=== PATIENT | female | born 1960 | race African-American/Black ===

== ENCOUNTER 2017-11-30 09:42 | Inpatient (IN) | payer OTHER ==
[2017-11-30] MEDS ORDERED: SODIUM CHLORIDE 1,000 ML IV STA (09:59)
[2017-11-30] MEDS ORDERED: chlordiazePOXIDE HCL 25 MG CAPSULE PO ONE ×2 (09:59→21:36)
--- NOTE | 2017-11-30 10:03 | PDOC ---
History of Present Illness - General Chief Complaint: Seizure Stated Complaint: Seizure Time Seen by Provider: 11/30/17 09:51 History Source: Patient, Family - History of Present Illness Timing/Duration: other (this am) Associated Symptoms: reports: malaise, seizure. denies: chest pain, cough, fever/chills, headaches, nausea/vomiting, shortness of breath Past History - Past Medical History Allergies/Adverse Reactions: Allergies Allergy/AdvReac Type Severity Reaction Status Date / Time No Known Allergies Allergy Verified 11/30/17 09:51 Home Medications: Ambulatory Orders Unobtainable 11/30/17 COPD: No HTN: Yes Psychiatric Problems: Yes Other medical history: open heart surgery - Immunization History Immunization Up to Date: Yes - Suicide/Smoking/Psychosocial Hx Smoking History: Never smoked Substance Use Type: None Review of Systems - Review of Systems Constitutional: No: Chills, Fever Respiratory: No: Shortness of Breath Cardiac (ROS): No: Chest Pain ABD/GI: No: Nausea, Vomiting Neurological: Yes: Seizure, Dizziness. No: Headache Psychiatric: Yes: Anxiety *Physical Exam - Vital Signs Last Vital Signs Temp Pulse Resp BP Pulse Ox 98.3 F 116 H 20 112/74 96 11/30/17 09:48 11/30/17 09:48 11/30/17 09:48 11/30/17 09:48 11/30/17 09:48 - Physical Exam Comments: 11/30/17 10:02 Patient lying on stretcher with generalized tremors and appears anxious at this time General Appearance: Yes: Appropriately Dressed HEENT: positive: Normal Voice Neck: positive: Supple Respiratory/Chest: positive: Lungs Clear, Normal Breath Sounds. negative: Respiratory Distress Cardiovascular: positive: S1, S2, Tachycardia Gastrointestinal/Abdominal: positive: Soft. negative: Tender Extremity: positive: Normal Inspection Integumentary: positive: Dry, Warm Neurologic: positive: Fully Oriented, Alert, Other (appears anxious) ED Treatment Course - LABORATORY CBC & Chemistry Diagram: 11/30/17 10:09 11/30/17 12:03 - RADIOLOGY Radiology Studies Ordered: Category Date Time Status HEAD CT WITHOUT CONTRAST [CT] Stat CT Scan 11/30/17 10:00 Ordered Medical Decision Making - Medical Decision Making 11/30/17 10:01 57-year-old female, history of DM, COPD and still smokes, alcohol and cocaine abuse, brought in by EMS after called to report seizure this a.m. Family at bedside and states patient was found on bathroom floor and shaking all over, unsure how long seizures lasted. States pt appears much more alert now. No h/o seizures. Pt states she does not remember what happened at home. Reports feeling nervous and dizzy currently. No CHOW, blurry vision, focal weakness, CP or SOB. Last ETOH intake was several hrs ago per pt. Patient states she drinks beers daily. Reports that she is not compliant with any of her meds. See exam New onset seizures Possible related to ETOH withdrawal Tachy to 130s w/ clear chest/lungs otherwise, non-focal in ED -IVF -ativan (no IV valium available) -librium -ekg -labs -CT head -admit 11/30/17 12:56 11/30/17 13:13 Labs w/ multiple electrolyte derangements including hypocalcemia with calcium of 6.9 (corrected 7.2), sodium of 118 and potassium of 2.3. EKG w/ QTc of 560. IV fluid and electrolyte repletion in progress. White count of 16, source unclear and this time, UA and chest x-ray pending. Patient requesting food at this time. Will contact back tender pulp drier 11/30/17 13:[address] Huggins and patient accepted to ICU. Will arrange admission with Dr Saucedo *DC/Admit/Observation/Transfer Diagnosis at time of Disposition: Seizure, ETOH abuse, Electrolyte abnormality - Discharge Dispostion Condition at time of disposition: Fair Decision to Admit order: Yes - Referrals - Patient Instructions - Post Discharge Activity
--- NOTE | 2017-11-30 10:32 | PDOC ---
*Physical Exam - Vital Signs Last Vital Signs Temp Pulse Resp BP Pulse Ox 98.3 F 116 H 20 112/74 96 11/30/17 09:48 11/30/17 09:48 11/30/17 09:48 11/30/17 09:48 11/30/17 09:48 ED Treatment Course - LABORATORY CBC & Chemistry Diagram: 12/02/17 06:00 12/04/17 09:50 Medical Decision Making - Medical Decision Making 11/30/17 10:32 Ms Thomas is a 57 yo F h/o depression, CAD, s/p seizure Pt appears to be in alcohol withdrawal Pt seen by Midlevel Provider under my direct supervision Pt interviewed and examined Ancillary studies reviewed EKG: SR, rate of 94 vpm, [place] nml, intervals prolonged - QTc: 560, prominent T waves, RSR', no RBBB I agree with plan as outlined by Midlevel Provider 11/30/17 11:23 *DC/Admit/Observation/Transfer Diagnosis at time of Disposition: Seizure, ETOH abuse, Electrolyte abnormality - Discharge Dispostion Disposition: HOME Condition at time of disposition: Fair - Prescriptions - Referrals - Patient Instructions - Post Discharge Activity
[2017-11-30] MEDS ORDERED: chlordiazePOXIDE HCL 25 MG CAPSULE ONE ×2 (10:59→22:34)
[2017-11-30 12:34] LABS: BASO % 0.3 % (0-2.0); EOS % 0.1 % (0-4.5); HEMATOCRIT 34.5 % (32.4-45.2); HEMOGLOBIN 11.8 GM/dL (10.7-15.3); LYMPH % 9.2 % (8-40); MCH 31.9 pg (25.7-33.7); MCHC 34.3 g/dl (32.0-36.0); MEAN CELL VOLUME 93.1 fl (80-96); MEAN PLT VOLUME 9.2 fl (7.5-11.1); MONO % 10.2 % (3.8-10.2); NEUT % 80.2 % (42.8-82.8); PLATELET COUNT 245 K/MM3 (134-434); RBC 3.71 M/mm3 (3.60-5.2); RDW 14.5 % (11.6-15.6); WHITE BLOOD COUNT 16.6 K/mm3 (4.0-10.0)
[2017-11-30 12:56] LABS: ALBUMIN 3.6 g/dl (3.4-5.0); ANION GAP 15 (8-16); BILIRUBIN,TOTAL 0.7 mg/dL (0.2-1.0); BLOOD UREA NITROGEN 3 mg/dL (7-18); CHLORIDE 79 mmol/L (98-107); CO2 24 mmol/L (21-32); CREATININE 0.5 mg/dL (0.55-1.02); GLUCOSE,RANDOM 121 mg/dL (74-106); LIPASE 90 U/L (73-393); SGOT/AST 40 U/L (15-37); SGPT/ALT 24 U/L (12-78); TOT PROT 7.8 g/dl (6.4-8.2)
[2017-11-30 12:57] LABS: ALK PHOS 90 U/L (45-117)
[2017-11-30 13:03] LABS: CALCIUM 6.9 mg/dL (8.5-10.1); POTASSIUM 2.3 mmol/L (3.5-5.1); SODIUM 118 mmol/L (136-145)
[2017-11-30] MEDS ORDERED: SODIUM CHLORIDE 500 ML IV STA (13:07)
[2017-11-30] MEDS ORDERED: CALCIUM GLUCONATE 10% - 1,000 MG/10 ML VIAL IVPUSH ONE (13:13)
[2017-11-30] MEDS ORDERED: POTASSIUM CHLORIDE ORAL LIQUID 20 MEQ/15 ML ONE ×2 (13:45→17:02)
[2017-11-30] MEDS: POTASSIUM CHLORIDE ORAL LIQUID 20 MEQ/15 ML PO ONE ×3 (14:06→18:35)
[2017-11-30] MEDS ORDERED: ONDANSETRON 4 MG/2 ML VIAL IVPUSH ONE (14:13)
[2017-11-30] MEDS ORDERED: ONDANSETRON 4 MG/2 ML VIAL ONE (14:23)
[2017-11-30] MEDS ORDERED: KCL 10 MEQ IVPB 30 MEQ/300 ML INFUS.BAG IVPB ONE (14:53)
[2017-11-30] MEDS: KCL 10 MEQ IVPB 10 MEQ/100 ML INFUS.BAG IVPB SCH ×3 (14:55→16:44)
--- NOTE | 2017-11-30 16:31 | EKG ---
Test Reason : Blood Pressure : / mmHG Vent. Rate : 094 BPM Atrial Rate : 094 BPM P-R Int : 152 ms QRS Dur : 090 ms QT Int : 448 ms P-R-T Axes : 077 070 074 degrees QTc Int : 560 ms NORMAL SINUS RHYTHM RSR' OR QR PATTERN IN V1 SUGGESTS RIGHT VENTRICULAR CONDUCTION DELAY VOLTAGE CRITERIA FOR LEFT VENTRICULAR HYPERTROPHY NONSPECIFIC ST ABNORMALITY PROLONGED QT ABNORMAL ECG WHEN COMPARED WITH ECG OF 17-MAR-2011 22:52, T WAVE AMPLITUDE HAS INCREASED IN INFERIOR LEADS NONSPECIFIC T WAVE ABNORMALITY NO LONGER EVIDENT IN ANTERIOR LEADS Confirmed by WATSON MCCLELLAN MD ([id number]) on 11/30/2017 4:31:10 PM Referred By: Confirmed By:WATSON MCCLELLAN MD
[2017-11-30] MEDS ORDERED: ACETAMINOPHEN 325 MG TABLET (FP) PO PRN (17:53)
--- NOTE | 2017-11-30 18:03 | HP ---
Admitting History and Physical - Primary Care Physician PCP: Jorge Saucedo - Admission History of Present Illness: 57-year-old female, history of DM, COPD and still smokes, alcohol and cocaine abuse, brought in by EMS after called to report seizure this a.m. Family at bedside and states patient was found on bathroom floor and shaking all over, unsure how long seizures lasted. States pt appears much more alert now. No h/o seizures. Pt states she does not remember what happened at home. Reports feeling nervous and dizzy currently. No CHOW, blurry vision, focal weakness, CP or SOB. Last ETOH intake was several hrs ago per pt. Patient states she drinks beers daily. Reports that she is not compliant with any of her meds. d/d New onset seizures Possible related to ETOH withdrawal - Past Medical History Pulmonary: Yes: COPD Endocrine: Yes: Diabetes Mellitus - Smoking History Smoking history: Never smoked Home Medications - Allergies Allergies/Adverse Reactions: Allergies Allergy/AdvReac Type Severity Reaction Status Date / Time No Known Allergies Allergy Verified 11/30/17 09:51 - Home Medications Home Medications: Ambulatory Orders Nicotine Polacrilex [Nicorelief -] 2 mg BUC Q2H PRN #10 gum 12/03/17 Vitamins (Sjr) - 1 tab PO DAILY #30 tablet 12/03/17 Thiamine HCl [Vitamin B1 -] 100 mg PO HS #30 tablet 12/03/17 Physical Examination Vital Signs: Vital Signs Temperature 98.3 F 11/30/17 15:00 Pulse Rate 88 11/30/17 15:00 Respiratory Rate 16 11/30/17 15:00 Blood Pressure 118/77 11/30/17 15:00 O2 Sat by Pulse Oximetry (%) 100 11/30/17 15:00 Constitutional: Yes: No Distress HENT: Yes: Atraumatic Neck: Yes: Supple Cardiovascular: Yes: Regular Rate and Rhythm Respiratory: Yes: Rhonchi Gastrointestinal: Yes: Normal Bowel Sounds Extremities: Yes: WNL Neurological: Yes: Alert, Oriented Labs: CBC, BMP 11/30/17 10:09 11/30/17 12:03 Problem List - Problems (1) ETOH abuse Assessment/Plan: will observe for withdrawl detox consult librium protocol Code(s): F10.10 - ALCOHOL ABUSE, UNCOMPLICATED (2) Electrolyte abnormality Assessment/Plan: replace Code(s): E87.8 - OTH DISORDERS OF ELECTROLYTE AND FLUID BALANCE, NEC (3) Seizure Assessment/Plan: monitor seizure precautions neuro on board probably alcohol withdrawl seizures Code(s): R56.9 - UNSPECIFIED CONVULSIONS (4) Hyponatremia Assessment/Plan: probably causing seizures will replace Code(s): E87.1 - HYPO-OSMOLALITY AND HYPONATREMIA (5) Alcohol dependence with uncomplicated withdrawal Code(s): F10.230 - ALCOHOL DEPENDENCE WITH WITHDRAWAL, UNCOMPLICATED Assessment/Plan Laboratory Tests 11/30/17 11/30/17 11/30/17 10:09 12:03 12:03 WBC 16.6 H RBC 3.71 Hgb 11.8 Hct 34.5 MCV 93.1 MCH 31.9 MCHC 34.3 RDW 14.5 Plt Count 245 MPV 9.2 Neutrophils % 80.2 Lymphocytes % 9.2 Monocytes % 10.2 Eosinophils % 0.1 Basophils % 0.3 Nucleated RBC % 0 Sodium 118 L* Potassium 2.3 L* Chloride 79 L Carbon Dioxide 24 Anion Gap 15 BUN 3 L Creatinine 0.5 L Creat Clearance w eGFR > 60 Random Glucose 121 H Calcium 6.9 L* Total Bilirubin 0.7 AST 40 H ALT 24 Alkaline Phosphatase 90 Total Protein 7.8 Albumin 3.6 Lipase 90 Alcohol, Quantitative < 5.0 Active Medications Generic Name Dose Route Start Last Admin Trade Name Freq PRN Reason Stop Dose Admin Acetaminophen 650 mg 11/30/17 17:53 Tylenol - PO Q6H PRN FEVER Active Medications Generic Name Dose Route Start Last Admin Trade Name Freq PRN Reason Stop Dose Admin Acetaminophen 650 mg 11/30/17 17:53 Tylenol - PO Q6H PRN FEVER Chlordiazepoxide HCl 25 mg 12/01/17 23:00 Librium - PO 12/02/17 17:01 [id number] LISSETT Chlordiazepoxide HCl 15 mg 12/02/17 23:00 Librium - PO 12/03/17 17:01 [id number] LISSETT Chlordiazepoxide HCl 25 mg 11/30/17 21:36 Librium - PO 12/03/17 21:35 Q4H PRN WITHDRAWAL(CONT SUBST) Sodium Chloride 1,000 mls @ 100 mls/hr 12/01/17 13:00 12/01/17 13:07 Normal Saline - IV 100 mls/hr ASDIR LISSETT Administration Ondansetron HCl 4 mg 11/30/17 21:38 Zofran Odt - SL Q6H PRN NAUSEA AND/OR VOMITING Multivit/Folic Acid/Iron 1 tab 12/01/17 10:00 12/01/17 13:08 Vitamins (Sjr) - PO 1 tab DAILY LISSETT Administration Thiamine HCl 100 mg 11/30/17 22:00 11/30/17 22:44 Vitamin B1 - PO 100 mg HS LISSETT Administration
--- NOTE | 2017-11-30 18:21 | CON.ID ---
Consult Consult Specialty:: infectious diseases Reason for Consultation:: pneumonia,weakness,aspiration - History of Present Illness Chief Complaint: weakness and ams History of Present Illness: 57 year old female with pmhx of DM, COPD, etoh abuse, cocain use, and active smoking who presents to the ER after called EMS. she was found in the bathroom shaking. According to the things happened suddenly . She is an active alcoholic. She drinks about 6 to 22 ounce bottles of beer daily and whiskey. Her sister is at bedside and was able to confirm the etoh use. according to the family he mentions that the thought that this episode happened suddenly and before that the patient was perfectly fine according to the family she vomited couple of time says 4- 5 - History Source History Provided By: Family Member Limitations to Obtaining History: Clinical Condition - Past Medical History Pulmonary: Yes: COPD Endocrine: Yes: Diabetes Mellitus - Smoking History Smoking history: Never smoked Home Medications - Allergies Allergies/Adverse Reactions: Allergies Allergy/AdvReac Type Severity Reaction Status Date / Time No Known Allergies Allergy Verified 11/30/17 09:51 - Home Medications Home Medications: Ambulatory Orders Unobtainable 11/30/17 Review of Systems - Review of Systems Constitutional: reports: No Symptoms Eyes: reports: No Symptoms HENT: reports: No Symptoms Neck: reports: No Symptoms Cardiovascular: reports: No Symptoms Respiratory: reports: No Symptoms Gastrointestinal: reports: Vomiting Genitourinary: reports: No Symptoms Musculoskeletal: reports: No Symptoms Integumentary: reports: No Symptoms Neurological: reports: Seizure (suspected) Hematology/Lymphatic: reports: No Symptoms Psychiatric: reports: No Symptoms Physical Exam Vital Signs: Vital Signs Temperature 98.3 F 11/30/17 15:00 Pulse Rate 88 11/30/17 15:00 Respiratory Rate 16 11/30/17 15:00 Blood Pressure 118/77 11/30/17 15:00 O2 Sat by Pulse Oximetry (%) 100 11/30/17 15:00 Constitutional: Yes: Well Nourished, No Distress, Calm Eyes: Yes: Conjunctiva Clear Neck: Yes: Supple, Trachea Midline Cardiovascular: Yes: Regular Rate and Rhythm Respiratory: Yes: Regular, Poor Air Entry Gastrointestinal: Yes: Normal Bowel Sounds, Soft Musculoskeletal: Yes: WNL Extremities: Yes: WNL Neurological: Yes: Alert Psychiatric: Yes: Alert Labs: CBC, BMP 11/30/17 10:09 11/30/17 12:03 Imaging - Results Chest X-ray: Report Reviewed, Image Reviewed Cat Scan: Report Reviewed, Image Reviewed Assessment/Plan this patient coming with suspicion of seizure and vomiting with ams the worry is if the patient has aspirated though the patient looks clinically stable also her electrolytes are abnormal hyponatremia etoh abuse smoker cocaine abuse probable seizure r/o aspiration pna leukocytosis plan will start patient on abx hydration monitor wbc closely monitor mental status if patient starts improving will deescalate abx clinically follow as per icu and primary cc time 40 min
[2017-11-30] MEDS: PIPERACILLIN/TAZOB 3.375 GM 3.375 GM in DEXTROSE 5%-WATER - 50 ML IVPB SCH ×2 (18:36→19:50)
[2017-11-30] MEDS ORDERED: PIPERACILLIN/TAZOB 3.375 GM 3.375 GM/50 ML BAG IVPB ONE (18:42)
--- NOTE | 2017-11-30 21:31 | CONSULT ---
Consult Detox [facility] Reason for Current Admission/Consult: substance use Referred by:: Praveen hernandez - Past Medical History Pulmonary: Yes: COPD Endocrine: Yes: Diabetes Mellitus Assessment Plan - Diagnosis (1) Alcohol dependence with uncomplicated withdrawal Status: Acute (2) Urinary tract infection Status: Acute (3) Electrolyte abnormality Status: Acute (4) Hyponatremia Status: Acute (5) Seizure Status: Acute (6) Malnourished Status: Acute - Plan Plan: chart, imagain, labs reviewed. 57 yo f admitted with possible new onset seizures, etiology unclear but h/o alcohol use disorder with severe hyponatremia, hypokalemia, hypabluminemia, hypomagnesemia, abnormal u/a on admission. Recommend: 1. saline rehydration, vitamins, libirum detox as ordered. 2. supplement k and mg, patient has prolonged qtc and is at risk of torsade with these electrolyte abnormalities. 3, severely malnourished, ensure plus, dietary consult. 4. if medically stable consider inpatient rehab vs outpatient on discharge for alcohol use 5. abnormal u/a - send urine culture consider antibiotics if symptomatic. - Medication Detox Regimen/Protocol: Librium
[2017-11-30] MEDS ORDERED: chlordiazePOXIDE HCL 25 MG CAPSULE PO PRN (21:36)
[2017-11-30] MEDS ORDERED: ONDANSETRON *ODT* 4 MG TABLET SL PRN (21:38)
[2017-11-30] MEDS ORDERED: POTASSIUM CHLORIDE TABS 20 MEQ TABLET.ER (FP) PO SCH (22:00)
--- NOTE | 2017-11-30 22:10 | PN ---
Progress Note (short form) - Note Progress Note: [facility]: Called to see pt for admission to ICU for ETOH withdrawal, possible sz. Spoke with pt at bedside, she is awake, alert to person, place, does not recall all events surrounding coming to ED. It is reported (no family at bedside) that pt was found in bathroom shaking. She does not have known sz disorder, the activity today is not well described (how long? tonic clonic? incontinence?). Pt sent to ED, she was normothermic, normotensive, without distress. There was concern that pt was in acute etoh w/d as apparently drinks daily and uses cocaine. + tob as well. . ETOH level was < 50. Pt given ativan 2mg and librium 50. There was no further sz activity. Labs notable for wbc of 16 but no localizing symptoms: no cough, no shortness of breath, no dysuria, no fever, no N/v/d. CK elevated at 900 but Cr wnl. Trop 0.40. Na 118, K 2.3 (repletion given) . CMP repeat pending, however there has been issues with chemistry lab machine. The accuracy of labs are in questiona and repeat labs going to [place] for analysis. On exam pt is awake, alert, hemodynamically stable. She is not tremulous, not tachycardic. She has no tongue fasciculation. She is normothermic and her skin is dry. CIWA is 2. She does not appear is acute withdrawal. She has not required significant dosing. Pt needs repeat BMP to recheck Na and K, enroute to [facility]. An EKG and repeat trop are also pending. Her hemodynamics are stable. Her Na should not be corrected > 10 in 24hrs, it is unclear the chronicity, and may even be spurious , has yet to be rechecked. Suspect due to ETOH/free water consumption. No indication this is SIADH or volume overload. She is not altered. If repeat labs are without rising Trop, if hyponatremia was spurious/incorrect due to lab error, if she remains hemodynamically stable, and if she has low CIWA and not needing high levels of benzodiazapime she can be mananged on floor. Laboratory Last Values WBC 16.6 K/mm3 (4.0-10.0) H 11/30/17 10:09 RBC 3.71 M/mm3 (3.60-5.2) 11/30/17 10:09 Hgb 11.8 GM/dL (10.7-15.3) 11/30/17 10:09 Hct 34.5 % (32.4-45.2) 11/30/17 10:09 MCV 93.1 fl (80-96) 11/30/17 10:09 MCH 31.9 pg (25.7-33.7) 11/30/17 10:09 MCHC 34.3 g/dl (32.0-36.0) 11/30/17 10:09 RDW 14.5 % (11.6-15.6) 11/30/17 10:09 Plt Count 245 K/MM3 (134-434) 11/30/17 10:09 MPV 9.2 fl (7.5-11.1) 11/30/17 10:09 Neutrophils % 80.2 % (42.8-82.8) 11/30/17 10:09 Lymphocytes % 9.2 % (8-40) 11/30/17 10:09 Monocytes % 10.2 % (3.8-10.2) 11/30/17 10:09 Eosinophils % 0.1 % (0-4.5) 11/30/17 10:09 Basophils % 0.3 % (0-2.0) 11/30/17 10:09 Nucleated RBC % 0 % (0-0) 11/30/17 10:09 Sodium 118 mmol/L (136-145) L* 11/30/17 12:03 Potassium 2.3 mmol/L (3.5-5.1) L* 11/30/17 12:03 Chloride 79 mmol/L (98-107) L 11/30/17 12:03 Carbon Dioxide 24 mmol/L (21-32) 11/30/17 12:03 Anion Gap 15 (8-16) 11/30/17 12:03 BUN 3 mg/dL (7-18) L 11/30/17 12:03 Creatinine 0.5 mg/dL (0.55-1.02) L 11/30/17 12:03 Creat Clearance w eGFR > 60 (>60) 11/30/17 12:03 Random Glucose 121 mg/dL (74-106) H 11/30/17 12:03 Calcium 6.9 mg/dL (8.5-10.1) L* 11/30/17 12:03 Total Bilirubin 0.7 mg/dL (0.2-1.0) 11/30/17 12:03 AST 40 U/L (15-37) H 11/30/17 12:03 ALT 24 U/L (12-78) 11/30/17 12:03 Alkaline Phosphatase 90 U/L (45-117) 11/30/17 12:03 Creatine Kinase 920 IU/L (26-192) H 11/30/17 12:03 Troponin I 0.40 ng/ml (0.00-0.05) H 11/30/17 12:03 Total Protein 7.8 g/dl (6.4-8.2) 11/30/17 12:03 Albumin 3.6 g/dl (3.4-5.0) 11/30/17 12:03 Lipase 90 U/L (73-393) 11/30/17 12:03 Alcohol, Quantitative < 5.0 mg/dL (0.0-5.0) 11/30/17 12:03 [place] [facility] [id number]
[2017-11-30] MEDS ORDERED: POTASSIUM CHLORIDE TABS 20 MEQ TABLET.ER (FP) PO ONE (22:34)
[2017-11-30] MEDS: THIAMINE HCL 100 MG TABLET (FP) PO SCH (22:44)
[2017-11-30] MEDS: chlordiazePOXIDE HCL 25 MG CAPSULE PO SCH (23:02)
[2017-12-01] MEDS ORDERED: chlordiazePOXIDE HCL 25 MG CAPSULE ONE (00:10)
[2017-12-01 02:35] LABS: BLOOD UREA NITROGEN 6 mg/dl (7-18); CREATININE < 0.8 mg/dl (0.6-1.3); GLUCOSE,RANDOM 83 mg/dl (74-106); SODIUM 113 mmol/L (136-145)
[2017-12-01 02:36] LABS: ALBUMIN 3.8 g/dl (3.5-5.0); ALK PHOS 76 U/L (32-92); ANION GAP 10 (8-16); BILIRUBIN,TOTAL 0.6 mg/dl (0.2-1.0); CALCIUM 8.8 mg/dl (8.4-10.2); CHLORIDE 78 mmol/L (98-107); CO2 25 mmol/L (22-28); POTASSIUM 4.5 mmol/L (3.5-5.1); SGOT/AST 69 U/L (10-42); SGPT/ALT 25 U/L (10-40); TOT PROT 7.6 g/dl (6.4-8.3)
[2017-12-01] MEDS: PIPERACILLIN/TAZOB 3.375 GM 3.375 GM in DEXTROSE 5%-WATER - 50 ML IVPB SCH ×2 (03:00→10:13)
[2017-12-01] MEDS ORDERED: PIPERACILLIN/TAZOB 3.375 GM 3.375 GM/50 ML BAG IVPB ONE (03:21)
--- NOTE | 2017-12-01 05:05 | CONSULT ---
Consult - text type - Consultation Consultation Note: [facility] Pt seen and examined in ED CC: possible sz, hyponatremia HPI: (hx obtained from pt and medical record) Pt is a 57 y/o woman with reported ETOH and other illicits use abuse who was brought to ED via EMS after having possible sz, found to have hyponatremia, mild rhabdo, and possible etoh withdrawal. In ED pt was afebrile, normotensive, without distress, she was awake, alert to person, place, does not recall all events surrounding coming to ED. It is reported (no family at bedside) that pt was found in bathroom shaking. She does not have known sz disorder, the activity today is not well described (how long? tonic clonic? incontinence?). There was concern that pt was in acute etoh w/d as apparently drinks daily and uses cocaine. + tob as well. . ETOH level was < 50. Pt given ativan 2mg IV and librium 50mg PO. There was no further sz activity. Labs notable for wbc of 16 but no localizing symptoms: no cough, no shortness of breath, no dysuria, no fever, no N/v/d. Her CK elevated at 900 but Cr was wnl. Trop 0.40. Na 118, K 2.3 (repletion given). CMP repeat pending, however there has been issues with chemistry lab machine. The accuracy of lab was questionable as machine was apparently breaking down and repeat labs sent to [facility] for analysis. Repeat Na at 113 after 1500cc of normal saline, increasing concern for SIADH, (normal Cr, BUN low, awaiting urine electrolytes) On exam pt is awake, alert, hemodynamically stable. She is not tremulous, not tachycardic. She has no tongue fasciculation. She is normothermic and her skin is dry. CIWA is 2. She does not appear is acute withdrawal. She has not required significant dosing of benzodiazapines. Trop downtrending. Na dropping after 0.9% NS. Leukocytosis likely reactive. Past Medical History Pulmonary COPD Endocrine Diabetes Mellitus Smoking History Smoking history Never smoked +ETOH, + Cocaine Independent in ADLs Ambulatory Orders Unobtainable 11/30/17, unable to relate med she takes. Relates non compliance. Active Medications Acetaminophen (Tylenol -) 650 mg PO Q6H PRN PRN Reason: FEVER Chlordiazepoxide HCl (Librium -) 50 mg PO [id number] LISSETT Stop: 12/01/17 17:01 Last Admin: 11/30/17 23:02 Dose: 50 mg Chlordiazepoxide HCl (Librium -) 25 mg PO [id number] LISSETT Stop: 12/02/17 17:01 Chlordiazepoxide HCl (Librium -) 15 mg PO [id number] LISSETT Stop: 12/03/17 17:01 Chlordiazepoxide HCl (Librium -) 25 mg PO Q4H PRN PRN Reason: WITHDRAWAL(CONT SUBST) Stop: 12/03/17 21:35 Piperacillin Sod/Tazobactam (Sod 3.375 gm/ Dextrose) 50 mls @ 100 mls/hr IVPB Q8H-IV LISSETT; Protocol Last Admin: 12/01/17 03:00 Dose: 100 mls/hr Ondansetron HCl (Zofran Odt -) 4 mg SL Q6H PRN PRN Reason: NAUSEA AND/OR VOMITING Potassium Chloride (K-Dur -) 20 meq PO BID LISSETT Last Admin: 11/30/17 22:44 Dose: 20 meq Multivit/Folic Acid/Iron ( Vitamins (Sjr) -) 1 tab PO DAILY [facility] Thiamine HCl (Vitamin B1 -) 100 mg PO HS [facility] Last Admin: 11/30/17 22:44 Dose: 100 mg CBCD WBC 16.6 K/mm3 (4.0-10.0) H 11/30/17 10:09 RBC 3.71 M/mm3 (3.60-5.2) 11/30/17 10:09 Hgb 11.8 GM/dL (10.7-15.3) 11/30/17 10:09 Hct 34.5 % (32.4-45.2) 11/30/17 10:09 MCV 93.1 fl (80-96) 11/30/17 10:09 MCHC 34.3 g/dl (32.0-36.0) 11/30/17 10:09 RDW 14.5 % (11.6-15.6) 11/30/17 10:09 Plt Count 245 K/MM3 (134-434) 11/30/17 10:09 MPV 9.2 fl (7.5-11.1) 11/30/17 10:09 CMP Sodium 113 mmol/L (136-145) L* 11/30/17 22:40 Potassium 4.5 mmol/L (3.5-5.1) 11/30/17 22:40 Chloride 78 mmol/L (98-107) L 11/30/17 22:40 Carbon Dioxide 25 mmol/L (22-28) 11/30/17 22:40 Anion Gap 10 (8-16) 11/30/17 22:40 BUN 6 mg/dl (7-18) L 11/30/17 22:40 Creatinine < 0.8 mg/dl (0.6-1.3) 11/30/17 22:40 Creat Clearance w eGFR > 60 (>60) 11/30/17 22:40 Random Glucose 83 mg/dl (74-106) 11/30/17 22:40 Calcium 8.8 mg/dl (8.4-10.2) 11/30/17 22:40 Total Bilirubin 0.6 mg/dl (0.2-1.0) 11/30/17 22:40 AST 69 U/L (10-42) H 11/30/17 22:40 ALT 25 U/L (10-40) 11/30/17 22:40 Alkaline Phosphatase 76 U/L (32-92) 11/30/17 22:40 Total Protein 7.6 g/dl (6.4-8.3) 11/30/17 22:40 Albumin 3.8 g/dl (3.5-5.0) 11/30/17 22:40 CARDIAC ENZYMES Creatine Kinase 1923 IU/L (26-192) H 11/30/17 22:10 Troponin I 0.22 ng/ml (0.00-0.06) H 11/30/17 22:10 Vital Signs Temp 98.3 F 11/30/17 15:00 Pulse 106 H 12/01/17 03:34 Resp 20 12/01/17 03:34 BP 133/89 12/01/17 03:34 Pulse Ox 99 12/01/17 03:34 Intake & Output 11/30/17 11/30/17 12/01/17 11:59 23:59 11:59 Intake Total 1650 Balance 1650 Weight 72.575 kg Intake: IV 1500 Normal Saline - 1,000 ml 1000 @ 1000 mls/hr IV ASDIR STA Rx#:[id number] Normal Saline - 500 ml @ 500 500 mls/hr IV ASDIR STA Rx#:[id number] IVPB 150 Other: Voiding Method Diaper # Unmeasured Voids Void 3 Height 5 ft 4 in Body Mass Index (BMI) 27.4 Weight Measurement Method Est/Stated by Patient ROS: negative except as per HPI EKG reviewed, no acute ischemic changes, prolonged QTC 540, RSR V1 CXR reviewed, no focal infiltrate CTH: mild to moderate volume loss no infarct, no ICH PE: Gen: non toxic appearing woman, appears older than stated age, LINDA HENT: EOMI, non icteric, no nystagmus PULM: clear, no wheezes CV: RRR, no m/r/g appreciated ABD: soft, NT, no apparent hepatsplenomegaly EXT: minimal edema, 2+ pulses Neuro: awakens easily, Oriented to time, place, person, does not recall events. 5/5 all 4 ext, non focal ---No signs of ETOH withdrawal A/ 57 y/o woman with hx of ETOH and per report cocaine use presented with possible seizure, found to have rhabdo, hyponatremia not responsive to normal saline c/f siadh of unclear cause vs beer potomania P/ -nephrology consulted -Na correct by 10meq/24hrs, the report sz is not clearly described and pt no longer altered -if mental status changes/Sz due to HypoNa then needs 3% hypertonic -may simply respond to diuretics and 0.9 repletion -Chem lab is now back working so will be able check serial CMB and other chems/ cont to check CK -check urine and serum osm, TSH -fluid restrict -please send UTOX -no indication for abx -consider abd US -SQH, no indication for GI proph -ICU monitoring. Haroon ACNP [id number] 35min CCT Critical Care Total Critical Care Time (in minutes): 35 Critical Care Statement: The care of this patient involved high complexity decision making to prevent further life threatening deterioration of the patient 's condition and/or to evaluate & treat vital organ system(s) failure or risk of failure.
[2017-12-01] MEDS: chlordiazePOXIDE HCL 25 MG CAPSULE PO SCH ×4 (05:48→22:34)
[2017-12-01 06:33] LABS: URINE APPEARANCE SLCLOUDY; URINE BILIRUBIN NEGATIVE (<2.0 mg/dL); URINE COLOR LTYELLOW; URINE GLUCOSE (UA) NEGATIVE (NEGATIVE); URINE KETONE TRACE (NEGATIVE); URINE NITRITE NEGATIVE (NEGATIVE); URINE PROTEIN NEGATIVE (NEGATIVE); URINE UROBILINOGEN NEGATIVE mg/dL (0.2-1.0)
[2017-12-01] MEDS ORDERED: PNEUMOC 13-VAL CONJ-DIP CRM/PF 0.5 ML DISP.SYRIN IM ONE (06:45)
[2017-12-01 06:49] LABS: COCAINE, UR NEGATIVE ng/ml (CUTOFF=300); METHADONE, UR NEGATIVE ng/ml (CUTOFF=300); OPIATES, URI NEGATIVE ng/ml (CUTOFF=300); PHENCYCLIDINE,URINE NEGATIVE ng/ml (CUTOFF=25); URINE AMPHETAMINES NEGATIVE ng/ml (CUTOFF=500); URINE BARBITURATES NEGATIVE ng/ml (CUTOFF=200)
[2017-12-01 06:50] LABS: URINE BENZODIAZEPINES POSITIVE ng/ml (CUTOFF=200)
[2017-12-01 06:57] LABS: URINE LEUK ESTERASE 3+ (NEGATIVE)
[2017-12-01 07:46] LABS: BASO % 0.4 % (0-2.0); EOS % 0.4 % (0-4.5); HEMATOCRIT 33.7 % (32.4-45.2); HEMOGLOBIN 11.3 GM/dL (10.7-15.3); LYMPH % 13.2 % (8-40); MCH 31.2 pg (25.7-33.7); MCHC 33.6 g/dl (32.0-36.0); MEAN PLT VOLUME 8.6 fl (7.5-11.1); MONO % 9.1 % (3.8-10.2); NEUT % 76.9 % (42.8-82.8); PLATELET COUNT 248 K/MM3 (134-434); RBC 3.62 M/mm3 (3.60-5.2); RDW 14.9 % (11.6-15.6); WHITE BLOOD COUNT 12.2 K/mm3 (4.0-10.0)
[2017-12-01 08:15] LABS: ALBUMIN 3.4 g/dl (3.4-5.0); BILIRUBIN,DIRECT 0.3 mg/dL (0.0-0.2); BILIRUBIN,TOTAL 0.8 mg/dL (0.2-1.0); MAGNESIUM 1.7 mg/dL (1.8-2.4); PHOSPHOROUS 2.9 mg/dL (2.5-4.9); TOT PROT 7.8 g/dl (6.4-8.2)
[2017-12-01 08:22] LABS: EPI CELLS RARE /HPF (FEW)
[2017-12-01 08:35] LABS: CHLORIDE 82 mmol/L (98-107); POTASSIUM 4.3 mmol/L (3.5-5.1)
[2017-12-01 08:49] LABS: ALBUMIN 3.4 g/dl (3.4-5.0); ALK PHOS 84 U/L (45-117); ANION GAP 12 (8-16); BILIRUBIN,TOTAL 0.8 mg/dL (0.2-1.0); BLOOD UREA NITROGEN 7 mg/dL (7-18); CALCIUM 8.7 mg/dL (8.5-10.1); CO2 23 mmol/L (21-32); CREATININE 0.8 mg/dL (0.55-1.02); GLUCOSE,RANDOM 77 mg/dL (74-106); SGOT/AST 64 U/L (15-37); SGPT/ALT 31 U/L (12-78); TOT PROT 7.9 g/dl (6.4-8.2)
[2017-12-01 08:52] LABS: SODIUM 117 mmol/L (136-145)
--- NOTE | 2017-12-01 09:20 | PN ---
Physical Exam: SUBJECTIVE: Patient seen and examined OBJECTIVE: Vital Signs Period Temp Pulse Resp BP Sys/Canales Pulse Ox Last 24 Hr 98.3 F-99.8 F 88-119 16-20 112-138/72-97 95-100 GENERAL: The patient is awake, alert, and fully oriented, in no acute distress. HEAD: Normal with no signs of trauma. EYES: PERRL, extraocular movements intact, sclera anicteric, conjunctiva clear. No ptosis. ENT: Ears normal, nares patent, oropharynx clear without exudates, moist mucous membranes. NECK: Trachea midline, full range of motion, supple. LUNGS: Breath sounds equal, clear to auscultation bilaterally, no wheezes, no crackles, no accessory muscle use. HEART: Regular rate and rhythm, S1, S2 without murmur, rub or gallop. ABDOMEN: Soft, nontender, nondistended, normoactive bowel sounds, no guarding, no rebound, no hepatosplenomegaly, no masses. EXTREMITIES: 2+ pulses, warm, well-perfused, no edema. NEUROLOGICAL: Cranial nerves II through XII grossly intact. Normal speech, gait not observed. PSYCH: Normal mood, normal affect. SKIN: Warm, dry, normal turgor, no rashes or lesions noted Laboratory Results - last 24 hr 11/30/17 11/30/17 11/30/17 10:09 12:03 12:03 WBC 16.6 H RBC 3.71 Hgb 11.8 Hct 34.5 MCV 93.1 MCH 31.9 MCHC 34.3 RDW 14.5 Plt Count 245 MPV 9.2 Neutrophils % 80.2 Lymphocytes % 9.2 Monocytes % 10.2 Eosinophils % 0.1 Basophils % 0.3 Nucleated RBC % 0 Sodium 118 L* Potassium 2.3 L* Chloride 79 L Carbon Dioxide 24 Anion Gap 15 BUN 3 L Creatinine 0.5 L Creat Clearance w eGFR > 60 Random Glucose 121 H Calcium 6.9 L* Phosphorus Magnesium Total Bilirubin 0.7 Direct Bilirubin AST 40 H ALT 24 Alkaline Phosphatase 90 Creatine Kinase 920 H Creatine Kinase Index 1.8 CK-MB (CK-2) 16.858 H Troponin I 0.40 H Total Protein 7.8 Albumin 3.6 Lipase 90 TSH Urine Color Urine Appearance Urine pH Ur Specific [place] Urine Protein Urine Glucose (UA) Urine Ketones Urine Blood Urine Nitrite Urine Bilirubin Urine Urobilinogen Ur Leukocyte Esterase Urine WBC (Auto) Urine RBC (Auto) Ur Epithelial Cells Ur Random Sodium Ur Random Potassium Ur Random Chloride Opiates Screen Methadone Screen Barbiturate Screen Phencyclidine Screen Ur Amphetamines Screen MDMA (Ecstasy) Screen Benzodiazepines Screen Cocaine Screen U Marijuana (THC) Screen Alcohol, Quantitative < 5.0 11/30/17 11/30/17 11/30/17 22:10 22:10 22:40 WBC RBC Hgb Hct MCV MCH MCHC RDW Plt Count MPV Neutrophils % Lymphocytes % Monocytes % Eosinophils % Basophils % Nucleated RBC % Sodium 113 L* Potassium 4.5 Chloride 78 L Carbon Dioxide 25 Anion Gap 10 BUN 6 L Creatinine < 0.8 Creat Clearance w eGFR > 60 Random Glucose 83 Calcium 8.8 Phosphorus Magnesium Total Bilirubin 0.6 Direct Bilirubin AST 69 H ALT 25 Alkaline Phosphatase 76 Creatine Kinase 1923 H Creatine Kinase Index 0.2 CK-MB (CK-2) 5.1 H Troponin I 0.22 H Total Protein 7.6 Albumin 3.8 Lipase TSH Urine Color Urine Appearance Urine pH Ur Specific [place] Urine Protein Urine Glucose (UA) Urine Ketones Urine Blood Urine Nitrite Urine Bilirubin Urine Urobilinogen Ur Leukocyte Esterase Urine WBC (Auto) Urine RBC (Auto) Ur Epithelial Cells Ur Random Sodium Ur Random Potassium Ur Random Chloride Opiates Screen Methadone Screen Barbiturate Screen Phencyclidine Screen Ur Amphetamines Screen MDMA (Ecstasy) Screen Benzodiazepines Screen Cocaine Screen U Marijuana (THC) Screen Alcohol, Quantitative 12/01/17 12/01/17 12/01/17 05:54 05:54 05:54 WBC RBC Hgb Hct MCV MCH MCHC RDW Plt Count MPV Neutrophils % Lymphocytes % Monocytes % Eosinophils % Basophils % Nucleated RBC % Sodium Potassium Chloride Carbon Dioxide Anion Gap BUN Creatinine Creat Clearance w eGFR Random Glucose Calcium Phosphorus Magnesium Total Bilirubin Direct Bilirubin AST ALT Alkaline Phosphatase Creatine Kinase Creatine Kinase Index CK-MB (CK-2) Troponin I Total Protein Albumin Lipase TSH Urine Color Ltyellow Urine Appearance Slcloudy Urine pH 6.0 Ur Specific [place] 1.009 Urine Protein Negative Urine Glucose (UA) Negative Urine Ketones Trace H Urine Blood 1+ H Urine Nitrite Negative Urine Bilirubin Negative Urine Urobilinogen Negative Ur Leukocyte Esterase 3+ H Urine WBC (Auto) 28 Urine RBC (Auto) 1 Ur Epithelial Cells Rare Ur Random Sodium 8 Ur Random Potassium 23.5 Ur Random Chloride < 10 Opiates Screen Negative Methadone Screen Negative Barbiturate Screen Negative Phencyclidine Screen Negative Ur Amphetamines Screen Negative MDMA (Ecstasy) Screen Negative Benzodiazepines Screen Positive Cocaine Screen Negative U Marijuana (THC) Screen Negative Alcohol, Quantitative 12/01/17 12/01/17 12/01/17 07:25 07:25 07:25 WBC 12.2 H RBC 3.62 Hgb 11.3 Hct 33.7 MCV 93.0 MCH 31.2 MCHC 33.6 RDW 14.9 Plt Count 248 MPV 8.6 Neutrophils % 76.9 Lymphocytes % 13.2 D Monocytes % 9.1 Eosinophils % 0.4 D Basophils % 0.4 Nucleated RBC % 0 Sodium 117 L* Potassium 4.3 Chloride 82 L Carbon Dioxide 23 Anion Gap 12 BUN 7 Creatinine 0.8 Creat Clearance w eGFR > 60 Random Glucose 77 Calcium 8.7 Phosphorus 2.9 Magnesium 1.7 L Total Bilirubin 0.8 0.8 Direct Bilirubin 0.3 H AST 64 H 61 H ALT 31 30 Alkaline Phosphatase 84 86 Creatine Kinase Creatine Kinase Index CK-MB (CK-2) Troponin I Total Protein 7.9 7.8 Albumin 3.4 3.4 Lipase TSH 0.78 Urine Color Urine Appearance Urine pH Ur Specific [place] Urine Protein Urine Glucose (UA) Urine Ketones Urine Blood Urine Nitrite Urine Bilirubin Urine Urobilinogen Ur Leukocyte Esterase Urine WBC (Auto) Urine RBC (Auto) Ur Epithelial Cells Ur Random Sodium Ur Random Potassium Ur Random Chloride Opiates Screen Methadone Screen Barbiturate Screen Phencyclidine Screen Ur Amphetamines Screen MDMA (Ecstasy) Screen Benzodiazepines Screen Cocaine Screen U Marijuana (THC) Screen Alcohol, Quantitative Active Medications Generic Name Dose Route Start Last Admin Trade Name Freq PRN Reason Stop Dose Admin Acetaminophen 650 mg 11/30/17 17:53 Tylenol - PO Q6H PRN FEVER Chlordiazepoxide HCl 50 mg 11/30/17 23:00 12/01/17 05:48 Librium - PO 12/01/17 17:01 50 mg [id number] LISSETT Administration Chlordiazepoxide HCl 25 mg 12/01/17 23:00 Librium - PO 12/02/17 17:01 [id number] LISSETT Chlordiazepoxide HCl 15 mg 12/02/17 23:00 Librium - PO 12/03/17 17:01 [id number] LISSETT Chlordiazepoxide HCl 25 mg 11/30/17 21:36 Librium - PO 12/03/17 21:35 Q4H PRN WITHDRAWAL(CONT SUBST) Piperacillin Sod/Tazobactam 50 mls @ 100 mls/hr 11/30/17 18:30 12/01/17 03:00 Sod 3.375 gm/ Dextrose IVPB 100 mls/hr Q8H-IV LISSETT Administration Protocol Influenza Virus Vaccine Quadrival 60 mcg 12/01/17 06:44 Flulaval Quad [id number] IM 12/01/17 06:45 .ONCE ONE Ondansetron HCl 4 mg 11/30/17 21:38 Zofran Odt - SL Q6H PRN NAUSEA AND/OR VOMITING Pneumococcal 13-Valent Conj Vacc 0.5 ml 12/01/17 06:45 Prevnar 13 Syringe - IM 12/01/17 06:46 .ONCE ONE Potassium Chloride 20 meq 11/30/17 22:00 11/30/17 22:44 K-Dur - PO 20 meq BID LISSETT Administration Multivit/Folic Acid/Iron 1 tab 12/01/17 10:00 Vitamins (Sjr) - PO DAILY LISSETT Thiamine HCl 100 mg 11/30/17 22:00 11/30/17 22:44 Vitamin B1 - PO 100 mg HS LISSETT Administration ASSESSMENT/PLAN: Case d/w
[2017-12-01] MEDS ORDERED: DEXTROSE 5%-WATER - 50 ML IVPB ONE (09:33)
[2017-12-01] MEDS ORDERED: PIPERACILLIN/TAZOBACTAM 3.375 GM VIAL IVPB ONE (09:33)
--- NOTE | 2017-12-01 09:44 | CON.NEURO ---
Consult Consult Specialty:: Neurology Referred by:: Dr. Saucedo Reason for Consultation:: seizure - History of Present Illness Chief Complaint: Seizure History of Present Illness: Pt is a 57 y/o woman with reported ETOH and other illicits use abuse who was brought to ED via EMS after having possible sz, found to have hyponatremia, mild rhabdo, and possible etoh withdrawal. In ED pt was afebrile, normotensive , without distress, she was awake, alert to person, place, does not recall all events surrounding coming to ED. It is reported that pt was found in bathroom shaking. She does not have known sz disorder, the activity today is not well described (how long? tonic clonic? incontinence?). There was concern that pt was in acute etoh w/d as apparently drinks daily and uses cocaine. + tob as well. . ETOH level was < 50. Pt given ativan 2mg IV and librium 50mg PO. There was no further sz activity. Labs notable for wbc of 16 but no localizing symptoms: no cough, no shortness of breath, no dysuria, no fever, no N/v/d. Her CK elevated at 900 but Cr was wnl. Trop 0.40. Na 118, K 2.3 (repletion given). CMP repeat pending, however there has been issues with chemistry lab machine. The accuracy of lab was questionable as machine was apparently breaking down and repeat labs sent to [facility] for analysis. Repeat Na at 113 after 1500cc of normal saline, increasing concern for SIADH, (normal Cr, BUN low, awaiting urine electrolytes) When I interviewed the patient, her sister was at bedside, and later pulled me aside and told me that the patient was underreporting her alcohol inake. she says that she probably drinks 6-7 32 oz bottles of beer every day and may have had an alcohol related seizure in the past. The patient says that she last drank a few days ago. 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: Other (possible seizure in past, unclear) Pulmonary: Yes: COPD ...: No Endocrine: Yes: Diabetes Mellitus - Alcohol/Substance Use Hx Alcohol Use: Yes Number of Drinks Daily: 7 History of Substance Use: reports: Cocaine - Smoking History Smoking history: Current every day smoker Aproximately how many cigarettes per day: 10 Home Medications - Allergies Allergies/Adverse Reactions: Allergies Allergy/AdvReac Type Severity Reaction Status Date / Time No Known Allergies Allergy Verified 11/30/17 09:51 - Home Medications Home Medications: Ambulatory Orders Unobtainable 11/30/17 Physical Exam-Neuro Vital Signs: Vital Signs Temperature 99.8 F H 12/01/17 06:32 Pulse Rate 94 H 12/01/17 06:32 Respiratory Rate 20 12/01/17 06:32 Blood Pressure 114/72 12/01/17 06:32 O2 Sat by Pulse Oximetry (%) 95 12/01/17 06:47 Labs: CBC, BMP 12/01/17 07:25 12/01/17 07:25 - Neuro Exam Level Of Consciousness: Yes: Alert, Oriented to Person, Oriented to Place (she is off by a few days on the date, knows its November 2017 and after mother's day) Eyes: Yes: DAVID Speech: WNL Cranial Nerves II-XII Intact: Yes DTR's: 2+ Left Bicep, 2+ Right Bicep, 2+ Left Tricep, 2+ Right Tricep, 2+ Left Brachioradialis, 2+ Right Brachioradialis Babinski: Absent Response to light touch: Normal Coordination: Normal: Finger to Nose Motor Strength: 5/5: Left Arm, Right Arm, Left Leg, Right Leg Gait: Deferred Imaging - Results Cat Scan: Report Reviewed, Image Reviewed (Mild volume loss, otherwise unremarkable) Problem List - Problems (1) ETOH abuse Code(s): F10.10 - ALCOHOL ABUSE, UNCOMPLICATED (2) Electrolyte abnormality Code(s): E87.8 - OTH DISORDERS OF ELECTROLYTE AND FLUID BALANCE, NEC (3) Seizure Code(s): R56.9 - UNSPECIFIED CONVULSIONS Assessment/Plan Probable alcohol withdrawal seizure. Wouldn't start anticonvulsants at this time. Would debt and budget counselor as to abstinence and polysubstance abuse treatment. She is in denial so her prognosis at this time is guarded. she may need detox if shows signs of active withdrawal. Would give thiamine to avoid Wernickes. suggest MRI brain, epilepsy protocol and EEG, though the EEG can be done as an outpatient. She can follow up with us if desired. Thanks. We'll follow with you while in house.
[2017-12-01] MEDS ORDERED: PRENATAL VITAMINS W/ FOLIC ACID TABLET (FP) PO SCH (10:00)
[2017-12-01] MEDS ORDERED: PNEUMOCOCCAL 23 VACCINE 0.5 ML VIAL IM ONE (11:00)
--- NOTE | 2017-12-01 12:20 | CONSULT ---
Consult Consult Specialty:: Nephrology Reason for Consultation:: hyponatremia - History of Present Illness Chief Complaint: possible seizure History of Present Illness: Pt is a 57 year old female with pmhx of DM, COPD, etoh abuse, cocain use, and active smoking who presents to the ER after called EMS. she was found in the bathroom shaking. She is now awake and alert. She is an active alcoholic. She drinks about 6 to 22 ounce bottles of beer daily and whiskey. Her sister is at bedside and was able to confirm the etoh use. She has very poor po intake. She denies headache or change of vision. She denies shortness of breath. She has appetite. She denies loss of balance. 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, unclear) Pulmonary: Yes: COPD ...: No Endocrine: Yes: Diabetes Mellitus - Alcohol/Substance Use Hx Alcohol Use: Yes Number of Drinks Daily: 7 History of Substance Use: reports: Cocaine - Smoking History Smoking history: Current every day smoker Aproximately how many cigarettes per day: 10 Home Medications - Allergies Allergies/Adverse Reactions: Allergies Allergy/AdvReac Type Severity Reaction Status Date / Time No Known Allergies Allergy Verified 11/30/17 09:51 - Home Medications Home Medications: Ambulatory Orders Unobtainable 11/30/17 Family Disease History - Family Disease History Family History: Denies Review of Systems - Review of Systems Constitutional: reports: No Symptoms Eyes: reports: No Symptoms HENT: reports: No Symptoms Neck: reports: No Symptoms Cardiovascular: reports: No Symptoms Respiratory: reports: No Symptoms Gastrointestinal: reports: No Symptoms Genitourinary: reports: No Symptoms Integumentary: reports: No Symptoms Neurological: reports: No Symptoms Endocrine: reports: No Symptoms Hematology/Lymphatic: reports: No Symptoms Psychiatric: reports: No Symptoms Physical Exam Vital Signs: Vital Signs Temperature 98.4 F 12/01/17 10:00 Pulse Rate 94 H 12/01/17 10:00 Respiratory Rate 24 12/01/17 10:00 Blood Pressure 98/78 12/01/17 10:00 O2 Sat by Pulse Oximetry (%) 95 12/01/17 06:47 Constitutional: Yes: Calm Eyes: Yes: Conjunctiva Clear HENT: Yes: Atraumatic Neck: Yes: Supple Cardiovascular: Yes: S1, S2 Respiratory: Yes: CTA Bilaterally Gastrointestinal: Yes: Soft Renal/: Yes: WNL Musculoskeletal: Yes: WNL Extremities: Yes: WNL Edema: No Neurological: Yes: Oriented Psychiatric: Yes: Oriented Labs: CBC, BMP 12/01/17 07:25 12/01/17 07:25 Laboratory Tests 12/01/17 12/01/17 12/01/17 05:54 07:25 07:30 Sodium 117 L* Potassium 4.3 Chloride 82 L Urine Osmolality 219 L Ur Random Sodium 8 Imaging - Results Chest X-ray: Report Reviewed Cat Scan: Report Reviewed Problem List - Problems (1) Hyponatremia Code(s): E87.1 - HYPO-OSMOLALITY AND HYPONATREMIA (2) ETOH abuse Code(s): F10.10 - ALCOHOL ABUSE, UNCOMPLICATED Assessment/Plan Current Medications Generic Name Dose Route Start Last Admin Trade Name Freq PRN Reason Stop Dose Admin Acetaminophen 650 mg 11/30/17 17:53 Tylenol - PO Q6H PRN FEVER Chlordiazepoxide HCl 50 mg 11/30/17 23:00 12/01/17 10:12 Librium - PO 12/01/17 17:01 50 mg [id number] LISSETT Administration Chlordiazepoxide HCl 25 mg 12/01/17 23:00 Librium - PO 12/02/17 17:01 [id number] LISSETT Chlordiazepoxide HCl 15 mg 12/02/17 23:00 Librium - PO 12/03/17 17:01 [id number] LISSETT Chlordiazepoxide HCl 25 mg 11/30/17 21:36 Librium - PO 12/03/17 21:35 Q4H PRN WITHDRAWAL(CONT SUBST) Piperacillin Sod/Tazobactam 50 mls @ 100 mls/hr 11/30/17 18:30 12/01/17 10:13 Sod 3.375 gm/ Dextrose IVPB 100 mls/hr Q8H-IV LISSETT Administration Protocol Sodium Chloride 1,000 mls @ 100 mls/hr 12/01/17 13:00 12/01/17 13:07 Normal Saline - IV 100 mls/hr ASDIR LISSETT Administration Ondansetron HCl 4 mg 11/30/17 21:38 Zofran Odt - SL Q6H PRN NAUSEA AND/OR VOMITING Multivit/Folic Acid/Iron 1 tab 12/01/17 10:00 12/01/17 13:08 Vitamins (Sjr) - PO 1 tab DAILY LISSETT Administration Thiamine HCl 100 mg 11/30/17 22:00 11/30/17 22:44 Vitamin B1 - PO 100 mg HS LISSETT Administration Impression 1. hyponatremia 2. possible seizure 3. DM 4. COPD 5. etoh abuse - active 6. active smoker 7. cocaine use 8. rhabdo Plan - urine osm is lower than plasma osm and pt has a very low urine sodium - start saline and monitor bmp q 3 hours - avoid a rise of greater than 10 meq in 24 hours - case discussed with ICU this afternoon, I was not called last night - likely etiology of hyponatremia is secondary to beer in take - check tsh level - monitor blood pressure - pt on detox protocol - will follow Dr Loya
[2017-12-01] MEDS ORDERED: FLU VACCINE QUAD 60 MCG/0.5 ML (MDV 17-18) IM ONE (12:45)
--- NOTE | 2017-12-01 12:59 | PN ---
Teaching Attending Note Name of Resident: Eugenia Buck ATTENDING PHYSICIAN STATEMENT I saw and evaluated the patient. I reviewed the resident's note and discussed the case with the resident. I agree with the resident's findings and plan as documented. SUBJECTIVE: Patient seen and examined in the ICU. Awake and alert. No further seizure activity noted. Denies CP or SOB. Not tremulous. Intake & Output 11/28/17 11/29/17 11/30/17 12/01/17 23:59 23:59 23:59 23:59 Intake Total 1650 Balance 1650 Weight 160 lb 107 lb 12.897 oz Last Vital Signs Temp Pulse Resp BP Pulse Ox 98.4 F 94 H 24 98/78 95 12/01/17 10:00 12/01/17 10:00 12/01/17 10:00 12/01/17 10:00 12/01/17 09:00 Active Medications Acetaminophen (Tylenol -) 650 mg PO Q6H PRN PRN Reason: FEVER Chlordiazepoxide HCl (Librium -) 50 mg PO [id number] LSISETT Stop: 12/01/17 17:01 Last Admin: 12/01/17 10:12 Dose: 50 mg Chlordiazepoxide HCl (Librium -) 25 mg PO [id number] LISSETT Stop: 12/02/17 17:01 Chlordiazepoxide HCl (Librium -) 15 mg PO [id number] LISSETT Stop: 12/03/17 17:01 Chlordiazepoxide HCl (Librium -) 25 mg PO Q4H PRN PRN Reason: WITHDRAWAL(CONT SUBST) Stop: 12/03/17 21:35 Piperacillin Sod/Tazobactam (Sod 3.375 gm/ Dextrose) 50 mls @ 100 mls/hr IVPB Q8H-IV LISSETT; Protocol Last Admin: 12/01/17 10:13 Dose: 100 mls/hr Ondansetron HCl (Zofran Odt -) 4 mg SL Q6H PRN PRN Reason: NAUSEA AND/OR VOMITING Multivit/Folic Acid/Iron ( Vitamins (Sjr) -) 1 tab PO DAILY LISSETT Thiamine HCl (Vitamin B1 -) 100 mg PO HS LISSETT Last Admin: 11/30/17 22:44 Dose: 100 mg PE: Gen: non toxic appearing woman, NAD HENT: EOMI, non icteric, no nystagmus PULM: clear, no wheezes CV: RRR, no m/r/g appreciated ABD: soft, NT, no apparent hepatsplenomegaly EXT: minimal edema, 2+ pulses Neuro: Non-focal, awake and alert, no signs of ETOH withdrawal Laboratory Results - last 24 hr 11/30/17 11/30/17 11/30/17 12:03 12:03 22:10 WBC RBC Hgb Hct MCV MCH MCHC RDW Plt Count MPV Neutrophils % Lymphocytes % Monocytes % Eosinophils % Basophils % Nucleated RBC % Sodium 118 L* Potassium 2.3 L* Chloride 79 L Carbon Dioxide 24 Anion Gap 15 BUN 3 L Creatinine 0.5 L Creat Clearance w eGFR > 60 Random Glucose 121 H Serum Osmolality Calcium 6.9 L* Phosphorus Magnesium Total Bilirubin 0.7 Direct Bilirubin AST 40 H ALT 24 Alkaline Phosphatase 90 Creatine Kinase 920 H 1923 H Creatine Kinase Index 1.8 0.2 CK-MB (CK-2) 16.858 H 5.1 H Troponin I 0.40 H Total Protein 7.8 Albumin 3.6 Lipase 90 TSH Urine Color Urine Appearance Urine pH Ur Specific [place] Urine Protein Urine Glucose (UA) Urine Ketones Urine Blood Urine Nitrite Urine Bilirubin Urine Urobilinogen Ur Leukocyte Esterase Urine WBC (Auto) Urine RBC (Auto) Ur Epithelial Cells Urine Osmolality Ur Random Sodium Ur Random Potassium Ur Random Chloride Opiates Screen Methadone Screen Barbiturate Screen Phencyclidine Screen Ur Amphetamines Screen MDMA (Ecstasy) Screen Benzodiazepines Screen Cocaine Screen U Marijuana (THC) Screen Alcohol, Quantitative < 5.0 11/30/17 11/30/17 12/01/17 22:10 22:40 05:54 WBC RBC Hgb Hct MCV MCH MCHC RDW Plt Count MPV Neutrophils % Lymphocytes % Monocytes % Eosinophils % Basophils % Nucleated RBC % Sodium 113 L* Potassium 4.5 Chloride 78 L Carbon Dioxide 25 Anion Gap 10 BUN 6 L Creatinine < 0.8 Creat Clearance w eGFR > 60 Random Glucose 83 Serum Osmolality Calcium 8.8 Phosphorus Magnesium Total Bilirubin 0.6 Direct Bilirubin AST 69 H ALT 25 Alkaline Phosphatase 76 Creatine Kinase Creatine Kinase Index CK-MB (CK-2) Troponin I 0.22 H Total Protein 7.6 Albumin 3.8 Lipase TSH Urine Color Ltyellow Urine Appearance Slcloudy Urine pH 6.0 Ur Specific [place] 1.009 Urine Protein Negative Urine Glucose (UA) Negative Urine Ketones Trace H Urine Blood 1+ H Urine Nitrite Negative Urine Bilirubin Negative Urine Urobilinogen Negative Ur Leukocyte Esterase 3+ H Urine WBC (Auto) 28 Urine RBC (Auto) 1 Ur Epithelial Cells Rare Urine Osmolality Ur Random Sodium Ur Random Potassium Ur Random Chloride Opiates Screen Methadone Screen Barbiturate Screen Phencyclidine Screen Ur Amphetamines Screen MDMA (Ecstasy) Screen Benzodiazepines Screen Cocaine Screen U Marijuana (THC) Screen Alcohol, Quantitative 12/01/17 12/01/17 12/01/17 05:54 05:54 07:25 WBC 12.2 H RBC 3.62 Hgb 11.3 Hct 33.7 MCV 93.0 MCH 31.2 MCHC 33.6 RDW 14.9 Plt Count 248 MPV 8.6 Neutrophils % 76.9 Lymphocytes % 13.2 D Monocytes % 9.1 Eosinophils % 0.4 D Basophils % 0.4 Nucleated RBC % 0 Sodium Potassium Chloride Carbon Dioxide Anion Gap BUN Creatinine Creat Clearance w eGFR Random Glucose Serum Osmolality Calcium Phosphorus Magnesium Total Bilirubin Direct Bilirubin AST ALT Alkaline Phosphatase Creatine Kinase Creatine Kinase Index CK-MB (CK-2) Troponin I Total Protein Albumin Lipase TSH Urine Color Urine Appearance Urine pH Ur Specific [place] Urine Protein Urine Glucose (UA) Urine Ketones Urine Blood Urine Nitrite Urine Bilirubin Urine Urobilinogen Ur Leukocyte Esterase Urine WBC (Auto) Urine RBC (Auto) Ur Epithelial Cells Urine Osmolality Ur Random Sodium 8 Ur Random Potassium 23.5 Ur Random Chloride < 10 Opiates Screen Negative Methadone Screen Negative Barbiturate Screen Negative Phencyclidine Screen Negative Ur Amphetamines Screen Negative MDMA (Ecstasy) Screen Negative Benzodiazepines Screen Positive Cocaine Screen Negative U Marijuana (THC) Screen Negative Alcohol, Quantitative 12/01/17 12/01/17 12/01/17 07:25 07:25 07:30 WBC RBC Hgb Hct MCV MCH MCHC RDW Plt Count MPV Neutrophils % Lymphocytes % Monocytes % Eosinophils % Basophils % Nucleated RBC % Sodium 117 L* Potassium 4.3 Chloride 82 L Carbon Dioxide 23 Anion Gap 12 BUN 7 Creatinine 0.8 Creat Clearance w eGFR > 60 Random Glucose 77 Serum Osmolality 237 L Calcium 8.7 Phosphorus 2.9 Magnesium 1.7 L Total Bilirubin 0.8 0.8 Direct Bilirubin 0.3 H AST 64 H 61 H ALT 31 30 Alkaline Phosphatase 84 86 Creatine Kinase Creatine Kinase Index CK-MB (CK-2) Troponin I Total Protein 7.9 7.8 Albumin 3.4 3.4 Lipase TSH 0.78 Urine Color Urine Appearance Urine pH Ur Specific [place] Urine Protein Urine Glucose (UA) Urine Ketones Urine Blood Urine Nitrite Urine Bilirubin Urine Urobilinogen Ur Leukocyte Esterase Urine WBC (Auto) Urine RBC (Auto) Ur Epithelial Cells Urine Osmolality 219 L Ur Random Sodium Ur Random Potassium Ur Random Chloride Opiates Screen Methadone Screen Barbiturate Screen Phencyclidine Screen Ur Amphetamines Screen MDMA (Ecstasy) Screen Benzodiazepines Screen Cocaine Screen U Marijuana (THC) Screen Alcohol, Quantitative IMP: Severe Hyponatremia (?) Seizure ETOH abuse Cocaine abuse Rhabdomyolysis PLAN: Noted nephrology consult has been called Strict I& O O2 as needed Monitor for withdrawal Low threshold to stop ABX VTE prophylaxis Floor if Na level >120. PO as tolerated Dr Torres Critical care time spent in reviewing chart, evaluating patient and formulating plan - 36 minutes.
[2017-12-01] MEDS ORDERED: SODIUM CHLORIDE 1,000 ML IV SCH ×2 (13:00→21:33)
--- NOTE | 2017-12-01 13:12 | PN ---
Physical Exam: SUBJECTIVE: Patient awake, denies CHOW, nausea, tingling. Sister @ bedside notes patient drinks 8 20 ounce beers daily, and 3 small flasks of whiskey. CAGE 2/ 4. Not interested in detox/rehab at this time. OBJECTIVE: Vital Signs Period Temp Pulse Resp BP Sys/Canales Pulse Ox Last 24 Hr 98.3 F-99.8 F 88-111 16-24 98-138/72-97 95-100 General: awake, A&O x3, euvolemic HEENT: no signs of trauma, PEERL, EOMI CV: S1/S2, no M/R/G Respiratory: CLTA B/L Abdomen: soft, no TTP, (-) asterixis Laboratory Results - last 24 hr 11/30/17 11/30/17 11/30/17 12:03 12:03 22:10 WBC RBC Hgb Hct MCV MCH MCHC RDW Plt Count MPV Neutrophils % Lymphocytes % Monocytes % Eosinophils % Basophils % Nucleated RBC % Sodium 118 L* Potassium 2.3 L* Chloride 79 L Carbon Dioxide 24 Anion Gap 15 BUN 3 L Creatinine 0.5 L Creat Clearance w eGFR > 60 Random Glucose 121 H Serum Osmolality Calcium 6.9 L* Phosphorus Magnesium Total Bilirubin 0.7 Direct Bilirubin AST 40 H ALT 24 Alkaline Phosphatase 90 Creatine Kinase 920 H 1923 H Creatine Kinase Index 1.8 0.2 CK-MB (CK-2) 16.858 H 5.1 H Troponin I 0.40 H Total Protein 7.8 Albumin 3.6 Lipase 90 TSH Urine Color Urine Appearance Urine pH Ur Specific Arthur Urine Protein Urine Glucose (UA) Urine Ketones Urine Blood Urine Nitrite Urine Bilirubin Urine Urobilinogen Ur Leukocyte Esterase Urine WBC (Auto) Urine RBC (Auto) Ur Epithelial Cells Urine Osmolality Ur Random Sodium Ur Random Potassium Ur Random Chloride Opiates Screen Methadone Screen Barbiturate Screen Phencyclidine Screen Ur Amphetamines Screen MDMA (Ecstasy) Screen Benzodiazepines Screen Cocaine Screen U Marijuana (THC) Screen Alcohol, Quantitative < 5.0 11/30/17 11/30/17 12/01/17 22:10 22:40 05:54 WBC RBC Hgb Hct MCV MCH MCHC RDW Plt Count MPV Neutrophils % Lymphocytes % Monocytes % Eosinophils % Basophils % Nucleated RBC % Sodium 113 L* Potassium 4.5 Chloride 78 L Carbon Dioxide 25 Anion Gap 10 BUN 6 L Creatinine < 0.8 Creat Clearance w eGFR > 60 Random Glucose 83 Serum Osmolality Calcium 8.8 Phosphorus Magnesium Total Bilirubin 0.6 Direct Bilirubin AST 69 H ALT 25 Alkaline Phosphatase 76 Creatine Kinase Creatine Kinase Index CK-MB (CK-2) Troponin I 0.22 H Total Protein 7.6 Albumin 3.8 Lipase TSH Urine Color Ltyellow Urine Appearance Slcloudy Urine pH 6.0 Ur Specific Arthur 1.009 Urine Protein Negative Urine Glucose (UA) Negative Urine Ketones Trace H Urine Blood 1+ H Urine Nitrite Negative Urine Bilirubin Negative Urine Urobilinogen Negative Ur Leukocyte Esterase 3+ H Urine WBC (Auto) 28 Urine RBC (Auto) 1 Ur Epithelial Cells Rare Urine Osmolality Ur Random Sodium Ur Random Potassium Ur Random Chloride Opiates Screen Methadone Screen Barbiturate Screen Phencyclidine Screen Ur Amphetamines Screen MDMA (Ecstasy) Screen Benzodiazepines Screen Cocaine Screen U Marijuana (THC) Screen Alcohol, Quantitative 12/01/17 12/01/17 12/01/17 05:54 05:54 07:25 WBC 12.2 H RBC 3.62 Hgb 11.3 Hct 33.7 MCV 93.0 MCH 31.2 MCHC 33.6 RDW 14.9 Plt Count 248 MPV 8.6 Neutrophils % 76.9 Lymphocytes % 13.2 D Monocytes % 9.1 Eosinophils % 0.4 D Basophils % 0.4 Nucleated RBC % 0 Sodium Potassium Chloride Carbon Dioxide Anion Gap BUN Creatinine Creat Clearance w eGFR Random Glucose Serum Osmolality Calcium Phosphorus Magnesium Total Bilirubin Direct Bilirubin AST ALT Alkaline Phosphatase Creatine Kinase Creatine Kinase Index CK-MB (CK-2) Troponin I Total Protein Albumin Lipase TSH Urine Color Urine Appearance Urine pH Ur Specific Arthur Urine Protein Urine Glucose (UA) Urine Ketones Urine Blood Urine Nitrite Urine Bilirubin Urine Urobilinogen Ur Leukocyte Esterase Urine WBC (Auto) Urine RBC (Auto) Ur Epithelial Cells Urine Osmolality Ur Random Sodium 8 Ur Random Potassium 23.5 Ur Random Chloride < 10 Opiates Screen Negative Methadone Screen Negative Barbiturate Screen Negative Phencyclidine Screen Negative Ur Amphetamines Screen Negative MDMA (Ecstasy) Screen Negative Benzodiazepines Screen Positive Cocaine Screen Negative U Marijuana (THC) Screen Negative Alcohol, Quantitative 12/01/17 12/01/17 12/01/17 07:25 07:25 07:30 WBC RBC Hgb Hct MCV MCH MCHC RDW Plt Count MPV Neutrophils % Lymphocytes % Monocytes % Eosinophils % Basophils % Nucleated RBC % Sodium 117 L* Potassium 4.3 Chloride 82 L Carbon Dioxide 23 Anion Gap 12 BUN 7 Creatinine 0.8 Creat Clearance w eGFR > 60 Random Glucose 77 Serum Osmolality 237 L Calcium 8.7 Phosphorus 2.9 Magnesium 1.7 L Total Bilirubin 0.8 0.8 Direct Bilirubin 0.3 H AST 64 H 61 H ALT 31 30 Alkaline Phosphatase 84 86 Creatine Kinase Creatine Kinase Index CK-MB (CK-2) Troponin I Total Protein 7.9 7.8 Albumin 3.4 3.4 Lipase TSH 0.78 Urine Color Urine Appearance Urine pH Ur Specific Arthur Urine Protein Urine Glucose (UA) Urine Ketones Urine Blood Urine Nitrite Urine Bilirubin Urine Urobilinogen Ur Leukocyte Esterase Urine WBC (Auto) Urine RBC (Auto) Ur Epithelial Cells Urine Osmolality 219 L Ur Random Sodium Ur Random Potassium Ur Random Chloride Opiates Screen Methadone Screen Barbiturate Screen Phencyclidine Screen Ur Amphetamines Screen MDMA (Ecstasy) Screen Benzodiazepines Screen Cocaine Screen U Marijuana (THC) Screen Alcohol, Quantitative Active Medications Generic Name Dose Route Start Last Admin Trade Name Freq PRN Reason Stop Dose Admin Acetaminophen 650 mg 11/30/17 17:53 Tylenol - PO Q6H PRN FEVER Chlordiazepoxide HCl 50 mg 11/30/17 23:00 12/01/17 10:12 Librium - PO 12/01/17 17:01 50 mg [id number] LISSETT Administration Chlordiazepoxide HCl 25 mg 12/01/17 23:00 Librium - PO 12/02/17 17:01 [id number] LIS[facility] Chlordiazepoxide HCl 15 mg 12/02/17 23:00 Librium - PO 12/03/17 17:01 [id number] L[facility] Chlordiazepoxide HCl 25 mg 11/30/17 21:36 Librium - PO 12/03/17 21:35 Q4H PRN WITHDRAWAL(CONT SUBST) Piperacillin Sod/Tazobactam 50 mls @ 100 mls/hr 11/30/17 18:30 12/01/17 10:13 Sod 3.375 gm/ Dextrose IVPB 100 mls/hr Q8H-IV L[facility] Administration Protocol Sodium Chloride 1,000 mls @ 100 mls/hr 12/01/17 13:00 Normal Saline - IV ASDIR LIS[facility]T Ondansetron HCl 4 mg 11/30/17 21:38 Zofran Odt - SL Q6H PRN NAUSEA AND/OR VOMITING Multivit/Folic Acid/Iron 1 tab 12/01/17 10:00 Vitamins (Sjr) - PO DAILY LISSETT Thiamine HCl 100 mg 11/30/17 22:00 11/30/17 22:44 Vitamin B1 - PO 100 mg HS LISSETT Administration ASSESSMENT/PLAN: 57 year old female admitted to the ICU for hyponatremia + seizure like activity. Patient currently asymptomatic. # 1. HYPONATREMIA - likely 2/2 to beer potomania - Serum osm + Serum Na low suggesting beer potomania > SIADH - Will start 0.9% IV NaCl @ 100 - q3H Na checks - Continue to monitor closely, plan for 3% pending persistent hyponatremia - Transfer to inpatient medicine floor once Na +/> 120 # 2. RHABDOMYOLYSIS - Likely 2/2 to seizure - IV NS - Continue to monitor CPK # 3. ? H/O SEIZURE - Patient's notes seizure like activity with CPR resuscitation - Neurology evaluated, no inpatient intervention # 4. H/O ALCOHOL ABUSE - CAGE 2 - Denies any h/o DT's - Refusing detoxification/rehabilitation at this time - CIWA 0 - Librium protocol in place Visit type - Emergency Visit Emergency Visit: No - New Patient This patient is new to me today: Yes Date on this admission: 12/01/17 - Critical Care Critical Care patient: No
--- NOTE | 2017-12-01 13:23 | PN ---
Progress Note, Physician History of Present Illness: patient looking much better no complaints sitting comfortably in the bed breathing well - Current Medication List Current Medications: Active Medications Acetaminophen (Tylenol -) 650 mg PO Q6H PRN PRN Reason: FEVER Chlordiazepoxide HCl (Librium -) 50 mg PO [id number] [facility] Stop: 12/01/17 17:01 Last Admin: 12/01/17 10:12 Dose: 50 mg Chlordiazepoxide HCl (Librium -) 25 mg PO [id number] [facility] Stop: 12/02/17 17:01 Chlordiazepoxide HCl (Librium -) 15 mg PO [id number] [facility] Stop: 12/03/17 17:01 Chlordiazepoxide HCl (Librium -) 25 mg PO Q4H PRN PRN Reason: WITHDRAWAL(CONT SUBST) Stop: 12/03/17 21:35 Piperacillin Sod/Tazobactam (Sod 3.375 gm/ Dextrose) 50 mls @ 100 mls/hr IVPB Q8H-IV LISSETT; Protocol Last Admin: 12/01/17 10:13 Dose: 100 mls/hr Sodium Chloride (Normal Saline -) 1,000 mls @ 100 mls/hr IV ASDIR LISSETT Last Admin: 12/01/17 13:07 Dose: 100 mls/hr Ondansetron HCl (Zofran Odt -) 4 mg SL Q6H PRN PRN Reason: NAUSEA AND/OR VOMITING Multivit/Folic Acid/Iron ( Vitamins (Sjr) -) 1 tab PO DAILY [facility] Last Admin: 12/01/17 13:08 Dose: 1 tab Thiamine HCl (Vitamin B1 -) 100 mg PO HS [facility] Last Admin: 11/30/17 22:44 Dose: 100 mg - Objective Vital Signs: Vital Signs Temperature 98.4 F 12/01/17 10:00 Pulse Rate 103 H 12/01/17 12:00 Respiratory Rate 16 12/01/17 12:00 Blood Pressure 106/80 12/01/17 12:00 O2 Sat by Pulse Oximetry (%) 100 12/01/17 12:58 Constitutional: Yes: No Distress, Calm Neck: Yes: Supple, Trachea Midline Cardiovascular: Yes: Regular Rate and Rhythm Respiratory: Yes: Regular, CTA Bilaterally Gastrointestinal: Yes: Normal Bowel Sounds, Soft Musculoskeletal: Yes: WNL Extremities: Yes: WNL Neurological: Yes: Alert, Oriented Psychiatric: Yes: Alert, Oriented Labs: CBC, BMP 12/01/17 07:25 12/01/17 07:25 Assessment/Plan patient looking clinically very stable wbc has trended down sodium still low hyponatremia etoh abuse smoker cocaine abuse probable seizure r/o aspiration pna leukocytosis rhabdo plan will stop abx and monitor hydration monitor sodium monitor mental status improving clinically follow as per icu and primary cc time 40 min
[2017-12-01 16:38] LABS: ANION GAP 11 (8-16); BLOOD UREA NITROGEN 10 mg/dL (7-18); CALCIUM 8.5 mg/dL (8.5-10.1); CHLORIDE 83 mmol/L (98-107); CO2 25 mmol/L (21-32); CREATININE 0.9 mg/dL (0.55-1.02); GLUCOSE,RANDOM 93 mg/dL (74-106); POTASSIUM 3.9 mmol/L (3.5-5.1)
[2017-12-01 16:41] LABS: SODIUM 119 mmol/L (136-145)
--- NOTE | 2017-12-01 18:23 | PN ---
Progress Note, Physician History of Present Illness: feeling good - Current Medication List Current Medications: Active Medications Acetaminophen (Tylenol -) 650 mg PO Q6H PRN PRN Reason: FEVER Chlordiazepoxide HCl (Librium -) 25 mg PO [id number] COUNT INCLUDES [facility] Stop: 12/02/17 17:01 Chlordiazepoxide HCl (Librium -) 15 mg PO [id number] [facility] Stop: 12/03/17 17:01 Chlordiazepoxide HCl (Librium -) 25 mg PO Q4H PRN PRN Reason: WITHDRAWAL(CONT SUBST) Stop: 12/03/17 21:35 Sodium Chloride (Normal Saline -) 1,000 mls @ 100 mls/hr IV ASDIR COUNT INCLUDES [facility] Last Admin: 12/01/17 13:07 Dose: 100 mls/hr Ondansetron HCl (Zofran Odt -) 4 mg SL Q6H PRN PRN Reason: NAUSEA AND/OR VOMITING Multivit/Folic Acid/Iron ( Vitamins (Sjr) -) 1 tab PO DAILY COUNT [facility]CLUD[facility] Last Admin: 12/01/17 13:08 Dose: 1 tab Thiamine HCl (Vitamin B1 -) 100 mg PO HS [facility]CLUDES [facility] Last Admin: 11/30/17 22:44 Dose: 100 mg - Objective Vital Signs: Vital Signs Temperature 98.0 F 12/01/17 18:02 Pulse Rate 111 H 12/01/17 18:02 Respiratory Rate 14 12/01/17 18:02 Blood Pressure 97/61 12/01/17 18:02 O2 Sat by Pulse Oximetry (%) 95 12/01/17 16:29 HENT: Yes: Atraumatic Neck: Yes: Supple Cardiovascular: Yes: Regular Rate and Rhythm Respiratory: Yes: CTA Bilaterally Gastrointestinal: Yes: Normal Bowel Sounds Extremities: Yes: WNL Neurological: Yes: Alert, Oriented Labs: CBC, BMP 12/01/17 07:25 12/01/17 15:00 Problem List - Problems (1) ETOH abuse Assessment/Plan: will observe for withdrawl detox consult on librium protocol Code(s): F10.10 - ALCOHOL ABUSE, UNCOMPLICATED (2) Electrolyte abnormality Assessment/Plan: replace Code(s): E87.8 - OTH DISORDERS OF ELECTROLYTE AND FLUID BALANCE, NEC (3) Seizure Assessment/Plan: controlled Code(s): R56.9 - UNSPECIFIED CONVULSIONS (4) Hyponatremia Assessment/Plan: improving Code(s): E87.1 - HYPO-OSMOLALITY AND HYPONATREMIA Assessment/Plan cc time 35 min
[2017-12-01 19:41] LABS: ANION GAP 11 (8-16); BLOOD UREA NITROGEN 9 mg/dL (7-18); CALCIUM 8.7 mg/dL (8.5-10.1); CHLORIDE 83 mmol/L (98-107); CO2 25 mmol/L (21-32); CREATININE 0.9 mg/dL (0.55-1.02); GLUCOSE,RANDOM 106 mg/dL (74-106); POTASSIUM 3.8 mmol/L (3.5-5.1)
[2017-12-01 20:08] LABS: SODIUM 119 mmol/L (136-145)
[2017-12-01] MEDS: THIAMINE HCL 100 MG TABLET (FP) PO SCH ×2 (21:23→22:34)
--- NOTE | 2017-12-01 21:26 | PN ---
Progress Note, Physician Chief Complaint: pt is transferred to [facility] stable hemodynamically upon transfer. - Current Medication List Current Medications: Active Medications Acetaminophen (Tylenol -) 650 mg PO Q6H PRN PRN Reason: FEVER Chlordiazepoxide HCl (Librium -) 25 mg PO [id number] [facility] Stop: 12/02/17 17:01 Chlordiazepoxide HCl (Librium -) 15 mg PO [id number] [facility] Stop: 12/03/17 17:01 Chlordiazepoxide HCl (Librium -) 25 mg PO Q4H PRN PRN Reason: WITHDRAWAL(CONT SUBST) Stop: 12/03/17 21:35 Sodium Chloride (Normal Saline -) 1,000 mls @ 100 mls/hr IV ASDIR [facility] Last Admin: 12/01/17 13:07 Dose: 100 mls/hr Ondansetron HCl (Zofran Odt -) 4 mg SL Q6H PRN PRN Reason: NAUSEA AND/OR VOMITING Multivit/Folic Acid/Iron ( Vitamins (Sjr) -) 1 tab PO DAILY [facility] Last Admin: 12/01/17 13:08 Dose: 1 tab Thiamine HCl (Vitamin B1 -) 100 mg PO HS [facility] Last Admin: 12/01/17 21:23 Dose: 100 mg - Objective Vital Signs: Vital Signs Temperature 98.0 F 12/01/17 18:02 Pulse Rate 112 H 12/01/17 20:29 Respiratory Rate 20 12/01/17 20:29 Blood Pressure 109/77 12/01/17 20:29 O2 Sat by Pulse Oximetry (%) 95 12/01/17 20:43 Labs: CBC, BMP 12/01/17 07:25
[2017-12-01] MEDS ORDERED: ONDANSETRON *ODT* 4 MG TABLET SL PRN (21:33)
[2017-12-01] MEDS ORDERED: ACETAMINOPHEN 325 MG TABLET (FP) PO PRN (21:33)
[2017-12-01] MEDS ORDERED: chlordiazePOXIDE HCL 25 MG CAPSULE PO PRN (21:33)
[2017-12-01 21:42] LABS: ANION GAP 9 (8-16); BLOOD UREA NITROGEN 9 mg/dL (7-18); CALCIUM 8.7 mg/dL (8.5-10.1); CHLORIDE 86 mmol/L (98-107); CO2 26 mmol/L (21-32); CREATININE 0.8 mg/dL (0.55-1.02); GLUCOSE,RANDOM 104 mg/dL (74-106); POTASSIUM 3.8 mmol/L (3.5-5.1)
[2017-12-01 21:49] LABS: SODIUM 121 mmol/L (136-145)
[2017-12-01] MEDS ORDERED: chlordiazePOXIDE HCL 25 MG CAPSULE PO SCH (23:00)
[2017-12-02] MEDS ORDERED: LORazepam 1 MG TABLET PO ONE (00:43)
[2017-12-02] MEDS ORDERED: NICOTINE POLACRILEX 2 MG GUM BUC PRN (02:37)
[2017-12-02] MEDS: MELATONIN 5 MG TABLETS PO SCH ×2 (02:38→21:46)
[2017-12-02 03:08] LABS: ANION GAP 10 (8-16); BLOOD UREA NITROGEN 8 mg/dL (7-18); CALCIUM 8.6 mg/dL (8.5-10.1); CHLORIDE 92 mmol/L (98-107); CO2 23 mmol/L (21-32); CREATININE 0.7 mg/dL (0.55-1.02); GLUCOSE,RANDOM 127 mg/dL (74-106); SODIUM 125 mmol/L (136-145)
[2017-12-02 03:09] LABS: POTASSIUM 4.3 mmol/L (3.5-5.1)
--- NOTE | 2017-12-02 05:08 | HOSP ---
Physical Examination Vital Signs: Vital Signs Temperature 97.4 F L 12/02/17 02:00 Pulse Rate 77 12/02/17 02:00 Respiratory Rate 20 12/02/17 02:00 Blood Pressure 152/85 12/02/17 02:00 O2 Sat by Pulse Oximetry (%) 95 12/01/17 22:00 Constitutional: Yes: Well Nourished, Mild Distress Eyes: Yes: WNL HENT: Yes: WNL Neck: Yes: WNL Cardiovascular: Yes: Regular Rate and Rhythm Respiratory: Yes: CTA Bilaterally Gastrointestinal: Yes: WNL Edema: No Peripheral Pulses WNL: Yes Neurological: Yes: Alert, Confusion, Cran Nerves II-XII Intact Labs: CBC, BMP 12/01/17 07:25 12/02/17 02:30 Hospitalist Encounter Assessment: Notified by RN that patient is confused, wandering around floor, and pulling out her IV. On arrival, patient was awake, alert, and oriented only to self. She stated that she was getting ready for her family to pick her up. Explained to her that it was the middle of the night, she should sleep now, and can discuss this in the morning with her physician. She was given Librium 25mg PO and Ativan 2mg PO with good effect, and was noted to be sleeping shortly after receiving the medications. Notified a second time that patient was again up and wandering around floor. Patient oriented to self; asking to get a beer and smoke a cigarette. Patient given Melatonin 10mg PO. Her bed was moved to front of nurses station for closer monitoring and re-orientation. A/P: #confusion could be 2/2 hypoNa versus acute delirium/sundowning -Neurology already following -Repeat Na 125 (from 121), total ~10mEq increase in 24H; will hold off on further IVF, encourage PO intake, and continue to check Na Q3H -c/w rest of medical plan as per Primary Visit type - Emergency Visit Emergency Visit: No - New Patient This patient is new to me today: Yes Date on this admission: 12/02/17 - Critical Care Critical Care patient: No
[2017-12-02] MEDS: chlordiazePOXIDE HCL 25 MG CAPSULE PO SCH ×3 (05:54→16:21)
[2017-12-02 06:16] LABS: URINE APPEARANCE CLEAR; URINE BILIRUBIN NEGATIVE (<2.0 mg/dL); URINE COLOR STRAW; URINE GLUCOSE (UA) NEGATIVE (NEGATIVE); URINE KETONE NEGATIVE (NEGATIVE); URINE LEUK ESTERASE NEGATIVE (NEGATIVE); URINE NITRITE NEGATIVE (NEGATIVE); URINE PROTEIN NEGATIVE (NEGATIVE); URINE UROBILINOGEN NEGATIVE mg/dL (0.2-1.0)
[2017-12-02 07:44] LABS: HEMATOCRIT 31.4 % (32.4-45.2); HEMOGLOBIN 10.7 GM/dL (10.7-15.3); MCHC 34.1 g/dl (32.0-36.0); MEAN CELL VOLUME 93.6 fl (80-96); MEAN PLT VOLUME 9.2 fl (7.5-11.1); PLATELET COUNT 260 K/MM3 (134-434); RBC 3.35 M/mm3 (3.60-5.2); RDW 14.9 % (11.6-15.6); WHITE BLOOD COUNT 9.4 K/mm3 (4.0-10.0)
[2017-12-02 07:49] LABS: ALBUMIN 3.3 g/dl (3.4-5.0); ANION GAP 7 (8-16); BLOOD UREA NITROGEN 6 mg/dL (7-18); CHLORIDE 92 mmol/L (98-107); CO2 27 mmol/L (21-32); GLUCOSE,RANDOM 115 mg/dL (74-106); POTASSIUM 3.7 mmol/L (3.5-5.1); SODIUM 126 mmol/L (136-145)
[2017-12-02 08:12] LABS: ALK PHOS 89 U/L (45-117); BILIRUBIN,TOTAL 0.4 mg/dL (0.2-1.0); CREATININE 0.7 mg/dL (0.55-1.02); SGOT/AST 73 U/L (15-37); SGPT/ALT 37 U/L (12-78); TOT PROT 7.3 g/dl (6.4-8.2)
[2017-12-02] MEDS ORDERED: PT OWN MED DRAWER 7, Y5N ONE ×2 (10:32→21:45)
[2017-12-02] MEDS: PRENATAL VITAMINS W/ FOLIC ACID TABLET (FP) PO SCH (10:35)
[2017-12-02] MEDS: MAGNESIUM CL 64 MG TABLET.SA PO SCH (10:35)
--- NOTE | 2017-12-02 12:07 | PN ---
Progress Note, Physician History of Present Illness: events noted from before seems patient was confused and wandering around patient currently stable no complaints sitting in the celerium - Current Medication List Current Medications: Active Medications Acetaminophen (Tylenol -) 650 mg PO Q6H PRN PRN Reason: FEVER Last Admin: 12/01/17 22:33 Dose: 650 mg Chlordiazepoxide HCl (Librium -) 25 mg PO Q4H PRN PRN Reason: WITHDRAWAL(CONT SUBST) Stop: 12/03/17 21:35 Last Admin: 12/02/17 00:33 Dose: 25 mg Chlordiazepoxide HCl (Librium -) 25 mg PO [id number] [facility] Stop: 12/02/17 17:01 Last Admin: 12/02/17 10:35 Dose: 25 mg Chlordiazepoxide HCl (Librium -) 15 mg PO [id number] [facility] Stop: 12/03/17 17:01 Sodium Chloride (Normal Saline -) 1,000 mls @ 75 mls/hr IV ASDIR [facility] Magnesium Chloride (Slow-Mag -) 128 mg PO DAILY [facility] Last Admin: 12/02/17 10:35 Dose: 128 mg Melatonin (Melatonin) 10 mg PO [facility] Last Admin: 12/02/17 02:38 Dose: 10 mg Nicotine Polacrilex (Nicorette Gum -) 2 mg BUC Q2H PRN PRN Reason: NICOTINE REPLACEMENT RX Last Admin: 12/02/17 10:35 Dose: 2 mg Multivit/Folic Acid/Iron ( Vitamins (Sjr) -) 1 tab PO DAILY [facility] Last Admin: 12/02/17 10:35 Dose: 1 tab Thiamine HCl (Vitamin B1 -) 100 mg PO [facility] Last Admin: 12/01/17 22:34 Dose: 100 mg - Objective Vital Signs: Vital Signs Temperature 97.3 F L 12/02/17 10:00 Pulse Rate 82 12/02/17 10:00 Respiratory Rate 20 12/02/17 10:00 Blood Pressure 124/79 12/02/17 10:00 O2 Sat by Pulse Oximetry (%) 95 12/02/17 09:00 Constitutional: Yes: No Distress, Calm Cardiovascular: Yes: Regular Rate and Rhythm Respiratory: Yes: Regular, CTA Bilaterally Gastrointestinal: Yes: Normal Bowel Sounds, Soft Musculoskeletal: Yes: WNL Extremities: Yes: WNL Neurological: Yes: Alert, Oriented Psychiatric: Yes: Alert, Oriented Labs: CBC, BMP 12/02/17 06:00 12/02/17 06:00 Assessment/Plan patient looking clinically very stable wbc has trended down sodium still low hyponatremia etoh abuse smoker cocaine abuse probable seizure r/o aspiration pna leukocytosis rhabdo plan neurology on case no abx continue to monitor rest as per the primary team patient stable currently
--- NOTE | 2017-12-02 12:44 | PN ---
Progress Note, Physician Chief Complaint: possible seizure History of Present Illness: Pt is a 57 y/o woman with reported ETOH and other illicits use abuse who was brought to ED via EMS after having possible sz, found to have hyponatremia, mild rhabdo, and possible etoh withdrawal. In ED pt was afebrile, normotensive , without distress, she was awake, alert to person, place, does not recall all events surrounding coming to ED. It is reported that pt was found in bathroom shaking. She does not have known sz disorder, the activity today is not well described (how long? tonic clonic? incontinence?). There was concern that pt was in acute etoh w/d as apparently drinks daily and uses cocaine. + tob as well. . ETOH level was < 50. Pt given ativan 2mg IV and librium 50mg PO. There was no further sz activity. Labs notable for wbc of 16 but no localizing symptoms: no cough, no shortness of breath, no dysuria, no fever, no N/v/d. Her CK elevated at 900 but Cr was wnl. Trop 0.40. Na 118, K 2.3 (repletion given). CMP repeat pending, however there has been issues with chemistry lab machine. The accuracy of lab was questionable as machine was apparently breaking down and repeat labs sent to [facility] for analysis. Repeat Na at 113 after 1500cc of normal saline, increasing concern for SIADH, (normal Cr, BUN low, awaiting urine electrolytes) When I interviewed the patient, her sister was at bedside, and later pulled me aside and told me that the patient was underreporting her alcohol inake. she says that she probably drinks 6-7 32 oz bottles of beer every day and may have had an alcohol related seizure in the past. The patient says that she last drank a few days ago. Now with episodes of confusion. - Current Medication List Current Medications: Active Medications Acetaminophen (Tylenol -) 650 mg PO Q6H PRN PRN Reason: FEVER Last Admin: 12/01/17 22:33 Dose: 650 mg Chlordiazepoxide HCl (Librium -) 25 mg PO Q4H PRN PRN Reason: WITHDRAWAL(CONT SUBST) Stop: 12/03/17 21:35 Last Admin: 12/02/17 00:33 Dose: 25 mg Chlordiazepoxide HCl (Librium -) 25 mg PO [id number] [facility] Stop: 12/02/17 17:01 Last Admin: 12/02/17 10:35 Dose: 25 mg Chlordiazepoxide HCl (Librium -) 15 mg PO [id number] [facility] Stop: 12/03/17 17:01 Sodium Chloride (Normal Saline -) 1,000 mls @ 75 mls/hr IV ASDIR [facility] Magnesium Chloride (Slow-Mag -) 128 mg PO DAILY [facility] Last Admin: 12/02/17 10:35 Dose: 128 mg Melatonin (Melatonin) 10 mg PO HS [facility] Last Admin: 12/02/17 02:38 Dose: 10 mg Nicotine Polacrilex (Nicorette Gum -) 2 mg BUC Q2H PRN PRN Reason: NICOTINE REPLACEMENT RX Last Admin: 12/02/17 10:35 Dose: 2 mg Multivit/Folic Acid/Iron ( Vitamins (Sjr) -) 1 tab PO DAILY [facility] Last Admin: 12/02/17 10:35 Dose: 1 tab Thiamine HCl (Vitamin B1 -) 100 mg PO [facility] Last Admin: 12/01/17 22:34 Dose: 100 mg - Objective Vital Signs: Vital Signs Temperature 97.3 F L 12/02/17 10:00 Pulse Rate 82 12/02/17 10:00 Respiratory Rate 20 12/02/17 10:00 Blood Pressure 124/79 12/02/17 10:00 O2 Sat by Pulse Oximetry (%) 95 12/02/17 09:00 Neurological: Yes: Other (Non focal but more confused.) Labs: CBC, BMP 12/02/17 06:00 12/02/17 06:00 Problem List - Problems (1) ETOH abuse Code(s): F10.10 - ALCOHOL ABUSE, UNCOMPLICATED (2) Electrolyte abnormality Code(s): E87.8 - OTH DISORDERS OF ELECTROLYTE AND FLUID BALANCE, NEC (3) Seizure Code(s): R56.9 - UNSPECIFIED CONVULSIONS Assessment/Plan Probable alcohol withdrawal seizure. Wouldn't start anticonvulsants at this time. Would funeral planning counselor as to abstinence and polysubstance abuse treatment. She is in denial so her prognosis at this time is guarded. she may need detox if shows signs of active withdrawal. Would give thiamine to avoid Wernickes. suggest MRI brain, epilepsy protocol and EEG, and now with in house confusion, may be either starting to have early alcohol withdrawal (although vital signs suggest against that), or unwitnessed seizures. Would check EEG. Continue to detox.
--- NOTE | 2017-12-02 13:03 | PN ---
Progress Note, Physician History of Present Illness: confused per RN - Current Medication List Current Medications: Active Medications Acetaminophen (Tylenol -) 650 mg PO Q6H PRN PRN Reason: FEVER Last Admin: 12/01/17 22:33 Dose: 650 mg Chlordiazepoxide HCl (Librium -) 25 mg PO Q4H PRN PRN Reason: WITHDRAWAL(CONT SUBST) Stop: 12/03/17 21:35 Last Admin: 12/02/17 00:33 Dose: 25 mg Chlordiazepoxide HCl (Librium -) 25 mg PO [id number] [facility] Stop: 12/02/17 17:01 Last Admin: 12/02/17 10:35 Dose: 25 mg Chlordiazepoxide HCl (Librium -) 15 mg PO [id number] [facility] Stop: 12/03/17 17:01 Sodium Chloride (Normal Saline -) 1,000 mls @ 75 mls/hr IV ASDIR [facility] Magnesium Chloride (Slow-Mag -) 128 mg PO DAILY [facility] Last Admin: 12/02/17 10:35 Dose: 128 mg Melatonin (Melatonin) [address] [facility] Last Admin: 12/02/17 02:38 Dose: 10 mg Nicotine Polacrilex (Nicorette Gum -) 2 mg BUC Q2H PRN PRN Reason: NICOTINE REPLACEMENT RX Last Admin: 12/02/17 10:35 Dose: 2 mg Multivit/Folic Acid/Iron ( Vitamins (Sjr) -) 1 tab PO DAILY [facility] Last Admin: 12/02/17 10:35 Dose: 1 tab Thiamine HCl (Vitamin B1 -) [address] [facility] Last Admin: 12/01/17 22:34 Dose: 100 mg - Objective Vital Signs: Vital Signs Temperature 97.3 F L 12/02/17 10:00 Pulse Rate 82 12/02/17 10:00 Respiratory Rate 20 12/02/17 10:00 Blood Pressure 124/79 12/02/17 10:00 O2 Sat by Pulse Oximetry (%) 95 12/02/17 09:00 Constitutional: Yes: No Distress HENT: Yes: Atraumatic Neck: Yes: Supple Cardiovascular: Yes: Regular Rate and Rhythm Respiratory: Yes: CTA Bilaterally Gastrointestinal: Yes: Normal Bowel Sounds Extremities: Yes: WNL Neurological: Yes: Alert, Oriented Labs: CBC, BMP 12/02/17 06:00 Problem List - Problems (1) ETOH abuse Assessment/Plan: will observe for withdrawl detox consult on librium protocol Code(s): F10.10 - ALCOHOL ABUSE, UNCOMPLICATED (2) Electrolyte abnormality Assessment/Plan: replace Code(s): E87.8 - OTH DISORDERS OF ELECTROLYTE AND FLUID BALANCE, NEC (3) Seizure Assessment/Plan: controlled Code(s): R56.9 - UNSPECIFIED CONVULSIONS (4) Hyponatremia Assessment/Plan: improving Code(s): E87.1 - HYPO-OSMOLALITY AND HYPONATREMIA
[2017-12-02 13:28] LABS: ANION GAP 9 (8-16); BLOOD UREA NITROGEN 5 mg/dL (7-18); CALCIUM 9.4 mg/dL (8.5-10.1); CHLORIDE 94 mmol/L (98-107); CO2 25 mmol/L (21-32); CREATININE 0.6 mg/dL (0.55-1.02); GLUCOSE,RANDOM 114 mg/dL (74-106); POTASSIUM 3.9 mmol/L (3.5-5.1); SODIUM 128 mmol/L (136-145)
--- NOTE | 2017-12-02 15:55 | PN ---
Progress Note, Physician History of Present Illness: Pt seen and examined at bedside. She is awake and appears comfortable. She has pulled out multiple IV's and is refusing fluids. - Current Medication List Current Medications: Active Medications Acetaminophen (Tylenol -) 650 mg PO Q6H PRN PRN Reason: FEVER Last Admin: 12/01/17 22:33 Dose: 650 mg Chlordiazepoxide HCl (Librium -) 25 mg PO Q4H PRN PRN Reason: WITHDRAWAL(CONT SUBST) Stop: 12/03/17 21:35 Last Admin: 12/02/17 00:33 Dose: 25 mg Chlordiazepoxide HCl (Librium -) 25 mg PO [id number] [facility] Stop: 12/02/17 17:01 Last Admin: 12/02/17 10:35 Dose: 25 mg Chlordiazepoxide HCl (Librium -) 15 mg PO [id number] [facility] Stop: 12/03/17 17:01 Sodium Chloride (Normal Saline -) 1,000 mls @ 75 mls/hr IV ASDIR [facility] Magnesium Chloride (Slow-Mag -) 128 mg PO DAILY [facility] Last Admin: 12/02/17 10:35 Dose: 128 mg Melatonin (Melatonin) 10 mg PO HS [facility] Last Admin: 12/02/17 02:38 Dose: 10 mg Nicotine Polacrilex (Nicorette Gum -) 2 mg BUC Q2H PRN PRN Reason: NICOTINE REPLACEMENT RX Last Admin: 12/02/17 10:35 Dose: 2 mg Multivit/Folic Acid/Iron ( Vitamins (Sjr) -) 1 tab PO DAILY [facility] Last Admin: 12/02/17 10:35 Dose: 1 tab Thiamine HCl (Vitamin B1 -) 100 mg PO HS [facility] Last Admin: 12/01/17 22:34 Dose: 100 mg - Objective Vital Signs: Vital Signs Temperature 97.3 F L 12/02/17 13:40 Pulse Rate 82 12/02/17 13:40 Respiratory Rate 18 12/02/17 13:40 Blood Pressure 119/61 12/02/17 13:40 O2 Sat by Pulse Oximetry (%) 95 12/02/17 09:00 Constitutional: Yes: Calm Eyes: Yes: Conjunctiva Clear HENT: Yes: Atraumatic Cardiovascular: Yes: S1, S2 Respiratory: Yes: CTA Bilaterally Gastrointestinal: Yes: Soft Genitourinary: Yes: WNL Musculoskeletal: Yes: WNL Edema: No Integumentary: Yes: WNL Neurological: Yes: Oriented Psychiatric: Yes: Oriented Labs: CBC, BMP 12/02/17 06:00 12/02/17 12:15 Problem List - Problems (1) Hyponatremia Code(s): E87.1 - HYPO-OSMOLALITY AND HYPONATREMIA (2) ETOH abuse Code(s): F10.10 - ALCOHOL ABUSE, UNCOMPLICATED Assessment/Plan Current Medications Generic Name Dose Route Start Last Admin Trade Name Freq PRN Reason Stop Dose Admin Acetaminophen 650 mg 12/01/17 21:33 12/01/17 22:33 Tylenol - PO 650 mg Q6H PRN Administration FEVER Chlordiazepoxide HCl 25 mg 12/01/17 21:33 12/02/17 00:33 Librium - PO 12/03/17 21:35 25 mg Q4H PRN Administration WITHDRAWAL(CONT SUBST) Chlordiazepoxide HCl 25 mg 12/01/17 23:00 12/02/17 10:35 Librium - PO 12/02/17 17:01 25 mg [id number] [facility] Administration Chlordiazepoxide HCl 15 mg 12/02/17 23:00 Librium - PO 12/03/17 17:01 [id number] [facility] Sodium Chloride 1,000 mls @ 75 mls/hr 12/02/17 11:47 Normal Saline - IV ASDIR [facility] Magnesium Chloride 128 mg 12/02/17 10:00 12/02/17 10:35 Slow-Mag - PO 128 mg DAILY [facility] Administration Melatonin 10 mg 12/02/17 02:30 12/02/17 02:38 Melatonin PO 10 mg HS [facility] Administration Nicotine Polacrilex 2 mg 12/02/17 02:37 12/02/17 10:35 Nicorette Gum - BUC 2 mg Q2H PRN Administration NICOTINE REPLACEMENT RX Multivit/Folic Acid/Iron 1 tab 12/02/17 10:00 12/02/17 10:35 Vitamins (Sjr) - PO 1 tab DAILY [facility] Administration Thiamine HCl 100 mg 12/01/17 22:00 12/01/17 22:34 Vitamin B1 - PO 100 mg HS [facility] Administration Impression 1. hyponatremia 2. possible seizure 3. DM 4. COPD 5. etoh abuse - active 6. active smoker 7. cocaine use 8. rhabdo Plan - pt is refusing fluids - sodium is improving - will give a salt tab - cont to monitor sodium - monitor cpk - pt is at risk to fall - avoid a rise of greater than 10 meq in 24 hours - pt on detox protocol - will follow Dr Loya
[2017-12-02] MEDS ORDERED: SODIUM CHLORIDE 1 GM TABLET PO ONE (16:00)
[2017-12-02] MEDS: SODIUM CHLORIDE 1,000 ML IV SCH (16:42)
[2017-12-02] MEDS: THIAMINE HCL 100 MG TABLET (FP) PO SCH (21:46)
[2017-12-02] MEDS: chlordiazePOXIDE 5 MG CAPSULE PO SCH (22:14)
[2017-12-02] MEDS ORDERED: chlordiazePOXIDE 5 MG CAPSULE PO SCH (23:00)
[2017-12-03] MEDS: chlordiazePOXIDE 5 MG CAPSULE PO SCH ×3 (05:30→17:45)
[2017-12-03 05:51] VITALS: BMI 22.4
[2017-12-03 08:15] LABS: ANION GAP 9 (8-16); BLOOD UREA NITROGEN 5 mg/dL (7-18); CALCIUM 8.7 mg/dL (8.5-10.1); CHLORIDE 96 mmol/L (98-107); CO2 25 mmol/L (21-32); CREATININE 0.7 mg/dL (0.55-1.02); GLUCOSE,RANDOM 118 mg/dL (74-106); SODIUM 130 mmol/L (136-145)
[2017-12-03] MEDS: MAGNESIUM CL 64 MG TABLET.SA PO SCH (09:34)
[2017-12-03] MEDS: PRENATAL VITAMINS W/ FOLIC ACID TABLET (FP) PO SCH (09:34)
[2017-12-03] MEDS: SODIUM CHLORIDE 1,000 ML IV SCH ×2 (10:10→17:44)
--- NOTE | 2017-12-03 12:04 | PN ---
Progress Note, Physician History of Present Illness: stable no new issues patient doing well in room - Current Medication List Current Medications: Active Medications Acetaminophen (Tylenol -) 650 mg PO Q6H PRN PRN Reason: FEVER Last Admin: 12/01/17 22:33 Dose: 650 mg Chlordiazepoxide HCl (Librium -) 25 mg PO Q4H PRN PRN Reason: WITHDRAWAL(CONT SUBST) Stop: 12/03/17 21:35 Last Admin: 12/02/17 00:33 Dose: 25 mg Chlordiazepoxide HCl (Librium -) 15 mg PO [id number] Stop: 12/03/17 17:01 Last Admin: 12/03/17 11:28 Dose: 15 mg Sodium Chloride (Normal Saline -) 1,000 mls @ 75 mls/hr IV ASDIR [facility] Last Admin: 12/03/17 10:10 Dose: 75 mls/hr Magnesium Chloride (Slow-Mag -) 128 mg PO DAILY [facility] Last Admin: 12/03/17 09:34 Dose: 128 mg Melatonin (Melatonin) 10 mg PO [facility] Last Admin: 12/02/17 21:46 Dose: 10 mg Nicotine Polacrilex (Nicorette Gum -) 2 mg BUC Q2H PRN PRN Reason: NICOTINE REPLACEMENT RX Last Admin: 12/02/17 10:35 Dose: 2 mg Multivit/Folic Acid/Iron ( Vitamins (Sjr) -) 1 tab PO DAILY [facility] Last Admin: 12/03/17 09:34 Dose: 1 tab Thiamine HCl (Vitamin B1 -) 100 mg PO [facility] Last Admin: 12/02/17 21:46 Dose: 100 mg - Objective Vital Signs: Vital Signs Temperature 97.4 F L 12/03/17 10:00 Pulse Rate 88 12/03/17 10:00 Respiratory Rate 18 12/03/17 10:00 Blood Pressure 157/86 12/03/17 10:00 O2 Sat by Pulse Oximetry (%) 96 12/03/17 09:00 Constitutional: Yes: No Distress, Calm Cardiovascular: Yes: Regular Rate and Rhythm Respiratory: Yes: Regular, CTA Bilaterally Gastrointestinal: Yes: Normal Bowel Sounds, Soft Musculoskeletal: Yes: WNL Extremities: Yes: WNL Neurological: Yes: Alert, Oriented Psychiatric: Yes: Alert, Oriented Labs: CBC, BMP 12/02/17 06:00 12/03/17 06:34 Assessment/Plan patient looking clinically very stable wbc has trended down sodium still low hyponatremia etoh abuse smoker cocaine abuse probable seizure r/o aspiration pna leukocytosis rhabdo plan neurology on case no abx continue to monitor rest as per the primary team patient stable currently watch for confusion and withdrawl
--- NOTE | 2017-12-03 12:58 | PN ---
Progress Note (short form) - Note Progress Note: 57 y/o woman with reported ETOH and other illicits use abuse who was brought to ED via EMS after having possible sz, found to have hyponatremia, mild rhabdo , and possible etoh withdrawal. In ED pt was afebrile, normotensive, without distress, she was awake, alert to person, place, does not recall all events surrounding coming to ED. It is reported that pt was found in bathroom shaking. She does not have known sz disorder, the activity today is not well described ( how long? tonic clonic? incontinence?). There was concern that pt was in acute etoh w/d as apparently drinks daily and uses cocaine. + tob as well. . ETOH level was < 50. Pt given ativan 2mg IV and librium 50mg PO. There was no further sz activity. Labs notable for wbc of 16 but no localizing symptoms: no cough, no shortness of breath, no dysuria, no fever, no N/v/d. Her CK elevated at 900 but Cr was wnl. Trop 0.40. Na 118, K 2.3 (repletion given). CMP repeat pending, however there has been issues with chemistry lab machine. The accuracy of lab was questionable as machine was apparently breaking down and repeat labs sent to [facility] for analysis. Repeat Na at 113 after 1500cc of normal saline , increasing concern for SIADH, (normal Cr, BUN low, awaiting urine electrolytes ) When I interviewed the patient, her sister was at bedside, and later pulled me aside and told me that the patient was underreporting her alcohol inake. she says that she probably drinks 6-7 32 oz bottles of beer every day and may have had an alcohol related seizure in the past. The patient says that she last drank a few days ago. Now with episodes of confusion. FU: awakens as per , drinks 3 6 packs /week, On librium and thiamine NA improving (nurse was able to put in IV just today) - Current Medication List Current Medications: Active Medications Acetaminophen (Tylenol -) 650 mg PO Q6H PRN PRN Reason: FEVER Last Admin: 12/01/17 22:33 Dose: 650 mg Chlordiazepoxide HCl (Librium -) 25 mg PO Q4H PRN PRN Reason: WITHDRAWAL(CONT SUBST) Stop: 12/03/17 21:35 Last Admin: 12/02/17 00:33 Dose: 25 mg Chlordiazepoxide HCl (Librium -) 25 mg PO [id number] [facility] Stop: 12/02/17 17:01 Last Admin: 12/02/17 10:35 Dose: 25 mg Chlordiazepoxide HCl (Librium -) 15 mg PO [id number] [facility] Stop: 12/03/17 17:01 Sodium Chloride (Normal Saline -) 1,000 mls @ 75 mls/hr IV ASDIR [facility] Magnesium Chloride (Slow-Mag -) 128 mg PO DAILY [facility] Last Admin: 12/02/17 10:35 Dose: 128 mg Melatonin (Melatonin) 10 mg PO HS [facility] Last Admin: 12/02/17 02:38 Dose: 10 mg Nicotine Polacrilex (Nicorette Gum -) 2 mg BUC Q2H PRN PRN Reason: NICOTINE REPLACEMENT RX Last Admin: 12/02/17 10:35 Dose: 2 mg Multivit/Folic Acid/Iron ( Vitamins (Sjr) -) 1 tab PO DAILY [facility] Last Admin: 12/02/17 10:35 Dose: 1 tab Thiamine HCl (Vitamin B1 -) 100 mg PO HS [facility] Last Admin: 12/01/17 22:34 Dose: 100 mg - Objective Vital Signs: Vital Signs Temperature 97.4 F L 12/03/17 10:00 Pulse Rate 88 12/03/17 10:00 Respiratory Rate 18 12/03/17 10:00 Blood Pressure 157/86 12/03/17 10:00 O2 Sat by Pulse Oximetry (%) 96 12/03/17 09:00 Neurological: Yes: Other (Non focal but more confused.) Labs: CBCD WBC 9.4 K/mm3 (4.0-10.0) 12/02/17 06:00 RBC 3.35 M/mm3 (3.60-5.2) L 12/02/17 06:00 Hgb 10.7 GM/dL (10.7-15.3) 12/02/17 06:00 Hct 31.4 % (32.4-45.2) L 12/02/17 06:00 MCV 93.6 fl (80-96) 12/02/17 06:00 MCHC 34.1 g/dl (32.0-36.0) 12/02/17 06:00 RDW 14.9 % (11.6-15.6) 12/02/17 06:00 Plt Count 260 K/MM3 (134-434) 12/02/17 06:00 MPV 9.2 fl (7.5-11.1) 12/02/17 06:00 CMP Sodium 130 mmol/L (136-145) L 12/03/17 06:34 Potassium 4.0 mmol/L (3.5-5.1) 12/03/17 06:34 Chloride 96 mmol/L (98-107) L 12/03/17 06:34 Carbon Dioxide 25 mmol/L (21-32) 12/03/17 06:34 Anion Gap 9 (8-16) 12/03/17 06:34 BUN 5 mg/dL (7-18) L 12/03/17 06:34 Creatinine 0.7 mg/dL (0.55-1.02) 12/03/17 06:34 Creat Clearance w eGFR > 60 (>60) 12/02/17 06:00 Calcium 8.7 mg/dL (8.5-10.1) 12/03/17 06:34 Total Bilirubin 0.4 mg/dL (0.2-1.0) D 12/02/17 06:00 AST 73 U/L (15-37) H 12/02/17 06:00 ALT 37 U/L (12-78) 12/02/17 06:00 Alkaline Phosphatase 89 U/L (45-117) 12/02/17 06:00 Total Protein 7.3 g/dl (6.4-8.2) 12/02/17 06:00 Albumin 3.3 g/dl (3.4-5.0) L 12/02/17 06:00 Problem List - Problems (1) ETOH abuse Code(s): F10.10 - ALCOHOL ABUSE, UNCOMPLICATED (2) Electrolyte abnormality Code(s): E87.8 - OTH DISORDERS OF ELECTROLYTE AND FLUID BALANCE, NEC (3) Seizure Code(s): R56.9 - UNSPECIFIED CONVULSIONS Assessment/Plan Probable alcohol withdrawal seizure. METABOLIC/TOXIC ENCEPHALOPATHY on LIBRIUM PROTOCOL cont thiamine NA improving ETOH counselor--she would consider rehab DR CAMARA
--- NOTE | 2017-12-03 18:38 | PN ---
Progress Note, Physician History of Present Illness: stable - Current Medication List Current Medications: Active Medications Acetaminophen (Tylenol -) 650 mg PO Q6H PRN PRN Reason: FEVER Last Admin: 12/01/17 22:33 Dose: 650 mg Chlordiazepoxide HCl (Librium -) 25 mg PO Q4H PRN PRN Reason: WITHDRAWAL(CONT SUBST) Stop: 12/03/17 21:35 Last Admin: 12/02/17 00:33 Dose: 25 mg Sodium Chloride (Normal Saline -) 1,000 mls @ 75 mls/hr IV ASDIR [facility] Last Admin: 12/03/17 17:44 Dose: Not Given Magnesium Chloride (Slow-Mag -) 128 mg PO DAILY [facility] Last Admin: 12/03/17 09:34 Dose: 128 mg Melatonin (Melatonin) 10 mg PO [facility] Last Admin: 12/02/17 21:46 Dose: 10 mg Nicotine Polacrilex (Nicorette Gum -) 2 mg BUC Q2H PRN PRN Reason: NICOTINE REPLACEMENT RX Last Admin: 12/02/17 10:35 Dose: 2 mg Multivit/Folic Acid/Iron ( Vitamins (Sjr) -) 1 tab PO DAILY [facility] Last Admin: 12/03/17 09:34 Dose: 1 tab Thiamine HCl (Vitamin B1 -) 100 mg PO [facility] Last Admin: 12/02/17 21:46 Dose: 100 mg - Objective Vital Signs: Vital Signs Temperature 97.6 F 12/03/17 15:19 Pulse Rate 79 12/03/17 15:19 Respiratory Rate 18 12/03/17 15:19 Blood Pressure 129/80 12/03/17 15:19 O2 Sat by Pulse Oximetry (%) 96 12/03/17 09:00 Constitutional: Yes: No Distress HENT: Yes: Atraumatic Neck: Yes: Supple Cardiovascular: Yes: Regular Rate and Rhythm Respiratory: Yes: CTA Bilaterally Gastrointestinal: Yes: Normal Bowel Sounds Extremities: Yes: WNL Neurological: Yes: Alert, Oriented Labs: CBC, BMP 12/02/17 06:00 12/03/17 06:34 Problem List - Problems (1) ETOH abuse Assessment/Plan: finishing librium protocol today Code(s): F10.10 - ALCOHOL ABUSE, UNCOMPLICATED (2) Electrolyte abnormality Assessment/Plan: replaced Code(s): E87.8 - OTH DISORDERS OF ELECTROLYTE AND FLUID BALANCE, NEC (3) Seizure Assessment/Plan: stable no more seizures Code(s): R56.9 - UNSPECIFIED CONVULSIONS (4) Hyponatremia Assessment/Plan: very much improved Code(s): E87.1 - HYPO-OSMOLALITY AND HYPONATREMIA (5) Alcohol dependence with uncomplicated withdrawal Code(s): F10.230 - ALCOHOL DEPENDENCE WITH WITHDRAWAL, UNCOMPLICATED
[2017-12-03] MEDS ORDERED: PT OWN MED DRAWER 7, Y5N ONE (20:38)
[2017-12-03] MEDS: THIAMINE HCL 100 MG TABLET (FP) PO SCH (22:49)
[2017-12-03] MEDS: MELATONIN 5 MG TABLETS PO SCH (22:49)
--- NOTE | 2017-12-03 23:40 | PN ---
Progress Note (short form) - Note Progress Note: Problems 1. hyponatremia 2. possible seizure 3. DM 4. COPD 5. etoh abuse - active 6. active smoker 7. cocaine use 8. rhabdo Current Medications Acetaminophen (Tylenol -) 650 mg PO Q6H PRN PRN Reason: FEVER Last Admin: 12/01/17 22:33 Dose: 650 mg Sodium Chloride (Normal Saline -) 1,000 mls @ 75 mls/hr IV ASDIR [facility] Last Admin: 12/03/17 17:44 Dose: Not Given Magnesium Chloride (Slow-Mag -) 128 mg PO DAILY [facility] Last Admin: 12/03/17 09:34 Dose: 128 mg Melatonin (Melatonin) 10 mg PO HS [facility] Last Admin: 12/03/17 22:49 Dose: 10 mg Nicotine Polacrilex (Nicorette Gum -) 2 mg BUC Q2H PRN PRN Reason: NICOTINE REPLACEMENT RX Last Admin: 12/02/17 10:35 Dose: 2 mg Multivit/Folic Acid/Iron ( Vitamins (Sjr) -) 1 tab PO DAILY [facility] Last Admin: 12/03/17 09:34 Dose: 1 tab Thiamine HCl (Vitamin B1 -) 100 mg PO HS [facility] Last Admin: 12/03/17 22:49 Dose: 100 mg Last Vital Signs Temp Pulse Resp BP Pulse Ox 98 F 78 18 154/86 96 12/03/17 22:52 12/03/17 22:52 12/03/17 22:52 12/03/17 22:52 12/03/17 09:00 CBC, BMP 12/02/17 06:00 12/03/17 06:34 IMP- Hyponatremia resolving Plan - pt is refusing fluids - sodium is improving - will give a salt tab - cont to monitor sodium - monitor cpk - pt is at risk to fall - avoid a rise of greater than 10 meq in 24 hours - pt on detox protocol - will follow
[2017-12-04] MEDS: PRENATAL VITAMINS W/ FOLIC ACID TABLET (FP) PO SCH (09:23)
[2017-12-04] MEDS: MAGNESIUM CL 64 MG TABLET.SA PO SCH (09:23)
[2017-12-04 10:30] LABS: CHLORIDE 100 mmol/L (98-107); POTASSIUM 3.8 mmol/L (3.5-5.1); SODIUM 133 mmol/L (136-145)
[2017-12-04 10:44] LABS: ALBUMIN 3.1 g/dl (3.4-5.0); ALK PHOS 87 U/L (45-117); ANION GAP 6 (8-16); BILIRUBIN,TOTAL 0.3 mg/dL (0.2-1.0); BLOOD UREA NITROGEN 8 mg/dL (7-18); CALCIUM 8.9 mg/dL (8.5-10.1); CO2 27 mmol/L (21-32); CREATININE 0.7 mg/dL (0.55-1.02); GLUCOSE,RANDOM 150 mg/dL (74-106); SGOT/AST 39 U/L (15-37); SGPT/ALT 37 U/L (12-78)
[2017-12-04 10:57] VITALS: BP 136/75; PULSE 71; TEMP 98.2
--- NOTE | 2017-12-04 11:22 | PN ---
Progress Note, Physician History of Present Illness: stable no issues - Current Medication List Current Medications: Active Medications Acetaminophen (Tylenol -) 650 mg PO Q6H PRN PRN Reason: FEVER Last Admin: 12/01/17 22:33 Dose: 650 mg Sodium Chloride (Normal Saline -) 1,000 mls @ 75 mls/hr IV ASDIR [facility] Last Admin: 12/03/17 17:44 Dose: Not Given Magnesium Chloride (Slow-Mag -) 128 mg PO DAILY [facility] Last Admin: 12/04/17 09:23 Dose: 128 mg Melatonin (Melatonin) 10 mg PO [facility] Last Admin: 12/03/17 22:49 Dose: 10 mg Nicotine Polacrilex (Nicorette Gum -) 2 mg BUC Q2H PRN PRN Reason: NICOTINE REPLACEMENT RX Last Admin: 12/02/17 10:35 Dose: 2 mg Multivit/Folic Acid/Iron ( Vitamins (Sjr) -) 1 tab PO DAILY [facility] Last Admin: 12/04/17 09:23 Dose: 1 tab Thiamine HCl (Vitamin B1 -) 100 mg PO [facility] Last Admin: 12/03/17 22:49 Dose: 100 mg - Objective Vital Signs: Vital Signs Temperature 98.2 F 12/04/17 10:00 Pulse Rate 71 12/04/17 10:00 Respiratory Rate 20 12/04/17 10:00 Blood Pressure 136/75 12/04/17 10:00 O2 Sat by Pulse Oximetry (%) 98 12/04/17 09:00 Constitutional: Yes: No Distress, Calm Cardiovascular: Yes: Regular Rate and Rhythm Respiratory: Yes: Regular, CTA Bilaterally Gastrointestinal: Yes: Normal Bowel Sounds, Soft Musculoskeletal: Yes: WNL Extremities: Yes: WNL Neurological: Yes: Alert Psychiatric: Yes: Alert Labs: CBC, BMP 12/02/17 06:00 12/04/17 09:50 Assessment/Plan patient looking clinically very stable wbc has trended down sodium still low hyponatremia etoh abuse smoker cocaine abuse probable seizure r/o aspiration pna leukocytosis rhabdo plan neurology on case no abx continue to monitor rest as per the primary team patient stable currently watch for confusion and withdrawl
--- NOTE | 2017-12-04 18:46 | DS ---
Physical Examination Vital Signs: Vital Signs Temperature 98.2 F 12/04/17 10:00 Pulse Rate 71 12/04/17 10:00 Respiratory Rate 20 12/04/17 10:00 Blood Pressure 136/75 12/04/17 10:00 O2 Sat by Pulse Oximetry (%) 98 12/04/17 09:00 Labs: CBC, BMP 12/02/17 06:00 12/04/17 09:50 Discharge Summary Reason For Visit: ALCOHOL ABUSE,SEIZURE,DISORDER OF ELECTROLYTES Condition: Fair - Instructions Diet, Activity, Other Instructions: check NA level next week with pmd if seizures recur come back to ER Disposition: HOME - Home Medications Comprehensive Discharge Medication List: Ambulatory Orders Nicotine Polacrilex [Nicorelief -] 2 mg BUC Q2H PRN #10 gum 12/03/17 Vitamins (Sjr) - 1 tab PO DAILY #30 tablet 12/03/17 Thiamine HCl [Vitamin B1 -] 100 mg PO HS #30 tablet 12/03/17 dc home
== END 2017-12-04 16:00 | disposition home or self-care (01) | DRG 425 ==
LOC: JER 09:42 → OBSVTOIN 13:55 → JERBED 13:55 → JICU 12-01 06:19 → J7W 12-01 21:56
PROVIDERS: ADMIT Internal Medicine; ATTEND Internal Medicine
PROC: HZ2ZZZZ Detoxification Services for Substance Abuse Treatment (ICD-10-PCS; principal; 2017-11-30)
DX: E87.1 Hypo-osmolality and hyponatremia (principal); R56.9 Unspecified convulsions; F14.10 Cocaine abuse, uncomplicated; D72.829 Elevated white blood cell count, unspecified; E11.9 Type 2 diabetes mellitus without complications; J44.9 Chronic obstructive pulmonary disease, unspecified; E83.51 Hypocalcemia; F10.20 Alcohol dependence, uncomplicated; F17.210 Nicotine dependence, cigarettes, uncomplicated; M62.82 Rhabdomyolysis; G92 Toxic encephalopathy
CPT/HCPCS: 36415; 70450-TC; 71045-TC-FY; 80048; 80053; 80076; 80307; 81003; 81015; 82436; 82550; 82553; 83690; 83735; 83930; 83935; 84100; 84133; 84300; 84443; 84484; 85025; 85027; 87040; 87086; 93005; 93010; 99283-25; J7030

== ENCOUNTER 2018-01-12 11:59 | Inpatient (IN) | payer OTHER ==
--- NOTE | 2018-01-12 12:49 | PDOC ---
History of Present Illness <Shaun Orta - Last Filed: 01/12/18 15:23> - General History Source: Patient Exam Limitations: No Limitations - History of Present Illness Initial Comments: 01/12/18 13:09 Miss Thomas is a 57-year-old female with a history of COPD, recent admission for hyponatremia, alcohol abuse, hypertension. She presents emergency department from her primary care physician's office for admission due to hyponatremia. She states she is feeling well. She had labs drawn several days ago. She went in to see Dr. Marlow today for re assessment He sent her to the ER for admission given a very low sodium No fevers or chills No diarrhea No vomiting No dysuria Pt reports that she is tolerating po Mild fatigue no headache No excessive <Latrice Jacques - Last Filed: 01/12/18 15:50> - General Chief Complaint: Revisit, Lab Variance Stated Complaint: LAB VARIANCE, ABNORMAL EKG Time Seen by Provider: 01/12/18 12:48 Past History <Shaun Orta - Last Filed: 01/12/18 15:23> - Past Medical History Anemia: No Asthma: No Cancer: No Cardiac Disorders: No CVA: No COPD: No CHF: No Dementia: No Diabetes: No GI Disorders: No Disorders: No HTN: Yes Hypercholesterolemia: No Liver Disease: No Psychiatric Problems: Yes Seizures: Yes (ON ADMISSION) Thyroid Disease: No - Immunization History Immunization Up to Date: Yes - Suicide/Smoking/Psychosocial Hx Smoking History: Unknown if ever smoked Number of Cigarettes Smoked Daily: 10 'Breaking Loose' booklet given: 12/01/17 Hx Alcohol Use: Yes Drug/Substance Use Hx: No Substance Use Type: None Hx Substance Use Treatment: No <Latrice Jacques - Last Filed: 01/12/18 15:50> - Past Medical History Allergies/Adverse Reactions: Allergies Allergy/AdvReac Type Severity Reaction Status Date / Time No Known Allergies Allergy Verified 01/12/18 12:34 Home Medications: Ambulatory Orders Nicotine Polacrilex [Nicorelief -] 2 mg BUC Q2H PRN #10 gum 12/03/17 Vitamins (Sjr) - 1 tab PO DAILY #30 tablet 12/03/17 Thiamine HCl [Vitamin B1 -] 100 mg PO HS #30 tablet 12/03/17 Review of Systems - Review of Systems Able to Perform ROS?: Yes Constitutional: Yes: Weakness. No: Fever, Loss of Appetite HEENTM: No: Blurred Vision, Double Vision Respiratory: Yes: Cough. No: Shortness of Breath, SOB with Exertion, Wheezing, Productive cough Cardiac (ROS): No: Chest Pain, Edema, Syncope ABD/GI: No: Abdominal Distended, Nausea, Vomiting : No: Dysuria, Discharge, Flank Pain, Hematuria Musculoskeletal: No: Back Pain, Muscle Pain, Muscle Weakness Integumentary: No: Rash Neurological: Yes: Weakness. No: Headache, Numbness, Paresthesia, Seizure, Unsteady Gait, Dizziness Psychiatric: No: Depression Endocrine: No: Intolerance to Cold Hematologic/Lymphatic: No: Anemia, Easy Bleeding <Latrice Jacques - Last Filed: 01/12/18 15:50> *Physical Exam - Vital Signs Last Vital Signs Temp Pulse Resp BP Pulse Ox 98.4 F 89 18 135/60 99 01/12/18 12:00 01/12/18 12:00 01/12/18 12:00 01/12/18 12:00 01/12/18 12:00 <Shaun Orta - Last Filed: 01/12/18 15:23> - Vital Signs Last Vital Signs Temp Pulse Resp BP Pulse Ox 98.4 F 89 18 135/60 99 01/12/18 12:00 01/12/18 12:00 01/12/18 12:00 01/12/18 12:00 01/12/18 12:00 - Physical Exam General Appearance: Yes: Nourished. No: Disheveled, Moderate Distress, Alcohol on Breath HEENT: positive: EOMI, DAVID, Other (Edentulous) Neck: positive: Supple. negative: Rigid Respiratory/Chest: positive: Wheezing. negative: Respiratory Distress, Labored Respiration Cardiovascular: positive: Regular Rhythm, Regular Rate, S1, S2. negative: Murmur Gastrointestinal/Abdominal: positive: Normal Bowel Sounds, Flat, Soft. negative : Tender, Organomegaly Musculoskeletal: positive: Normal Inspection. negative: CVA Tenderness Extremity: positive: Normal Capillary Refill, Normal Inspection, Normal Range of Motion. negative: Tender, Pedal Edema Integumentary: positive: Normal Color, Dry, Warm Neurologic: positive: malted milk supervisor II-XII NML intact <Latrice Jacques - Last Filed: 01/12/18 15:50> ED Treatment Course - LABORATORY CBC & Chemistry Diagram: 01/12/18 13:08 01/12/18 13:08 - ADDITIONAL ORDERS Additional order review: Laboratory Results 01/12/18 13:08 Sodium 110 L* Potassium 2.9 L* Chloride 64 L Carbon Dioxide 32 Anion Gap 14 BUN 7 Creatinine 0.6 Creat Clearance w eGFR > 60 Random Glucose 95 Calcium 8.8 Total Bilirubin 0.7 AST 37 ALT 26 Alkaline Phosphatase 87 Total Protein 8.5 H Albumin 3.9 01/12/18 13:08 RBC 3.84 MCV 89.4 MCHC 34.7 RDW 14.2 MPV 8.1 D Neutrophils % 71.4 Lymphocytes % 16.1 D Monocytes % 11.9 H Eosinophils % 0.2 Basophils % 0.4 <Shaun Orta - Last Filed: 01/12/18 15:23> - LABORATORY CBC & Chemistry Diagram: 01/12/18 13:08 01/12/18 13:08 <Latrice Jacques - Last Filed: 01/12/18 15:50> Medical Decision Making - Medical Decision Making 01/12/18 14:[address] Blank. Awaiting call back. <Shaun Orta - Last Filed: 01/12/18 15:23> - Medical Decision Making 01/12/18 13:27 57 F with outpatient labs significant for hyponatremia Will repeat labs Will do EKG Will admit to Dr Brambila 01/12/18 14:22 Laboratory Tests 01/12/18 13:08 WBC 9.5 Hgb 11.9 Hct 34.3 Plt Count 296 Neutrophils % 71.4 Lymphocytes % 16.1 D 01/12/18 14:50 Laboratory Tests 01/12/18 13:08 Sodium 110 L* Potassium 2.9 L* Chloride 64 L Carbon Dioxide 32 Anion Gap 14 BUN 7 Creatinine 0.6 Random Glucose 95 Pt thinks she is drinking a lot of water She had 3 cups prior to coming to the ER she had 2 cups yesterday ??? will admit to [facility] 01/12/18 15:[address] Loya Recommends repeat BMP Call placed to Dr Huggins Will admit to ICU Clinical impression: Hyponatremia 01/12/18 15:47 EKG: SR rate of 66 bpm, axis nml, intervals abnormal - QTC 555, no st elevations or depressions <Latrice Jacques - Last Filed: 01/12/18 15:50> *DC/Admit/Observation/Transfer - Attestations Scribe Attestion: 01/12/18 14:57 Documentation prepared by Shaun Orta, acting as medical aides teacher for Latrice Jacques MD. <Shaun Orta - Last Filed: 01/12/18 15:23> - Discharge Dispostion Decision to Admit order: Yes <Latrice Jacques - Last Filed: 01/12/18 15:50> Diagnosis at time of Disposition: Hyponatremia - Discharge Dispostion Condition at time of disposition: Fair
[2018-01-12] MEDS ORDERED: SODIUM CHLORIDE 1,000 ML IV STA ×2 (13:27→17:02)
[2018-01-12 14:14] LABS: BASO % 0.4 % (0-2.0); EOS % 0.2 % (0-4.5); HEMATOCRIT 34.3 % (32.4-45.2); HEMOGLOBIN 11.9 GM/dL (10.7-15.3); LYMPH % 16.1 % (8-40); MCHC 34.7 g/dl (32.0-36.0); MEAN CELL VOLUME 89.4 fl (80-96); MEAN PLT VOLUME 8.1 fl (7.5-11.1); MONO % 11.9 % (3.8-10.2); NEUT % 71.4 % (42.8-82.8); PLATELET COUNT 296 K/MM3 (134-434); RBC 3.84 M/mm3 (3.60-5.2); RDW 14.2 % (11.6-15.6); WHITE BLOOD COUNT 9.5 K/mm3 (4.0-10.0)
[2018-01-12 14:34] LABS: ALBUMIN 3.9 g/dl (3.4-5.0); ANION GAP 14 (8-16); BLOOD UREA NITROGEN 7 mg/dL (7-18); CALCIUM 8.8 mg/dL (8.5-10.1); CHLORIDE 64 mmol/L (98-107); CO2 32 mmol/L (21-32); CREATININE 0.6 mg/dL (0.55-1.02); GLUCOSE,RANDOM 95 mg/dL (74-106); SGPT/ALT 26 U/L (12-78)
[2018-01-12 14:36] LABS: ALK PHOS 87 U/L (45-117); BILIRUBIN,TOTAL 0.7 mg/dL (0.2-1.0); TOT PROT 8.5 g/dl (6.4-8.2)
[2018-01-12 14:48] LABS: SODIUM 110 mmol/L (136-145)
[2018-01-12 14:49] LABS: POTASSIUM 2.9 mmol/L (3.5-5.1); SGOT/AST 37 U/L (15-37)
[2018-01-12] MEDS ORDERED: KCL 10 MEQ IVPB 10 MEQ/100 ML INFUS.BAG IVPB ONE (15:14)
[2018-01-12] MEDS ORDERED: POTASSIUM CHLORIDE TABS 20 MEQ TABLET.ER (FP) PO ONE ×2 (15:14→15:40)
[2018-01-12] MEDS ORDERED: KCL 10 MEQ IVPB 10 MEQ/100 ML INFUS.BAG IVPB SCH (15:45)
[2018-01-12 16:29] LABS: URINE APPEARANCE CLEAR; URINE BILIRUBIN NEGATIVE (<2.0 mg/dL); URINE COLOR LTYELLOW; URINE GLUCOSE (UA) NEGATIVE (NEGATIVE); URINE KETONE NEGATIVE (NEGATIVE); URINE LEUK ESTERASE TRACE (NEGATIVE); URINE NITRITE POSITIVE (NEGATIVE); URINE PROTEIN NEGATIVE (NEGATIVE); URINE UROBILINOGEN NEGATIVE mg/dL (0.2-1.0)
[2018-01-12 17:00] LABS: URINE BACTERIA RARE /hpf (NONE SEEN)
[2018-01-12 17:53] LABS: CHLORIDE 73 mmol/L (98-107)
[2018-01-12 18:04] LABS: COCAINE, UR NEGATIVE ng/ml (CUTOFF=300); URINE AMPHETAMINES NEGATIVE ng/ml (CUTOFF=500); URINE BARBITURATES NEGATIVE ng/ml (CUTOFF=200); URINE BENZODIAZEPINES NEGATIVE ng/ml (CUTOFF=200)
[2018-01-12 18:05] LABS: METHADONE, UR NEGATIVE ng/ml (CUTOFF=300); OPIATES, URI NEGATIVE ng/ml (CUTOFF=300); PHENCYCLIDINE,URINE NEGATIVE ng/ml (CUTOFF=25)
[2018-01-12 18:15] LABS: ANION GAP 16 (8-16); BLOOD UREA NITROGEN 7 mg/dL (7-18); CALCIUM 8.3 mg/dL (8.5-10.1); CO2 27 mmol/L (21-32); CREATININE 0.5 mg/dL (0.55-1.02); GLUCOSE,RANDOM 83 mg/dL (74-106)
--- NOTE | 2018-01-12 18:19 | CONSULT ---
Consultation: REQUESTING PROVIDER: CONSULT REQUEST: We have been asked to medically evaluate this patient for hyponatremia. HISTORY OF PRESENT ILLNESS: Patient is a 57 y/o F w/ a pmh of COPD,alcohol abuse , HTN, and recent admission for hyponatremia (November 2017) that presented to [facility] ED from her PCP's office due to hyponatremia. Pt states that she went to her PCP due to her not feeling well for the past 2 weeks. Routine blood work was performed which revealed the hyponatremia of 110. Pt states that she has been drinking more water recently. Pt denies CP, SOB, CHOW, nausea, or vomiting. Pt appears to be poor historian. Awaiting lab results to narrow our differential as to the etiology of her electrolyte abnormalities. REVIEW OF SYSTEMS: CONSTITUTIONAL: Absent: fever, chills, diaphoresis, generalized weakness, malaise, loss of appetite, weight change HEENT: Absent: rhinorrhea, nasal congestion, throat pain, throat swelling, difficulty swallowing, mouth swelling, ear pain, eye pain, visual changes CARDIOVASCULAR: Absent: chest pain, syncope, palpitations, irregular heart rate, lightheadedness , peripheral edema RESPIRATORY: Absent: cough, shortness of breath, dyspnea with exertion, orthopnea, wheezing, stridor, hemoptysis GASTROINTESTINAL: Absent: abdominal pain, abdominal distension, nausea, vomiting, diarrhea, constipation, melena, hematochezia GENITOURINARY: Absent: dysuria, frequency, urgency, hesitancy, hematuria, flank pain, genital pain MUSCULOSKELETAL: Absent: myalgia, arthralgia, joint swelling, back pain, neck pain SKIN: Absent: rash, itching, pallor HEMATOLOGIC/IMMUNOLOGIC: Absent: easy bleeding, easy bruising, lymphadenopathy, frequent infections ENDOCRINE: Absent: unexplained weight gain, unexplained weight loss, heat intolerance, cold intolerance NEUROLOGIC: Absent: headache, focal weakness or paresthesias, dizziness, unsteady gait, seizure, mental status changes, bladder or bowel incontinence PSYCHIATRIC: Absent: anxiety, depression, suicidal or homicidal ideation, hallucinations. PHYSICAL EXAMINATION Vital Signs - 24 hr 01/12/18 01/12/18 01/12/18 12:00 12:49 17:19 Temperature 98.4 F 98.1 F Pulse Rate 89 Pulse Rate [ 88 76 Left Radial] Respiratory 18 17 15 Rate Blood Pressure 135/60 Blood Pressure 145/90 128/72 [Right Arm] O2 Sat by Pulse 99 100 100 Oximetry (%) GENERAL: Awake, alert, and not fully oriented, no acute distress. HEAD: Normal with no signs of trauma. EYES: Pupils equal, round and reactive to light, extraocular movements intact, sclera anicteric, conjunctiva clear. No lid lag. EARS, NOSE, THROAT: Ears normal, nares patent, oropharynx clear without exudates. Moist mucous membranes. NECK: Normal range of motion, supple without lymphadenopathy, JVD, or masses. LUNGS: Breath sounds equal, clear to auscultation bilaterally. No wheezes, and no crackles. No accessory muscle use. HEART: Regular rate and rhythm, normal S1 and S2 without murmur, rub or gallop. ABDOMEN: Soft, nontender, not distended, normoactive bowel sounds, no guarding, no rebound, no masses. No hepatomegaly or splenomegaly. MUSCULOSKELETAL: Normal range of motion at all joints. No bony deformities or tenderness. No CVA tenderness. UPPER EXTREMITIES: 2+ pulses, warm, well-perfused. No cyanosis. No clubbing. Cap refill <2 seconds. No peripheral edema. LOWER EXTREMITIES: 2+ pulses, warm, well-perfused. No calf tenderness. No peripheral edema. NEUROLOGICAL: Cranial nerves II-XII intact. Normal speech. Normal gait. PSYCHIATRIC: Cooperative. Good eye contact. Appropriate mood and affect. Disoriented. SKIN: Warm, dry, normal turgor, no rashes or lesions noted. Laboratory Results - last 24 hr 01/12/18 01/12/18 01/12/18 13:08 13:08 15:30 WBC 9.5 RBC 3.84 Hgb 11.9 Hct 34.3 MCV 89.4 MCH 31.0 MCHC 34.7 RDW 14.2 Plt Count 296 MPV 8.1 D Absolute Neuts (auto) 6.8 Neutrophils % 71.4 Lymphocytes % 16.1 D Monocytes % 11.9 H Eosinophils % 0.2 Basophils % 0.4 Nucleated RBC % 0 Sodium 110 L* Potassium 2.9 L* Chloride 64 L Carbon Dioxide 32 Anion Gap 14 BUN 7 Creatinine 0.6 Creat Clearance w eGFR > 60 Random Glucose 95 Calcium 8.8 Total Bilirubin 0.7 AST 37 ALT 26 Alkaline Phosphatase 87 Total Protein 8.5 H Albumin 3.9 Urine Color Ltyellow Urine Appearance Clear Urine pH 6.0 Ur Specific [place] 1.003 Urine Protein Negative Urine Glucose (UA) Negative Urine Ketones Negative Urine Blood Negative Urine Nitrite Positive Urine Bilirubin Negative Urine Urobilinogen Negative Ur Leukocyte Esterase Trace Urine WBC (Auto) 2 Urine RBC (Auto) None Urine Bacteria Rare Ur Random Sodium Ur Random Potassium Ur Random Chloride Urine Creatinine Opiates Screen Methadone Screen Barbiturate Screen Phencyclidine Screen Ur Amphetamines Screen MDMA (Ecstasy) Screen Benzodiazepines Screen Cocaine Screen U Marijuana (THC) Screen 01/12/18 01/12/18 01/12/18 16:30 16:30 16:30 WBC RBC Hgb Hct MCV MCH MCHC RDW Plt Count MPV Absolute Neuts (auto) Neutrophils % Lymphocytes % Monocytes % Eosinophils % Basophils % Nucleated RBC % Sodium Potassium Chloride Carbon Dioxide Anion Gap BUN Creatinine Creat Clearance w eGFR Random Glucose Calcium Total Bilirubin AST ALT Alkaline Phosphatase Total Protein Albumin Urine Color Urine Appearance Urine pH Ur Specific [place] Urine Protein Urine Glucose (UA) Urine Ketones Urine Blood Urine Nitrite Urine Bilirubin Urine Urobilinogen Ur Leukocyte Esterase Urine WBC (Auto) Urine RBC (Auto) Urine Bacteria Ur Random Sodium 17 Ur Random Potassium 10.7 Ur Random Chloride 14 Urine Creatinine 27.9 Opiates Screen Negative Methadone Screen Negative Barbiturate Screen Negative Phencyclidine Screen Negative Ur Amphetamines Screen Negative MDMA (Ecstasy) Screen Negative Benzodiazepines Screen Negative Cocaine Screen Negative U Marijuana (THC) Screen Negative Active Medications Generic Name Dose Route Start Last Admin Trade Name Freq PRN Reason Stop Dose Admin Sodium Chloride 1,000 mls @ 100 mls/hr 01/12/18 13:27 01/12/18 14:18 Normal Saline - IV 01/12/18 23:26 100 mls/hr ASDIR STA Administration ASSESSMENT/PLAN: 1. Hyponatremia Etiology of electrolyte abnormality not fully understood. Possibly 2/2 chronic alcoholism. - Urinalysis STAT - Osmolality Urine STAT - BMP - Mg, Phos -NaCl 1,000 ml IV STAT Goal- serum goal of increasing Na is 0.5 mEq- 1 mEq per hr not more than 10 meQ in 24 hr 2. Chronic Alcoholism -Chlordiazepoxide 25 mg po q6h - Thiamine hcl 100 mg po hs Dispo: We will continue to follow the patient. Thank you for this consultative opportunity. Visit type - Emergency Visit Emergency Visit: Yes ED Registration Date: 01/12/18 Care time: The patient presented to the Emergency Department on the above date and was hospitalized for further evaluation of their emergent condition. - New Patient This patient is new to me today: Yes Date on this admission: 01/12/18 - Critical Care Critical Care patient: Yes Total Critical Care Time (in minutes): 35 Critical Care Statement: The care of this patient involved high complexity decision making to prevent further life threatening deterioration of the patient 's condition and/or to evaluate & treat vital organ system(s) failure or risk of failure.
[2018-01-12 18:25] LABS: POTASSIUM 3.6 mmol/L (3.5-5.1)
[2018-01-12 18:27] LABS: SODIUM 116 mmol/L (136-145)
[2018-01-12] MEDS ORDERED: SODIUM CHLORIDE 1,000 ML IV SCH (18:30)
[2018-01-12 18:32] VITALS: BMI 21.7
[2018-01-12] MEDS ORDERED: DEXTROSE 5%-WATER - 1,000 ML IV SCH ×2 (19:45→22:30)
[2018-01-12] MEDS: chlordiazePOXIDE HCL 25 MG CAPSULE PO PRN (21:50)
[2018-01-12] MEDS: THIAMINE HCL 100 MG TABLET (FP) PO SCH (21:50)
[2018-01-12 22:28] LABS: ANION GAP 12 (8-16); BLOOD UREA NITROGEN 9 mg/dL (7-18); CALCIUM 8.4 mg/dL (8.5-10.1); CHLORIDE 79 mmol/L (98-107); CO2 29 mmol/L (21-32); CREATININE 0.5 mg/dL (0.55-1.02); GLUCOSE,RANDOM 95 mg/dL (74-106); POTASSIUM 3.2 mmol/L (3.5-5.1)
--- NOTE | 2018-01-12 22:31 | CONSULT ---
Consult Consult Specialty:: Nephrology Reason for Consultation:: hyponatremia - History of Present Illness Chief Complaint: sent in due to hyponatremia History of Present Illness: Pt is a 57 year old female with pmhx of etoh abuse, hyponatremia, COPD and HTN who was sent in for evaluation of hyponatremia. She had labs done as an output which showed a sodium of 115 (per ER). She was found to have a sodium of 110 in the ER. Pt received a liter bolus and then started on 100 cc per hour of saline and her sodium increased from 110 to 116. She is awake and alert. She denies headache or change in vision. She denies loss of balance. She is still actively drinking. She drinks beer and alcohol daily. She was admitted with similar numbers in November. She denies lower ext edema. She denies shortness of breath. She denies diarrhea or vomiting. She denies fevers or chills. She does not take any medications at home. She is not compliant with follow up. 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 (possible seizure in past, unclear) Pulmonary: Yes: COPD Renal/: Yes: Other (hyponatremia) ...: No Endocrine: Yes: Diabetes Mellitus - Alcohol/Substance Use Hx Alcohol Use: Yes Number of Drinks Daily: 7 History of Substance Use: reports: Cocaine - Smoking History Smoking history: Unknown if ever smoked Have you smoked in the past 12 months: Yes Aproximately how many cigarettes per day: 10 Home Medications - Allergies Allergies/Adverse Reactions: Allergies Allergy/AdvReac Type Severity Reaction Status Date / Time No Known Allergies Allergy Verified 01/12/18 12:34 - Home Medications Home Medications: Ambulatory Orders Nicotine Polacrilex [Nicotine Gum] 2 mg BC DAILY 01/12/18 Family Disease History - Family Disease History Family History: Denies Review of Systems - Review of Systems Constitutional: reports: No Symptoms Eyes: reports: No Symptoms HENT: reports: No Symptoms Neck: reports: No Symptoms Cardiovascular: reports: No Symptoms Respiratory: reports: No Symptoms Gastrointestinal: reports: No Symptoms Genitourinary: reports: No Symptoms Musculoskeletal: reports: No Symptoms Integumentary: reports: No Symptoms Neurological: reports: No Symptoms Endocrine: reports: No Symptoms Hematology/Lymphatic: reports: No Symptoms Psychiatric: reports: No Symptoms Physical Exam Vital Signs: Vital Signs Temperature 98.1 F 01/12/18 17:19 Pulse Rate 82 01/12/18 19:20 Respiratory Rate 20 01/12/18 21:00 Blood Pressure 121/74 01/12/18 19:20 O2 Sat by Pulse Oximetry (%) 100 01/12/18 21:00 Constitutional: Yes: Calm Eyes: Yes: Conjunctiva Clear HENT: Yes: Atraumatic Neck: Yes: Supple Cardiovascular: Yes: S1, S2 Respiratory: Yes: CTA Bilaterally Gastrointestinal: Yes: Normal Bowel Sounds, Soft Renal/: Yes: WNL Musculoskeletal: Yes: WNL Extremities: Yes: WNL Edema: No Integumentary: Yes: WNL Neurological: Yes: Oriented Psychiatric: Yes: Oriented Labs: CBC, BMP 01/12/18 13:08 Laboratory Tests 03/24/11 11/30/17 11/30/17 06:00 12:03 22:40 WBC Hgb Sodium 136 118 L* 113 L* 12/01/17 12/01/17 12/01/17 07:25 15:00 18:45 WBC Hgb Sodium 117 L* 119 L* 119 L* 12/01/17 12/02/17 12/02/17 20:45 02:30 06:00 WBC Hgb Sodium 121 L* 125 L 126 L 12/02/17 12/03/17 12/04/17 12:15 06:34 09:50 WBC Hgb Sodium 128 L 130 L 133 L 01/12/18 01/12/18 01/12/18 13:08 13:08 17:20 WBC 9.5 Hgb 11.9 Sodium 110 L* 116 L* 01/12/18 21:30 WBC Hgb Sodium Pending Imaging - Results Chest X-ray: Report Reviewed Problem List - Problems (1) Hyponatremia Code(s): E87.1 - HYPO-OSMOLALITY AND HYPONATREMIA (2) ETOH abuse Code(s): F10.10 - ALCOHOL ABUSE, UNCOMPLICATED (3) Electrolyte abnormality Code(s): E87.8 - OTH DISORDERS OF ELECTROLYTE AND FLUID BALANCE, NEC Assessment/Plan Current Medications Generic Name Dose Route Start Last Admin Trade Name Freq PRN Reason Stop Dose Admin Chlordiazepoxide HCl 25 mg 01/12/18 18:21 01/12/18 21:50 Librium - PO 25 mg Q6H PRN Administration WITHDRAWAL(CONT SUBST) Dextrose 1,000 mls @ 50 mls/hr 01/12/18 19:45 01/12/18 19:38 D5w - IV 50 mls/hr ASDIR LISSETT Administration Thiamine HCl 100 mg 01/12/18 22:00 01/12/18 21:50 Vitamin B1 - PO 100 mg HS LISSETT Administration Impression 1. hyponatremia 2. hx cocaine use 3. DM 4. COPD 5. etoh abuse - active 6. active smoker 7. non compliance Plan - sodium nallely too quickly after saline, started on d5w - repeat labs pending - avoid change in sodium of greater than 10 meq in 24 hours - etiology is likely etoh abuse as she has done this in the past - check plasma and urine osm - check urine sodium - detox protocol from etoh - check tsh and cortisol - admit pt to ICU - seizure precaution - check cpk level - will follow
[2018-01-12 22:37] LABS: SODIUM 120 mmol/L (136-145)
[2018-01-13 00:47] LABS: ANION GAP 10 (8-16); BLOOD UREA NITROGEN 8 mg/dL (7-18); CALCIUM 8.3 mg/dL (8.5-10.1); CHLORIDE 78 mmol/L (98-107); CO2 31 mmol/L (21-32); CREATININE 0.5 mg/dL (0.55-1.02); GLUCOSE,RANDOM 111 mg/dL (74-106)
[2018-01-13 00:48] LABS: POTASSIUM 2.9 mmol/L (3.5-5.1); SODIUM 119 mmol/L (136-145)
[2018-01-13] MEDS ORDERED: POTASSIUM CHLORIDE ORAL LIQUID 20 MEQ/15 ML PO ONE ×2 (00:55→00:56)
[2018-01-13] MEDS ORDERED: RANITIDINE HCL 150 MG TABLET (FP) PO ONE (00:56)
[2018-01-13] MEDS ORDERED: PT OWN MED DRAWER 7, Y5N ONE (01:03)
[2018-01-13 03:29] LABS: ANION GAP 9 (8-16); BLOOD UREA NITROGEN 8 mg/dL (7-18); CALCIUM 8.7 mg/dL (8.5-10.1); CHLORIDE 82 mmol/L (98-107); CO2 30 mmol/L (21-32); CREATININE 0.6 mg/dL (0.55-1.02); GLUCOSE,RANDOM 126 mg/dL (74-106); POTASSIUM 4.4 mmol/L (3.5-5.1)
[2018-01-13 03:32] LABS: SODIUM 121 mmol/L (136-145)
[2018-01-13] MEDS ORDERED: DEXTROSE 5%-WATER - 1,000 ML IV SCH ×4 (05:47→16:51)
[2018-01-13 06:30] LABS: ALBUMIN 3.2 g/dl (3.4-5.0); ANION GAP 11 (8-16); BILIRUBIN,TOTAL 0.7 mg/dL (0.2-1.0); BLOOD UREA NITROGEN 7 mg/dL (7-18); CALCIUM 8.7 mg/dL (8.5-10.1); CHLORIDE 82 mmol/L (98-107); CO2 28 mmol/L (21-32); CREATININE 0.6 mg/dL (0.55-1.02); GLUCOSE,RANDOM 142 mg/dL (74-106); MAGNESIUM 2.2 mg/dL (1.8-2.4); PHOSPHOROUS 2.1 mg/dL (2.5-4.9); POTASSIUM 4.2 mmol/L (3.5-5.1); SGOT/AST 28 U/L (15-37); SGPT/ALT 25 U/L (12-78); TOT PROT 7.2 g/dl (6.4-8.2)
[2018-01-13 06:39] LABS: ALK PHOS 72 U/L (45-117)
[2018-01-13 06:40] LABS: HEMATOCRIT 33.7 % (32.4-45.2); HEMOGLOBIN 11.6 GM/dL (10.7-15.3); MCH 31.3 pg (25.7-33.7); MCHC 34.5 g/dl (32.0-36.0); MEAN CELL VOLUME 90.6 fl (80-96); MEAN PLT VOLUME 8.4 fl (7.5-11.1); PLATELET COUNT 268 K/MM3 (134-434); RBC 3.72 M/mm3 (3.60-5.2); RDW 13.8 % (11.6-15.6)
[2018-01-13 06:42] LABS: SODIUM 121 mmol/L (136-145)
--- NOTE | 2018-01-13 09:31 | EKG ---
Test Reason : Blood Pressure : / mmHG Vent. Rate : 066 BPM Atrial Rate : 066 BPM P-R Int : 170 ms QRS Dur : 088 ms QT Int : 530 ms P-R-T Axes : 046 032 049 degrees QTc Int : 555 ms NORMAL SINUS RHYTHM MINIMAL VOLTAGE CRITERIA FOR LVH, MAY BE NORMAL VARIANT PROLONGED QT ABNORMAL ECG WHEN COMPARED WITH ECG OF 30-NOV-2017 11:09, NO SIGNIFICANT CHANGE WAS FOUND Confirmed by FAIZA TORRES MD ([id number]) on 01/13/2018 9:31:25 AM Referred By: Confirmed By:FAIZA TORRES MD
[2018-01-13 11:15] LABS: CHLORIDE 84 mmol/L (98-107); POTASSIUM 3.6 mmol/L (3.5-5.1)
[2018-01-13 11:20] LABS: ANION GAP 10 (8-16); BLOOD UREA NITROGEN 6 mg/dL (7-18); CALCIUM 8.9 mg/dL (8.5-10.1); CO2 29 mmol/L (21-32); CREATININE 0.6 mg/dL (0.55-1.02); GLUCOSE,RANDOM 162 mg/dL (74-106)
[2018-01-13 11:26] LABS: SODIUM 123 mmol/L (136-145)
--- NOTE | 2018-01-13 12:33 | PN ---
Teaching Attending Note Name of Resident: Fahad Marlow ATTENDING PHYSICIAN STATEMENT I saw and evaluated the patient. I reviewed the resident's note and discussed the case with the resident. I agree with the resident's findings and plan as documented. SUBJECTIVE: Patient seen and examined in the ICU. 57 F, well known from previous admissions. ETOH abuse, hyponatremia, COPD and HTN. Admitted via the ER due to hyponatremia. Initial Na in the ER was 110. Started on NS infusion. She is currently awake and alert and oriented. Na now 123. She is on D5W due to rapid correction. Intake & Output 01/10/18 01/11/18 01/12/18 01/13/18 23:59 23:59 23:59 23:59 Intake Total 300 825 Balance 300 825 Weight 118 lb 14.4 oz 119 lb Last Vital Signs Temp Pulse Resp BP Pulse Ox 99.0 F 77 19 99/59 100 01/13/18 10:00 01/13/18 10:00 01/13/18 10:00 01/13/18 10:00 01/12/18 21:00 Active Medications Chlordiazepoxide HCl (Librium -) 25 mg PO Q6H PRN PRN Reason: WITHDRAWAL(CONT SUBST) Last Admin: 01/12/18 21:50 Dose: 25 mg Dextrose (D5w -) 1,000 mls @ 150 mls/hr IV ASDIR LISSETT Last Admin: 01/13/18 06:58 Dose: 150 mls/hr Thiamine HCl (Vitamin B1 -) 100 mg PO HS LISSETT Last Admin: 01/12/18 21:50 Dose: 100 mg Constitutional: Yes: NAD Eyes: Yes: Conjunctiva Clear HENT: Yes: Atraumatic Neck: Yes: Supple Cardiovascular: Yes: S1, S2 Respiratory: Yes: CTA Bilaterally Gastrointestinal: Yes: Normal Bowel Sounds, Soft Renal/: Yes: WNL Musculoskeletal: Yes: WNL Extremities: Yes: WNL Edema: No Integumentary: Yes: WNL Neurological: Yes: Oriented Psychiatric: Yes: Oriented Labs: Laboratory Results - last 24 hr 01/12/18 01/12/18 01/12/18 13:08 13:08 15:30 WBC 9.5 RBC 3.84 Hgb 11.9 Hct 34.3 MCV 89.4 MCH 31.0 MCHC 34.7 RDW 14.2 Plt Count 296 MPV 8.1 D Absolute Neuts (auto) 6.8 Neutrophils % 71.4 Lymphocytes % 16.1 D Monocytes % 11.9 H Eosinophils % 0.2 Basophils % 0.4 Nucleated RBC % 0 Sodium 110 L* Potassium 2.9 L* Chloride 64 L Carbon Dioxide 32 Anion Gap 14 BUN 7 Creatinine 0.6 Creat Clearance w eGFR > 60 Random Glucose 95 Calcium 8.8 Phosphorus Magnesium Total Bilirubin 0.7 AST 37 ALT 26 Alkaline Phosphatase 87 Creatine Kinase Creatine Kinase Index CK-MB (CK-2) Total Protein 8.5 H Albumin 3.9 TSH Urine Color Ltyellow Urine Appearance Clear Urine pH 6.0 Ur Specific [place] 1.003 Urine Protein Negative Urine Glucose (UA) Negative Urine Ketones Negative Urine Blood Negative Urine Nitrite Positive Urine Bilirubin Negative Urine Urobilinogen Negative Ur Leukocyte Esterase Trace Urine WBC (Auto) 2 Urine RBC (Auto) None Urine Bacteria Rare Ur Random Sodium Ur Random Potassium Ur Random Chloride Urine Creatinine Opiates Screen Methadone Screen Barbiturate Screen Phencyclidine Screen Ur Amphetamines Screen MDMA (Ecstasy) Screen Benzodiazepines Screen Cocaine Screen U Marijuana (THC) Screen 01/12/18 01/12/18 01/12/18 16:30 16:30 16:30 WBC RBC Hgb Hct MCV MCH MCHC RDW Plt Count MPV Absolute Neuts (auto) Neutrophils % Lymphocytes % Monocytes % Eosinophils % Basophils % Nucleated RBC % Sodium Potassium Chloride Carbon Dioxide Anion Gap BUN Creatinine Creat Clearance w eGFR Random Glucose Calcium Phosphorus Magnesium Total Bilirubin AST ALT Alkaline Phosphatase Creatine Kinase Creatine Kinase Index CK-MB (CK-2) Total Protein Albumin TSH Urine Color Urine Appearance Urine pH Ur Specific [place] Urine Protein Urine Glucose (UA) Urine Ketones Urine Blood Urine Nitrite Urine Bilirubin Urine Urobilinogen Ur Leukocyte Esterase Urine WBC (Auto) Urine RBC (Auto) Urine Bacteria Ur Random Sodium 17 Ur Random Potassium 10.7 Ur Random Chloride 14 Urine Creatinine 27.9 Opiates Screen Negative Methadone Screen Negative Barbiturate Screen Negative Phencyclidine Screen Negative Ur Amphetamines Screen Negative MDMA (Ecstasy) Screen Negative Benzodiazepines Screen Negative Cocaine Screen Negative U Marijuana (THC) Screen Negative 01/12/18 01/12/18 01/13/18 17:20 21:30 00:00 WBC RBC Hgb Hct MCV MCH MCHC RDW Plt Count MPV Absolute Neuts (auto) Neutrophils % Lymphocytes % Monocytes % Eosinophils % Basophils % Nucleated RBC % Sodium 116 L* 120 L* 119 L* Potassium 3.6 3.2 L 2.9 L* Chloride 73 L 79 L 78 L Carbon Dioxide 27 29 31 Anion Gap 16 12 10 BUN 7 9 8 Creatinine 0.5 L 0.5 L 0.5 L Creat Clearance w eGFR > 60 > 60 > 60 Random Glucose 83 95 111 H Calcium 8.3 L 8.4 L 8.3 L Phosphorus Magnesium Total Bilirubin AST ALT Alkaline Phosphatase Creatine Kinase Creatine Kinase Index CK-MB (CK-2) Total Protein Albumin TSH Urine Color Urine Appearance Urine pH Ur Specific [place] Urine Protein Urine Glucose (UA) Urine Ketones Urine Blood Urine Nitrite Urine Bilirubin Urine Urobilinogen Ur Leukocyte Esterase Urine WBC (Auto) Urine RBC (Auto) Urine Bacteria Ur Random Sodium Ur Random Potassium Ur Random Chloride Urine Creatinine Opiates Screen Methadone Screen Barbiturate Screen Phencyclidine Screen Ur Amphetamines Screen MDMA (Ecstasy) Screen Benzodiazepines Screen Cocaine Screen U Marijuana (THC) Screen 01/13/18 01/13/18 01/13/18 00:00 02:50 05:30 WBC 9.0 RBC 3.72 Hgb 11.6 Hct 33.7 MCV 90.6 MCH 31.3 MCHC 34.5 RDW 13.8 Plt Count 268 MPV 8.4 Absolute Neuts (auto) Neutrophils % Lymphocytes % Monocytes % Eosinophils % Basophils % Nucleated RBC % Sodium 121 L* Potassium 4.4 Chloride 82 L Carbon Dioxide 30 Anion Gap 9 BUN 8 Creatinine 0.6 Creat Clearance w eGFR > 60 Random Glucose 126 H Calcium 8.7 Phosphorus Magnesium Total Bilirubin AST ALT Alkaline Phosphatase Creatine Kinase 254 H Creatine Kinase Index 1.0 CK-MB (CK-2) 2.70 Total Protein Albumin TSH Urine Color Urine Appearance Urine pH Ur Specific [place] Urine Protein Urine Glucose (UA) Urine Ketones Urine Blood Urine Nitrite Urine Bilirubin Urine Urobilinogen Ur Leukocyte Esterase Urine WBC (Auto) Urine RBC (Auto) Urine Bacteria Ur Random Sodium Ur Random Potassium Ur Random Chloride Urine Creatinine Opiates Screen Methadone Screen Barbiturate Screen Phencyclidine Screen Ur Amphetamines Screen MDMA (Ecstasy) Screen Benzodiazepines Screen Cocaine Screen U Marijuana (THC) Screen 01/13/18 01/13/18 05:30 10:39 WBC RBC Hgb Hct MCV MCH MCHC RDW Plt Count MPV Absolute Neuts (auto) Neutrophils % Lymphocytes % Monocytes % Eosinophils % Basophils % Nucleated RBC % Sodium 121 L* 123 L* Potassium 4.2 3.6 Chloride 82 L 84 L Carbon Dioxide 28 29 Anion Gap 11 10 BUN 7 6 L Creatinine 0.6 0.6 Creat Clearance w eGFR > 60 > 60 Random Glucose 142 H 162 H Calcium 8.7 8.9 Phosphorus 2.1 L Magnesium 2.2 Total Bilirubin 0.7 AST 28 ALT 25 Alkaline Phosphatase 72 D Creatine Kinase Creatine Kinase Index CK-MB (CK-2) Total Protein 7.2 Albumin 3.2 L TSH 0.62 Urine Color Urine Appearance Urine pH Ur Specific [place] Urine Protein Urine Glucose (UA) Urine Ketones Urine Blood Urine Nitrite Urine Bilirubin Urine Urobilinogen Ur Leukocyte Esterase Urine WBC (Auto) Urine RBC (Auto) Urine Bacteria Ur Random Sodium Ur Random Potassium Ur Random Chloride Urine Creatinine Opiates Screen Methadone Screen Barbiturate Screen Phencyclidine Screen Ur Amphetamines Screen MDMA (Ecstasy) Screen Benzodiazepines Screen Cocaine Screen U Marijuana (THC) Screen Problem List - Problems (1) Hyponatremia Code(s): E87.1 - HYPO-OSMOLALITY AND HYPONATREMIA (2) ETOH abuse Code(s): F10.10 - ALCOHOL ABUSE, UNCOMPLICATED (3) Electrolyte abnormality Code(s): E87.8 - OTH DISORDERS OF ELECTROLYTE AND FLUID BALANCE, NEC Assessment/Plan Hyponatremia Cocaine use by history Active ETOH abuse DM COPD / active smoker Plan D5W Follow Na : avoid change in sodium of greater than 10 meq in 24 hours More for withdrawal Seizure precaution Floor VTE prophylaxis Fall precautions Dr Torres Critical care time spent in reviewing chart, evaluating patient and formulating plan - 36 minutes.
--- NOTE | 2018-01-13 12:56 | HP ---
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: Other (possible seizure in past, unclear) Pulmonary: Yes: COPD Renal/: Yes: Other (hyponatremia) ...: No Endocrine: Yes: Diabetes Mellitus - Smoking History Smoking history: Unknown if ever smoked Have you smoked in the past 12 months: Yes Aproximately how many cigarettes per day: 10 - Alcohol/Substance Use Hx Alcohol Use: Yes Number of Drinks Daily: 7 History of Substance Use: reports: Cocaine Home Medications - Allergies Allergies/Adverse Reactions: Allergies Allergy/AdvReac Type Severity Reaction Status Date / Time No Known Allergies Allergy Verified 01/12/18 12:34 - Home Medications Home Medications: Ambulatory Orders Nicotine Polacrilex [Nicotine Gum] 2 mg BC DAILY 01/12/18 Physical Examination Vital Signs: Vital Signs Temperature 99.0 F 01/13/18 10:00 Pulse Rate 77 01/13/18 10:00 Respiratory Rate 19 01/13/18 10:00 Blood Pressure 99/59 01/13/18 10:00 O2 Sat by Pulse Oximetry (%) 100 01/12/18 21:00 Labs: CBC, BMP 01/13/18 05:30 01/13/18 10:39
--- NOTE | 2018-01-13 14:33 | PN ---
Progress Note, Physician History of Present Illness: Pt seen and examined at bedside. She is awake and alert. She denies shortness of breath. She says she feels much better. - Current Medication List Current Medications: Active Medications Chlordiazepoxide HCl (Librium -) 25 mg PO Q6H PRN PRN Reason: WITHDRAWAL(CONT SUBST) Last Admin: 01/12/18 21:50 Dose: 25 mg Dextrose (D5w -) 1,000 mls @ 250 mls/hr IV ASDIR LISSETT Thiamine HCl (Vitamin B1 -) 100 mg PO HS LISSETT Last Admin: 01/12/18 21:50 Dose: 100 mg - Objective Vital Signs: Vital Signs Temperature 98.1 F 01/13/18 14:22 Pulse Rate 65 01/13/18 14:22 Respiratory Rate 19 01/13/18 14:22 Blood Pressure 131/76 01/13/18 14:22 O2 Sat by Pulse Oximetry (%) 100 01/13/18 09:00 Constitutional: Yes: Calm Eyes: Yes: Conjunctiva Clear HENT: Yes: Atraumatic Neck: Yes: Supple Cardiovascular: Yes: S1, S2 Respiratory: Yes: CTA Bilaterally Gastrointestinal: Yes: Normal Bowel Sounds, Soft Genitourinary: Yes: WNL Musculoskeletal: Yes: WNL Edema: No Neurological: Yes: Oriented Psychiatric: Yes: Oriented Labs: CBC, BMP 01/13/18 05:30 Problem List - Problems (1) Hyponatremia Code(s): E87.1 - HYPO-OSMOLALITY AND HYPONATREMIA (2) ETOH abuse Code(s): F10.10 - ALCOHOL ABUSE, UNCOMPLICATED (3) Electrolyte abnormality Code(s): E87.8 - OTH DISORDERS OF ELECTROLYTE AND FLUID BALANCE, NEC Assessment/Plan Current Medications Generic Name Dose Route Start Last Admin Trade Name Freq PRN Reason Stop Dose Admin Chlordiazepoxide HCl 25 mg 01/12/18 18:21 01/12/18 21:50 Librium - PO 25 mg Q6H PRN Administration WITHDRAWAL(CONT SUBST) Dextrose 1,000 mls @ 250 mls/hr 01/13/18 13:49 D5w - IV ASDIR LISSETT Thiamine HCl 100 mg 01/12/18 22:00 01/12/18 21:50 Vitamin B1 - PO 100 mg HS LISSETT Administration Laboratory Tests 01/12/18 01/12/18 15:30 16:30 Ur Specific [place] 1.003 Ur Random Sodium 17 Laboratory Tests 01/13/18 00:00 Creatine Kinase 254 H Impression 1. hyponatremia 2. hx cocaine use 3. DM 4. COPD 5. etoh abuse - active 6. active smoker 7. non compliance Plan - sodium is improving - pt on d5w to slow the rate of correction, she is autocorrecting - discussed etoh use at length with pt - follow urine osm - avoid a rise of greater than 10 meq in 24 hours - repeat cpk in am - pt is not to ambulate alone until sodium normalizes - will follow
[2018-01-13 14:49] LABS: ANION GAP 10 (8-16); BLOOD UREA NITROGEN 5 mg/dL (7-18); CHLORIDE 83 mmol/L (98-107); CO2 29 mmol/L (21-32); CREATININE 0.6 mg/dL (0.55-1.02); GLUCOSE,RANDOM 145 mg/dL (74-106); POTASSIUM 3.7 mmol/L (3.5-5.1)
[2018-01-13 14:55] LABS: SODIUM 122 mmol/L (136-145)
[2018-01-13] MEDS: chlordiazePOXIDE HCL 25 MG CAPSULE PO PRN ×2 (15:34→22:04)
--- NOTE | 2018-01-13 17:33 | PN ---
Physical Exam: SUBJECTIVE: Patient seen and examined today in icu. States she is feeling well. Does not recall coming to hospital yesterday. Denies any cp, sob, malone, or changes in vision. Alert and eating in bed. OBJECTIVE: Vital Signs Period Temp Pulse Resp BP Sys/Canales Pulse Ox Last 24 Hr 97.7 F-99.0 F 64-82 15-20 90-131/55-76 100-100 GENERAL: The patient is awake, alert, and fully oriented, in no acute distress. HEAD: Normal with no signs of trauma. EYES: PERRL, extraocular movements intact, sclera anicteric, conjunctiva clear. No ptosis. ENT: Ears normal, nares patent, oropharynx clear without exudates, moist mucous membranes. NECK: Trachea midline, full range of motion, supple. LUNGS: Breath sounds equal, clear to auscultation bilaterally, no wheezes, no crackles, no accessory muscle use. HEART: Regular rate and rhythm, S1, S2 without murmur, rub or gallop. ABDOMEN: Soft, nontender, nondistended, normoactive bowel sounds, no guarding, no rebound, no hepatosplenomegaly, no masses. EXTREMITIES: 2+ pulses, warm, well-perfused, no edema. NEUROLOGICAL: Cranial nerves II through XII grossly intact. Normal speech, gait not observed. PSYCH: Normal mood, normal affect. SKIN: Warm, dry, normal turgor, no rashes or lesions noted Laboratory Results - last 24 hr 01/12/18 01/12/18 01/12/18 16:30 16:30 16:30 WBC RBC Hgb Hct MCV MCH MCHC RDW Plt Count MPV Sodium Potassium Chloride Carbon Dioxide Anion Gap BUN Creatinine Creat Clearance w eGFR POC Glucometer Random Glucose Calcium Phosphorus Magnesium Total Bilirubin AST ALT Alkaline Phosphatase Creatine Kinase Creatine Kinase Index CK-MB (CK-2) Total Protein Albumin TSH Ur Random Sodium 17 Ur Random Potassium 10.7 Ur Random Chloride 14 Urine Creatinine 27.9 Opiates Screen Negative Methadone Screen Negative Barbiturate Screen Negative Phencyclidine Screen Negative Ur Amphetamines Screen Negative MDMA (Ecstasy) Screen Negative Benzodiazepines Screen Negative Cocaine Screen Negative U Marijuana (THC) Screen Negative 01/12/18 01/12/18 01/13/18 17:20 21:30 00:00 WBC RBC Hgb Hct MCV MCH MCHC RDW Plt Count MPV Sodium 116 L* 120 L* 119 L* Potassium 3.6 3.2 L 2.9 L* Chloride 73 L 79 L 78 L Carbon Dioxide 27 29 31 Anion Gap 16 12 10 BUN 7 9 8 Creatinine 0.5 L 0.5 L 0.5 L Creat Clearance w eGFR > 60 > 60 > 60 POC Glucometer Random Glucose 83 95 111 H Calcium 8.3 L 8.4 L 8.3 L Phosphorus Magnesium Total Bilirubin AST ALT Alkaline Phosphatase Creatine Kinase Creatine Kinase Index CK-MB (CK-2) Total Protein Albumin TSH Ur Random Sodium Ur Random Potassium Ur Random Chloride Urine Creatinine Opiates Screen Methadone Screen Barbiturate Screen Phencyclidine Screen Ur Amphetamines Screen MDMA (Ecstasy) Screen Benzodiazepines Screen Cocaine Screen U Marijuana (THC) Screen 01/13/18 01/13/18 01/13/18 00:00 02:50 05:30 WBC 9.0 RBC 3.72 Hgb 11.6 Hct 33.7 MCV 90.6 MCH 31.3 MCHC 34.5 RDW 13.8 Plt Count 268 MPV 8.4 Sodium 121 L* Potassium 4.4 Chloride 82 L Carbon Dioxide 30 Anion Gap 9 BUN 8 Creatinine 0.6 Creat Clearance w eGFR > 60 POC Glucometer Random Glucose 126 H Calcium 8.7 Phosphorus Magnesium Total Bilirubin AST ALT Alkaline Phosphatase Creatine Kinase 254 H Creatine Kinase Index 1.0 CK-MB (CK-2) 2.70 Total Protein Albumin TSH Ur Random Sodium Ur Random Potassium Ur Random Chloride Urine Creatinine Opiates Screen Methadone Screen Barbiturate Screen Phencyclidine Screen Ur Amphetamines Screen MDMA (Ecstasy) Screen Benzodiazepines Screen Cocaine Screen U Marijuana (THC) Screen 01/13/18 01/13/18 01/13/18 05:30 10:39 13:35 WBC RBC Hgb Hct MCV MCH MCHC RDW Plt Count MPV Sodium 121 L* 123 L* Potassium 4.2 3.6 Chloride 82 L 84 L Carbon Dioxide 28 29 Anion Gap 11 10 BUN 7 6 L Creatinine 0.6 0.6 Creat Clearance w eGFR > 60 > 60 POC Glucometer 169.15887 Random Glucose 142 H 162 H Calcium 8.7 8.9 Phosphorus 2.1 L Magnesium 2.2 Total Bilirubin 0.7 AST 28 ALT 25 Alkaline Phosphatase 72 D Creatine Kinase Creatine Kinase Index CK-MB (CK-2) Total Protein 7.2 Albumin 3.2 L TSH 0.62 Ur Random Sodium Ur Random Potassium Ur Random Chloride Urine Creatinine Opiates Screen Methadone Screen Barbiturate Screen Phencyclidine Screen Ur Amphetamines Screen MDMA (Ecstasy) Screen Benzodiazepines Screen Cocaine Screen U Marijuana (THC) Screen 01/13/18 14:05 WBC RBC Hgb Hct MCV MCH MCHC RDW Plt Count MPV Sodium 122 L* Potassium 3.7 Chloride 83 L Carbon Dioxide 29 Anion Gap 10 BUN 5 L Creatinine 0.6 Creat Clearance w eGFR > 60 POC Glucometer Random Glucose 145 H Calcium 9.0 Phosphorus Magnesium Total Bilirubin AST ALT Alkaline Phosphatase Creatine Kinase Creatine Kinase Index CK-MB (CK-2) Total Protein Albumin TSH Ur Random Sodium Ur Random Potassium Ur Random Chloride Urine Creatinine Opiates Screen Methadone Screen Barbiturate Screen Phencyclidine Screen Ur Amphetamines Screen MDMA (Ecstasy) Screen Benzodiazepines Screen Cocaine Screen U Marijuana (THC) Screen Active Medications Generic Name Dose Route Start Last Admin Trade Name Freq PRN Reason Stop Dose Admin Chlordiazepoxide HCl 25 mg 01/12/18 18:21 01/13/18 15:34 Librium - PO 25 mg Q6H PRN Administration WITHDRAWAL(CONT SUBST) Dextrose 1,000 mls @ 100 mls/hr 01/13/18 16:51 D5w - IV ASDIR LISSETT Thiamine HCl 100 mg 01/12/18 22:00 01/12/18 21:50 Vitamin B1 - PO 100 mg HS LISSETT Administration ASSESSMENT/PLAN: 1. Hyponatremia Hyponatremia improving- initially started on NS 1,000 ml IV which was switched to d5w due to pt's Na rising too rapidly. Most recent Na level 122. Nephrology on board follow urine osm repeat cpk in am Goal- serum goal of increasing Na is 0.5 mEq- 1 mEq per hr not more than 10 meQ in 24 hr 2. Chronic Alcoholism -Chlordiazepoxide 25 mg po q6h - Thiamine hcl 100 mg po hs FEN d5w 1,000 mls @ 100 mls/hr monitor electrolytes Regular diet Dispo: transfer today to floors. Continue to monitor electrolytes Visit type - Emergency Visit Emergency Visit: Yes ED Registration Date: 01/12/18 Care time: The patient presented to the Emergency Department on the above date and was hospitalized for further evaluation of their emergent condition. - New Patient This patient is new to me today: No - Critical Care Critical Care patient: Yes Total Critical Care Time (in minutes): 35 Critical Care Statement: The care of this patient involved high complexity decision making to prevent further life threatening deterioration of the patient 's condition and/or to evaluate & treat vital organ system(s) failure or risk of failure.
[2018-01-13 19:00] LABS: ALBUMIN 3.6 g/dl (3.4-5.0); ANION GAP 11 (8-16); BILIRUBIN,TOTAL 0.6 mg/dL (0.2-1.0); BLOOD UREA NITROGEN 5 mg/dL (7-18); CALCIUM 8.9 mg/dL (8.5-10.1); CHLORIDE 84 mmol/L (98-107); CO2 29 mmol/L (21-32); CREATININE 0.6 mg/dL (0.55-1.02); GLUCOSE,RANDOM 127 mg/dL (74-106); POTASSIUM 3.5 mmol/L (3.5-5.1); SGOT/AST 25 U/L (15-37); SGPT/ALT 25 U/L (12-78)
[2018-01-13 19:01] LABS: ALK PHOS 92 U/L (45-117)
[2018-01-13 19:28] LABS: SODIUM 124 mmol/L (136-145)
[2018-01-13 21:25] LABS: ANION GAP 11 (8-16); BLOOD UREA NITROGEN 6 mg/dL (7-18); CALCIUM 8.6 mg/dL (8.5-10.1); CHLORIDE 86 mmol/L (98-107); CO2 29 mmol/L (21-32); CREATININE 0.7 mg/dL (0.55-1.02); GLUCOSE,RANDOM 131 mg/dL (74-106); POTASSIUM 3.5 mmol/L (3.5-5.1); SODIUM 126 mmol/L (136-145)
[2018-01-13] MEDS: THIAMINE HCL 100 MG TABLET (FP) PO SCH (22:04)
--- NOTE | 2018-01-13 23:02 | PN ---
Progress Note, Physician - Current Medication List Current Medications: Active Medications Chlordiazepoxide HCl (Librium -) 25 mg PO Q6H PRN PRN Reason: WITHDRAWAL(CONT SUBST) Last Admin: 01/13/18 22:04 Dose: 25 mg Dextrose (D5w -) 1,000 mls @ 100 mls/hr IV ASDIR LISSETT Thiamine HCl (Vitamin B1 -) 100 mg PO HS LISSETT Last Admin: 01/13/18 22:04 Dose: 100 mg - Objective Vital Signs: Vital Signs Temperature 97.8 F 01/13/18 17:22 Pulse Rate 84 01/13/18 17:22 Respiratory Rate 20 01/13/18 17:22 Blood Pressure 126/67 01/13/18 17:22 O2 Sat by Pulse Oximetry (%) 100 01/13/18 15:00 Labs: CBC, BMP 01/13/18 05:30 01/13/18 20:30
[2018-01-14 00:27] LABS: ANION GAP 10 (8-16); BLOOD UREA NITROGEN 7 mg/dL (7-18); CHLORIDE 87 mmol/L (98-107); CO2 28 mmol/L (21-32); CREATININE 0.6 mg/dL (0.55-1.02); GLUCOSE,RANDOM 112 mg/dL (74-106); POTASSIUM 3.7 mmol/L (3.5-5.1); SODIUM 125 mmol/L (136-145)
[2018-01-14] MEDS: DEXTROSE 5%-WATER - 1,000 ML IV SCH (01:21)
[2018-01-14] MEDS ORDERED: chlordiazePOXIDE HCL 25 MG CAPSULE PO PRN (07:18)
[2018-01-14 07:57] LABS: BASO % 0.8 % (0-2.0); EOS % 3.2 % (0-4.5); HEMATOCRIT 35.3 % (32.4-45.2); HEMOGLOBIN 11.9 GM/dL (10.7-15.3); LYMPH % 27.5 % (8-40); MCH 31.2 pg (25.7-33.7); MCHC 33.6 g/dl (32.0-36.0); MEAN CELL VOLUME 92.9 fl (80-96); MEAN PLT VOLUME 8.4 fl (7.5-11.1); MONO % 12.7 % (3.8-10.2); NEUT % 55.8 % (42.8-82.8); PLATELET COUNT 298 K/MM3 (134-434); RDW 14.1 % (11.6-15.6)
[2018-01-14 08:28] LABS: CHLORIDE 87 mmol/L (98-107); POTASSIUM 3.6 mmol/L (3.5-5.1); SODIUM 125 mmol/L (136-145)
[2018-01-14 08:36] LABS: ALBUMIN 3.5 g/dl (3.4-5.0); ALK PHOS 93 U/L (45-117); ANION GAP 11 (8-16); BILIRUBIN,TOTAL 0.5 mg/dL (0.2-1.0); BLOOD UREA NITROGEN 6 mg/dL (7-18); CALCIUM 8.9 mg/dL (8.5-10.1); CO2 27 mmol/L (21-32); CREATININE 0.6 mg/dL (0.55-1.02); GLUCOSE,RANDOM 120 mg/dL (74-106); SGOT/AST 22 U/L (15-37); SGPT/ALT 23 U/L (12-78); TOT PROT 7.7 g/dl (6.4-8.2)
[2018-01-14 20:45] LABS: ANION GAP 10 (8-16); BLOOD UREA NITROGEN 15 mg/dL (7-18); CHLORIDE 91 mmol/L (98-107); CO2 29 mmol/L (21-32); CREATININE 0.9 mg/dL (0.55-1.02); GLUCOSE,RANDOM 122 mg/dL (74-106); POTASSIUM 3.4 mmol/L (3.5-5.1); SODIUM 130 mmol/L (136-145)
[2018-01-14] MEDS: THIAMINE HCL 100 MG TABLET (FP) PO SCH (21:17)
--- NOTE | 2018-01-14 23:14 | PN ---
Progress Note (short form) - Note Progress Note: alert in nad seems to be drinking a lot of water Current Medications Chlordiazepoxide HCl (Librium -) 25 mg PO Q6H PRN PRN Reason: WITHDRAWAL(CONT SUBST) Dextrose (D5w -) 1,000 mls @ 20 mls/hr IV ASDIR LISSETT Last Admin: 01/14/18 01:21 Dose: 20 mls/hr Thiamine HCl (Vitamin B1 -) 100 mg PO [facility] Last Admin: 01/14/18 21:17 Dose: 100 mg Last Vital Signs Temp Pulse Resp BP Pulse Ox 98.4 F 74 18 124/81 100 01/14/18 22:43 01/14/18 22:43 01/14/18 22:43 01/14/18 22:43 01/14/18 20:40 CBC, BMP 01/14/18 06:40 01/14/18 19:50
--- NOTE | 2018-01-14 23:32 | PN ---
Progress Note, Physician - Current Medication List Current Medications: Active Medications Chlordiazepoxide HCl (Librium -) 25 mg PO Q6H PRN PRN Reason: WITHDRAWAL(CONT SUBST) Dextrose (D5w -) 1,000 mls @ 20 mls/hr IV ASDIR LISSETT Last Admin: 01/14/18 01:21 Dose: 20 mls/hr Potassium Chloride (K-Dur -) 40 meq PO DAILY LISSETT Stop: 01/16/18 23:59 Thiamine HCl (Vitamin B1 -) 100 mg PO HS [facility] Last Admin: 01/14/18 21:17 Dose: 100 mg - Objective Vital Signs: Vital Signs Temperature 98.4 F 01/14/18 22:43 Pulse Rate 74 01/14/18 22:43 Respiratory Rate 18 01/14/18 22:43 Blood Pressure 124/81 01/14/18 22:43 O2 Sat by Pulse Oximetry (%) 100 01/14/18 20:40 Labs: CBC, BMP 01/14/18 06:40 01/14/18 19:50
[2018-01-15] MEDS: POTASSIUM CHLORIDE TABS 20 MEQ TABLET.ER (FP) PO SCH (09:29)
[2018-01-15 10:51] LABS: ALBUMIN 3.7 g/dl (3.4-5.0); ALK PHOS 101 U/L (45-117); ANION GAP 10 (8-16); BILIRUBIN,TOTAL 0.2 mg/dL (0.2-1.0); BLOOD UREA NITROGEN 11 mg/dL (7-18); CALCIUM 9.2 mg/dL (8.5-10.1); CHLORIDE 89 mmol/L (98-107); CO2 31 mmol/L (21-32); CREATININE 0.6 mg/dL (0.55-1.02); GLUCOSE,RANDOM 106 mg/dL (74-106); POTASSIUM 3.9 mmol/L (3.5-5.1); SGOT/AST 21 U/L (15-37); SGPT/ALT 25 U/L (12-78); SODIUM 130 mmol/L (136-145)
[2018-01-15] MEDS: DEXTROSE 5%-WATER - 1,000 ML IV SCH (17:28)
--- NOTE | 2018-01-15 17:51 | PN ---
Progress Note (short form) - Note Progress Note: hyponatremia etoh use r/o excessive water drinking Current Medications Chlordiazepoxide HCl (Librium -) 25 mg PO Q6H PRN PRN Reason: WITHDRAWAL(CONT SUBST) Dextrose (D5w -) 1,000 mls @ 20 mls/hr IV ASDIR LISSETT Last Admin: 01/15/18 17:28 Dose: Not Given Potassium Chloride (K-Dur -) 40 meq PO DAILY LISSETT Stop: 01/16/18 23:59 Last Admin: 01/15/18 09:29 Dose: 40 meq Thiamine HCl (Vitamin B1 -) 100 mg PO HS LISSETT Last Admin: 01/14/18 21:17 Dose: 100 mg Last Vital Signs Temp Pulse Resp BP Pulse Ox 97.9 F 70 20 155/75 100 01/15/18 16:54 01/15/18 16:54 01/15/18 16:54 01/15/18 16:54 01/15/18 09:00 alert in nad lungs clear heart reg abd soft ext no edema CBC, BMP 01/14/18 06:40 01/15/18 08:10 IMP-hyponatremia- long history according to her labwork done in this hospital may be chronic and relapsing appropriately low urine osmolality and very dilute urine she seems to like water drinking Plan- 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
--- NOTE | 2018-01-15 20:13 | CONSULT ---
Consult Detox [facility] Reason for Current Admission/Consult: h/o alcohol use - History History of Present Illness: According to pt, she was brought to the ER by who found her with change in mental status. She was admitted with symptomatic hyponatremia of unclear etiology. Pt states she only drinks 4 small cans of beer a day. Denies drinking liquor. Says has never had seizures or DT's but has had episodes of 'balacking out". 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 (possible seizure in past, unclear) Pulmonary: Yes: COPD Renal/: Yes: Other (hyponatremia) ...: No Endocrine: Yes: Diabetes Mellitus - Significant Medical Findings: pt with corrected hyponatremia CIWA Score - CIWA Score Nausea/Vomitin-No Nausea/No Vomiting Muscle Tremors: None Anxiety: 0-No Anxiety, at Ease Agitation: 0-Normal Activity Paroxysmal Sweats: No Perspiration Orientation: 1-Uncertain about Date Tacttile Disturbances: 0-None Auditory Disturbances: 0-None Visual Disturbances: 0-None Headache: 0-None Present CIWA-Ar Total Score: 1 Assessment Plan - Diagnosis (1) Hyponatremia Status: Acute (2) Alcohol dependence with uncomplicated withdrawal Status: Acute - Medication Detox Regimen/Protocol: Librium (pt is on librium prn, d/w pt detox and rehab services at [facility]. pt states she does not think she needs detox or rehab- says will talk to her and kids)
[2018-01-15] MEDS: THIAMINE HCL 100 MG TABLET (FP) PO SCH (21:04)
--- NOTE | 2018-01-15 23:11 | PN ---
Progress Note, Physician History of Present Illness: No new complaints - Current Medication List Current Medications: Active Medications Chlordiazepoxide HCl (Librium -) 25 mg PO Q6H PRN PRN Reason: WITHDRAWAL(CONT SUBST) Dextrose (D5w -) 1,000 mls @ 20 mls/hr IV ASDIR LISSETT Last Admin: 01/15/18 17:28 Dose: Not Given Potassium Chloride (K-Dur -) 40 meq PO DAILY LISSETT Stop: 01/16/18 23:59 Last Admin: 01/15/18 09:29 Dose: 40 meq Thiamine HCl (Vitamin B1 -) 100 mg PO HS LISSETT Last Admin: 01/15/18 21:04 Dose: 100 mg - Objective Vital Signs: Vital Signs Temperature 97.9 F 01/15/18 16:54 Pulse Rate 70 01/15/18 16:54 Respiratory Rate 20 01/15/18 16:54 Blood Pressure 155/75 01/15/18 16:54 O2 Sat by Pulse Oximetry (%) 100 01/15/18 20:28 Neck: Yes: WNL, Supple Cardiovascular: Yes: WNL, Regular Rate and Rhythm Respiratory: Yes: WNL, Regular, CTA Bilaterally Gastrointestinal: Yes: WNL, Normal Bowel Sounds, Soft Labs: CBC, BMP 01/14/18 06:40 01/15/18 08:10 Problem List - Problems (1) Hyponatremia Assessment/Plan: Na+ improved w/ IV hydration IVF as per renal Code(s): E87.1 - HYPO-OSMOLALITY AND HYPONATREMIA (2) Alcohol dependence with uncomplicated withdrawal Assessment/Plan: Librium prn Code(s): F10.230 - ALCOHOL DEPENDENCE WITH WITHDRAWAL, UNCOMPLICATED (3) ETOH abuse Code(s): F10.10 - ALCOHOL ABUSE, UNCOMPLICATED
[2018-01-16] MEDS: DEXTROSE 5%-WATER - 1,000 ML IV SCH (02:05)
[2018-01-16 08:26] LABS: BASO % 0.8 % (0-2.0); EOS % 3.8 % (0-4.5); HEMATOCRIT 30.9 % (32.4-45.2); HEMOGLOBIN 10.4 GM/dL (10.7-15.3); LYMPH % 27.8 % (8-40); MCH 31.4 pg (25.7-33.7); MCHC 33.8 g/dl (32.0-36.0); MEAN CELL VOLUME 92.8 fl (80-96); MEAN PLT VOLUME 8.3 fl (7.5-11.1); MONO % 14.6 % (3.8-10.2); PLATELET COUNT 291 K/MM3 (134-434); RBC 3.33 M/mm3 (3.60-5.2); RDW 14.1 % (11.6-15.6); WHITE BLOOD COUNT 9.9 K/mm3 (4.0-10.0)
[2018-01-16 08:47] LABS: ALBUMIN 3.2 g/dl (3.4-5.0); ANION GAP 8 (8-16); BLOOD UREA NITROGEN 13 mg/dL (7-18); CHLORIDE 93 mmol/L (98-107); CO2 29 mmol/L (21-32); GLUCOSE,RANDOM 115 mg/dL (74-106); POTASSIUM 4.1 mmol/L (3.5-5.1); SODIUM 130 mmol/L (136-145)
[2018-01-16 08:53] LABS: ALK PHOS 89 U/L (45-117); BILIRUBIN,TOTAL 0.2 mg/dL (0.2-1.0); CREATININE 0.6 mg/dL (0.55-1.02); SGOT/AST 18 U/L (15-37); SGPT/ALT 22 U/L (12-78)
[2018-01-16] MEDS: POTASSIUM CHLORIDE TABS 20 MEQ TABLET.ER (FP) PO SCH (09:11)
--- NOTE | 2018-01-16 15:15 | PN ---
Progress Note, Physician History of Present Illness: Pt seen and examined at bedside. She is awake and alert. She denies shortness of breath. - Current Medication List Current Medications: Active Medications Chlordiazepoxide HCl (Librium -) 25 mg PO Q6H PRN PRN Reason: WITHDRAWAL(CONT SUBST) Potassium Chloride (K-Dur -) 40 meq PO DAILY LISESTT Stop: 01/16/18 23:59 Last Admin: 01/16/18 09:11 Dose: 40 meq Thiamine HCl (Vitamin B1 -) 100 mg PO HS LISSETT Last Admin: 01/15/18 21:04 Dose: 100 mg - Objective Vital Signs: Vital Signs Temperature 97.9 F 01/16/18 14:37 Pulse Rate 82 01/16/18 14:37 Respiratory Rate 18 01/16/18 14:37 Blood Pressure 144/71 01/16/18 14:37 O2 Sat by Pulse Oximetry (%) 99 01/16/18 09:00 Constitutional: Yes: Calm Eyes: Yes: Conjunctiva Clear HENT: Yes: Atraumatic Neck: Yes: Supple Cardiovascular: Yes: S1, S2 Respiratory: Yes: CTA Bilaterally Gastrointestinal: Yes: WNL Genitourinary: Yes: WNL Musculoskeletal: Yes: WNL Extremities: Yes: WNL Edema: No Neurological: Yes: Oriented Psychiatric: Yes: Oriented Labs: CBC, BMP 01/16/18 07:00 01/16/18 07:00 Problem List - Problems (1) Hyponatremia Code(s): E87.1 - HYPO-OSMOLALITY AND HYPONATREMIA (2) ETOH abuse Code(s): F10.10 - ALCOHOL ABUSE, UNCOMPLICATED (3) Electrolyte abnormality Code(s): E87.8 - OTH DISORDERS OF ELECTROLYTE AND FLUID BALANCE, NEC Assessment/Plan Current Medications Generic Name Dose Route Start Last Admin Trade Name Freq PRN Reason Stop Dose Admin Chlordiazepoxide HCl 25 mg 01/14/18 07:18 Librium - PO Q6H PRN WITHDRAWAL(CONT SUBST) Potassium Chloride 40 meq 01/15/18 10:00 01/16/18 09:11 K-Dur - PO 01/16/18 23:59 40 meq DAILY LISSETT Administration Thiamine HCl 100 mg 01/14/18 22:00 01/15/18 21:04 Vitamin B1 - PO 100 mg HS LISSETT Administration Laboratory Tests 01/14/18 01/14/18 10:00 10:27 Urine Osmolality 115 L 91 L Impression 1. hyponatremia 2. hx cocaine use 3. DM 4. COPD 5. etoh abuse - active 6. active smoker 7. non compliance Plan - d/c fluids - sodium stabilizing - encourage free water intake - will give a salt tab today - cont detox
[2018-01-16] MEDS: SODIUM CHLORIDE 1 GM TABLET PO SCH ×2 (17:05→22:39)
[2018-01-16] MEDS ORDERED: PT OWN MED DRAWER 7, Y5N ONE (21:24)
[2018-01-16] MEDS: THIAMINE HCL 100 MG TABLET (FP) PO SCH (21:27)
--- NOTE | 2018-01-16 23:35 | PN ---
Progress Note, Physician History of Present Illness: No new complaints - Current Medication List Current Medications: Active Medications Chlordiazepoxide HCl (Librium -) 25 mg PO Q6H PRN PRN Reason: WITHDRAWAL(CONT SUBST) Potassium Chloride (K-Dur -) 40 meq PO DAILY LISSETT Stop: 01/16/18 23:59 Last Admin: 01/16/18 09:11 Dose: 40 meq Thiamine HCl (Vitamin B1 -) 100 mg PO HS LISSETT Last Admin: 01/16/18 21:27 Dose: 100 mg - Objective Vital Signs: Vital Signs Temperature 98.1 F 01/16/18 16:15 Pulse Rate 77 01/16/18 16:15 Respiratory Rate 18 01/16/18 21:00 Blood Pressure 148/89 01/16/18 16:15 O2 Sat by Pulse Oximetry (%) 99 01/16/18 21:00 Neck: Yes: WNL, Supple Cardiovascular: Yes: WNL, Regular Rate and Rhythm Respiratory: Yes: WNL, Regular, CTA Bilaterally Gastrointestinal: Yes: WNL, Normal Bowel Sounds, Soft Labs: CBC, BMP 01/16/18 07:00 01/16/18 07:00 Problem List - Problems (1) Hyponatremia Assessment/Plan: Na+ improved IVF now dc'ed DC planning for am Code(s): E87.1 - HYPO-OSMOLALITY AND HYPONATREMIA (2) Alcohol dependence with uncomplicated withdrawal Assessment/Plan: Librium prn Code(s): F10.230 - ALCOHOL DEPENDENCE WITH WITHDRAWAL, UNCOMPLICATED (3) ETOH abuse Code(s): F10.10 - ALCOHOL ABUSE, UNCOMPLICATED
[2018-01-17 08:39] LABS: BLOOD UREA NITROGEN 15 mg/dL (7-18); CALCIUM 9.2 mg/dL (8.5-10.1); CO2 29 mmol/L (21-32); CREATININE 0.6 mg/dL (0.55-1.02); GLUCOSE,RANDOM 127 mg/dL (74-106)
[2018-01-17 08:43] LABS: ANION GAP 8 (8-16); CHLORIDE 96 mmol/L (98-107); POTASSIUM 4.4 mmol/L (3.5-5.1); SODIUM 133 mmol/L (136-145)
[2018-01-17 08:47] VITALS: BP 134/78; PULSE 75; TEMP 98.7
== END 2018-01-17 12:23 | disposition home or self-care (01) | DRG 425 ==
LOC: JER 11:59 → JERBED 15:10 → JICU 19:22 → J8W 01-13 14:52
PROVIDERS: ADMIT Internal Medicine; ATTEND Internal Medicine
DX: E87.1 Hypo-osmolality and hyponatremia (principal); J44.9 Chronic obstructive pulmonary disease, unspecified; I10 Essential (primary) hypertension; F10.20 Alcohol dependence, uncomplicated; E87.8 Other disorders of electrolyte and fluid balance, not elsewhere classified; F14.10 Cocaine abuse, uncomplicated; E11.9 Type 2 diabetes mellitus without complications; Z91.19 Patient's noncompliance with other medical treatment and regimen; F17.290 Nicotine dependence, other tobacco product, uncomplicated
CPT/HCPCS: 36415; 71045-TC-FY; 80048; 80053; 80307; 81003; 81015; 82436; 82533; 82550; 82553; 82570; 82962; 83735; 83930; 83935; 84100; 84133; 84300; 84443; 85025; 85027; 87086; 87186; 93005; 93010; 99284-25; J7030

== ENCOUNTER 2018-02-06 19:42 | Inpatient (IN) | payer OTHER ==
--- NOTE | 2018-02-06 20:23 | PDOC ---
History of Present Illness - General Chief Complaint: Seizure Stated Complaint: SEIZURES Time Seen by Provider: 02/06/18 20:22 History Source: Patient Exam Limitations: No Limitations - History of Present Illness Initial Comments: 02/07/18 01:18 57-year-old female with a history of COPD, recent admission for hyponatremia, alcohol abuse, hypertension presents to the ED after 2 episodes of syncope witnessed by . Patient tried to stand up from sitting position before losing consciousness for a a few seconds, sat on the couch, then tried to get up again before losing consciousness again. Did not hit her head. Claims to be feeling pretty normal although describes her gait as "sluggish". Past History - Past Medical History Allergies/Adverse Reactions: Allergies Allergy/AdvReac Type Severity Reaction Status Date / Time No Known Allergies Allergy Verified 02/06/18 20:00 Home Medications: Ambulatory Orders Thiamine HCl [Vitamin B1 -] 100 mg PO HS #30 tablet 01/17/18 Losartan/Hydrochlorothiazide [Losartan-Hctz 50-12.5 mg Tab] 1 each PO DAILY Anemia: No Asthma: No Cancer: No Cardiac Disorders: No CVA: No COPD: No CHF: No Dementia: No Diabetes: No GI Disorders: No Disorders: No HTN: Yes Hypercholesterolemia: No Liver Disease: No Psychiatric Problems: Yes Seizures: Yes (ON ADMISSION) Thyroid Disease: No - Immunization History Immunization Up to Date: Yes - Suicide/Smoking/Psychosocial Hx Smoking History: Never smoked Have you smoked in the past 12 months: No Number of Cigarettes Smoked Daily: 10 Cigars Per Day: 10 Information on smoking cessation initiated: No 'Breaking Loose' booklet given: 12/01/17 Hx Alcohol Use: No Drug/Substance Use Hx: No Substance Use Type: None Hx Substance Use Treatment: No Review of Systems - Review of Systems Able to Perform ROS?: Yes Is the patient limited Bulgarian proficient: No Constitutional: Yes: Weakness HEENTM: No: Symptoms Reported Respiratory: No: Symptoms reported Cardiac (ROS): No: Symptoms Reported ABD/GI: No: Symptoms Reported : No: Symptoms Reported Musculoskeletal: No: Symptoms Reported Integumentary: No: Symptoms Reported Neurological: No: Symptoms reported All Other Systems: Reviewed and Negative *Physical Exam - Vital Signs Last Vital Signs Temp Pulse Resp BP Pulse Ox 98.2 F 70 18 100/58 100 02/06/18 19:56 02/06/18 19:56 02/06/18 19:56 02/06/18 19:56 02/06/18 19:56 - Physical Exam Comments: 02/07/18 01:27 Constitutional: Yes: Calm Eyes: Yes: Conjunctiva Clear, miosis HENT: Yes: Atraumatic Neck: Yes: Supple Cardiovascular: Yes: S1, S2 Respiratory: Yes: CTA Bilaterally Gastrointestinal: Yes: Normal Bowel Sounds, Soft Renal/: Yes: WNL Musculoskeletal: Yes: WNL Extremities: Yes: WNL Edema: No Integumentary: Yes: WNL Neurological: Yes: Oriented Psychiatric: Yes: Oriented ED Treatment Course - LABORATORY CBC & Chemistry Diagram: 02/06/18 20:34 02/06/18 20:34 Medical Decision Making - Medical Decision Making 02/07/18 01:30 57f with 2 episodes of syncope 2/2 severe hyponatremia on basic labs. Patient has history of hypoosmolar hyponatremia attributed to Etoh abuse. Will start with bolus of NS, potassium and admit to ICU. 02/07/18 01:37 EKG: Normal Sinus rhythm. 02/07/18 01:38 *DC/Admit/Observation/Transfer Diagnosis at time of Disposition: Hyponatremia, Electrolyte abnormality - Discharge Dispostion Condition at time of disposition: Stable - Referrals - Patient Instructions - Post Discharge Activity
[2018-02-06 20:47] LABS: BASO % 0.6 % (0-2.0); EOS % 0.6 % (0-4.5); HEMATOCRIT 30.4 % (32.4-45.2); HEMOGLOBIN 10.9 GM/dL (10.7-15.3); MCHC 35.9 g/dl (32.0-36.0); MEAN CELL VOLUME 86.4 fl (80-96); MEAN PLT VOLUME 8.3 fl (7.5-11.1); MONO % 15.9 % (3.8-10.2); NEUT % 63.9 % (42.8-82.8); PLATELET COUNT 335 K/MM3 (134-434); RBC 3.51 M/mm3 (3.60-5.2); RDW 13.6 % (11.6-15.6); WHITE BLOOD COUNT 7.7 K/mm3 (4.0-10.0)
[2018-02-06 21:18] LABS: INR 1.07 (0.83-1.09); PROTHROMBIN TIME (PATIENT) 12.1 SEC (9.7-13.0)
[2018-02-06 21:26] LABS: ALBUMIN 3.8 g/dl (3.4-5.0); ALK PHOS 90 U/L (45-117); ANION GAP 16 (8-16); BILIRUBIN,TOTAL 0.5 mg/dL (0.2-1.0); BLOOD UREA NITROGEN 15 mg/dL (7-18); CALCIUM 9.6 mg/dL (8.5-10.1); CHLORIDE 60 mmol/L (98-107); CO2 32 mmol/L (21-32); CREATININE 1.1 mg/dL (0.55-1.02); GLUCOSE,RANDOM 105 mg/dL (74-106); MAGNESIUM 1.8 mg/dL (1.8-2.4); SGOT/AST 19 U/L (15-37); SGPT/ALT 18 U/L (12-78); TOT PROT 7.7 g/dl (6.4-8.2)
[2018-02-06 21:36] LABS: SODIUM 108 mmol/L (136-145)
[2018-02-06 21:37] LABS: POTASSIUM 2.2 mmol/L (3.5-5.1)
--- NOTE | 2018-02-06 21:49 | PDOC ---
Attending Attestation - Resident Resident Name: Avinash Nichols - ED Attending Attestation I have performed the following: I have examined & evaluated the patient, The case was reviewed & discussed with the resident, I agree w/resident's findings & plan, Exceptions are as noted - HPI HPI: 02/06/18 22:18 s/p syncopal episode x 2 today. H/o recent admission for hyponatremia and hypokalemia. Pt oswaldo any complaints at this time. - Physicial Exam PE: 02/06/18 22:18 *Physical Exam General Appearance: Yes: Appropriately Dressed. No: Apparent Distress, Intoxicated HEENT: positive: EOMI, DAVID, Normal ENT Inspection, Normal Voice, TMs Normal, Pharynx Normal. negative: Pale Conjunctivae, Photophobia, Scleral Icterus (R), Scleral Icterus (L) Neck: positive: Trachea midline, Normal Thyroid, Supple. negative: Tender, Rigid, Carotid bruit, Stridor, Lymphadenopathy (R), Lymphadenopathy (L), Thyromegaly Respiratory/Chest: positive: Lungs Clear, Normal Breath Sounds. negative: Chest Tender, Respiratory Distress, Accessory Muscle Use, Labored Respiration, RES, Crackles, Rales, Rhonchi, Stridor, Wheezing, Dullness Cardiovascular: positive: Regular Rhythm, Regular Rate, S1, S2. negative: Edema , JVD, Murmur, Bradycardia, Tachycardia Vascular Pulses: Dorsalis-Pedis (R): 2+, Doralis-Pedis (L): 2+ Gastrointestinal/Abdominal: positive: Normal Bowel Sounds, Flat, Soft. negative : Tender, Organomegaly, Pulsatile Mass, Increased Bowel Sounds, Decreased BS, Distended, Guarding, Rebound, Hernia, Hepatomegaly, Spleenomegaly Lymphatic: negative: Adenopathy, Tenderness Musculoskeletal: positive: Normal Inspection. negative: CVA Tenderness, Decreased Range of Motion Extremity: positive: Normal Capillary Refill, Normal Inspection, Normal Range of Motion, Pelvis Stable. negative: Tender, Pedal Edema, Swelling, Erythema Integumentary: positive: Normal Color, Dry, Warm. 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 negative: EOM Palsy, Facial Droop, Sensory Deficit - Medical Decision Making 02/06/18 22:20 patient will be admitted to Telemetry for further evaluation and care. Spoke to Dr. Brambila who will place orders Discharge Disposition - Diagnosis Hyponatremia, Electrolyte abnormality - Discharge Dispostion Condition at time of disposition: Stable Last Admission D/C Date: 01/17/18 Decision to Admit order: Yes - Referrals Referrals: Hai Marlow MD [Primary Care Provider] - - Patient Instructions - Post Discharge Activity
[2018-02-06 21:59] LABS: URINE APPEARANCE CLEAR; URINE BILIRUBIN NEGATIVE (<2.0 mg/dL); URINE COLOR STRAW; URINE GLUCOSE (UA) NEGATIVE (NEGATIVE); URINE KETONE NEGATIVE (NEGATIVE); URINE LEUK ESTERASE NEGATIVE (NEGATIVE); URINE NITRITE NEGATIVE (NEGATIVE); URINE PROTEIN NEGATIVE (NEGATIVE); URINE UROBILINOGEN NEGATIVE mg/dL (0.2-1.0)
[2018-02-06] MEDS ORDERED: POTASSIUM CHLORIDE TABS 10 MEQ TABLET.ER (FP) PO ONE (22:11)
[2018-02-06] MEDS ORDERED: SODIUM CHLORIDE 1,000 ML IV STA (22:11)
[2018-02-06] MEDS: KCL 10 MEQ IVPB 10 MEQ/100 ML INFUS.BAG IVPB SCH ×2 (22:47→23:29)
[2018-02-06] MEDS ORDERED: POTASSIUM CHLORIDE TABS 20 MEQ TABLET.ER (FP) PO ONE (22:51)
[2018-02-07] MEDS ORDERED: POTASSIUM CHLORIDE 10 MEQ in SODIUM CHLORIDE 1,000 ML IVPB SCH (03:00)
[2018-02-07] MEDS ORDERED: KCL 10 MEQ IVPB 20 MEQ/200 ML INFUS.BAG IVPB ONE (03:19)
[2018-02-07 03:38] LABS: ANION GAP 6 (8-16); BLOOD UREA NITROGEN 12 mg/dL (7-18); CALCIUM 8.4 mg/dL (8.5-10.1); CHLORIDE 78 mmol/L (98-107); CO2 32 mmol/L (21-32); CREATININE 0.9 mg/dL (0.55-1.02); GLUCOSE,RANDOM 100 mg/dL (74-106)
[2018-02-07 03:43] LABS: SODIUM 116 mmol/L (136-145)
[2018-02-07] MEDS: KCL 10 MEQ IVPB 10 MEQ/100 ML INFUS.BAG IVPB SCH ×3 (03:59→07:22)
[2018-02-07 05:20] VITALS: BMI 40.6
--- NOTE | 2018-02-07 08:12 | CON.CARD ---
Cardiology Consult (text) - Consultation Consultation Note: Cardiology Consult Dictated Syncope in setting of profound hyponatremia and hypokalemia H/o of ETOH abuse Prolonged QTc REC: 1. Tele until lytes and QTc normalized 2. Correction of Na+ and K+ as per Primary Medical Team and Renal 3. Echo (h/o pericardial effusion) 4. Keep Mg2+ > 2.0
--- NOTE | 2018-02-07 09:08 | CONS ---
DATE OF CONSULTATION: 02/07/2018 REQUESTED BY: Halle Brambila MD, for syncope. HISTORY OF PRESENT ILLNESS: The patient is a 57-year-old female who presented to the emergency department on February 06 for syncope. She has a history of COPD, recent admission for hyponatremia, alcohol abuse and hypertension. She presented to the ED after 2 episodes of syncope witnessed by her . The history is obtained primarily from the emergency room record as the patient cannot provide a history - she has no recollection of the events that occurred. According to records, she tried to stand up from a seated position and lost consciousness for a few seconds. She subsequently sat on the couch and again tried to get up before passing out with loss of consciousness again. There is no history of head trauma. The patient is currently asymptomatic and denies chest pain, shortness of breath or palpitations. Her course thus far is notable for profound hyponatremia with a sodium of 108 and initial hypokalemia, potassium of 2.2. After repletion and hydration her sodium is now 116 and potassium 3.0. Her admission ECG shows sinus rhythm at 67 beats per minute with a prolonged QT of 593 msec. Telemetry thus far has been unremarkable. PAST MEDICAL HISTORY: As above. History of pericardial effusion, status post drainage - details unclear. ALLERGIES: None. HOME MEDICATIONS: As listed include thiamin and Hyzaar 50/12.5 daily. FAMILY HISTORY: Noncontributory. SOCIAL HISTORY: Smokes less than a pack per day. Drinks 1 drink of alcohol daily, previously drank more heavily. Denies drug use. PHYSICAL EXAMINATION:Vital Signs: Temperature 98.3, pulse 60, blood pressure 133/53, O2 saturation 97 on room air. HEENT: She is anicteric. Neck: No carotid bruits. Heart: S1, 2 regular. No murmurs. Chest: Clear. Abdomen: Soft. Extremities: No edema. LABORATORIES: White count 7.7, hemoglobin 10.9, hematocrit 30.4, platelets 335. INR 1.07. Sodium 116, initially 108, potassium currently 3.0, initially 2.2, BUN 12, creatinine 0.9, calcium 8.4, magnesium 1.8. CK and troponin are negative x2 sets. Urinalysis showed clear urine. Toxicology screen showed an alcohol level of 5.5, slightly above normal. Chest x-ray: No evidence of acute disease. IMPRESSION: 1. Syncope in the setting of profound hyponatremia and hypokalemia. 2. History of alcohol abuse. 3. Prolonged QT likely secondary to electrolyte disturbances. RECOMMENDATIONS: 1. Telemetry until electrolytes and QTc are normalized. 2. Correction of sodium and potassium as per primary medical team and Nephrology. 3. Echocardiogram to assess EF, there is also a history of pericardial effusion - the details are nebulous, and patient cannot provide any informative history. 4. In addition to normalizing sodium and potassium, please keep magnesium greater than or equal to 2.0. Thank you for the consultation. FAIZA TORRES M.D. [id number]
[2018-02-07] MEDS: HEPARIN NA (PORCINE) 5,000 UNITS/ML 1ML VIAL SQ SCH ×2 (09:14→21:19)
[2018-02-07] MEDS ORDERED: MAGNESIUM 1GM/D5W - 1 GM/100 ML IVPB IVPB ONE ×2 (09:30→12:15)
[2018-02-07 09:44] LABS: HEMATOCRIT 30.5 % (32.4-45.2); HEMOGLOBIN 10.8 GM/dL (10.7-15.3); MCH 31.1 pg (25.7-33.7); MCHC 35.5 g/dl (32.0-36.0); MEAN CELL VOLUME 87.5 fl (80-96); MEAN PLT VOLUME 8.1 fl (7.5-11.1); PLATELET COUNT 328 K/MM3 (134-434); RBC 3.49 M/mm3 (3.60-5.2); WHITE BLOOD COUNT 6.6 K/mm3 (4.0-10.0)
[2018-02-07 10:04] LABS: ALBUMIN 3.5 g/dl (3.4-5.0); ANION GAP 11 (8-16); BLOOD UREA NITROGEN 10 mg/dL (7-18); CALCIUM 8.7 mg/dL (8.5-10.1); CHLORIDE 81 mmol/L (98-107); CO2 27 mmol/L (21-32); GLUCOSE,RANDOM 123 mg/dL (74-106); POTASSIUM 3.1 mmol/L (3.5-5.1); SGOT/AST 19 U/L (15-37); SGPT/ALT 20 U/L (12-78)
[2018-02-07 10:06] LABS: ALK PHOS 84 U/L (45-117); BILIRUBIN,TOTAL 0.4 mg/dL (0.2-1.0); CREATININE 0.8 mg/dL (0.55-1.02); TOT PROT 7.2 g/dl (6.4-8.2)
[2018-02-07 10:08] LABS: SODIUM 119 mmol/L (136-145)
--- NOTE | 2018-02-07 11:39 | ECHO ---
Name: ROSE VILLEDA Exam:Adult Echocardiogram Study Date: 02/07/2018 07:46 AM Age: 57 yrs Reason For Study: SYNCOPE Height: 62 in Weight: 130 lb BSA: 1.6 m2 MMode/2D Measurements & Calculations IVSd: 1.2 cm Ao root diam: 2.8 cm LVIDd: 2.8 cm LA dimension: 2.0 cm LVIDs: 1.8 cm LVPWd: 0.99 cm EDV(Teich): 29.5 ml LAV (MOD-bp): 30.0 ml ESV(Teich): 10.3 ml Doppler Measurements & Calculations MV E max nigel: 74.2 cm/sec max nigel: 161.5 cm/sec MV A max nigel: 101.9 cm/sec max P.4 mmHg MV E/A: 0.73 MV dec time: 0.38 sec TR max nigel: 236.6 cm/sec Med Peak E' Nigel: 5.8 cm/sec TR max P.4 mmHg Med E/e': 12.9 Lat Peak E' Nigel: 6.9 cm/sec Lat E/e': 10.8 Procedure A two-dimensional transthoracic echocardiogram with color flow and Doppler was performed. The patient was in normal sinus rhythm during the exam. Left Ventricle There is mild concentric left ventricular hypertrophy. No systolic anterior motion of the mitral valv e. Echo findings are not consistent with left ventricular outflow obstruction. The left ventricle is hyperdyn amic. E/A reversal consistent with but not diagnostic of poor LV compliance. Right Ventricle The right ventricle is grossly normal size. The right ventricular systolic function is grossly normal . Atria The left atrial size is normal. Right atrial size is normal. Mitral Valve The mitral valve is normal. There is mild mitral regurgitation. Tricuspid Valve The tricuspid valve is normal. There is mild to moderate tricuspid regurgitation. Right ventricular s ystolic pressure is normal. Aortic Valve There is mild aortic sclerosis.;. The aortic valve opens well. The aortic valve is trileaflet. Trace aortic regurgitation. Pulmonic Valve The pulmonic valve is not well visualized. The pulmonic valve is not well seen, but is grossly normal . There is no pulmonic valvular regurgitation. Great Vessels The aortic root is normal size. Normal IVC size and contractility. Pericardium/Pleura There is no pericardial effusion. Interpretation Summary There is mild concentric left ventricular hypertrophy. The left ventricle is hyperdynamic. E/A reversal consistent with but not diagnostic of poor LV compliance The right ventricular systolic function is grossly normal. There is mild mitral regurgitation. There is mild to moderate tricuspid regurgitation. There is mild aortic sclerosis.; Trace aortic regurgitation. There is no pericardial effusion. MD Bruno Mendes 02/07/2018 11:39 AM
[2018-02-07] MEDS ORDERED: POTASSIUM CHLORIDE TABS 20 MEQ TABLET.ER (FP) PO ONE (12:15)
--- NOTE | 2018-02-07 17:01 | EKG ---
Test Reason : Blood Pressure : / mmHG Vent. Rate : 066 BPM Atrial Rate : 066 BPM P-R Int : 192 ms QRS Dur : 086 ms QT Int : 566 ms P-R-T Axes : 055 011 027 degrees QTc Int : 593 ms POOR DATA QUALITY, INTERPRETATION MAY BE ADVERSELY AFFECTED NORMAL SINUS RHYTHM RSR' OR QR PATTERN IN V1 SUGGESTS RIGHT VENTRICULAR CONDUCTION DELAY POSSIBLE LEFT ATRIAL ENLARGEMENT BORDERLINE ECG Confirmed by MD HI, JOHN ([id number]) on 02/07/2018 5:01:22 PM Referred By: Confirmed By:JOHN DO MD
--- NOTE | 2018-02-07 17:03 | CONSULT ---
Consult Consult Specialty:: Nephrology Reason for Consultation:: hyponatremia - History of Present Illness Chief Complaint: syncope History of Present Illness: Pt is a 57 year old female with pmhx of hyponatremia, etoh abuse, and COPD who presents to the ER for syncope. She was found to have a sodium of 108. She has been actively drinking beer every day. She has had multiple hospitalizations for hyponatremia symptoms. She is awake and alert. She denies headache or change in vision. She says that she feels much better. She took her IV out. Her is at bedside and care was discussed with him as well. 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 in past, unclear) Pulmonary: Yes: COPD Renal/: Yes: Other (hyponatremia) ...: No Endocrine: Yes: Diabetes Mellitus - Alcohol/Substance Use Hx Alcohol Use: Yes (DAILY) Number of Drinks Daily: 7 History of Substance Use: reports: Cocaine - Smoking History Smoking history: Current some day smoker Have you smoked in the past 12 months: Yes Aproximately how many cigarettes per day: 1 Home Medications - Allergies Allergies/Adverse Reactions: Allergies Allergy/AdvReac Type Severity Reaction Status Date / Time No Known Allergies Allergy Verified 02/06/18 20:00 - Home Medications Home Medications: Ambulatory Orders Thiamine HCl [Vitamin B1 -] 100 mg PO HS #30 tablet 01/17/18 Losartan/Hydrochlorothiazide [Losartan-Hctz 50-12.5 mg Tab] 1 each PO DAILY Family Disease History - Family Disease History Family History: Denies Review of Systems - Review of Systems Constitutional: reports: No Symptoms Eyes: reports: No Symptoms HENT: reports: No Symptoms Neck: reports: No Symptoms Cardiovascular: reports: No Symptoms Respiratory: reports: No Symptoms Gastrointestinal: reports: No Symptoms Genitourinary: reports: No Symptoms Musculoskeletal: reports: No Symptoms Integumentary: reports: No Symptoms Neurological: reports: No Symptoms Endocrine: reports: No Symptoms Hematology/Lymphatic: reports: No Symptoms Psychiatric: reports: No Symptoms Physical Exam Vital Signs: Vital Signs Temperature 98.2 F 02/07/18 14:13 Pulse Rate 74 02/07/18 14:13 Respiratory Rate 18 02/07/18 14:13 Blood Pressure 147/71 02/07/18 14:13 O2 Sat by Pulse Oximetry (%) 100 02/07/18 09:00 Constitutional: Yes: Calm Eyes: Yes: Conjunctiva Clear HENT: Yes: Atraumatic Cardiovascular: Yes: S1, S2 Respiratory: Yes: CTA Bilaterally Gastrointestinal: Yes: Soft Renal/: Yes: WNL Musculoskeletal: Yes: WNL Extremities: Yes: WNL Edema: No Neurological: Yes: Oriented Psychiatric: Yes: Oriented Labs: CBC, BMP 02/07/18 09:25 02/07/18 09:25 Laboratory Tests 01/12/18 01/12/18 01/12/18 13:08 17:20 21:30 Sodium 110 L* 116 L* 120 L* 01/13/18 01/13/18 01/17/18 18:00 20:30 07:00 Sodium 124 L* 126 L 133 L 02/06/18 02/07/18 02/07/18 20:34 03:00 09:25 Sodium 108 L* 116 L* 119 L* Imaging - Results Chest X-ray: Report Reviewed Problem List - Problems (1) Electrolyte abnormality Code(s): E87.8 - OTH DISORDERS OF ELECTROLYTE AND FLUID BALANCE, NEC (2) Hyponatremia Code(s): E87.1 - HYPO-OSMOLALITY AND HYPONATREMIA (3) Alcohol dependence with uncomplicated withdrawal Code(s): F10.230 - ALCOHOL DEPENDENCE WITH WITHDRAWAL, UNCOMPLICATED (4) ETOH abuse Code(s): F10.10 - ALCOHOL ABUSE, UNCOMPLICATED Assessment/Plan Current Medications Generic Name Dose Route Start Last Admin Trade Name Freq PRN Reason Stop Dose Admin Heparin Sodium (Porcine) 5,000 unit 02/07/18 10:00 02/07/18 09:14 Heparin - SQ 5,000 unit BID LISSETT Administration Thiamine HCl 100 mg 02/07/18 22:00 Vitamin B1 - PO HS LISSETT Impression 1. hyponatremia 2. hx cocaine use 3. DM 4. COPD 5. etoh abuse - active 6. active smoker 7. non compliance Plan - repeat labs to evaluate sodium - avoid a change of greater than 10 meq in 24 hours - check mag and phos - discussed etoh abuse with pt and her again at great length - neurologic symptoms have resolved - this is her second admission this month for complications secondary to etoh abuse - she has not followed as outpt - check ua, urine lytes, urine and plasma osm Dr Loya
[2018-02-07 17:41] LABS: ANION GAP 12 (8-16); BLOOD UREA NITROGEN 11 mg/dL (7-18); CALCIUM 9.4 mg/dL (8.5-10.1); CHLORIDE 82 mmol/L (98-107); CO2 27 mmol/L (21-32); CREATININE 0.8 mg/dL (0.55-1.02); GLUCOSE,RANDOM 121 mg/dL (74-106); MAGNESIUM 2.2 mg/dL (1.8-2.4); PHOSPHOROUS 1.9 mg/dL (2.5-4.9); POTASSIUM 3.8 mmol/L (3.5-5.1)
[2018-02-07 17:43] LABS: SODIUM 121 mmol/L (136-145)
[2018-02-07] MEDS ORDERED: POTASSIUM PHOSPHATE 15 MM in DEXTROSE 5%-WATER - 250 ML IVPB ONE (18:15)
[2018-02-07] MEDS ORDERED: POTASSIUM CHLORIDE 20 MEQ in DEXTROSE 5%-WATER - 1,000 ML IVPB SCH (18:30)
[2018-02-07] MEDS ORDERED: PT OWN MED DRAWER 7, Y5N ONE (18:35)
[2018-02-07] MEDS: NAPH,MB-DB/K PH,MBDB POWDER PACKET PO SCH ×2 (18:37→21:19)
[2018-02-07] MEDS: THIAMINE HCL 100 MG TABLET (FP) PO SCH (21:19)
--- NOTE | 2018-02-07 21:43 | HP ---
Admitting History and Physical - Admission History of Present Illness: Pt is a 57 y/o female with PMH significant for COPD, HTN and etoh abuse. Pt was recently dc'ed after being treated for hyponatremia, hypokalemia and alcohol abuse. Pt presented to the ER after 2 episodes of syncope witnessed by . Patient tried to stand up from sitting position before losing consciousness for a a few seconds, sat on the couch, then tried to get up again before losing consciousness again. Did not hit her head. Claims to be feeling pretty normal although describes her gait as "sluggish". Pt also admits to drinking a few beers daily? 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 (possible seizure in past, unclear) Cardiovascular: Yes: HTN Pulmonary: Yes: COPD Renal/: Yes: Other (hyponatremia) ...: No Psych: Yes: Addictions Endocrine: Yes: Diabetes Mellitus - Smoking History Smoking history: Current some day smoker Have you smoked in the past 12 months: Yes Aproximately how many cigarettes per day: 1 - Alcohol/Substance Use Hx Alcohol Use: Yes (DAILY) Number of Drinks Daily: 7 History of Substance Use: reports: Cocaine Home Medications - Allergies Allergies/Adverse Reactions: Allergies Allergy/AdvReac Type Severity Reaction Status Date / Time No Known Allergies Allergy Verified 02/06/18 20:00 - Home Medications Home Medications: Ambulatory Orders Thiamine HCl [Vitamin B1 -] 100 mg PO HS #30 tablet 01/17/18 Losartan/Hydrochlorothiazide [Losartan-Hctz 50-12.5 mg Tab] 1 each PO DAILY Family Disease History - Family Disease History Family History: Unremarkable Review of Systems - Review of Systems Constitutional: reports: Weakness Eyes: reports: No Symptoms Neck: reports: No Symptoms Cardiovascular: reports: No Symptoms Respiratory: reports: No Symptoms Gastrointestinal: reports: No Symptoms Genitourinary: reports: No Symptoms Physical Examination Vital Signs: Vital Signs Temperature 97.8 F 02/07/18 17:00 Pulse Rate 76 02/07/18 17:00 Respiratory Rate 20 02/07/18 17:00 Blood Pressure 132/89 02/07/18 17:00 O2 Sat by Pulse Oximetry (%) 100 02/07/18 09:00 Constitutional: Yes: Well Nourished HENT: Yes: WNL Neck: Yes: WNL, Supple Cardiovascular: Yes: WNL, Regular Rate and Rhythm Respiratory: Yes: WNL, Regular, CTA Bilaterally Gastrointestinal: Yes: WNL, Normal Bowel Sounds, Soft Musculoskeletal: Yes: WNL Extremities: Yes: WNL Edema: No Neurological: Yes: WNL, Alert, Oriented ...Motor Strength: WNL Labs: CBC, BMP 02/07/18 09:25 02/07/18 16:30 Problem List - Problems (1) Syncope Assessment/Plan: Admit to tele Cardio consult Serial cpk/tropnonin to R/O ACS Check echo/carotid doppler Code(s): R55 - SYNCOPE AND COLLAPSE Qualifiers: Syncope type: unspecified Qualified Code(s): R55 - Syncope and collapse (2) Electrolyte abnormality Assessment/Plan: Replace K+ and monitor Will start pt on gentle IV hydration FOllow NA+ and K+ Renal consult Code(s): E87.8 - OTH DISORDERS OF ELECTROLYTE AND FLUID BALANCE, NEC (3) ETOH abuse Assessment/Plan: Cont to monitor for withdrawal Cont thiamine Code(s): F10.10 - ALCOHOL ABUSE, UNCOMPLICATED (4) HTN (hypertension) Assessment/Plan: Pt not on any antihypertensives BP stable Cont to monitor Code(s): I10 - ESSENTIAL (PRIMARY) HYPERTENSION
[2018-02-08] MEDS: NAPH,MB-DB/K PH,MBDB POWDER PACKET PO SCH ×3 (06:09→23:20)
[2018-02-08 06:33] LABS: BASO % 0.5 % (0-2.0); EOS % 0.5 % (0-4.5); HEMATOCRIT 31.8 % (32.4-45.2); HEMOGLOBIN 11.1 GM/dL (10.7-15.3); LYMPH % 16.7 % (8-40); MCH 30.9 pg (25.7-33.7); MCHC 35.1 g/dl (32.0-36.0); MEAN PLT VOLUME 8.8 fl (7.5-11.1); MONO % 13.8 % (3.8-10.2); NEUT % 68.5 % (42.8-82.8); PLATELET COUNT 349 K/MM3 (134-434); RBC 3.61 M/mm3 (3.60-5.2); RDW 13.3 % (11.6-15.6); WHITE BLOOD COUNT 12.2 K/mm3 (4.0-10.0)
[2018-02-08 07:22] LABS: CHLORIDE 83 mmol/L (98-107); POTASSIUM 3.3 mmol/L (3.5-5.1)
[2018-02-08 07:43] LABS: ALBUMIN 4.1 g/dl (3.4-5.0); ALK PHOS 107 U/L (45-117); ANION GAP 14 (8-16); BILIRUBIN,TOTAL 0.3 mg/dL (0.2-1.0); BLOOD UREA NITROGEN 7 mg/dL (7-18); CALCIUM 9.2 mg/dL (8.5-10.1); CO2 24 mmol/L (21-32); CREATININE 0.7 mg/dL (0.55-1.02); GLUCOSE,RANDOM 123 mg/dL (74-106); MAGNESIUM 1.7 mg/dL (1.8-2.4); PHOSPHOROUS 2.7 mg/dL (2.5-4.9); SGOT/AST 21 U/L (15-37); SGPT/ALT 21 U/L (12-78); TOT PROT 8.2 g/dl (6.4-8.2)
[2018-02-08 07:47] LABS: SODIUM 121 mmol/L (136-145)
--- NOTE | 2018-02-08 08:19 | PN ---
Progress Note, Physician Chief Complaint: Eating breakfast, comfortable Carotid US with plaque but no sig stenosis Echo hyperdynamic LV, c/w dehydration/volume depletion No effusion TELE: NSR - Current Medication List Current Medications: Active Medications Heparin Sodium (Porcine) (Heparin -) 5,000 unit SQ BID [facility] Last Admin: 02/07/18 21:19 Dose: 5,000 unit Potassium Chloride 20 meq/ (Dextrose) 1,010 mls @ 40 mls/hr IVPB Q25H [facility] Last Admin: 02/07/18 21:11 Dose: 40 mls/hr Potassium Phos/Sodium Phos (Phos-Nak Packet -) 1 packet PO TID [facility] Last Admin: 02/08/18 06:09 Dose: 1 packet Thiamine HCl (Vitamin B1 -) 100 mg PO HS [facility] Last Admin: 02/07/18 21:19 Dose: 100 mg - Objective Vital Signs: Vital Signs Temperature 98.2 F 02/08/18 06:00 Pulse Rate 91 H 02/08/18 06:00 Respiratory Rate 19 02/08/18 06:00 Blood Pressure 152/84 02/08/18 06:00 O2 Sat by Pulse Oximetry (%) 99 02/07/18 21:00 Constitutional: Yes: No Distress Cardiovascular: Yes: Regular Rate and Rhythm Respiratory: Yes: CTA Bilaterally Gastrointestinal: Yes: Soft Edema: No Neurological: Yes: Alert, Oriented ...Motor Strength: WNL Labs: CBC, BMP 02/08/18 05:30 02/08/18 05:30 INR, PTT INR 1.07 (0.83-1.09) 02/06/18 20:34 Laboratory Tests 02/06/18 02/07/18 02/08/18 20:34 03:00 05:30 WBC 12.2 H Hgb 11.1 Plt Count 349 Sodium Potassium Creatinine Phosphorus Troponin I < 0.02 < 0.02 02/08/18 05:30 WBC Hgb Plt Count Sodium 121 L* Potassium 3.3 L Creatinine 0.7 Phosphorus 2.7 Troponin I < 0.02 - ....Imaging EKG: Image Reviewed Assessment/Plan ardiology Consult Dictated Syncope in setting of profound hyponatremia and hypokalemia H/o of ETOH abuse Prolonged QTc REC: 1. Tele until lytes and QTc normalized. Daily ECG 2. Correction of Na+ and K+ as per Primary Medical Team and Renal 3. Echo normal LV fxn, no effusion 4. Keep Mg2+ > 2.0
[2018-02-08] MEDS ORDERED: POTASSIUM CHLORIDE TABS 20 MEQ TABLET.ER (FP) PO ONE ×2 (09:15→13:15)
[2018-02-08] MEDS ORDERED: MAGNESIUM 2GM/50ML STERILE WATER IVPB IVPB ONE (09:15)
[2018-02-08] MEDS ORDERED: SODIUM CHLORIDE 1 GM TABLET PO ONE (10:00)
--- NOTE | 2018-02-08 10:09 | EKG ---
Test Reason : Blood Pressure : / mmHG Vent. Rate : 082 BPM Atrial Rate : 082 BPM P-R Int : 162 ms QRS Dur : 078 ms QT Int : 416 ms P-R-T Axes : 055 032 052 degrees QTc Int : 486 ms NORMAL SINUS RHYTHM MINIMAL VOLTAGE CRITERIA FOR LVH, MAY BE NORMAL VARIANT PROLONGED QT ABNORMAL ECG WHEN COMPARED WITH ECG OF 06-FEB-2018 21:33, NONSPECIFIC T WAVE ABNORMALITY NO LONGER EVIDENT IN ANTERIOR LEADS QT HAS SHORTENED Confirmed by ELEUTERIO BONILLA, WATSON ([id number]) on 02/08/2018 10:09:21 AM Referred By: Braxton WOODRUFF Confirmed By:WATSON MCCLELLAN MD
[2018-02-08] MEDS: HEPARIN NA (PORCINE) 5,000 UNITS/ML 1ML VIAL SQ SCH ×2 (10:29→23:20)
[2018-02-08] MEDS: ASPIRIN 81 MG CHEWABLE TABLETS PO SCH (10:31)
--- NOTE | 2018-02-08 12:18 | PN ---
Progress Note, Physician History of Present Illness: Pt seen and examined at bedside. SHe denies shortness of breath. - Current Medication List Current Medications: Active Medications Aspirin (Asa -) 81 mg PO DAILY [facility] Last Admin: 02/08/18 10:31 Dose: 81 mg Heparin Sodium (Porcine) (Heparin -) 5,000 unit SQ BID [facility] Last Admin: 02/08/18 10:29 Dose: 5,000 unit Potassium Phos/Sodium Phos (Phos-Nak Packet -) 1 packet PO TID [facility] Last Admin: 02/08/18 06:09 Dose: 1 packet Thiamine HCl (Vitamin B1 -) 100 mg PO HS [facility] Last Admin: 02/07/18 21:19 Dose: 100 mg - Objective Vital Signs: Vital Signs Temperature 98.2 F 02/08/18 09:00 Pulse Rate 84 02/08/18 09:00 Respiratory Rate 14 02/08/18 09:00 Blood Pressure 144/90 02/08/18 09:00 O2 Sat by Pulse Oximetry (%) 99 02/07/18 21:00 Constitutional: Yes: Calm Eyes: Yes: Conjunctiva Clear HENT: Yes: Atraumatic Neck: Yes: Supple Cardiovascular: Yes: S1, S2 Respiratory: Yes: CTA Bilaterally Gastrointestinal: Yes: Normal Bowel Sounds, Soft Genitourinary: Yes: WNL Musculoskeletal: Yes: WNL Edema: No Neurological: Yes: Oriented Psychiatric: Yes: Oriented Labs: CBC, BMP 02/08/18 05:30 INR, PTT INR 1.07 (0.83-1.09) 02/06/18 20:34 Problem List - Problems (1) Electrolyte abnormality Code(s): E87.8 - OTH DISORDERS OF ELECTROLYTE AND FLUID BALANCE, NEC (2) Hyponatremia Code(s): E87.1 - HYPO-OSMOLALITY AND HYPONATREMIA (3) Alcohol dependence with uncomplicated withdrawal Code(s): F10.230 - ALCOHOL DEPENDENCE WITH WITHDRAWAL, UNCOMPLICATED (4) ETOH abuse Code(s): F10.10 - ALCOHOL ABUSE, UNCOMPLICATED Assessment/Plan Current Medications Generic Name Dose Route Start Last Admin Trade Name Freq PRN Reason Stop Dose Admin Aspirin 81 mg 02/08/18 10:00 02/08/18 10:31 Asa - PO 81 mg DAILY LISSETT Administration Heparin Sodium (Porcine) 5,000 unit 02/07/18 10:00 02/08/18 10:29 Heparin - SQ 5,000 unit BID LISSETT Administration Potassium Phos/Sodium Phos 1 packet 02/07/18 18:30 02/08/18 06:09 Phos-Nak Packet - PO 1 packet TID LISSETT Administration Thiamine HCl 100 mg 02/07/18 22:00 02/07/18 21:19 Vitamin B1 - PO 100 mg HS LISSETT Administration Laboratory Tests 02/06/18 02/08/18 21:37 05:30 Serum Osmolality 250 L Ur Specific [place] 1.004 Impression 1. hyponatremia 2. hx cocaine use 3. DM 4. COPD 5. etoh abuse - active 6. active smoker 7. non compliance Plan - cont to monitor sodium - pt was on d5w to decrease rate of rise - start ns - encourage PO intake - follow up repeat labs - discussed etoh abuse again Dr Loya
[2018-02-08] MEDS ORDERED: SODIUM CHLORIDE 1,000 ML IV SCH (12:30)
[2018-02-08 12:31] LABS: ANION GAP 11 (8-16); BLOOD UREA NITROGEN 6 mg/dL (7-18); CALCIUM 9.7 mg/dL (8.5-10.1); CHLORIDE 83 mmol/L (98-107); CO2 28 mmol/L (21-32); CREATININE 0.7 mg/dL (0.55-1.02); GLUCOSE,RANDOM 136 mg/dL (74-106); POTASSIUM 3.2 mmol/L (3.5-5.1)
[2018-02-08 12:48] LABS: SODIUM 122 mmol/L (136-145)
[2018-02-08] MEDS ORDERED: POTASSIUM CHLORIDE 10 MEQ in SODIUM CHLORIDE 1,000 ML IVPB SCH (14:00)
[2018-02-08] MEDS ORDERED: PT OWN MED DRAWER 7, Y5N ONE (14:35)
[2018-02-08 20:27] LABS: ANION GAP 11 (8-16); BLOOD UREA NITROGEN 6 mg/dL (7-18); CALCIUM 9.5 mg/dL (8.5-10.1); CHLORIDE 86 mmol/L (98-107); CO2 26 mmol/L (21-32); CREATININE 0.7 mg/dL (0.55-1.02); GLUCOSE,RANDOM 114 mg/dL (74-106); POTASSIUM 4.3 mmol/L (3.5-5.1)
[2018-02-08 20:33] LABS: SODIUM 123 mmol/L (136-145)
[2018-02-08] MEDS: THIAMINE HCL 100 MG TABLET (FP) PO SCH (23:20)
--- NOTE | 2018-02-08 23:41 | PN ---
Progress Note, Physician History of Present Illness: No new complaints - Current Medication List Current Medications: Active Medications Aspirin (Asa -) 81 mg PO DAILY [facility] Last Admin: 02/08/18 10:31 Dose: 81 mg Heparin Sodium (Porcine) (Heparin -) 5,000 unit SQ BID [facility] Last Admin: 02/08/18 23:20 Dose: 5,000 unit Potassium Chloride 10 meq/ (Sodium Chloride) 1,005 mls @ 42 mls/hr IVPB DAILY@ 1400 [facility] Last Admin: 02/08/18 15:00 Dose: 42 mls/hr Potassium Phos/Sodium Phos (Phos-Nak Packet -) 1 packet PO TID [facility] Last Admin: 02/08/18 23:20 Dose: 1 packet Thiamine HCl (Vitamin B1 -) 100 mg PO HS [facility] Last Admin: 02/08/18 23:20 Dose: 100 mg - Objective Vital Signs: Vital Signs Temperature 98.0 F 02/08/18 18:00 Pulse Rate 95 H 02/08/18 18:00 Respiratory Rate 19 02/08/18 18:00 Blood Pressure 155/87 02/08/18 18:00 O2 Sat by Pulse Oximetry (%) 99 02/08/18 09:00 Constitutional: Yes: Well Nourished Cardiovascular: Yes: WNL, Regular Rate and Rhythm Respiratory: Yes: WNL, Regular, CTA Bilaterally Gastrointestinal: Yes: WNL, Normal Bowel Sounds, Soft Labs: CBC, BMP 02/08/18 05:30 02/08/18 18:35 INR, PTT INR 1.07 (0.83-1.09) 02/06/18 20:34 Problem List - Problems (1) Syncope Assessment/Plan: No arrythmia's on tele Carotid doppler did not show significant stenosis Echo noted Code(s): R55 - SYNCOPE AND COLLAPSE Qualifiers: Syncope type: unspecified Qualified Code(s): R55 - Syncope and collapse (2) Electrolyte abnormality Assessment/Plan: Replace K+ and monitor FOllow NA+ and K+ As per renal Code(s): E87.8 - OTH DISORDERS OF ELECTROLYTE AND FLUID BALANCE, NEC (3) Alcohol dependence with uncomplicated withdrawal Code(s): F10.230 - ALCOHOL DEPENDENCE WITH WITHDRAWAL, UNCOMPLICATED
[2018-02-09] MEDS ORDERED: POTASSIUM CHLORIDE 10 MEQ in SODIUM CHLORIDE 1,000 ML IVPB SCH ×3 (06:00→14:00)
[2018-02-09] MEDS: NAPH,MB-DB/K PH,MBDB POWDER PACKET PO SCH ×3 (06:21→22:39)
[2018-02-09 07:04] LABS: ANION GAP 6 (8-16); BLOOD UREA NITROGEN 6 mg/dL (7-18); CALCIUM 9.1 mg/dL (8.5-10.1); CHLORIDE 90 mmol/L (98-107); CHOLESTEROL 199 mg/dL (50-200); CO2 26 mmol/L (21-32); CREATININE 0.8 mg/dL (0.55-1.02); MAGNESIUM 1.7 mg/dL (1.8-2.4); PHOSPHOROUS 3.5 mg/dL (2.5-4.9); POTASSIUM 4.2 mmol/L (3.5-5.1); TRIGLYCERIDES 100 mg/dL (35-160)
[2018-02-09 07:12] LABS: HDL CHOLESTEROL 57 mg/dL (40-60)
[2018-02-09 07:15] LABS: GLUCOSE,RANDOM 113 mg/dL (74-106)
[2018-02-09 07:18] LABS: SODIUM 122 mmol/L (136-145)
--- NOTE | 2018-02-09 10:03 | PN ---
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 Monet History of Present Illness: Denies recurrent near or true syncope. - Current Medication List Current Medications: Active Medications Aspirin (Asa -) 81 mg PO DAILY [facility] Last Admin: 02/08/18 10:31 Dose: 81 mg Heparin Sodium (Porcine) (Heparin -) 5,000 unit SQ BID [facility] Last Admin: 02/08/18 23:20 Dose: 5,000 unit Potassium Chloride 10 meq/ (Sodium Chloride) 1,005 mls @ 75 mls/hr IVPB Q13H [facility] Last Admin: 02/09/18 06:21 Dose: 75 mls/hr Potassium Phos/Sodium Phos (Phos-Nak Packet -) 1 packet PO TID [facility] Last Admin: 02/09/18 06:21 Dose: 1 packet Thiamine HCl (Vitamin B1 -) 100 mg PO HS [facility] Last Admin: 02/08/18 23:20 Dose: 100 mg - Objective Vital Signs: Vital Signs Temperature 98.3 F 02/09/18 06:00 Pulse Rate 87 02/09/18 06:00 Respiratory Rate 18 02/09/18 06:00 Blood Pressure 138/77 02/09/18 06:00 O2 Sat by Pulse Oximetry (%) 99 02/08/18 21:00 Constitutional: Yes: No Distress, Calm, Thin Neck: Yes: Supple Cardiovascular: Yes: Regular Rate and Rhythm Respiratory: Yes: Regular, CTA Bilaterally Gastrointestinal: Yes: Normal Bowel Sounds, Soft Edema: No Labs: CBC, BMP 02/08/18 05:30 02/09/18 05:30 INR, PTT INR 1.07 (0.83-1.09) 02/06/18 20:34 - ....Imaging EKG: Report Reviewed (NSR@82 min criteria LVH QTc 486 msec Tele: NSR) Problem List - Problems (1) Syncope Code(s): R55 - SYNCOPE AND COLLAPSE Qualifiers: Syncope type: unspecified Qualified Code(s): R55 - Syncope and collapse (2) Electrolyte abnormality Code(s): E87.8 - OTH DISORDERS OF ELECTROLYTE AND FLUID BALANCE, NEC (3) Hyponatremia Code(s): E87.1 - HYPO-OSMOLALITY AND HYPONATREMIA (4) Alcohol dependence with uncomplicated withdrawal Code(s): F10.230 - ALCOHOL DEPENDENCE WITH WITHDRAWAL, UNCOMPLICATED Assessment/Plan Carotid US with plaque but no sig stenosis Echo hyperdynamic LV, c/w dehydration/volume depletion, No effusion 1. Syncope in setting of profound hyponatremia and hypokalemia 2. H/o of ETOH abuse 3. Prolonged QTc REC: 1. Tele until lytes and QTc normalized. Daily ECG 2. Correction of Na+ and K+ as per Primary Medical Team and Renal 3. Echo normal LV fxn, no effusion 4. Keep Mg2+ > 2.0
[2018-02-09] MEDS: ASPIRIN 81 MG CHEWABLE TABLETS PO SCH (10:37)
[2018-02-09] MEDS: HEPARIN NA (PORCINE) 5,000 UNITS/ML 1ML VIAL SQ SCH ×2 (10:37→22:39)
[2018-02-09] MEDS ORDERED: MAGNESIUM OXIDE 400 MG TABLET (FP) PO ONE (10:45)
[2018-02-09] MEDS ORDERED: PT OWN MED DRAWER 7, Y5N ONE ×2 (11:41→22:34)
[2018-02-09 11:55] LABS: ANION GAP 8 (8-16); BLOOD UREA NITROGEN 8 mg/dL (7-18); CALCIUM 8.7 mg/dL (8.5-10.1); CHLORIDE 92 mmol/L (98-107); CO2 25 mmol/L (21-32); CREATININE 0.7 mg/dL (0.55-1.02); GLUCOSE,RANDOM 116 mg/dL (74-106); POTASSIUM 4.2 mmol/L (3.5-5.1); SODIUM 125 mmol/L (136-145)
--- NOTE | 2018-02-09 13:58 | PN ---
Progress Note, Physician History of Present Illness: Pt seen and examined at bedside. She is awake and out of bed to chair. She denies headache or change in vision. - Current Medication List Current Medications: Active Medications Aspirin (Asa -) 81 mg PO DAILY [facility] Last Admin: 02/09/18 10:37 Dose: 81 mg Heparin Sodium (Porcine) (Heparin -) 5,000 unit SQ BID [facility] Last Admin: 02/09/18 10:37 Dose: 5,000 unit Potassium Chloride 10 meq/ (Sodium Chloride) 1,005 mls @ 75 mls/hr IVPB Q13H [facility] Potassium Phos/Sodium Phos (Phos-Nak Packet -) 1 packet PO TID [facility] Last Admin: 02/09/18 06:21 Dose: 1 packet Sodium Chloride (Sodium Chloride Tablet -) 1 gm PO BID [facility] Thiamine HCl (Vitamin B1 -) 100 mg PO HS [facility] Last Admin: 02/08/18 23:20 Dose: 100 mg - Objective Vital Signs: Vital Signs Temperature 98.3 F 02/09/18 06:00 Pulse Rate 87 02/09/18 06:00 Respiratory Rate 18 02/09/18 06:00 Blood Pressure 138/77 02/09/18 06:00 O2 Sat by Pulse Oximetry (%) 99 02/08/18 21:00 Constitutional: Yes: Calm Eyes: Yes: Conjunctiva Clear HENT: Yes: Atraumatic Cardiovascular: Yes: S1, S2 Respiratory: Yes: CTA Bilaterally Gastrointestinal: Yes: Soft Genitourinary: Yes: WNL Musculoskeletal: Yes: WNL Edema: No Integumentary: Yes: WNL Neurological: Yes: Oriented Psychiatric: Yes: Oriented Labs: CBC, BMP 02/08/18 05:30 02/09/18 11:25 INR, PTT INR 1.07 (0.83-1.09) 02/06/18 20:34 Problem List - Problems (1) Electrolyte abnormality Code(s): E87.8 - OTH DISORDERS OF ELECTROLYTE AND FLUID BALANCE, NEC (2) Hyponatremia Code(s): E87.1 - HYPO-OSMOLALITY AND HYPONATREMIA (3) Alcohol dependence with uncomplicated withdrawal Code(s): F10.230 - ALCOHOL DEPENDENCE WITH WITHDRAWAL, UNCOMPLICATED (4) ETOH abuse Code(s): F10.10 - ALCOHOL ABUSE, UNCOMPLICATED Assessment/Plan Current Medications Generic Name Dose Route Start Last Admin Trade Name Freq PRN Reason Stop Dose Admin Aspirin 81 mg 02/08/18 10:00 02/09/18 10:37 Asa - PO 81 mg DAILY [facility] Administration Heparin Sodium (Porcine) 5,000 unit 02/07/18 10:00 02/09/18 10:37 Heparin - SQ 5,000 unit BID [facility] Administration Potassium Chloride 10 meq/ 1,005 mls @ 75 mls/hr 02/09/18 13:15 Sodium Chloride IVPB Q13H [facility] Magnesium Oxide 400 mg 02/09/18 22:00 Mag-Ox - PO BID [facility] Potassium Phos/Sodium Phos 1 packet 02/07/18 18:30 02/09/18 06:21 Phos-Nak Packet - PO 1 packet TID [facility] Administration Sodium Chloride 1 gm 02/09/18 12:00 Sodium Chloride Tablet - PO BID [facility] Thiamine HCl 100 mg 02/07/18 22:00 02/08/18 23:20 Vitamin B1 - PO 100 mg HS [facility] Administration Impression 1. hyponatremia 2. hx cocaine use 3. DM 4. COPD 5. etoh abuse - active 6. active smoker 7. non compliance 8. hypomagnesemia Plan - sodium improving - cont with saline - discussed etoh abuse with pt - encourage PO intake Dr Loya
[2018-02-09] MEDS: POTASSIUM CHLORIDE 10 MEQ in SODIUM CHLORIDE 1,000 ML IVPB SCH (14:12)
[2018-02-09] MEDS: SODIUM CHLORIDE 1 GM TABLET PO SCH ×2 (14:13→22:39)
[2018-02-09] MEDS: THIAMINE HCL 100 MG TABLET (FP) PO SCH (22:39)
[2018-02-09] MEDS: MAGNESIUM OXIDE 400 MG TABLET (FP) PO SCH (22:39)
--- NOTE | 2018-02-09 22:53 | PN ---
Progress Note, Physician History of Present Illness: No new complaints - Current Medication List Current Medications: Active Medications Aspirin (Asa -) 81 mg PO DAILY [facility] Last Admin: 02/09/18 10:37 Dose: 81 mg Heparin Sodium (Porcine) (Heparin -) 5,000 unit SQ BID [facility] Last Admin: 02/09/18 22:39 Dose: Not Given Potassium Chloride 10 meq/ (Sodium Chloride) 1,005 mls @ 75 mls/hr IVPB Q13H [facility] Last Admin: 02/09/18 14:12 Dose: 75 mls/hr Magnesium Oxide (Mag-Ox -) 400 mg PO BID [facility] Last Admin: 02/09/18 22:39 Dose: Not Given Potassium Phos/Sodium Phos (Phos-Nak Packet -) 1 packet PO TID [facility] Last Admin: 02/09/18 22:39 Dose: Not Given Sodium Chloride (Sodium Chloride Tablet -) 1 gm PO BID [facility] Last Admin: 02/09/18 22:39 Dose: Not Given Thiamine HCl (Vitamin B1 -) 100 mg PO HS [facility] Last Admin: 02/09/18 22:39 Dose: Not Given - Objective Vital Signs: Vital Signs Temperature 97.7 F 02/09/18 18:00 Pulse Rate 79 02/09/18 18:00 Respiratory Rate 18 02/09/18 18:00 Blood Pressure 149/93 02/09/18 18:00 O2 Sat by Pulse Oximetry (%) 99 02/09/18 09:00 Neck: Yes: WNL, Supple Cardiovascular: Yes: WNL, Regular Rate and Rhythm Respiratory: Yes: WNL, Regular, CTA Bilaterally Gastrointestinal: Yes: WNL, Normal Bowel Sounds, Soft Labs: CBC, BMP 02/08/18 05:30 02/09/18 11:25 INR, PTT INR 1.07 (0.83-1.09) 02/06/18 20:34 Problem List - Problems (1) Syncope Code(s): R55 - SYNCOPE AND COLLAPSE Qualifiers: Syncope type: unspecified Qualified Code(s): R55 - Syncope and collapse (2) Electrolyte abnormality Assessment/Plan: Replace K+ and monitor Follow NA+ and K+ Cont IVF As per renal Code(s): E87.8 - OTH DISORDERS OF ELECTROLYTE AND FLUID BALANCE, NEC (3) HTN (hypertension) Assessment/Plan: Pt not on any antihypertensives BP stable Cont to monitor Code(s): I10 - ESSENTIAL (PRIMARY) HYPERTENSION (4) Alcohol dependence with uncomplicated withdrawal Code(s): F10.230 - ALCOHOL DEPENDENCE WITH WITHDRAWAL, UNCOMPLICATED (5) ETOH abuse Code(s): F10.10 - ALCOHOL ABUSE, UNCOMPLICATED
[2018-02-10] MEDS: POTASSIUM CHLORIDE 10 MEQ in SODIUM CHLORIDE 1,000 ML IVPB SCH ×2 (02:20→16:20)
[2018-02-10] MEDS: NAPH,MB-DB/K PH,MBDB POWDER PACKET PO SCH ×4 (05:10→21:33)
--- NOTE | 2018-02-10 07:57 | PN ---
Progress Note, Physician Chief Complaint: No acute ST changes TELE: NSR History of Present Illness: BP is above goal - Current Medication List Current Medications: Active Medications Aspirin (Asa -) 81 mg PO DAILY [facility] Last Admin: 02/09/18 10:37 Dose: 81 mg Heparin Sodium (Porcine) (Heparin -) 5,000 unit SQ BID [facility] Last Admin: 02/09/18 22:39 Dose: Not Given Potassium Chloride 10 meq/ (Sodium Chloride) 1,005 mls @ 75 mls/hr IVPB Q13H [facility] Last Admin: 02/10/18 02:20 Dose: Not Given Magnesium Oxide (Mag-Ox -) 400 mg PO BID [facility] Last Admin: 02/09/18 22:39 Dose: Not Given Potassium Phos/Sodium Phos (Phos-Nak Packet -) 1 packet PO TID [facility] Last Admin: 02/10/18 05:10 Dose: Not Given Sodium Chloride (Sodium Chloride Tablet -) 1 gm PO BID [facility] Last Admin: 02/09/18 22:39 Dose: Not Given Thiamine HCl (Vitamin B1 -) 100 mg PO HS [facility] Last Admin: 02/09/18 22:39 Dose: Not Given - Objective Vital Signs: Vital Signs Temperature 98.1 F 02/10/18 02:00 Pulse Rate 77 02/10/18 02:00 Respiratory Rate 18 02/10/18 02:00 Blood Pressure 178/92 02/10/18 02:00 O2 Sat by Pulse Oximetry (%) 99 02/09/18 21:00 Constitutional: Yes: No Distress Cardiovascular: Yes: Regular Rate and Rhythm Respiratory: Yes: CTA Bilaterally Gastrointestinal: Yes: Soft Edema: No Neurological: Yes: Alert, Oriented ...Motor Strength: WNL Labs: CBC, BMP 02/08/18 05:30 02/09/18 11:25 INR, PTT INR 1.07 (0.83-1.09) 02/06/18 20:34 Laboratory Tests 02/08/18 02/09/18 05:30 11:25 WBC 12.2 H Hgb 11.1 Plt Count 349 Sodium 125 L Potassium 4.2 Creatinine 0.7 Calcium 8.7 - ....Imaging EKG: Image Reviewed Assessment/Plan Assessment/Plan Carotid US with plaque but no sig stenosis Echo hyperdynamic LV, c/w dehydration/volume depletion, No effusion 1. Syncope in setting of profound hyponatremia and hypokalemia 2. H/o of ETOH abuse 3. Prolonged QTc REC: 1. Tele until lytes and QTc normalized. Daily ECG 2. Correction of Na+ and K+ as per Primary Medical Team and Renal 3. Echo normal LV fxn, no effusion 4. Keep Mg2+ > 2.0 5. Add amlodipine for BP control.
[2018-02-10] MEDS: MAGNESIUM OXIDE 400 MG TABLET (FP) PO SCH ×4 (08:28→21:33)
[2018-02-10] MEDS: ASPIRIN 81 MG CHEWABLE TABLETS PO SCH ×2 (08:28→09:28)
[2018-02-10] MEDS ORDERED: PT OWN MED DRAWER 7, Y5N ONE (08:37)
[2018-02-10] MEDS: SODIUM CHLORIDE 1 GM TABLET PO SCH ×4 (08:39→21:33)
[2018-02-10] MEDS: HEPARIN NA (PORCINE) 5,000 UNITS/ML 1ML VIAL SQ SCH ×4 (09:28→21:33)
[2018-02-10 09:54] LABS: ANION GAP 10 (8-16); BILIRUBIN,TOTAL 0.2 mg/dL (0.2-1.0); BLOOD UREA NITROGEN 8 mg/dL (7-18); CALCIUM 9.6 mg/dL (8.5-10.1); CHLORIDE 95 mmol/L (98-107); CO2 25 mmol/L (21-32); CREATININE 0.7 mg/dL (0.55-1.02); GLUCOSE,RANDOM 155 mg/dL (74-106); POTASSIUM 4.1 mmol/L (3.5-5.1); SGOT/AST 17 U/L (15-37); SGPT/ALT 22 U/L (12-78); SODIUM 130 mmol/L (136-145); TOT PROT 8.3 g/dl (6.4-8.2)
[2018-02-10 09:55] LABS: ALK PHOS 109 U/L (45-117)
[2018-02-10 11:26] LABS: MAGNESIUM 1.7 mg/dL (1.8-2.4)
--- NOTE | 2018-02-10 14:30 | PN ---
Progress Note, Physician History of Present Illness: Pt seen and examined at bedside. She is out of bed to chair. She is asking to go home. She denies headache or change in vision. - Current Medication List Current Medications: Active Medications Aspirin (Asa -) 81 mg PO DAILY [facility] Last Admin: 02/10/18 09:28 Dose: Not Given Heparin Sodium (Porcine) (Heparin -) 5,000 unit SQ BID [facility] Last Admin: 02/10/18 09:28 Dose: Not Given Potassium Chloride 10 meq/ (Sodium Chloride) 1,005 mls @ 75 mls/hr IVPB Q13H [facility] Last Admin: 02/10/18 02:20 Dose: Not Given Magnesium Oxide (Mag-Ox -) 400 mg PO BID [facility] Last Admin: 02/10/18 09:28 Dose: Not Given Potassium Phos/Sodium Phos (Phos-Nak Packet -) 1 packet PO TID [facility] Last Admin: 02/10/18 05:10 Dose: Not Given Sodium Chloride (Sodium Chloride Tablet -) 1 gm PO BID [facility] Last Admin: 02/10/18 09:28 Dose: Not Given Thiamine HCl (Vitamin B1 -) 100 mg PO HS [facility] Last Admin: 02/09/18 22:39 Dose: Not Given - Objective Vital Signs: Vital Signs Temperature 98.1 F 02/10/18 02:00 Pulse Rate 77 02/10/18 02:00 Respiratory Rate 18 02/10/18 02:00 Blood Pressure 178/92 02/10/18 02:00 O2 Sat by Pulse Oximetry (%) 99 02/09/18 21:00 Constitutional: Yes: Calm Eyes: Yes: Conjunctiva Clear HENT: Yes: Atraumatic Neck: Yes: Supple Cardiovascular: Yes: S1, S2 Respiratory: Yes: CTA Bilaterally Gastrointestinal: Yes: Soft Genitourinary: Yes: WNL Musculoskeletal: Yes: WNL Edema: No Integumentary: Yes: WNL Neurological: Yes: Oriented Psychiatric: Yes: Oriented Labs: CBC, BMP 02/08/18 05:30 02/10/18 08:55 INR, PTT INR 1.07 (0.83-1.09) 02/06/18 20:34 Problem List - Problems (1) Electrolyte abnormality Code(s): E87.8 - OTH DISORDERS OF ELECTROLYTE AND FLUID BALANCE, NEC (2) Hyponatremia Code(s): E87.1 - HYPO-OSMOLALITY AND HYPONATREMIA (3) Alcohol dependence with uncomplicated withdrawal Code(s): F10.230 - ALCOHOL DEPENDENCE WITH WITHDRAWAL, UNCOMPLICATED (4) ETOH abuse Code(s): F10.10 - ALCOHOL ABUSE, UNCOMPLICATED Assessment/Plan Current Medications Generic Name Dose Route Start Last Admin Trade Name Marcelo PRN Reason Stop Dose Admin Aspirin 81 mg 02/08/18 10:00 02/10/18 09:28 Asa - PO Not Given DAILY [facility] Heparin Sodium (Porcine) 5,000 unit 02/07/18 10:00 02/10/18 09:28 Heparin - SQ Not Given BID [facility] Potassium Chloride 10 meq/ 1,005 mls @ 75 mls/hr 02/09/18 13:15 02/10/18 02: 20 Sodium Chloride IVPB Not Given Q13H [facility] Magnesium Oxide 400 mg 02/09/18 22:00 02/10/18 09:28 Mag-Ox - PO Not Given BID [facility] Potassium Phos/Sodium Phos 1 packet 02/07/18 18:30 02/10/18 05:10 Phos-Nak Packet - PO Not Given TID [facility] Sodium Chloride 1 gm 02/09/18 12:00 02/10/18 09:28 Sodium Chloride Tablet - PO Not Given BID [facility] Thiamine HCl 100 mg 02/07/18 22:00 02/09/18 22:39 Vitamin B1 - PO Not Given HS [facility] Impression 1. hyponatremia 2. hx cocaine use 3. DM 4. COPD 5. etoh abuse - active 6. active smoker 7. non compliance 8. hypomagnesemia Plan - pt refused fluids, restart if she agrees - cont salt tabs - encourage PO intake - replace mag - monitor lytes - recommend that she not drink alcohol anymore, spoke to her at length Dr Loya
[2018-02-10] MEDS ORDERED: MAGNESIUM 2GM/50ML STERILE WATER IVPB IVPB ONE (15:00)
[2018-02-10] MEDS ORDERED: MAGNESIUM OXIDE 400 MG TABLET (FP) PO ONE (16:15)
[2018-02-10] MEDS ORDERED: SODIUM CHLORIDE 1 GM TABLET PO ONE (16:15)
[2018-02-10] MEDS ORDERED: chlordiazePOXIDE HCL 25 MG CAPSULE PO ONE (16:15)
--- NOTE | 2018-02-10 19:22 | PN ---
Progress Note, Physician History of Present Illness: Pt is refusing to eat - Current Medication List Current Medications: Active Medications Aspirin (Asa -) 81 mg PO DAILY [facility] Last Admin: 02/10/18 09:28 Dose: Not Given Chlordiazepoxide HCl (Librium -) 25 mg PO Q6H [facility] Heparin Sodium (Porcine) (Heparin -) 5,000 unit SQ BID [facility] [place] Last Admin: 02/10/18 09:28 Dose: Not Given Potassium Chloride 10 meq/ (Sodium Chloride) 1,005 mls @ 75 mls/hr IVPB Q13H [facility] [place] Last Admin: 02/10/18 16:20 Dose: Not Given Magnesium Oxide (Mag-Ox -) 400 mg PO BID [facility] Last Admin: 02/10/18 09:28 Dose: Not Given Potassium Phos/Sodium Phos (Phos-Nak Packet -) 1 packet PO TID [facility] Last Admin: 02/10/18 14:00 Dose: 1 packet Sodium Chloride (Sodium Chloride Tablet -) 1 gm PO BID [facility] [place] Last Admin: 02/10/18 09:28 Dose: Not Given Thiamine HCl (Vitamin B1 -) 100 mg PO HS [facility] [place] Last Admin: 02/09/18 22:39 Dose: Not Given - Objective Vital Signs: Vital Signs Temperature 98.6 F 02/10/18 10:00 Pulse Rate 92 H 02/10/18 10:00 Respiratory Rate 20 02/10/18 10:00 Blood Pressure 148/74 02/10/18 10:00 O2 Sat by Pulse Oximetry (%) 99 02/10/18 10:00 Neck: Yes: WNL, Supple Cardiovascular: Yes: WNL, Regular Rate and Rhythm Respiratory: Yes: WNL, Regular, CTA Bilaterally Gastrointestinal: Yes: WNL, Normal Bowel Sounds, Soft Labs: CBC, BMP 02/10/18 13:50 02/10/18 08:55 INR, PTT INR 1.07 (0.83-1.09) 02/06/18 20:34 Problem List - Problems (1) Syncope Assessment/Plan: No arrythmia's on tele Carotid doppler did not show significant stenosis Echo noted Code(s): R55 - SYNCOPE AND COLLAPSE Qualifiers: Syncope type: unspecified Qualified Code(s): R55 - Syncope and collapse (2) Electrolyte abnormality Assessment/Plan: K+ has been corrected Follow NA+ and K+ Cont IVF As per renal Code(s): E87.8 - OTH DISORDERS OF ELECTROLYTE AND FLUID BALANCE, NEC (3) HTN (hypertension) Assessment/Plan: Pt not on any antihypertensives BP stable Cont to monitor Code(s): I10 - ESSENTIAL (PRIMARY) HYPERTENSION (4) Alcohol dependence with uncomplicated withdrawal Code(s): F10.230 - ALCOHOL DEPENDENCE WITH WITHDRAWAL, UNCOMPLICATED (5) ETOH abuse Code(s): F10.10 - ALCOHOL ABUSE, UNCOMPLICATED
[2018-02-10] MEDS: chlordiazePOXIDE HCL 25 MG CAPSULE PO SCH (20:06)
[2018-02-10] MEDS: THIAMINE HCL 100 MG TABLET (FP) PO SCH (20:35)
[2018-02-11] MEDS: chlordiazePOXIDE HCL 25 MG CAPSULE PO SCH ×4 (00:06→17:54)
[2018-02-11] MEDS: POTASSIUM CHLORIDE 10 MEQ in SODIUM CHLORIDE 1,000 ML IVPB SCH ×2 (05:59→17:53)
[2018-02-11] MEDS: NAPH,MB-DB/K PH,MBDB POWDER PACKET PO SCH ×2 (06:00→14:55)
[2018-02-11 06:56] LABS: EOS % 2.6 % (0-4.5); HEMATOCRIT 30.5 % (32.4-45.2); HEMOGLOBIN 10.5 GM/dL (10.7-15.3); LYMPH % 22.2 % (8-40); MCH 31.1 pg (25.7-33.7); MCHC 34.6 g/dl (32.0-36.0); MEAN CELL VOLUME 89.9 fl (80-96); MEAN PLT VOLUME 8.7 fl (7.5-11.1); MONO % 11.8 % (3.8-10.2); NEUT % 62.4 % (42.8-82.8); PLATELET COUNT 357 K/MM3 (134-434); RBC 3.39 M/mm3 (3.60-5.2); RDW 13.7 % (11.6-15.6); WHITE BLOOD COUNT 12.2 K/mm3 (4.0-10.0)
[2018-02-11 07:22] LABS: ALBUMIN 3.9 g/dl (3.4-5.0); ANION GAP 9 (8-16); BLOOD UREA NITROGEN 11 mg/dL (7-18); CALCIUM 9.7 mg/dL (8.5-10.1); CHLORIDE 93 mmol/L (98-107); CO2 27 mmol/L (21-32); GLUCOSE,RANDOM 105 mg/dL (74-106); MAGNESIUM 1.8 mg/dL (1.8-2.4); POTASSIUM 3.9 mmol/L (3.5-5.1); SODIUM 129 mmol/L (136-145)
[2018-02-11 07:25] LABS: ALK PHOS 98 U/L (45-117); BILIRUBIN,TOTAL 0.2 mg/dL (0.2-1.0); CREATININE 0.8 mg/dL (0.55-1.02); PHOSPHOROUS 5.2 mg/dL (2.5-4.9); SGOT/AST 19 U/L (15-37); SGPT/ALT 22 U/L (12-78); TOT PROT 8.2 g/dl (6.4-8.2)
[2018-02-11] MEDS: ASPIRIN 81 MG CHEWABLE TABLETS PO SCH ×2 (08:47→09:18)
[2018-02-11] MEDS: SODIUM CHLORIDE 1 GM TABLET PO SCH ×4 (08:48→21:28)
[2018-02-11] MEDS: MAGNESIUM OXIDE 400 MG TABLET (FP) PO SCH ×3 (08:48→21:27)
[2018-02-11] MEDS: HEPARIN NA (PORCINE) 5,000 UNITS/ML 1ML VIAL SQ SCH ×2 (09:19→21:35)
--- NOTE | 2018-02-11 09:58 | PN ---
Progress Note, Physician - Current Medication List Current Medications: Active Medications Aspirin (Asa -) 81 mg PO DAILY [facility] Last Admin: 02/11/18 09:18 Dose: Not Given Chlordiazepoxide HCl (Librium -) 25 mg PO Q6HPO [facility] Last Admin: 02/11/18 06:00 Dose: 25 mg Heparin Sodium (Porcine) (Heparin -) 5,000 unit SQ BID [facility] Last Admin: 02/11/18 09:19 Dose: Not Given Potassium Chloride 10 meq/ (Sodium Chloride) 1,005 mls @ 75 mls/hr IVPB Q13H [facility] Last Admin: 02/11/18 05:59 Dose: Not Given Magnesium Oxide (Mag-Ox -) 400 mg PO BID [facility] Last Admin: 02/11/18 09:19 Dose: Not Given Potassium Phos/Sodium Phos (Phos-Nak Packet -) 1 packet PO TID [facility] Last Admin: 02/11/18 06:00 Dose: 1 packet Sodium Chloride (Sodium Chloride Tablet -) 1 gm PO TID [facility] Last Admin: 02/11/18 09:18 Dose: Not Given Thiamine HCl (Vitamin B1 -) 100 mg PO HS [facility] Last Admin: 02/10/18 20:35 Dose: 100 mg - Objective Vital Signs: Vital Signs Temperature 97.8 F 02/11/18 07:28 Pulse Rate 110 H 02/11/18 07:28 Respiratory Rate 20 02/11/18 07:28 Blood Pressure 168/110 02/11/18 07:28 O2 Sat by Pulse Oximetry (%) 100 02/10/18 21:00 Eyes: Yes: WNL, Conjunctiva Clear, EOM Intact HENT: Yes: WNL, Atraumatic, Normocephalic Neck: Yes: WNL, Supple, Trachea Midline Cardiovascular: Yes: WNL, Regular Rate and Rhythm Respiratory: Yes: WNL, Regular, CTA Bilaterally Gastrointestinal: Yes: WNL, Normal Bowel Sounds Genitourinary: Yes: WNL Musculoskeletal: Yes: WNL Extremities: Yes: WNL Edema: No Integumentary: Yes: WNL Neurological: Yes: WNL, Alert, Oriented ...Motor Strength: WNL Psychiatric: Yes: WNL Labs: CBC, BMP 02/11/18 05:30 02/11/18 05:30 INR, PTT INR 1.07 (0.83-1.09) 02/06/18 20:34 Assessment/Plan Carotid US with plaque but no sig stenosis Echo hyperdynamic LV, c/w dehydration/volume depletion, No effusion 1. Syncope in setting of profound hyponatremia and hypokalemia 2. H/o of ETOH abuse 3. Prolonged QTc REC: 1. Tele until lytes and QTc normalized. Daily ECG 2. Correction of Na+ and K+ as per Primary Medical Team and Renal 3. Echo normal LV fxn, no effusion 4. Keep Mg2+ > 2.0 5. Add amlodipine for BP control.
[2018-02-11] MEDS: amLODIPine BESYLATE 5 MG TABLET (FP) PO SCH (11:27)
--- NOTE | 2018-02-11 15:47 | PN ---
Progress Note, Physician History of Present Illness: Pt seen and examined at bedside. She is insisting on going home. She refused fluids. She did not give urine. - Current Medication List Current Medications: Active Medications Amlodipine Besylate (Norvasc -) 5 mg PO DAILY [facility] Last Admin: 02/11/18 11:27 Dose: 5 mg Aspirin (Asa -) 81 mg PO DAILY [facility] Last Admin: 02/11/18 09:18 Dose: Not Given Chlordiazepoxide HCl (Librium -) 25 mg PO Q6HPO [facility] Last Admin: 02/11/18 11:27 Dose: 25 mg Heparin Sodium (Porcine) (Heparin -) 5,000 unit SQ BID [facility] Last Admin: 02/11/18 09:19 Dose: Not Given Potassium Chloride 10 meq/ (Sodium Chloride) 1,005 mls @ 75 mls/hr IVPB Q13H [facility] Last Admin: 02/11/18 05:59 Dose: Not Given Magnesium Oxide (Mag-Ox -) 400 mg PO BID [facility] Last Admin: 02/11/18 09:19 Dose: Not Given Sodium Chloride (Sodium Chloride Tablet -) 1 gm PO TID [facility] Last Admin: 02/11/18 09:18 Dose: Not Given Thiamine HCl (Vitamin B1 -) 100 mg PO HS [facility] Last Admin: 02/10/18 20:35 Dose: 100 mg - Objective Vital Signs: Vital Signs Temperature 97.8 F 02/11/18 07:28 Pulse Rate 110 H 02/11/18 07:28 Respiratory Rate 20 02/11/18 07:28 Blood Pressure 168/110 02/11/18 07:28 O2 Sat by Pulse Oximetry (%) 100 02/10/18 21:00 Constitutional: Yes: Calm Eyes: Yes: Conjunctiva Clear HENT: Yes: Atraumatic Cardiovascular: Yes: S1, S2 Respiratory: Yes: CTA Bilaterally Gastrointestinal: Yes: Soft Genitourinary: Yes: WNL Musculoskeletal: Yes: WNL Extremities: Yes: WNL Edema: No Neurological: Yes: Oriented Psychiatric: Yes: Oriented Labs: CBC, BMP 02/11/18 05:30 02/11/18 05:30 INR, PTT INR 1.07 (0.83-1.09) 02/06/18 20:34 Problem List - Problems (1) Electrolyte abnormality Code(s): E87.8 - OTH DISORDERS OF ELECTROLYTE AND FLUID BALANCE, NEC (2) Hyponatremia Code(s): E87.1 - HYPO-OSMOLALITY AND HYPONATREMIA (3) Alcohol dependence with uncomplicated withdrawal Code(s): F10.230 - ALCOHOL DEPENDENCE WITH WITHDRAWAL, UNCOMPLICATED (4) ETOH abuse Code(s): F10.10 - ALCOHOL ABUSE, UNCOMPLICATED Assessment/Plan Current Medications Generic Name Dose Route Start Last Admin Trade Name Freq PRN Reason Stop Dose Admin Amlodipine Besylate 5 mg 02/11/18 10:00 02/11/18 11:27 Norvasc - PO 5 mg DAILY [facility] Administration Aspirin 81 mg 02/08/18 10:00 02/11/18 09:18 Asa - PO Not Given DAILY [facility] Chlordiazepoxide HCl 25 mg 02/10/18 19:30 02/11/18 11:27 Librium - PO 25 mg Q6HPO [facility] Administration Heparin Sodium (Porcine) 5,000 unit 02/07/18 10:00 02/11/18 09:19 Heparin - SQ Not Given BID [facility] Potassium Chloride 10 meq/ 1,005 mls @ 75 mls/hr 02/09/18 13:15 02/11/18 05: 59 Sodium Chloride IVPB Not Given Q13H [facility] Magnesium Oxide 400 mg 02/09/18 22:00 02/11/18 09:19 Mag-Ox - PO Not Given BID [facility] Sodium Chloride 1 gm 02/11/18 09:15 02/11/18 09:18 Sodium Chloride Tablet - PO Not Given TID [facility] Thiamine HCl 100 mg 02/07/18 22:00 02/10/18 20:35 Vitamin B1 - PO 100 mg HS [facility] Administration Impression 1. hyponatremia 2. hx cocaine use 3. DM 4. COPD 5. etoh abuse - active 6. active smoker 7. non compliance 8. hypomagnesemia Plan - cont with salt tabs - did not give urine - sodium remains low - I again spoke to the pt and her family about the drinking problem, I suggest that pt does not drink alcohol anymore - stop phos supplements - cont salt tabs Dr Loya
--- NOTE | 2018-02-11 16:42 | PN ---
Progress Note, Physician History of Present Illness: Pt is agitated - Current Medication List Current Medications: Active Medications Amlodipine Besylate (Norvasc -) 5 mg PO DAILY [facility] Last Admin: 02/11/18 11:27 Dose: 5 mg Aspirin (Asa -) 81 mg PO DAILY [facility] Last Admin: 02/11/18 09:18 Dose: Not Given Chlordiazepoxide HCl (Librium -) 25 mg PO Q6HPO [facility] Last Admin: 02/11/18 11:27 Dose: 25 mg Heparin Sodium (Porcine) (Heparin -) 5,000 unit SQ BID [facility] Last Admin: 02/11/18 09:19 Dose: Not Given Potassium Chloride 10 meq/ (Sodium Chloride) 1,005 mls @ 75 mls/hr IVPB Q13H [facility] Last Admin: 02/11/18 05:59 Dose: Not Given Magnesium Oxide (Mag-Ox -) 400 mg PO BID [facility] Last Admin: 02/11/18 09:19 Dose: Not Given Sodium Chloride (Sodium Chloride Tablet -) 1 gm PO TID [facility] Last Admin: 02/11/18 14:39 Dose: 1 gm Thiamine HCl (Vitamin B1 -) 100 mg PO HS [facility] Last Admin: 02/10/18 20:35 Dose: 100 mg - Objective Vital Signs: Vital Signs Temperature 98.7 F 02/11/18 14:00 Pulse Rate 101 H 02/11/18 14:00 Respiratory Rate 20 02/11/18 07:28 Blood Pressure 143/87 02/11/18 14:00 O2 Sat by Pulse Oximetry (%) 100 02/10/18 21:00 Neck: Yes: WNL, Supple Cardiovascular: Yes: WNL, Regular Rate and Rhythm Respiratory: Yes: WNL, Regular, CTA Bilaterally Gastrointestinal: Yes: WNL, Normal Bowel Sounds, Soft Labs: CBC, BMP 02/11/18 05:30 02/11/18 05:30 INR, PTT INR 1.07 (0.83-1.09) 02/06/18 20:34 Problem List - Problems (1) Electrolyte abnormality Assessment/Plan: K+ has been corrected Follow NA+ and K+ Pt is also on Magnesioum tablets and sodium tablets As per renal Code(s): E87.8 - OTH DISORDERS OF ELECTROLYTE AND FLUID BALANCE, NEC (2) ETOH abuse Assessment/Plan: Pt on librium and will taper as indicated Cont thiamine Code(s): F10.10 - ALCOHOL ABUSE, UNCOMPLICATED (3) Leukocytosis Assessment/Plan: Repeat labs in am Code(s): D72.829 - ELEVATED WHITE BLOOD CELL COUNT, UNSPECIFIED (4) HTN (hypertension) Assessment/Plan: Cont norvasc BP stable Cont to monitor Code(s): I10 - ESSENTIAL (PRIMARY) HYPERTENSION (5) Syncope Assessment/Plan: No arrythmia's on tele Carotid doppler did not show significant stenosis Echo noted Code(s): R55 - SYNCOPE AND COLLAPSE Qualifiers: Syncope type: unspecified Qualified Code(s): R55 - Syncope and collapse
[2018-02-11] MEDS ORDERED: PT OWN MED DRAWER 7, Y5N ONE (21:06)
[2018-02-11] MEDS: THIAMINE HCL 100 MG TABLET (FP) PO SCH (21:28)
[2018-02-11] MEDS ORDERED: chlordiazePOXIDE HCL 25 MG CAPSULE PO ONE (21:30)
[2018-02-12] MEDS: chlordiazePOXIDE HCL 25 MG CAPSULE PO SCH ×4 (01:05→17:06)
[2018-02-12] MEDS: POTASSIUM CHLORIDE 10 MEQ in SODIUM CHLORIDE 1,000 ML IVPB SCH ×2 (05:35→21:19)
[2018-02-12] MEDS: SODIUM CHLORIDE 1 GM TABLET PO SCH ×3 (06:05→21:43)
[2018-02-12 07:31] LABS: BASO % 0.4 % (0-2.0); EOS % 1.8 % (0-4.5); HEMATOCRIT 28.3 % (32.4-45.2); HEMOGLOBIN 9.6 GM/dL (10.7-15.3); LYMPH % 11.2 % (8-40); MCH 30.9 pg (25.7-33.7); MCHC 33.9 g/dl (32.0-36.0); MEAN PLT VOLUME 8.6 fl (7.5-11.1); MONO % 9.4 % (3.8-10.2); NEUT % 77.2 % (42.8-82.8); PLATELET COUNT 348 K/MM3 (134-434); RBC 3.11 M/mm3 (3.60-5.2); RDW 13.7 % (11.6-15.6); WHITE BLOOD COUNT 16.9 K/mm3 (4.0-10.0)
[2018-02-12 08:01] LABS: CHLORIDE 96 mmol/L (98-107); POTASSIUM 4.4 mmol/L (3.5-5.1); SODIUM 130 mmol/L (136-145)
[2018-02-12 08:12] LABS: ALBUMIN 3.4 g/dl (3.4-5.0); ALK PHOS 97 U/L (45-117); ANION GAP 10 (8-16); BILIRUBIN,TOTAL 0.1 mg/dL (0.2-1.0); BLOOD UREA NITROGEN 20 mg/dL (7-18); CALCIUM 9.4 mg/dL (8.5-10.1); CO2 24 mmol/L (21-32); CREATININE 0.9 mg/dL (0.55-1.02); GLUCOSE,RANDOM 136 mg/dL (74-106); MAGNESIUM 1.7 mg/dL (1.8-2.4); SGOT/AST 13 U/L (15-37); SGPT/ALT 21 U/L (12-78); TOT PROT 7.2 g/dl (6.4-8.2)
--- NOTE | 2018-02-12 09:26 | PN ---
Progress Note, Physician - Current Medication List Current Medications: Active Medications Amlodipine Besylate (Norvasc -) 5 mg PO DAILY [facility] Last Admin: 02/11/18 11:27 Dose: 5 mg Aspirin (Asa -) 81 mg PO DAILY [facility] Last Admin: 02/11/18 09:18 Dose: Not Given Chlordiazepoxide HCl (Librium -) 25 mg PO Q6HPO [facility] Last Admin: 02/12/18 05:37 Dose: 25 mg Heparin Sodium (Porcine) (Heparin -) 5,000 unit SQ BID [facility] Last Admin: 02/11/18 21:35 Dose: Not Given Potassium Chloride 10 meq/ (Sodium Chloride) 1,005 mls @ 75 mls/hr IVPB Q13H [facility] Last Admin: 02/12/18 05:35 Dose: Not Given Magnesium Oxide (Mag-Ox -) 400 mg PO BID [facility] Last Admin: 02/11/18 21:27 Dose: 400 mg Sodium Chloride (Sodium Chloride Tablet -) 1 gm PO TID [facility] Last Admin: 02/12/18 06:05 Dose: 1 gm Thiamine HCl (Vitamin B1 -) 100 mg PO HS [facility] Last Admin: 02/11/18 21:28 Dose: 100 mg - Objective Vital Signs: Vital Signs Temperature 98 F 02/12/18 05:34 Pulse Rate 85 02/12/18 05:34 Respiratory Rate 18 02/12/18 05:34 Blood Pressure 145/71 02/12/18 05:34 O2 Sat by Pulse Oximetry (%) 100 02/11/18 21:00 Eyes: Yes: WNL, Conjunctiva Clear, EOM Intact HENT: Yes: WNL, Atraumatic, Normocephalic Neck: Yes: WNL, Supple, Trachea Midline Cardiovascular: Yes: WNL, Regular Rate and Rhythm Respiratory: Yes: WNL, Regular, CTA Bilaterally Gastrointestinal: Yes: WNL, Normal Bowel Sounds Genitourinary: Yes: WNL Musculoskeletal: Yes: WNL Extremities: Yes: WNL Edema: No Integumentary: Yes: WNL Neurological: Yes: WNL, Alert, Oriented ...Motor Strength: WNL Psychiatric: Yes: WNL Labs: CBC, BMP 02/12/18 05:30 02/12/18 05:30 INR, PTT INR 1.07 (0.83-1.09) 07/30/18 20:34 Assessment/Plan Carotid US with plaque but no sig stenosis Echo hyperdynamic LV, c/w dehydration/volume depletion, No effusion 1. Syncope in setting of profound hyponatremia and hypokalemia 2. H/o of ETOH abuse 3. Prolonged QTc REC: 1. Tele until lytes and QTc normalized. Daily ECG 2. Correction of Na+ and K+ as per Primary Medical Team and Renal 3. Echo normal LV fxn, no effusion 4. Keep Mg2+ > 2.0 5. Add amlodipine for BP control.
[2018-02-12] MEDS: HEPARIN NA (PORCINE) 5,000 UNITS/ML 1ML VIAL SQ SCH ×3 (09:54→21:47)
[2018-02-12] MEDS: MAGNESIUM OXIDE 400 MG TABLET (FP) PO SCH ×2 (09:54→21:44)
[2018-02-12] MEDS: amLODIPine BESYLATE 5 MG TABLET (FP) PO SCH (09:54)
[2018-02-12] MEDS: ASPIRIN 81 MG CHEWABLE TABLETS PO SCH (09:54)
--- NOTE | 2018-02-12 13:25 | PN ---
Progress Note, Physician History of Present Illness: Pt seen and examined at bedside. She is tolerating diet. She refused fluids. - Current Medication List Current Medications: Active Medications Amlodipine Besylate (Norvasc -) 5 mg PO DAILY [facility] Last Admin: 02/12/18 09:54 Dose: 5 mg Aspirin (Asa -) 81 mg PO DAILY [facility] Last Admin: 02/12/18 09:54 Dose: 81 mg Chlordiazepoxide HCl (Librium -) 25 mg PO Q6HPO [facility] Last Admin: 02/12/18 12:30 Dose: 25 mg Heparin Sodium (Porcine) (Heparin -) 5,000 unit SQ BID [facility] Last Admin: 02/12/18 09:54 Dose: 5,000 unit Potassium Chloride 10 meq/ (Sodium Chloride) 1,005 mls @ 75 mls/hr IVPB Q13H [facility] Last Admin: 02/12/18 05:35 Dose: Not Given Magnesium Oxide (Mag-Ox -) 400 mg PO BID [facility] Last Admin: 02/12/18 09:54 Dose: 400 mg Sodium Chloride (Sodium Chloride Tablet -) 1 gm PO TID [facility] Last Admin: 02/12/18 13:04 Dose: Not Given Thiamine HCl (Vitamin B1 -) 100 mg PO HS [facility] Last Admin: 02/11/18 21:28 Dose: 100 mg - Objective Vital Signs: Vital Signs Temperature 97.9 F 02/12/18 10:44 Pulse Rate 88 02/12/18 10:44 Respiratory Rate 18 02/12/18 10:44 Blood Pressure 124/74 02/12/18 10:44 O2 Sat by Pulse Oximetry (%) 100 02/11/18 21:00 Constitutional: Yes: Calm Eyes: Yes: Conjunctiva Clear HENT: Yes: Atraumatic Neck: Yes: Supple Cardiovascular: Yes: S1, S2 Respiratory: Yes: CTA Bilaterally Gastrointestinal: Yes: Soft Genitourinary: Yes: WNL Musculoskeletal: Yes: WNL Extremities: Yes: WNL Edema: No Integumentary: Yes: WNL Neurological: Yes: Oriented Psychiatric: Yes: Oriented Labs: CBC, BMP 02/12/18 05:30 02/12/18 05:30 INR, PTT INR 1.07 (0.83-1.09) 02/06/18 20:34 Problem List - Problems (1) Electrolyte abnormality Code(s): E87.8 - OTH DISORDERS OF ELECTROLYTE AND FLUID BALANCE, NEC (2) Hyponatremia Code(s): E87.1 - HYPO-OSMOLALITY AND HYPONATREMIA (3) Alcohol dependence with uncomplicated withdrawal Code(s): F10.230 - ALCOHOL DEPENDENCE WITH WITHDRAWAL, UNCOMPLICATED (4) ETOH abuse Code(s): F10.10 - ALCOHOL ABUSE, UNCOMPLICATED Assessment/Plan Current Medications Generic Name Dose Route Start Last Admin Trade Name Ronniq PRN Reason Stop Dose Admin Amlodipine Besylate 5 mg 02/11/18 10:00 02/12/18 09:54 Norvasc - PO 5 mg DAILY [facility] Administration Aspirin 81 mg 02/08/18 10:00 02/12/18 09:54 Asa - PO 81 mg DAILY [facility] Administration Chlordiazepoxide HCl 25 mg 02/10/18 19:30 02/12/18 12:30 Librium - PO 25 mg Q6HPO [facility] Administration Heparin Sodium (Porcine) 5,000 unit 02/07/18 10:00 02/12/18 09:54 Heparin - SQ 5,000 unit BID [facility] Administration Potassium Chloride 10 meq/ 1,005 mls @ 75 mls/hr 02/09/18 13:15 02/12/18 05: 35 Sodium Chloride IVPB Not Given Q13H [facility] Magnesium Oxide 400 mg 02/09/18 22:00 02/12/18 09:54 Mag-Ox - PO 400 mg BID [facility] Administration Sodium Chloride 1 gm 02/11/18 09:15 02/12/18 13:04 Sodium Chloride Tablet - PO Not Given TID [facility] Thiamine HCl 100 mg 02/07/18 22:00 02/11/18 21:28 Vitamin B1 - PO 100 mg HS [facility] Administration Impression 1. hyponatremia 2. hx cocaine use 3. DM 4. COPD 5. etoh abuse - active 6. active smoker 7. non compliance 8. hypomagnesemia Plan - cont mag supplements - cont salt tabs - encourage PO intake - follow lytes if she gives urine Dr Loya
--- NOTE | 2018-02-12 16:05 | PN ---
Progress Note, Physician History of Present Illness: Pt not agitated today but confused - Current Medication List Current Medications: Active Medications Amlodipine Besylate (Norvasc -) 5 mg PO DAILY [facility] Last Admin: 02/12/18 09:54 Dose: 5 mg Aspirin (Asa -) 81 mg PO DAILY [facility] Last Admin: 02/12/18 09:54 Dose: 81 mg Chlordiazepoxide HCl (Librium -) 25 mg PO Q6HPO [facility] Last Admin: 02/12/18 12:30 Dose: 25 mg Heparin Sodium (Porcine) (Heparin -) 5,000 unit SQ BID [facility] Last Admin: 02/12/18 09:54 Dose: 5,000 unit Potassium Chloride 10 meq/ (Sodium Chloride) 1,005 mls @ 75 mls/hr IVPB Q13H [facility] Last Admin: 02/12/18 05:35 Dose: Not Given Magnesium Oxide (Mag-Ox -) 400 mg PO BID [facility] Last Admin: 02/12/18 09:54 Dose: 400 mg Sodium Chloride (Sodium Chloride Tablet -) 1 gm PO TID [facility] Last Admin: 02/12/18 13:04 Dose: Not Given Thiamine HCl (Vitamin B1 -) 100 mg PO HS [facility] Last Admin: 02/11/18 21:28 Dose: 100 mg - Objective Vital Signs: Vital Signs Temperature 97.9 F 02/12/18 10:44 Pulse Rate 88 02/12/18 10:44 Respiratory Rate 18 02/12/18 10:44 Blood Pressure 124/74 02/12/18 10:44 O2 Sat by Pulse Oximetry (%) 100 02/11/18 21:00 Neck: Yes: WNL, Supple Cardiovascular: Yes: WNL, Regular Rate and Rhythm Respiratory: Yes: WNL, Regular, CTA Bilaterally Gastrointestinal: Yes: WNL, Normal Bowel Sounds, Soft Labs: CBC, BMP 02/12/18 05:30 02/12/18 05:30 INR, PTT INR 1.07 (0.83-1.09) 02/06/18 20:34 Problem List - Problems (1) Leukocytosis Assessment/Plan: WBC slightly elevated However pt is afebrile Will treat empirically w/ IV levaquin Check urine culture/CXR Repeat WBC in am Check lactic acid in am ID consult Code(s): D72.829 - ELEVATED WHITE BLOOD CELL COUNT, UNSPECIFIED (2) ETOH abuse Assessment/Plan: Pt on librium and will taper as indicated corrections specialist reconsulted Cont thiamine Code(s): F10.10 - ALCOHOL ABUSE, UNCOMPLICATED (3) Electrolyte abnormality Assessment/Plan: K+ has been corrected Follow NA+ and K+ Cont Magnesioum tablets and sodium tablets Cont potassium IV BID As per renal Code(s): E87.8 - OTH DISORDERS OF ELECTROLYTE AND FLUID BALANCE, NEC (4) HTN (hypertension) Assessment/Plan: Cont norvasc BP stable Cont to monitor Code(s): I10 - ESSENTIAL (PRIMARY) HYPERTENSION (5) Syncope Code(s): R55 - SYNCOPE AND COLLAPSE Qualifiers: Syncope type: unspecified Qualified Code(s): R55 - Syncope and collapse
[2018-02-12] MEDS: THIAMINE HCL 100 MG TABLET (FP) PO SCH (21:43)
[2018-02-13 03:31] LABS: URINE APPEARANCE CLEAR; URINE BILIRUBIN NEGATIVE (<2.0 mg/dL); URINE COLOR COLORLESS; URINE GLUCOSE (UA) NEGATIVE (NEGATIVE); URINE KETONE NEGATIVE (NEGATIVE); URINE LEUK ESTERASE NEGATIVE (NEGATIVE); URINE NITRITE NEGATIVE (NEGATIVE); URINE PROTEIN NEGATIVE (NEGATIVE); URINE UROBILINOGEN NEGATIVE mg/dL (0.2-1.0)
[2018-02-13] MEDS: chlordiazePOXIDE HCL 25 MG CAPSULE PO SCH ×4 (05:36→17:25)
[2018-02-13] MEDS: SODIUM CHLORIDE 1 GM TABLET PO SCH ×3 (05:37→21:39)
[2018-02-13 07:48] LABS: BASO % 0.8 % (0-2.0); EOS % 2.6 % (0-4.5); HEMATOCRIT 27.6 % (32.4-45.2); HEMOGLOBIN 9.5 GM/dL (10.7-15.3); LYMPH % 23.4 % (8-40); MCHC 34.4 g/dl (32.0-36.0); MEAN CELL VOLUME 90.3 fl (80-96); MEAN PLT VOLUME 7.8 fl (7.5-11.1); MONO % 14.1 % (3.8-10.2); NEUT % 59.1 % (42.8-82.8); PLATELET COUNT 345 K/MM3 (134-434); RBC 3.06 M/mm3 (3.60-5.2); RDW 13.6 % (11.6-15.6); WHITE BLOOD COUNT 11.6 K/mm3 (4.0-10.0)
[2018-02-13 08:23] LABS: ALBUMIN 3.9 g/dl (3.4-5.0); ANION GAP 9 (8-16); BLOOD UREA NITROGEN 18 mg/dL (7-18); CALCIUM 9.6 mg/dL (8.5-10.1); CHLORIDE 95 mmol/L (98-107); CO2 27 mmol/L (21-32); CREATININE 0.9 mg/dL (0.55-1.02); GLUCOSE,RANDOM 109 mg/dL (74-106); POTASSIUM 4.1 mmol/L (3.5-5.1); SGOT/AST 14 U/L (15-37); SODIUM 131 mmol/L (136-145)
--- NOTE | 2018-02-13 08:24 | PN ---
Progress Note, Physician Chief Complaint: Alert, no distress Na+ improved K+ improved TELE: NSR, rare PVCs History of Present Illness: BP improved with addition Norvasc - Current Medication List Current Medications: Active Medications Amlodipine Besylate (Norvasc -) 5 mg PO DAILY [facility] Last Admin: 02/12/18 09:54 Dose: 5 mg Aspirin (Asa -) 81 mg PO DAILY [facility] Last Admin: 02/12/18 09:54 Dose: 81 mg Chlordiazepoxide HCl (Librium -) 25 mg PO Q6HPO [facility] Last Admin: 02/13/18 05:36 Dose: 25 mg Heparin Sodium (Porcine) (Heparin -) 5,000 unit SQ BID [facility] Last Admin: 02/12/18 21:47 Dose: Not Given Potassium Chloride 10 meq/ (Sodium Chloride) 1,005 mls @ 75 mls/hr IVPB Q13H [facility] Last Admin: 02/12/18 21:19 Dose: Not Given Levofloxacin (Levaquin 500 Mg Premixed Ivpb -) 500 mg in 100 mls @ 100 mls/hr IVPB DAILY [facility]; Protocol Last Admin: 02/12/18 16:56 Dose: 100 mls/hr Magnesium Oxide (Mag-Ox -) 400 mg PO BID [facility] Last Admin: 02/12/18 21:44 Dose: 400 mg Sodium Chloride (Sodium Chloride Tablet -) 1 gm PO TID [facility] Last Admin: 02/13/18 05:37 Dose: 1 gm Thiamine HCl (Vitamin B1 -) 100 mg PO HS [facility] Last Admin: 02/12/18 21:43 Dose: 100 mg - Objective Vital Signs: Vital Signs Temperature 97.4 F L 02/12/18 20:44 Pulse Rate 85 02/12/18 20:44 Respiratory Rate 18 02/13/18 08:15 Blood Pressure 157/75 02/12/18 20:44 O2 Sat by Pulse Oximetry (%) 100 02/13/18 08:15 Constitutional: Yes: No Distress Cardiovascular: Yes: Regular Rate and Rhythm Respiratory: Yes: CTA Bilaterally Gastrointestinal: Yes: Soft Edema: No Neurological: Yes: Alert Labs: CBC, BMP 02/13/18 07:35 INR, PTT INR 1.07 (0.83-1.09) 02/06/18 20:34 - ....Imaging EKG: Image Reviewed Assessment/Plan Assessment/Plan Carotid US with plaque but no sig stenosis Echo hyperdynamic LV, c/w dehydration/volume depletion, No effusion 1. Syncope in setting of profound hyponatremia and hypokalemia, both improved 2. H/o of ETOH abuse 3. Prolonged QTc in setting electrolyte derangements REC: 1. Repeat ECG today. If QTc stable or normalized, may d/c tele as there have been no sig arrhythmias 2. Electrolytes improving. 3. Echo normal LV fxn, no effusion 4. Keep Mg2+ > 2.0 5. Continue amlodipine for BP control.
[2018-02-13 08:35] LABS: ALK PHOS 98 U/L (45-117); BILIRUBIN,TOTAL 0.2 mg/dL (0.2-1.0); SGPT/ALT 21 U/L (12-78); TOT PROT 8.1 g/dl (6.4-8.2)
[2018-02-13] MEDS: POTASSIUM CHLORIDE 10 MEQ in SODIUM CHLORIDE 1,000 ML IVPB SCH ×2 (09:30→21:36)
[2018-02-13] MEDS: HEPARIN NA (PORCINE) 5,000 UNITS/ML 1ML VIAL SQ SCH ×2 (09:32→21:33)
[2018-02-13] MEDS: MAGNESIUM OXIDE 400 MG TABLET (FP) PO SCH ×2 (09:32→21:33)
[2018-02-13] MEDS: ASPIRIN 81 MG CHEWABLE TABLETS PO SCH (09:32)
[2018-02-13] MEDS: amLODIPine BESYLATE 5 MG TABLET (FP) PO SCH (09:32)
--- NOTE | 2018-02-13 11:26 | EKG ---
Test Reason : Blood Pressure : / mmHG Vent. Rate : 083 BPM Atrial Rate : 083 BPM P-R Int : 164 ms QRS Dur : 090 ms QT Int : 392 ms P-R-T Axes : 048 050 063 degrees QTc Int : 460 ms NORMAL SINUS RHYTHM RSR' OR QR PATTERN IN V1 SUGGESTS RIGHT VENTRICULAR CONDUCTION DELAY VOLTAGE CRITERIA FOR LEFT VENTRICULAR HYPERTROPHY ABNORMAL ECG WHEN COMPARED WITH ECG OF 08-FEB-2018 08:59, NO SIGNIFICANT CHANGE WAS FOUND Confirmed by SOCORRO THAPA MD ([id number]) on 02/13/2018 11:26:37 AM Referred By: FAIZA TORRES Confirmed By:SOCORRO THAPA MD
--- NOTE | 2018-02-13 14:10 | CON.ID ---
Consult Consult Specialty:: infectious diseases Referred by:: Reason for Consultation:: confusion,uti,leukocytosis - History of Present Illness History of Present Illness: 57 year old female with pmhx of hyponatremia, etoh abuse, and COPD who presents to the ER for syncope. She was found to have a sodium of 108. She has been actively drinking beer every day. She has had multiple hospitalizations for hyponatremia symptoms. She is awake and alert. She denies headache or change in vision. She says that she feels much better. She took her IV out. Her is at bedside and care was discussed with him as well. the above was the reason patient was brought in the hospital i was called to see and evaluate if the patient has any s/o of infection and uti as patient recently had cdiff and her wbc has jumped up currently patient is stable and without complaints and psych is seeing the patient - History Source History Provided By: Patient, Medical Record Limitations to Obtaining History: Poor Historian - Past Medical History [employer]: Yes: Other (possible seizure in past, unclear) Cardio/Vascular: Yes: HTN Pulmonary: Yes: COPD Renal/: Yes: Other (hyponatremia) ...: No Psych: Yes: Addictions Endocrine: Yes: Diabetes Mellitus - Alcohol/Substance Use Hx Alcohol Use: Yes (DAILY) Number of Drinks Daily: 7 History of Substance Use: reports: Cocaine - Smoking History Smoking history: Current some day smoker Have you smoked in the past 12 months: Yes Aproximately how many cigarettes per day: 1 Home Medications - Allergies Allergies/Adverse Reactions: Allergies Allergy/AdvReac Type Severity Reaction Status Date / Time No Known Allergies Allergy Verified 02/06/18 20:00 - Home Medications Home Medications: Ambulatory Orders RX: Thiamine HCl [Vitamin B1 -] 100 mg PO HS #30 tablet 01/17/18 RX: Amlodipine Besylate [Norvasc -] 5 mg PO DAILY #0 tablet 02/15/18 RX: Amlodipine Besylate [Norvasc -] 5 mg PO DAILY #30 tablet 02/15/18 RX: Aspirin [ASA -] 81 mg PO DAILY tab.chew 02/15/18 RX: Aspirin [ASA -] 81 mg PO DAILY #30 tab.chew 02/15/18 RX: Escitalopram Oxalate [Lexapro -] 10 mg PO DAILY #30 tablet 02/15/18 RX: Magnesium Oxide [Mag-Ox -] 400 mg PO BID tablet 02/15/18 RX: Magnesium Oxide [Mag-Ox -] 400 mg PO BID #60 tablet 02/15/18 RX: levoFLOXacin [Levaquin] 750 mg PO DAILY@0600 #7 tab 02/15/18 Review of Systems - Review of Systems Constitutional: reports: No Symptoms Eyes: reports: No Symptoms HENT: reports: No Symptoms Neck: reports: No Symptoms Cardiovascular: reports: No Symptoms Respiratory: reports: No Symptoms Gastrointestinal: reports: No Symptoms Genitourinary: reports: No Symptoms Musculoskeletal: reports: No Symptoms Integumentary: reports: No Symptoms Neurological: reports: No Symptoms Endocrine: reports: No Symptoms Hematology/Lymphatic: reports: No Symptoms Psychiatric: reports: No Symptoms Physical Exam Vital Signs: Vital Signs Temperature 98.2 F 02/13/18 10:08 Pulse Rate 83 02/13/18 10:08 Respiratory Rate 18 02/13/18 10:08 Blood Pressure 141/74 02/13/18 10:08 O2 Sat by Pulse Oximetry (%) 100 02/13/18 08:15 Constitutional: Yes: Well Nourished, No Distress, Calm Eyes: Yes: Conjunctiva Clear HENT: Yes: Atraumatic, Normocephalic Neck: Yes: Supple, Trachea Midline Cardiovascular: Yes: Regular Rate and Rhythm Respiratory: Yes: Regular, CTA Bilaterally Gastrointestinal: Yes: Normal Bowel Sounds, Soft Musculoskeletal: Yes: WNL Extremities: Yes: WNL Neurological: Yes: Alert, Oriented Psychiatric: Yes: Alert Labs: CBC, BMP 02/13/18 07:35 02/13/18 07:35 Imaging - Results Chest X-ray: Report Reviewed, Image Reviewed Ultrasound: Report Reviewed, Image Reviewed Assessment/Plan Problem List - Problems (1) Leukocytosis Code(s): D72.829 - ELEVATED WHITE BLOOD CELL COUNT, UNSPECIFIED (2) ETOH abuse Code(s): F10.10 - ALCOHOL ABUSE, UNCOMPLICATED (3) Electrolyte abnormality Code(s): E87.8 - OTH DISORDERS OF ELECTROLYTE AND FLUID BALANCE, NEC (4) HTN (hypertension) Code(s): I10 - ESSENTIAL (PRIMARY) HYPERTENSION (5) Syncope Code(s): R55 - SYNCOPE AND COLLAPSE Qualifiers: Syncope type: unspecified Qualified Code(s): R55 - Syncope and collapse after looking at the history and the cx results and the patient i think her leukocytosis is reactive and i do not think the patient has any infection plan continue current mgmt no abx monitor wbc if continues to increase then will work up rest as per the team
--- NOTE | 2018-02-13 14:21 | PN ---
Progress Note, Physician History of Present Illness: Pt seen and examined at bedside. She is awake and appears comfortable. She denies shortness of breath. - Current Medication List Current Medications: Active Medications Amlodipine Besylate (Norvasc -) 5 mg PO DAILY [facility] Last Admin: 02/13/18 09:32 Dose: 5 mg Aspirin (Asa -) 81 mg PO DAILY [facility] Last Admin: 02/13/18 09:32 Dose: 81 mg Chlordiazepoxide HCl (Librium -) 25 mg PO Q6HPO [facility] Last Admin: 02/13/18 11:31 Dose: 25 mg Heparin Sodium (Porcine) (Heparin -) 5,000 unit SQ BID [facility] Last Admin: 02/13/18 09:32 Dose: Not Given Potassium Chloride 10 meq/ (Sodium Chloride) 1,005 mls @ 75 mls/hr IVPB Q13H [facility] Last Admin: 02/13/18 09:30 Dose: Not Given Levofloxacin (Levaquin 500 Mg Premixed Ivpb -) 500 mg in 100 mls @ 100 mls/hr IVPB DAILY [facility]; Protocol Last Admin: 02/13/18 09:31 Dose: 100 mls/hr Magnesium Oxide (Mag-Ox -) 400 mg PO BID [facility] Last Admin: 02/13/18 09:32 Dose: 400 mg Sodium Chloride (Sodium Chloride Tablet -) 1 gm PO TID [facility] Last Admin: 02/13/18 13:04 Dose: 1 gm Thiamine HCl (Vitamin B1 -) 100 mg PO HS [facility] Last Admin: 02/12/18 21:43 Dose: 100 mg - Objective Vital Signs: Vital Signs Temperature 98.2 F 02/13/18 10:08 Pulse Rate 83 02/13/18 10:08 Respiratory Rate 18 02/13/18 10:08 Blood Pressure 141/74 02/13/18 10:08 O2 Sat by Pulse Oximetry (%) 100 02/13/18 08:15 Constitutional: Yes: Calm Eyes: Yes: Conjunctiva Clear HENT: Yes: Atraumatic Neck: Yes: Supple Cardiovascular: Yes: S1, S2 Respiratory: Yes: CTA Bilaterally Genitourinary: Yes: WNL Musculoskeletal: Yes: WNL Edema: No Integumentary: Yes: WNL Neurological: Yes: Oriented Psychiatric: Yes: Oriented Labs: CBC, BMP 02/13/18 07:35 02/13/18 07:35 INR, PTT INR 1.07 (0.83-1.09) 02/06/18 20:34 Problem List - Problems (1) Electrolyte abnormality Code(s): E87.8 - OTH DISORDERS OF ELECTROLYTE AND FLUID BALANCE, NEC (2) Hyponatremia Code(s): E87.1 - HYPO-OSMOLALITY AND HYPONATREMIA (3) Alcohol dependence with uncomplicated withdrawal Code(s): F10.230 - ALCOHOL DEPENDENCE WITH WITHDRAWAL, UNCOMPLICATED (4) ETOH abuse Code(s): F10.10 - ALCOHOL ABUSE, UNCOMPLICATED Assessment/Plan Current Medications Generic Name Dose Route Start Last Admin Trade Name Freq PRN Reason Stop Dose Admin Amlodipine Besylate 5 mg 02/11/18 10:00 02/13/18 09:32 Norvasc - PO 5 mg DAILY [facility] Administration Aspirin 81 mg 02/08/18 10:00 02/13/18 09:32 Asa - PO 81 mg DAILY [facility] Administration Chlordiazepoxide HCl 25 mg 02/10/18 19:30 02/13/18 11:31 Librium - PO 25 mg Q6HPO [facility] Administration Heparin Sodium (Porcine) 5,000 unit 02/07/18 10:00 02/13/18 09:32 Heparin - SQ Not Given BID [facility] Potassium Chloride 10 meq/ 1,005 mls @ 75 mls/hr 02/09/18 13:15 02/13/18 09: 30 Sodium Chloride IVPB Not Given Q13H [facility] Levofloxacin 500 mg in 100 mls @ 100 mls/hr 02/12/18 16:15 02/13/18 09:31 Levaquin 500 Mg Premixed Ivpb - IVPB 100 mls/hr DAILY [facility] Administration Protocol Magnesium Oxide 400 mg 02/09/18 22:00 02/13/18 09:32 Mag-Ox - PO 400 mg BID [facility] Administration Sodium Chloride 1 gm 02/11/18 09:15 02/13/18 13:04 Sodium Chloride Tablet - PO 1 gm TID [facility] Administration Thiamine HCl 100 mg 02/07/18 22:00 02/12/18 21:43 Vitamin B1 - PO 100 mg HS [facility] Administration Impression 1. hyponatremia 2. hx cocaine use 3. DM 4. COPD 5. etoh abuse - active 6. active smoker 7. non compliance 8. hypomagnesemia Plan - sodium is stabilizing - restart fluids if she agrees - lytes are improving - cont mag supplements - cont salt tabs - encourage PO intake Dr Loya
[2018-02-13] MEDS ORDERED: SODIUM CHLORIDE 1,000 ML IV SCH (14:30)
--- NOTE | 2018-02-13 19:08 | PN ---
Progress Note, Physician History of Present Illness: Pt walking in hallway wanting to leave - Current Medication List Current Medications: Active Medications Amlodipine Besylate (Norvasc -) 5 mg PO DAILY [facility] Last Admin: 02/13/18 09:32 Dose: 5 mg Aspirin (Asa -) 81 mg PO DAILY [facility] Last Admin: 02/13/18 09:32 Dose: 81 mg Chlordiazepoxide HCl (Librium -) 25 mg PO Q6HPO [facility] Last Admin: 02/13/18 17:25 Dose: 25 mg Heparin Sodium (Porcine) (Heparin -) 5,000 unit SQ BID [facility] Last Admin: 02/13/18 09:32 Dose: Not Given Potassium Chloride 10 meq/ (Sodium Chloride) 1,005 mls @ 75 mls/hr IVPB Q13H [facility] Last Admin: 02/13/18 09:30 Dose: Not Given Levofloxacin (Levaquin 500 Mg Premixed Ivpb -) 500 mg in 100 mls @ 100 mls/hr IVPB DAILY [facility]; Protocol Last Admin: 02/13/18 09:31 Dose: 100 mls/hr Sodium Chloride (Normal Saline -) 1,000 mls @ 50 mls/hr IV ASDIR [facility] Stop: 02/14/18 14:21 Magnesium Oxide (Mag-Ox -) 400 mg PO BID [facility] Last Admin: 02/13/18 09:32 Dose: 400 mg Sodium Chloride (Sodium Chloride Tablet -) 1 gm PO TID [facility] Last Admin: 02/13/18 13:04 Dose: 1 gm Thiamine HCl (Vitamin B1 -) 100 mg PO HS [facility] Last Admin: 02/12/18 21:43 Dose: 100 mg - Objective Vital Signs: Vital Signs Temperature 97.7 F 02/13/18 14:00 Pulse Rate 96 H 02/13/18 14:00 Respiratory Rate 20 02/13/18 14:00 Blood Pressure 153/89 02/13/18 14:00 O2 Sat by Pulse Oximetry (%) 100 02/13/18 08:15 Neck: Yes: WNL, Supple Cardiovascular: Yes: WNL, Regular Rate and Rhythm Respiratory: Yes: WNL, Regular, CTA Bilaterally Gastrointestinal: Yes: WNL, Normal Bowel Sounds, Soft Labs: CBC, BMP 02/13/18 07:35 02/13/18 07:35 INR, PTT INR 1.07 (0.83-1.09) 02/06/18 20:34 Problem List - Problems (1) Leukocytosis Assessment/Plan: WBC improved Cont IV levaquin Urine culture pending As per ID Code(s): D72.829 - ELEVATED WHITE BLOOD CELL COUNT, UNSPECIFIED (2) ETOH abuse Assessment/Plan: Pt on librium and will taper as indicated onboarding specialist reconsulted Cont thiamine Code(s): F10.10 - ALCOHOL ABUSE, UNCOMPLICATED (3) Electrolyte abnormality Assessment/Plan: K+ has been corrected Follow NA+ and K+ Cont Magnesioum tablets and sodium tablets Cont potassium IV BID As per renal Code(s): E87.8 - OTH DISORDERS OF ELECTROLYTE AND FLUID BALANCE, NEC (4) HTN (hypertension) Assessment/Plan: Cont norvasc BP stable Cont to monitor Code(s): I10 - ESSENTIAL (PRIMARY) HYPERTENSION (5) Syncope Assessment/Plan: No arrythmia's on tele Carotid doppler did not show significant stenosis Echo noted Code(s): R55 - SYNCOPE AND COLLAPSE Qualifiers: Syncope type: unspecified Qualified Code(s): R55 - Syncope and collapse
[2018-02-13] MEDS: THIAMINE HCL 100 MG TABLET (FP) PO SCH (21:33)
[2018-02-14] MEDS: chlordiazePOXIDE HCL 25 MG CAPSULE PO SCH ×5 (00:26→23:57)
[2018-02-14] MEDS ORDERED: SODIUM CHLORIDE 1,000 ML IV SCH (00:41)
[2018-02-14] MEDS: SODIUM CHLORIDE 1 GM TABLET PO SCH ×3 (06:23→21:12)
[2018-02-14 08:01] LABS: BASO % 1.1 % (0-2.0); EOS % 3.2 % (0-4.5); HEMATOCRIT 29.2 % (32.4-45.2); HEMOGLOBIN 9.9 GM/dL (10.7-15.3); LYMPH % 26.6 % (8-40); MCH 30.6 pg (25.7-33.7); MCHC 33.7 g/dl (32.0-36.0); MEAN CELL VOLUME 90.8 fl (80-96); MEAN PLT VOLUME 8.2 fl (7.5-11.1); NEUT % 58.1 % (42.8-82.8); PLATELET COUNT 352 K/MM3 (134-434); RBC 3.22 M/mm3 (3.60-5.2); RDW 13.7 % (11.6-15.6); WHITE BLOOD COUNT 11.3 K/mm3 (4.0-10.0)
[2018-02-14 08:13] LABS: ALBUMIN 3.7 g/dl (3.4-5.0); ANION GAP 8 (8-16); BLOOD UREA NITROGEN 21 mg/dL (7-18); CALCIUM 9.6 mg/dL (8.5-10.1); CHLORIDE 96 mmol/L (98-107); CO2 27 mmol/L (21-32); GLUCOSE,RANDOM 108 mg/dL (74-106); POTASSIUM 4.7 mmol/L (3.5-5.1); SODIUM 131 mmol/L (136-145)
[2018-02-14 08:16] LABS: ALK PHOS 96 U/L (45-117); BILIRUBIN,TOTAL 0.1 mg/dL (0.2-1.0); CREATININE 0.8 mg/dL (0.55-1.02); PHOSPHOROUS 4.7 mg/dL (2.5-4.9); SGOT/AST 15 U/L (15-37); SGPT/ALT 20 U/L (12-78); TOT PROT 7.7 g/dl (6.4-8.2)
--- NOTE | 2018-02-14 08:49 | PN ---
Progress Note, Physician Chief Complaint: seen and examined no distress - Current Medication List Current Medications: Active Medications Amlodipine Besylate (Norvasc -) 5 mg PO DAILY [facility] Aspirin (Asa -) 81 mg PO DAILY [facility] Chlordiazepoxide HCl (Librium -) 25 mg PO Q6HPO [facility] Last Admin: 02/14/18 06:22 Dose: 25 mg Heparin Sodium (Porcine) (Heparin -) 5,000 unit SQ BID [facility] Levofloxacin (Levaquin 500 Mg Premixed Ivpb -) 500 mg in 100 mls @ 100 mls/hr IVPB DAILY [facility]; Protocol Potassium Chloride 10 meq/ (Sodium Chloride) 1,005 mls @ 75 mls/hr IVPB Q13H [facility] Sodium Chloride (Normal Saline -) 1,000 mls @ 50 mls/hr IV ASDIR [facility] Stop: 02/14/18 14:21 Magnesium Oxide (Mag-Ox -) 400 mg PO BID [facility] Sodium Chloride (Sodium Chloride Tablet -) 1 gm PO TID [facility] Last Admin: 02/14/18 06:23 Dose: 1 gm Thiamine HCl (Vitamin B1 -) 100 mg PO HS [facility] - Objective Vital Signs: Vital Signs Temperature 98.5 F 02/14/18 06:07 Pulse Rate 99 H 02/14/18 06:07 Respiratory Rate 21 02/14/18 06:07 Blood Pressure 150/82 02/14/18 06:07 O2 Sat by Pulse Oximetry (%) 100 02/13/18 22:00 Constitutional: Yes: No Distress Cardiovascular: Yes: Regular Rate and Rhythm Respiratory: Yes: CTA Bilaterally Gastrointestinal: Yes: Soft Edema: No Neurological: Yes: Alert ...Motor Strength: WNL Labs: CBC, BMP 02/14/18 06:30 02/14/18 06:30 INR, PTT INR 1.07 (0.83-1.09) 02/06/18 20:34 Assessment/Plan 1. Syncope in setting of profound hyponatremia and hypokalemia, both improved 2. H/o of ETOH abuse 3. Prolonged QTc in setting electrolyte derangements, improved REC: 1. QTc sig improved, no sig arrhythmias while on tele 2. Electrolytes improved 3. Echo normal LV fxn, no effusion 4. Keep Mg2+ > 2.0 5. Continue amlodipine for BP control. 6. Time spent with her counselling on importance of avoiding ETOH, f/u PMD as outpt to help coordinate efforts for rehab
[2018-02-14] MEDS: ASPIRIN 81 MG CHEWABLE TABLETS PO SCH (09:24)
[2018-02-14] MEDS: HEPARIN NA (PORCINE) 5,000 UNITS/ML 1ML VIAL SQ SCH ×2 (09:25→21:12)
[2018-02-14] MEDS: amLODIPine BESYLATE 5 MG TABLET (FP) PO SCH (09:25)
[2018-02-14] MEDS: MAGNESIUM OXIDE 400 MG TABLET (FP) PO SCH ×2 (09:25→21:11)
[2018-02-14] MEDS ORDERED: POTASSIUM CHLORIDE 10 MEQ in SODIUM CHLORIDE 1,000 ML IVPB SCH (10:15)
--- NOTE | 2018-02-14 12:36 | CON.PSY ---
Psychiatry Consult Chief Complaint: 57 year old female admitted about 8 days ago, History of Alcohol abuse and chronic medical conditions. Patient has short vterm memopry impairment. Symptoms: reports: Depressed Mood, Memory Impairment - Previous Psychiatric Treatment Outpatient: None Inpatient: None - Previous Substance Abuse Treatment Outpatient: None Inpatient: None - Reason for Previous Treatment Reason for Previous Treatment: Alcohol Abuse - Current Medications Current Medications: Active Medications Amlodipine Besylate (Norvasc -) 5 mg PO DAILY [facility] Last Admin: 02/14/18 09:25 Dose: 5 mg Aspirin (Asa -) 81 mg PO DAILY [facility] Last Admin: 02/14/18 09:24 Dose: 81 mg Chlordiazepoxide HCl (Librium -) 25 mg PO Q6HPO [facility] Last Admin: 02/14/18 06:22 Dose: 25 mg Escitalopram Oxalate (Lexapro -) 10 mg PO DAILY [facility] Heparin Sodium (Porcine) (Heparin -) 5,000 unit SQ BID [facility] Last Admin: 02/14/18 09:25 Dose: 5,000 unit Levofloxacin (Levaquin 500 Mg Premixed Ivpb -) 500 mg in 100 mls @ 100 mls/hr IVPB DAILY [facility]; Protocol Last Admin: 02/14/18 09:25 Dose: 100 mls/hr Potassium Chloride 10 meq/ (Sodium Chloride) 1,005 mls @ 75 mls/hr IVPB Q13H [facility] Sodium Chloride (Normal Saline -) 1,000 mls @ 50 mls/hr IV ASDIR [facility] Stop: 02/14/18 14:21 Magnesium Oxide (Mag-Ox -) 400 mg PO BID [facility] Last Admin: 02/14/18 09:25 Dose: 400 mg Sodium Chloride (Sodium Chloride Tablet -) 1 gm PO TID [facility] Last Admin: 02/14/18 06:23 Dose: 1 gm Thiamine HCl (Vitamin B1 -) 100 mg PO HS [facility] - Allergies Allergies: Allergies Allergy/AdvReac Type Severity Reaction Status Date / Time No Known Allergies Allergy Verified 02/06/18 20:00 - Current Living Status Usual Living Arrangement: With Spouse - Current Mental Status Evaluation Appearance: Well Groomed Attitude: Cooperative - Affect Affect: Full Range - Mood Mood: Depressed - Speech/Language Expressive: Coherent - Psychomotor Activity Psychomotor Activity: Slowed - Thought Process Thought Process: Intact - Thought Content Hallucinations: Absent Delusions: Absent - Cognition Attention: Alert Orientation: Time Memory, Short Term: 1/3 Memory, Remote with Promptin/3 - Concentration Serial Sevens Intact: No Simple Calculations Intact: Yes - Abstraction Proverb Interpretation: Impaired Judgement: Minimally Impaired - Insight Insight: Intact - Impulse Control Impulse Control: Minimally Impaired - Suicidal Ideation Suicidal Ideation: No - Homicidal Ideation Homicidal Ideation: No Assessment/Plan 10 Lexapro for depressive symptoms.
--- NOTE | 2018-02-14 13:47 | PN ---
Progress Note, Physician History of Present Illness: Pt seen and examined at bedside. She is asking to go home. - Current Medication List Current Medications: Active Medications Amlodipine Besylate (Norvasc -) 5 mg PO DAILY [facility] Last Admin: 02/14/18 09:25 Dose: 5 mg Aspirin (Asa -) 81 mg PO DAILY [facility] Last Admin: 02/14/18 09:24 Dose: 81 mg Chlordiazepoxide HCl (Librium -) 25 mg PO Q6HPO [facility] Last Admin: 02/14/18 06:22 Dose: 25 mg Escitalopram Oxalate (Lexapro -) 10 mg PO DAILY [facility] Heparin Sodium (Porcine) (Heparin -) 5,000 unit SQ BID [facility] Last Admin: 02/14/18 09:25 Dose: 5,000 unit Levofloxacin (Levaquin 500 Mg Premixed Ivpb -) 500 mg in 100 mls @ 100 mls/hr IVPB DAILY [facility]; Protocol Last Admin: 02/14/18 09:25 Dose: 100 mls/hr Potassium Chloride 10 meq/ (Sodium Chloride) 1,005 mls @ 75 mls/hr IVPB Q13H [facility] Sodium Chloride (Normal Saline -) 1,000 mls @ 50 mls/hr IV ASDIR [facility] Stop: 02/14/18 14:21 Magnesium Oxide (Mag-Ox -) 400 mg PO BID [facility] Last Admin: 02/14/18 09:25 Dose: 400 mg Sodium Chloride (Sodium Chloride Tablet -) 1 gm PO TID [facility] Last Admin: 02/14/18 06:23 Dose: 1 gm Thiamine HCl (Vitamin B1 -) [address] [facility] - Objective Vital Signs: Vital Signs Temperature 98.5 F 02/14/18 06:07 Pulse Rate 99 H 02/14/18 06:07 Respiratory Rate 21 02/14/18 06:07 Blood Pressure 150/82 02/14/18 06:07 O2 Sat by Pulse Oximetry (%) 100 02/13/18 22:00 Constitutional: Yes: Calm Eyes: Yes: Conjunctiva Clear HENT: Yes: Atraumatic Neck: Yes: Supple Cardiovascular: Yes: S1, S2 Respiratory: Yes: CTA Bilaterally Gastrointestinal: Yes: Soft Genitourinary: Yes: WNL Musculoskeletal: Yes: WNL Edema: No Neurological: Yes: Confusion Labs: CBC, BMP 02/14/18 06:30 02/14/18 06:30 INR, PTT INR 1.07 (0.83-1.09) 02/06/18 20:34 Problem List - Problems (1) Electrolyte abnormality Code(s): E87.8 - OTH DISORDERS OF ELECTROLYTE AND FLUID BALANCE, NEC (2) Hyponatremia Code(s): E87.1 - HYPO-OSMOLALITY AND HYPONATREMIA (3) Alcohol dependence with uncomplicated withdrawal Code(s): F10.230 - ALCOHOL DEPENDENCE WITH WITHDRAWAL, UNCOMPLICATED (4) ETOH abuse Code(s): F10.10 - ALCOHOL ABUSE, UNCOMPLICATED Assessment/Plan Current Medications Generic Name Dose Route Start Last Admin Trade Name Freq PRN Reason Stop Dose Admin Amlodipine Besylate 5 mg 02/14/18 10:00 02/14/18 09:25 Norvasc - PO 5 mg DAILY [facility] Administration Aspirin 81 mg 02/14/18 10:00 02/14/18 09:24 Asa - PO 81 mg DAILY [facility] Administration Chlordiazepoxide HCl 25 mg 02/14/18 06:00 02/14/18 06:22 Librium - PO 25 mg Q6HPO [facility] Administration Escitalopram Oxalate 10 mg 02/15/18 10:00 Lexapro - PO DAILY [facility] Heparin Sodium (Porcine) 5,000 unit 02/14/18 10:00 02/14/18 09:25 Heparin - SQ 5,000 unit BID [facility] Administration Levofloxacin 500 mg in 100 mls @ 100 mls/hr 02/14/18 10:00 02/14/18 09:25 Levaquin 500 Mg Premixed Ivpb - IVPB 100 mls/hr DAILY [facility] Administration Protocol Potassium Chloride 10 meq/ 1,005 mls @ 75 mls/hr 02/14/18 10:15 Sodium Chloride IVPB Q13H [facility] Sodium Chloride 1,000 mls @ 50 mls/hr 02/14/18 00:41 Normal Saline - IV 02/14/18 14:21 ASDIR [facility] Magnesium Oxide 400 mg 02/14/18 10:00 02/14/18 09:25 Mag-Ox - PO 400 mg BID [facility] Administration Sodium Chloride 1 gm 02/14/18 06:00 02/14/18 06:23 Sodium Chloride Tablet - PO 1 gm TID [facility] Administration Thiamine HCl 100 mg 02/14/18 22:00 Vitamin B1 - PO HS [facility] Laboratory Tests 02/08/18 02/12/18 02/12/18 05:30 05:30 15:49 Serum Osmolality 250 L Magnesium 1.7 L Urine Osmolality 167 L Ur Random Sodium 02/12/18 23:30 Serum Osmolality Magnesium Urine Osmolality Ur Random Sodium 38 Impression 1. hyponatremia 2. hx cocaine use 3. DM 4. COPD 5. etoh abuse - active 6. active smoker 7. non compliance 8. hypomagnesemia Plan - cont salt tabs - pt refusing fluids - urine osm is appropriately low - monitor lytes - pt has poot outpt follow up Dr Loya
--- NOTE | 2018-02-14 14:26 | PN ---
Progress Note, Physician History of Present Illness: patient doing well no issues - Current Medication List Current Medications: Active Medications Amlodipine Besylate (Norvasc -) 5 mg PO DAILY [facility] Last Admin: 02/14/18 09:25 Dose: 5 mg Aspirin (Asa -) 81 mg PO DAILY [facility] Last Admin: 02/14/18 09:24 Dose: 81 mg Chlordiazepoxide HCl (Librium -) 25 mg PO Q6HPO [facility] Last Admin: 02/14/18 12:51 Dose: 25 mg Escitalopram Oxalate (Lexapro -) 10 mg PO DAILY [facility] Heparin Sodium (Porcine) (Heparin -) 5,000 unit SQ BID [facility] Last Admin: 02/14/18 09:25 Dose: 5,000 unit Levofloxacin (Levaquin 500 Mg Premixed Ivpb -) 500 mg in 100 mls @ 100 mls/hr IVPB DAILY [facility]; Protocol Last Admin: 02/14/18 09:25 Dose: 100 mls/hr Potassium Chloride 10 meq/ (Sodium Chloride) 1,005 mls @ 75 mls/hr IVPB Q13H [facility] Magnesium Oxide (Mag-Ox -) 400 mg PO BID [facility] Last Admin: 02/14/18 09:25 Dose: 400 mg Sodium Chloride (Sodium Chloride Tablet -) 1 gm PO TID [facility] Last Admin: 02/14/18 06:23 Dose: 1 gm Thiamine HCl (Vitamin B1 -) 100 mg PO HS [facility] - Objective Vital Signs: Vital Signs Temperature 98.5 F 02/14/18 06:07 Pulse Rate 99 H 02/14/18 06:07 Respiratory Rate 21 02/14/18 06:07 Blood Pressure 150/82 02/14/18 06:07 O2 Sat by Pulse Oximetry (%) 100 02/13/18 22:00 Constitutional: Yes: No Distress, Calm Cardiovascular: Yes: S1, S2 Respiratory: Yes: Regular, CTA Bilaterally Gastrointestinal: Yes: Normal Bowel Sounds, Soft Musculoskeletal: Yes: WNL Extremities: Yes: WNL Neurological: Yes: Alert, Oriented Psychiatric: Yes: Alert Labs: CBC, BMP 02/14/18 06:30 02/14/18 06:30 INR, PTT INR 1.07 (0.83-1.09) 02/06/18 20:34 Assessment/Plan Problem List - Problems (1) Leukocytosis Code(s): D72.829 - ELEVATED WHITE BLOOD CELL COUNT, UNSPECIFIED (2) ETOH abuse Code(s): F10.10 - ALCOHOL ABUSE, UNCOMPLICATED (3) Electrolyte abnormality Code(s): E87.8 - OTH DISORDERS OF ELECTROLYTE AND FLUID BALANCE, NEC (4) HTN (hypertension) Code(s): I10 - ESSENTIAL (PRIMARY) HYPERTENSION (5) Syncope Code(s): R55 - SYNCOPE AND COLLAPSE Qualifiers: Syncope type: unspecified Qualified Code(s): R55 - Syncope and collapse plan will change abx to po continue for couple of days rest as per the team patient otherwise stable
--- NOTE | 2018-02-14 19:51 | PN ---
Progress Note, Physician - Current Medication List Current Medications: Active Medications Amlodipine Besylate (Norvasc -) 5 mg PO DAILY [facility] Last Admin: 02/14/18 09:25 Dose: 5 mg Aspirin (Asa -) 81 mg PO DAILY [facility] Last Admin: 02/14/18 09:24 Dose: 81 mg Chlordiazepoxide HCl (Librium -) 25 mg PO Q6HPO [facility] Last Admin: 02/14/18 17:23 Dose: 25 mg Escitalopram Oxalate (Lexapro -) 10 mg PO DAILY [facility] Heparin Sodium (Porcine) (Heparin -) 5,000 unit SQ BID [facility] Last Admin: 02/14/18 09:25 Dose: 5,000 unit Potassium Chloride 10 meq/ (Sodium Chloride) 1,005 mls @ 75 mls/hr IVPB Q13H [facility] Last Admin: 02/14/18 17:23 Dose: 75 mls/hr Levofloxacin (Levaquin) 750 mg PO DAILY@0600 [facility] Magnesium Oxide (Mag-Ox -) 400 mg PO BID [facility] Last Admin: 02/14/18 09:25 Dose: 400 mg Sodium Chloride (Sodium Chloride Tablet -) 1 gm PO TID [facility] Last Admin: 02/14/18 14:24 Dose: 1 gm Thiamine HCl (Vitamin B1 -) 100 mg PO HS [facility] - Objective Vital Signs: Vital Signs Temperature 98.2 F 02/14/18 14:39 Pulse Rate 107 H 02/14/18 14:39 Respiratory Rate 16 02/14/18 09:00 Blood Pressure 138/82 02/14/18 14:39 O2 Sat by Pulse Oximetry (%) 95 02/14/18 09:00 Labs: CBC, BMP 02/14/18 06:30 02/14/18 06:30 INR, PTT INR 1.07 (0.83-1.09) 02/06/18 20:34 Problem List - Problems (1) Leukocytosis Code(s): D72.829 - ELEVATED WHITE BLOOD CELL COUNT, UNSPECIFIED (2) ETOH abuse Code(s): F10.10 - ALCOHOL ABUSE, UNCOMPLICATED (3) Electrolyte abnormality Code(s): E87.8 - OTH DISORDERS OF ELECTROLYTE AND FLUID BALANCE, NEC (4) HTN (hypertension) Code(s): I10 - ESSENTIAL (PRIMARY) HYPERTENSION (5) Syncope Code(s): R55 - SYNCOPE AND COLLAPSE Qualifiers: Syncope type: unspecified Qualified Code(s): R55 - Syncope and collapse
[2018-02-14] MEDS ORDERED: PT OWN MED DRAWER 7, Y5N ONE (21:03)
[2018-02-14] MEDS ORDERED: THIAMINE HCL 100 MG TABLET (FP) PO SCH (22:00)
[2018-02-15] MEDS ORDERED: levoFLOXacin 750 MG TABLET PO SCH (06:00)
[2018-02-15] MEDS: chlordiazePOXIDE HCL 25 MG CAPSULE PO SCH ×2 (06:00→11:44)
[2018-02-15] MEDS: SODIUM CHLORIDE 1 GM TABLET PO SCH ×2 (06:00→13:27)
[2018-02-15 08:51] LABS: BLOOD UREA NITROGEN 23 mg/dL (7-18); CALCIUM 9.1 mg/dL (8.5-10.1); CO2 26 mmol/L (21-32); CREATININE 0.8 mg/dL (0.55-1.02); GLUCOSE,RANDOM 103 mg/dL (74-106)
[2018-02-15 09:22] VITALS: BP 151/86; PULSE 96; TEMP 98.4
[2018-02-15] MEDS ORDERED: ESCITALOPRAM OXALATE 10 MG TABLET (FP) PO SCH (10:00)
[2018-02-15] MEDS: amLODIPine BESYLATE 5 MG TABLET (FP) PO SCH (10:14)
[2018-02-15] MEDS: HEPARIN NA (PORCINE) 5,000 UNITS/ML 1ML VIAL SQ SCH (10:14)
[2018-02-15] MEDS: MAGNESIUM OXIDE 400 MG TABLET (FP) PO SCH (10:14)
[2018-02-15] MEDS: ASPIRIN 81 MG CHEWABLE TABLETS PO SCH (10:14)
[2018-02-15 10:15] LABS: ANION GAP 11 (8-16); CHLORIDE 99 mmol/L (98-107); POTASSIUM 4.8 mmol/L (3.5-5.1); SODIUM 135 mmol/L (136-145)
--- NOTE | 2018-02-15 10:54 | PN ---
Progress Note, Physician History of Present Illness: Pt seen and examined at bedside. She is awake and alert. She is tolerating diet. - Current Medication List Current Medications: Active Medications Amlodipine Besylate (Norvasc -) 5 mg PO DAILY [facility] Last Admin: 02/15/18 10:14 Dose: 5 mg Aspirin (Asa -) 81 mg PO DAILY [facility] Last Admin: 02/15/18 10:14 Dose: 81 mg Chlordiazepoxide HCl (Librium -) 25 mg PO Q6HPO [facility] Last Admin: 02/15/18 06:00 Dose: 25 mg Escitalopram Oxalate (Lexapro -) 10 mg PO DAILY [facility] Last Admin: 02/15/18 10:14 Dose: 10 mg Heparin Sodium (Porcine) (Heparin -) 5,000 unit SQ BID [facility] Last Admin: 02/15/18 10:14 Dose: 5,000 unit Levofloxacin (Levaquin) 750 mg PO DAILY@0600 [facility] Last Admin: 02/15/18 06:00 Dose: 750 mg Magnesium Oxide (Mag-Ox -) 400 mg PO BID [facility] Last Admin: 02/15/18 10:14 Dose: 400 mg Sodium Chloride (Sodium Chloride Tablet -) 1 gm PO TID [facility] Last Admin: 02/15/18 06:00 Dose: 1 gm Thiamine HCl (Vitamin B1 -) 100 mg PO HS [facility] Last Admin: 02/14/18 21:12 Dose: 100 mg - Objective Vital Signs: Vital Signs Temperature 98.4 F 02/15/18 09:00 Pulse Rate 96 H 02/15/18 09:00 Respiratory Rate 20 02/15/18 09:00 Blood Pressure 151/86 02/15/18 09:00 O2 Sat by Pulse Oximetry (%) 95 02/14/18 22:00 Constitutional: Yes: Calm Eyes: Yes: Conjunctiva Clear HENT: Yes: Atraumatic Cardiovascular: Yes: S1, S2 Respiratory: Yes: CTA Bilaterally Gastrointestinal: Yes: Soft Genitourinary: Yes: WNL Musculoskeletal: Yes: WNL Edema: No Neurological: Yes: Oriented Psychiatric: Yes: Oriented Labs: CBC, BMP 02/14/18 06:30 02/15/18 07:00 INR, PTT INR 1.07 (0.83-1.09) 02/06/18 20:34 Problem List - Problems (1) Electrolyte abnormality Code(s): E87.8 - OTH DISORDERS OF ELECTROLYTE AND FLUID BALANCE, NEC (2) Hyponatremia Code(s): E87.1 - HYPO-OSMOLALITY AND HYPONATREMIA (3) Alcohol dependence with uncomplicated withdrawal Code(s): F10.230 - ALCOHOL DEPENDENCE WITH WITHDRAWAL, UNCOMPLICATED (4) ETOH abuse Code(s): F10.10 - ALCOHOL ABUSE, UNCOMPLICATED Assessment/Plan Current Medications Generic Name Dose Route Start Last Admin Trade Name Marcelo PRN Reason Stop Dose Admin Amlodipine Besylate 5 mg 02/14/18 10:00 02/15/18 10:14 Norvasc - PO 5 mg DAILY [facility] Administration Aspirin 81 mg 02/14/18 10:00 02/15/18 10:14 Asa - PO 81 mg DAILY [facility] Administration Chlordiazepoxide HCl 25 mg 02/14/18 06:00 02/15/18 06:00 Librium - PO 25 mg Q6HPO [facility] Administration Escitalopram Oxalate 10 mg 02/15/18 10:00 02/15/18 10:14 Lexapro - PO 10 mg DAILY [facility] Administration Heparin Sodium (Porcine) 5,000 unit 02/14/18 10:00 02/15/18 10:14 Heparin - SQ 5,000 unit BID [facility] Administration Levofloxacin 750 mg 02/15/18 06:00 02/15/18 06:00 Levaquin PO 750 mg DAILY@0600 [facility] Administration Magnesium Oxide 400 mg 02/14/18 10:00 02/15/18 10:14 Mag-Ox - PO 400 mg BID [facility] Administration Sodium Chloride 1 gm 02/14/18 06:00 02/15/18 06:00 Sodium Chloride Tablet - PO 1 gm TID [facility] Administration Thiamine HCl 100 mg 02/14/18 22:00 02/14/18 21:12 Vitamin B1 - PO 100 mg HS [facility] Administration Impression 1. hyponatremia 2. hx cocaine use 3. DM 4. COPD 5. etoh abuse - active 6. active smoker 7. non compliance 8. hypomagnesemia Plan - sodium stable - recommend that pt does not drink any form of alcohol after discharge, spoke to her at length today - monitor lytes - offered to see her in office for renal follow up Dr Loya
[2018-02-15] MEDS ORDERED: PT OWN MED DRAWER 7, Y5N ONE (13:24)
--- NOTE | 2018-02-15 13:57 | PN ---
Progress Note, Physician History of Present Illness: stable no issues - Current Medication List Current Medications: Active Medications Amlodipine Besylate (Norvasc -) 5 mg PO DAILY [facility] Last Admin: 02/15/18 10:14 Dose: 5 mg Aspirin (Asa -) 81 mg PO DAILY [facility] Last Admin: 02/15/18 10:14 Dose: 81 mg Chlordiazepoxide HCl (Librium -) 25 mg PO Q6HPO [facility] Last Admin: 02/15/18 11:44 Dose: 25 mg Escitalopram Oxalate (Lexapro -) 10 mg PO DAILY [facility] Last Admin: 02/15/18 10:14 Dose: 10 mg Heparin Sodium (Porcine) (Heparin -) 5,000 unit SQ BID [facility] Last Admin: 02/15/18 10:14 Dose: 5,000 unit Levofloxacin (Levaquin) 750 mg PO DAILY@0600 [facility] Last Admin: 02/15/18 06:00 Dose: 750 mg Magnesium Oxide (Mag-Ox -) 400 mg PO BID [facility] Last Admin: 02/15/18 10:14 Dose: 400 mg Sodium Chloride (Sodium Chloride Tablet -) 1 gm PO TID [facility] Last Admin: 02/15/18 13:27 Dose: 1 gm Thiamine HCl (Vitamin B1 -) 100 mg PO HS [facility] Last Admin: 02/14/18 21:12 Dose: 100 mg - Objective Vital Signs: Vital Signs Temperature 98.4 F 02/15/18 09:00 Pulse Rate 96 H 02/15/18 09:00 Respiratory Rate 20 02/15/18 09:00 Blood Pressure 151/86 02/15/18 09:00 O2 Sat by Pulse Oximetry (%) 95 02/15/18 09:00 Constitutional: Yes: No Distress, Calm Neck: Yes: Supple Cardiovascular: Yes: Regular Rate and Rhythm Respiratory: Yes: Regular, CTA Bilaterally Gastrointestinal: Yes: Normal Bowel Sounds, Soft Musculoskeletal: Yes: WNL Extremities: Yes: WNL Neurological: Yes: Alert, Oriented Psychiatric: Yes: Alert, Oriented Labs: CBC, BMP 02/14/18 06:30 02/15/18 07:00 INR, PTT INR 1.07 (0.83-1.09) 02/06/18 20:34 Assessment/Plan Problem List - Problems (1) Leukocytosis Code(s): D72.829 - ELEVATED WHITE BLOOD CELL COUNT, UNSPECIFIED (2) ETOH abuse Code(s): F10.10 - ALCOHOL ABUSE, UNCOMPLICATED (3) Electrolyte abnormality Code(s): E87.8 - OTH DISORDERS OF ELECTROLYTE AND FLUID BALANCE, NEC (4) HTN (hypertension) Code(s): I10 - ESSENTIAL (PRIMARY) HYPERTENSION (5) Syncope Code(s): R55 - SYNCOPE AND COLLAPSE Qualifiers: Syncope type: unspecified Qualified Code(s): R55 - Syncope and collapse plan continue current mgmt no abx rest continue per the team patient stable
--- NOTE | 2018-02-16 14:45 | DS ---
Physical Examination Vital Signs: Vital Signs Temperature 98.4 F 02/15/18 09:00 Pulse Rate 96 H 02/15/18 09:00 Respiratory Rate 20 02/15/18 09:00 Blood Pressure 151/86 02/15/18 09:00 O2 Sat by Pulse Oximetry (%) 95 02/15/18 09:00 Labs: CBC, BMP 02/14/18 06:30 02/15/18 07:00 Discharge Summary Reason For Visit: HYPONATREMIA/DISORDER OF ELECTROLYTES Condition: Good - Instructions Diet, Activity, Other Instructions: 2 gram sodium diet See Dr Marlow in 1 week Referrals: Hai Marlow MD [Primary Care Provider] - Disposition: HOME - Home Medications Comprehensive Discharge Medication List: Ambulatory Orders Thiamine HCl [Vitamin B1 -] 100 mg PO HS #30 tablet 01/17/18 Amlodipine Besylate [Norvasc -] 5 mg PO DAILY #0 tablet 02/15/18 Amlodipine Besylate [Norvasc -] 5 mg PO DAILY #30 tablet 02/15/18 Aspirin [ASA -] 81 mg PO DAILY tab.chew 02/15/18 Aspirin [ASA -] 81 mg PO DAILY #30 tab.chew 02/15/18 Escitalopram Oxalate [Lexapro -] 10 mg PO DAILY #30 tablet 02/15/18 Magnesium Oxide [Mag-Ox -] 400 mg PO BID tablet 02/15/18 Magnesium Oxide [Mag-Ox -] 400 mg PO BID #60 tablet 02/15/18 levoFLOXacin [Levaquin] 750 mg PO DAILY@0600 #7 tab 02/15/18
== END 2018-02-15 14:14 | disposition home or self-care (01) | DRG 425 ==
LOC: JER 19:42 → JERBED 22:26 → UNDOADMIN 23:33 → J4W 02-07 04:29 → J6S 02-13 22:37
PROVIDERS: ADMIT Internal Medicine; ATTEND Internal Medicine
PROC: HZ2ZZZZ Detoxification Services for Substance Abuse Treatment (ICD-10-PCS; principal; 2018-02-14)
DX: E87.1 Hypo-osmolality and hyponatremia (principal); R55 Syncope and collapse; J44.9 Chronic obstructive pulmonary disease, unspecified; I10 Essential (primary) hypertension; E87.6 Hypokalemia; I45.81 Long QT syndrome; E11.9 Type 2 diabetes mellitus without complications; F14.10 Cocaine abuse, uncomplicated; F17.210 Nicotine dependence, cigarettes, uncomplicated; E87.8 Other disorders of electrolyte and fluid balance, not elsewhere classified; F10.230 Alcohol dependence with withdrawal, uncomplicated; E83.42 Hypomagnesemia; D72.829 Elevated white blood cell count, unspecified; Z91.14 Patient's other noncompliance with medication regimen
CPT/HCPCS: 36415; 71045-TC-FY; 80048; 80053; 80061; 80307; 81003; 82436; 82550; 82553; 83605; 83721; 83735; 83930; 83935; 84100; 84133; 84300; 84484; 85025; 85027; 85610; 87086; 93005; 93010; 93306-TC; 93880-TC; 99285-25; J1644; J7030

== ENCOUNTER 2018-08-04 16:04 | Emergency (ER) | payer OTHER ==
--- NOTE | 2018-08-04 16:33 | PDOC ---
History of Present Illness - General Chief Complaint: Psychiatric Stated Complaint: ERRATIC BEHAVIOR Time Seen by Provider: 08/04/18 16:31 History Source: Patient - History of Present Illness Initial Comments: 08/04/18 16:35 History obtained from patient and EMR The patient is a 58 year old female with a PMH of HTN, auditory hallucinations, polysubstance abuse (cocaine, alcohol), electrolyte derangements (hyponatremia, hypokalemia) BIBEMS for erratic behavior including yelling and throwing medications at her (as per EMS crew). At presentation patient is calm, alert, oriented x2 (oriented to self and place not time) and complains about "pain all over." EMS reports that patient has psych and primary care at [facility] however requested that she be brought to [facility] because he didn't like the care she was receiving there. EMS supervisor webbing later reports that patient was calm @ EMS arrival at house (no witnessed h/o violent/aggressive behavior), however had dumped her medication (Amlodipine, Atorvastatin) on the bed and c/o pain. NKDA (as per EMR) As per EMR patient last evaluated in our ED 02/2018 for chest pain and auditory hallucinations in 02/2018. Past History - Past Medical History Allergies/Adverse Reactions: Allergies Allergy/AdvReac Type Severity Reaction Status Date / Time No Known Allergies Allergy Verified 03/09/18 15:55 Home Medications: Ambulatory Orders Thiamine HCl [Vitamin B1 -] 100 mg PO HS #30 tablet 01/17/18 Amlodipine Besylate [Norvasc -] 5 mg PO DAILY #0 tablet 02/15/18 Amlodipine Besylate [Norvasc -] 5 mg PO DAILY #30 tablet 02/15/18 Aspirin [ASA -] 81 mg PO DAILY #30 tab.chew 02/15/18 Escitalopram Oxalate [Lexapro -] 10 mg PO DAILY #30 tablet 02/15/18 Magnesium Oxide [Mag-Ox -] 400 mg PO BID #60 tablet 02/15/18 Anemia: No Asthma: No Cancer: No Cardiac Disorders: No CVA: No COPD: No CHF: No Dementia: No Diabetes: No GI Disorders: No Disorders: No HTN: Yes Hypercholesterolemia: No Liver Disease: No Psychiatric Problems: Yes Seizures: Yes (ON ADMISSION) Thyroid Disease: No - Immunization History Immunization Up to Date: Yes - Suicide/Smoking/Psychosocial Hx Smoking History: Current some day smoker Have you smoked in the past 12 months: Yes Number of Cigarettes Smoked Daily: 3 Cigars Per Day: 10 'Breaking Loose' booklet given: 02/07/18 Hx Alcohol Use: No Drug/Substance Use Hx: No Substance Use Type: None Hx Substance Use Treatment: No Review of Systems - Review of Systems Able to Perform ROS?: No *Physical Exam - Physical Exam General Appearance: Yes: Nourished, Appropriately Dressed HEENT: positive: Normal Voice, Hearing Grossly Normal Neck: positive: Trachea midline, Supple Respiratory/Chest: positive: Lungs Clear, Normal Breath Sounds Cardiovascular: positive: S1, S2. negative: Edema, JVD, Murmur Vascular Pulses: Dorsalis-Pedis (R): 2+, Doralis-Pedis (L): 2+ Gastrointestinal/Abdominal: positive: Normal Bowel Sounds, Soft Extremity: positive: Normal Capillary Refill, Normal Inspection Integumentary: positive: Normal Color, Dry, Warm Neurologic: positive: Fully Oriented, Alert ED Treatment Course - LABORATORY CBC & Chemistry Diagram: 08/04/18 17:15 08/04/18 17:15 Medical Decision Making - Medical Decision Making 08/04/18 19:56 58 year old female BIBEMS for erratic, non-aggressive, non-violent behavior and c/o "pain". At presentation patient alert, oriented x2, calm, c/o "pain all over." Tachycardic @ HR 100, other VS unremarkable. Benign heart, lung, abdomen, skin exam. As per EMR, patient has h/o underlying psych disorder, as well as AMS 2/2 to hyponatremia will obtain CMP to evaluate for electrolyte derangement. Troponin to evaluate for ACS (patient c/o non-specific pain) as well as UA and serum alcohol (h/o ETOH abuse). As patient A&O x2 at baseline as per EMR, will refrain from Head CT at this time. Reassess. K+ 3.0 will replace EKG non-ischemic Troponin x1 Leukocytosis 14; h/o leukocytosis 10-11 ETOH 60, patient remains alert, ambulatory, tolerating PO intake. UA pending, will discharge home pending no UTI 08/04/18 20:26 UA clean Patient ambulatory, tolerating PO intake, alert, shakes her head no when asked about any current pain including chest pain. 08/04/18 20:31 Case d/w patient's request Medicare cab. Patient's advised of importance of PMD and psych follow-up for further evaluation. Will discharge home with return precautions, instruction for strict medication adherence. I discussed the physical exam findings, ancillary test results and final diagnoses with the patient and the patient's . I answered all of the patient and patient's 's questions. The patient and her were satisfied with the care received. I felt comfortable with the discharge and treatment plan. The patient will return with any new/worsening/concerning symptoms. *DC/Admit/Observation/Transfer Diagnosis at time of Disposition: Acute alcohol intoxication - Discharge Dispostion Disposition: HOME Condition at time of disposition: Good Decision to Admit order: No - Referrals - Patient Instructions Printed Discharge Instructions: Alcoholism (Alternative Therapy) Additional Instructions: We did lab work on your blood and urine, an electrocardiogram, a chest x-ray, and and we did not find any concerning abnormalities. Your symptoms improved in the ER. After our assessment, we do not believe you are having a medical emergency at this time, and we believe you are safe to go home. Take all your medications as prescribed and follow up with your primary care doctor in one week. Return to the Emergency Department for any new/worsening/concerning symptoms. - Post Discharge Activity
--- NOTE | 2018-08-04 17:10 | PDOC ---
Attending Attestation - Resident Resident Name: Eugenia Buck - ED Attending Attestation I have performed the following: I have examined & evaluated the patient, The case was reviewed & discussed with the resident, I agree w/resident's findings & plan - HPI HPI: 08/04/18 18:37 Ms. Thomas is a 58 year old female with past medical history significant for HTN,HTN, auditory hallucinations, polysubstance abuse (cocaine, Heroin, alcohol) , electroylte derangements (hyponatremia, hypokalemia) presents to the emergency department via EMS AMS per . The patient reports symptoms of generalized body ache. poor historian, but no agitation. - Physicial Exam PE: 08/04/18 18:38 NAD, well appearing, cooperative, quiet and reserved. PERRL, EOMI, MMM, nl conjunctiva, anicteric; neck supple. lungs clear, RRR, abdomen soft nontender. OCHOA x4, no focal neuro deficits. No peripheral edema. normal color for ethnicity , WWP. - Medical Decision Making 08/04/18 18:39 hpi as documented Vitals wnl. no fever comfortable. no agitation. no acute neuro changes basic labs and lytes with low potassium. repleted orally and tolerating PO diet EKG nonischemic, NSR, normal intervals wbc ct noted, 14K, prior also elevated 10-11K. this could be from intox state vs stress state. utox previously neg for tox alcohol level_elevated to 60, most likely initially intoxicated leading to agitation that prompted visit. now sober. UA_pending back to baseline, eating well dispo: anticipate discharge, as back to baseline, back home f/u urine results s/o to Dr Chapin pending UA and final dispo. if neg, DC home. PCP/psych followup encouraged call to with updates to be made with finalized w/u. 08/04/18 19:39 08/06/18 07:13 Heart Score/ECG Review - ECG Impressions Normal ECG: Yes Comment:: 08/04/18 19:39 EKG normal sinus rhythm, no interval abnormalities, narrow QRS, ST and T wave segments and morphology normal. Nonspecific T wave abnormalities
[2018-08-04 17:48] LABS: ALK PHOS 120 U/L (45-117); ANION GAP 12 MMOL/L (8-16); BILIRUBIN,TOTAL 0.3 mg/dL (0.2-1); BLOOD UREA NITROGEN 9 mg/dL (7-18); CHLORIDE 99 mmol/L (98-107); CO2 23 mmol/L (21-32); CREATININE 0.7 mg/dL (0.55-1.3); GLUCOSE,RANDOM 81 mg/dL (74-106); SGOT/AST 15 U/L (15-37); SGPT/ALT 26 U/L (13-61); SODIUM 134 mmol/L (136-145); TOT PROT 8.3 g/dl (6.4-8.2)
[2018-08-04 18:04] LABS: BASO % 0.6 % (0-2.0); EOS % 0.4 % (0-4.5); HEMATOCRIT 34.1 % (32.4-45.2); HEMOGLOBIN 11.9 GM/dL (10.7-15.3); LYMPH % 19.8 % (8-40); MCH 31.2 pg (25.7-33.7); MEAN PLT VOLUME 8.2 fl (7.5-11.1); MONO % 9.9 % (3.8-10.2); NEUT % 69.3 % (42.8-82.8); PLATELET COUNT 323 K/MM3 (134-434); RBC 3.83 M/mm3 (3.60-5.2); RDW 15.8 % (11.6-15.6); WHITE BLOOD COUNT 14.8 K/mm3 (4.0-10.0)
[2018-08-04] MEDS ORDERED: POTASSIUM CHLORIDE TABS 20 MEQ TABLET.ER (FP) PO ONE (18:37)
[2018-08-04 19:35] VITALS: BMI 34.9
[2018-08-04 19:38] VITALS: BP 137/78; PULSE 97; TEMP 98.2
[2018-08-04 19:44] LABS: URINE APPEARANCE CLEAR; URINE BILIRUBIN NEGATIVE (<2.0 mg/dL); URINE COLOR STRAW; URINE GLUCOSE (UA) NEGATIVE (NEGATIVE); URINE KETONE NEGATIVE (NEGATIVE); URINE LEUK ESTERASE NEGATIVE (NEGATIVE); URINE NITRITE NEGATIVE (NEGATIVE); URINE PROTEIN 1+ (NEGATIVE); URINE UROBILINOGEN NEGATIVE mg/dL (0.2-1.0)
[2018-08-04 19:55] LABS: EPI CELLS RARE /HPF (FEW)
[2018-08-04 20:12] LABS: COCAINE, UR NEGATIVE ng/ml (CUTOFF=300); METHADONE, UR NEGATIVE ng/ml (CUTOFF=300); OPIATES, URI NEGATIVE ng/ml (CUTOFF=300); PHENCYCLIDINE,URINE NEGATIVE ng/ml (CUTOFF=25); URINE AMPHETAMINES NEGATIVE ng/ml (CUTOFF=500); URINE BARBITURATES NEGATIVE ng/ml (CUTOFF=200); URINE BENZODIAZEPINES NEGATIVE ng/ml (CUTOFF=200)
[2018-08-04] MEDS ORDERED: POTASSIUM CHLORIDE ORAL LIQUID 20 MEQ/15 ML ONE (20:45)
--- NOTE | 2018-08-05 13:14 | EKG ---
Test Reason : Blood Pressure : / mmHG Vent. Rate : 106 BPM Atrial Rate : 106 BPM P-R Int : 150 ms QRS Dur : 076 ms QT Int : 340 ms P-R-T Axes : 039 016 074 degrees QTc Int : 451 ms SINUS TACHYCARDIA POSSIBLE LEFT ATRIAL ENLARGEMENT INCOMPLETE RBBB ABNORMAL ECG WHEN COMPARED WITH ECG OF 09-MAR-2018 15:42, NONSPECIFIC T WAVE ABNORMALITY NOW EVIDENT IN LATERAL LEADS Confirmed by FAIZA TORRES MD ([id number]) on 08/05/2018 1:13:48 PM Referred By: Confirmed By:FAIZA TORRES MD
== END 2018-08-04 21:31 | disposition home or self-care (01) ==
LOC: JER 16:04
DX: F10.129 Alcohol abuse with intoxication, unspecified (principal); Y90.3 Blood alcohol level of 60-79 mg/100 ml; E87.6 Hypokalemia; I10 Essential (primary) hypertension; Z86.59 Personal history of other mental and behavioral disorders; F17.210 Nicotine dependence, cigarettes, uncomplicated
CPT/HCPCS: 36415; 71045-TC-FY; 80053; 80307; 81003; 81015; 84484; 85025; 87086; 93005; 93010; 99283-25

== ENCOUNTER 2020-11-26 11:41 | Inpatient (IN) | payer OTHER ==
[2020-11-26 12:23] VITALS: BMI 32.1
[2020-11-26] MEDS ORDERED: FUROSEMIDE 40 MG/4 ML INJECTABLE VIAL ONE (13:45)
[2020-11-26 13:50] LABS: VENOUS BASE EXCESS -10.5 mmol/L (-2-2); VENOUS O2 SATURATION 92.1 % (70-80); VENOUS PCO2 33.7 mmHg (38-52); VENOUS PH 7.276 (7.310-7.410)
[2020-11-26 13:55] LABS: INR 0.99 (0.83-1.09)
[2020-11-26 13:57] LABS: ACTIVATED PTT 29.1 SECONDS (25.2-36.5)
[2020-11-26 14:22] LABS: CALCIUM 8.2 mg/dL (8.5-10.1)
[2020-11-26 14:23] LABS: ALBUMIN 3.6 g/dl (3.4-5.0); BLOOD UREA NITROGEN 14.7 mg/dL (7-18)
[2020-11-26 14:27] LABS: BILIRUBIN,TOTAL 0.2 mg/dL (0.2-1); CREATININE 1.7 mg/dL (0.55-1.3); TOT PROT 7.2 g/dl (6.4-8.2)
[2020-11-26 14:31] LABS: BASO % 0.4 % (0-2.0); EOS % 0.1 % (0-4.5); HEMATOCRIT 31.2 % (32.4-45.2); MCH 30.1 pg (25.7-33.7); MCHC 31.9 g/dl (32.0-36.0); MEAN CELL VOLUME 94.5 fl (80-96); MEAN PLT VOLUME 9.7 fl (7.5-11.1); MONO % 13.4 % (3.8-10.2); NEUT % 72.1 % (42.8-82.8); PLATELET COUNT 260 K/MM3 (134-434); RBC 3.31 M/mm3 (3.60-5.2); RDW 16.4 % (11.6-15.6); WHITE BLOOD COUNT 10.2 K/mm3 (4.0-10.0)
[2020-11-26 14:39] LABS: LACTIC ACID 6.8 mmol/L (0.4-2.0)
[2020-11-26] MEDS ORDERED: ALBUTEROL SO4 2.5/IPRATROPIUM 0.5 INH SOL 3 ML VIAL.NEB. NEB ONE ×3 (15:11→16:12)
[2020-11-26] MEDS ORDERED: methylPREDNISolone NA SUCC 125 MG/2 ML VIAL IVPUSH ONE (15:12)
[2020-11-26] MEDS ORDERED: methylPREDNISolone NA SUCC 125 MG/2 ML VIAL ONE (15:21)
[2020-11-26 15:59] LABS: EPI CELLS >36 /uL (0-25.1); HYALINE CASTS 3 /uL (0-3.1); PH,URINE 5.5 (5.0-8.0); URINE APPEARANCE CLOUDY; URINE BACTERIA 2620 /uL (0-1359); URINE BILIRUBIN NEGATIVE (NEGATIVE); URINE COLOR YELLOW; URINE GLUCOSE (UA) NEGATIVE (NEGATIVE); URINE KETONE NEGATIVE (NEGATIVE); URINE LEUK ESTERASE 1+ (NEGATIVE); URINE NITRITE NEGATIVE (NEGATIVE); URINE PROTEIN 2+ (NEGATIVE); URINE RBC 21 /uL (0-23.9); URINE UROBILINOGEN 0.2 mg/dL (0.2-1.0); URINE WBC 58 /uL (0-25.8)
[2020-11-26] MEDS: LACTATED RINGERS SOLUTION 1,000 ML/1,000 ML INFUS.BAG IV SCH (16:30)
[2020-11-26 17:19] LABS: LDH 200 U/L (84-246)
[2020-11-26] MEDS ORDERED: ENOXAPARIN NA (PORCINE) 80 MG/0.8 ML DISP.SYRIN SQ ONE ×2 (17:34)
[2020-11-27] MEDS ORDERED: AZITHROMYCIN IVPB 500 MG/250 ML BAG IVPB ONE (00:26)
[2020-11-27] MEDS ORDERED: APIXABAN 5 MG TABLET PO SCH (00:30)
[2020-11-27] MEDS: DEXAMETHASONE SOD PHOSPHATE 4 MG/1 ML VIAL IVPUSH SCH ×2 (00:46→10:16)
[2020-11-27 06:01] LABS: BASO % 0.3 % (0-2.0); HEMATOCRIT 29.1 % (32.4-45.2); HEMOGLOBIN 9.5 GM/dL (10.7-15.3); LYMPH % 18.7 % (8-40); MCHC 32.5 g/dl (32.0-36.0); MEAN CELL VOLUME 92.3 fl (80-96); MONO % 4.2 % (3.8-10.2); NEUT % 76.8 % (42.8-82.8); PLATELET COUNT 284 K/MM3 (134-434); RBC 3.15 M/mm3 (3.60-5.2); RDW 16.6 % (11.6-15.6); WHITE BLOOD COUNT 8.1 K/mm3 (4.0-10.0)
[2020-11-27] MEDS: LEVOTHYROXINE NA 50 MCG TABLET (FP) PO SCH (06:13)
[2020-11-27 06:43] LABS: CALCIUM 7.9 mg/dL (8.5-10.1)
[2020-11-27 06:44] LABS: ALBUMIN 3.6 g/dl (3.4-5.0); BLOOD UREA NITROGEN 15.5 mg/dL (7-18)
[2020-11-27 06:47] LABS: BILIRUBIN,TOTAL 0.4 mg/dL (0.2-1); CREATININE 1.4 mg/dL (0.55-1.3)
[2020-11-27 06:49] LABS: TOT PROT 7.3 g/dl (6.4-8.2)
[2020-11-27] MEDS: ESCITALOPRAM OXALATE 10 MG TABLET PO SCH (10:16)
[2020-11-27] MEDS: amLODIPine BESYLATE 10 MG TABLET (FP) PO SCH (10:16)
[2020-11-27] MEDS: APIXABAN 5 MG TABLET PO SCH ×2 (10:16→21:12)
[2020-11-27] MEDS: ZINC SULFATE 220 MG CAPSULE (FP) PO SCH ×2 (10:16→21:54)
[2020-11-27] MEDS: LOSARTAN POTASSIUM 50 MG TABLET PO SCH (10:17)
[2020-11-27] MEDS: CHOLECALCIFEROL (VIT D3) 1,000 UNIT (25 MCG) TABLET PO SCH (10:17)
[2020-11-27] MEDS: ASCORBIC ACID 500 MG TABLET (FP) PO SCH ×2 (10:17→21:12)
[2020-11-27] MEDS: LACTATED RINGERS SOLUTION 1,000 ML/1,000 ML INFUS.BAG IV SCH (10:51)
[2020-11-27 13:25] LABS: N-TERMINAL BNP 686.2 pg/ml (5-125)
[2020-11-27] MEDS ORDERED: REMDESIVIR 200 MG in SODIUM CHLORIDE 250 ML IVPB ONE (14:00)
[2020-11-27] MEDS: BUDESONIDE/FORMETEROL FUMARATE 160/4.5 mcg INHALER IH SCH ×2 (14:34→21:54)
[2020-11-27] MEDS: NICOTINE 14 MG/24 HOURS TOPICAL PATCH TD SCH (14:35)
[2020-11-27] MEDS: ALBUTEROL SO4 HFA INHALER IH SCH ×2 (16:52→21:10)
[2020-11-27] MEDS: ATORVASTATIN CA 40 MG TABLET (FP) PO SCH (21:12)
[2020-11-27] MEDS: DONEPEZIL HCL 5 MG TABLET (FP) PO SCH (21:13)
[2020-11-27] MEDS: THIAMINE HCL 200 MG/2 ML VIAL IVPB SCH (22:53)
[2020-11-28] MEDS: LEVOTHYROXINE NA 50 MCG TABLET (FP) PO SCH (06:06)
[2020-11-28] MEDS: THIAMINE HCL 200 MG/2 ML VIAL IVPB SCH ×3 (06:06→22:47)
[2020-11-28] MEDS: ALBUTEROL SO4 HFA INHALER IH SCH ×4 (09:00→21:34)
[2020-11-28] MEDS ORDERED: PT OWN MED DRAWER 7, Y5N ONE (09:52)
[2020-11-28] MEDS: LOSARTAN POTASSIUM 50 MG TABLET PO SCH (09:59)
[2020-11-28] MEDS: amLODIPine BESYLATE 10 MG TABLET (FP) PO SCH (09:59)
[2020-11-28] MEDS: ASCORBIC ACID 500 MG TABLET (FP) PO SCH ×2 (09:59→21:34)
[2020-11-28] MEDS: ZINC SULFATE 220 MG CAPSULE (FP) PO SCH ×2 (09:59→21:34)
[2020-11-28] MEDS: ESCITALOPRAM OXALATE 10 MG TABLET PO SCH (09:59)
[2020-11-28] MEDS: APIXABAN 5 MG TABLET PO SCH ×2 (09:59→21:34)
[2020-11-28] MEDS: NICOTINE 14 MG/24 HOURS TOPICAL PATCH TD SCH (10:00)
[2020-11-28] MEDS: DEXAMETHASONE SOD PHOSPHATE 4 MG/1 ML VIAL IVPUSH SCH (10:00)
[2020-11-28] MEDS: BUDESONIDE/FORMETEROL FUMARATE 160/4.5 mcg INHALER IH SCH ×2 (10:00→21:34)
[2020-11-28] MEDS: CHOLECALCIFEROL (VIT D3) 1,000 UNIT (25 MCG) TABLET PO SCH (10:00)
[2020-11-28] MEDS: LACTATED RINGERS SOLUTION 1,000 ML/1,000 ML INFUS.BAG IV SCH (14:54)
[2020-11-28] MEDS: REMDESIVIR 100 MG in SODIUM CHLORIDE 250 ML IVPB SCH (16:54)
[2020-11-28] MEDS: ATORVASTATIN CA 40 MG TABLET (FP) PO SCH (21:34)
[2020-11-28] MEDS: ARIPiprazole 10 MG TABLET PO SCH (21:34)
[2020-11-28] MEDS: DONEPEZIL HCL 5 MG TABLET (FP) PO SCH (21:34)
[2020-11-29] MEDS: LEVOTHYROXINE NA 50 MCG TABLET (FP) PO SCH (06:38)
[2020-11-29] MEDS: THIAMINE HCL 200 MG/2 ML VIAL IVPB SCH ×3 (06:38→22:07)
[2020-11-29 08:04] LABS: BASO % 0.1 % (0-2.0); HEMATOCRIT 25.9 % (32.4-45.2); HEMOGLOBIN 8.5 GM/dL (10.7-15.3); MCH 30.3 pg (25.7-33.7); MCHC 32.9 g/dl (32.0-36.0); MEAN CELL VOLUME 92.1 fl (80-96); MEAN PLT VOLUME 10.3 fl (7.5-11.1); MONO % 10.1 % (3.8-10.2); NEUT % 75.8 % (42.8-82.8); PLATELET COUNT 292 K/MM3 (134-434); RBC 2.81 M/mm3 (3.60-5.2); RDW 16.5 % (11.6-15.6); WHITE BLOOD COUNT 15.4 K/mm3 (4.0-10.0)
[2020-11-29 08:09] LABS: CALCIUM 8.3 mg/dL (8.5-10.1)
[2020-11-29 08:10] LABS: ALBUMIN 3.3 g/dl (3.4-5.0); BLOOD UREA NITROGEN 13.6 mg/dL (7-18)
[2020-11-29 08:13] LABS: CREATININE 1.1 mg/dL (0.55-1.3)
[2020-11-29 08:14] LABS: BILIRUBIN,TOTAL 0.3 mg/dL (0.2-1); TOT PROT 6.4 g/dl (6.4-8.2)
[2020-11-29] MEDS ORDERED: PT OWN MED DRAWER 7, Y5N ONE (09:03)
[2020-11-29] MEDS: ESCITALOPRAM OXALATE 10 MG TABLET PO SCH (09:09)
[2020-11-29] MEDS: ZINC SULFATE 220 MG CAPSULE (FP) PO SCH ×2 (09:09→21:09)
[2020-11-29] MEDS: amLODIPine BESYLATE 10 MG TABLET (FP) PO SCH (09:09)
[2020-11-29] MEDS: APIXABAN 5 MG TABLET PO SCH ×2 (09:09→21:09)
[2020-11-29] MEDS: ASCORBIC ACID 500 MG TABLET (FP) PO SCH ×2 (09:09→21:09)
[2020-11-29] MEDS: ALBUTEROL SO4 HFA INHALER IH SCH ×4 (09:09→21:10)
[2020-11-29] MEDS: CHOLECALCIFEROL (VIT D3) 1,000 UNIT (25 MCG) TABLET PO SCH (09:09)
[2020-11-29] MEDS: DEXAMETHASONE SOD PHOSPHATE 4 MG/1 ML VIAL IVPUSH SCH (09:09)
[2020-11-29] MEDS: LOSARTAN POTASSIUM 50 MG TABLET PO SCH (09:09)
[2020-11-29] MEDS: BUDESONIDE/FORMETEROL FUMARATE 160/4.5 mcg INHALER IH SCH ×2 (09:10→21:09)
[2020-11-29] MEDS: NICOTINE 14 MG/24 HOURS TOPICAL PATCH TD SCH (09:42)
[2020-11-29] MEDS: ARIPiprazole 10 MG TABLET PO SCH (09:42)
[2020-11-29] MEDS: REMDESIVIR 100 MG in SODIUM CHLORIDE 250 ML IVPB SCH (13:26)
[2020-11-29] MEDS ORDERED: MELATONIN 5 MG TABLETS PO PRN (20:30)
[2020-11-29] MEDS: DONEPEZIL HCL 5 MG TABLET (FP) PO SCH (21:09)
[2020-11-29] MEDS: ATORVASTATIN CA 40 MG TABLET (FP) PO SCH (21:09)
[2020-11-29] MEDS: MELATONIN 5 MG TABLETS PO SCH (21:09)
[2020-11-29] MEDS: LACTATED RINGERS SOLUTION 1,000 ML/1,000 ML INFUS.BAG IV SCH (21:10)
[2020-11-30] MEDS: LEVOTHYROXINE NA 50 MCG TABLET (FP) PO SCH (06:05)
[2020-11-30] MEDS: THIAMINE HCL 200 MG/2 ML VIAL IVPB SCH ×3 (06:05→21:53)
[2020-11-30 08:09] LABS: BASO % 0.2 % (0-2.0); HEMATOCRIT 27.4 % (32.4-45.2); HEMOGLOBIN 9.1 GM/dL (10.7-15.3); LYMPH % 18.3 % (8-40); MCH 30.1 pg (25.7-33.7); MCHC 33.2 g/dl (32.0-36.0); MEAN CELL VOLUME 90.7 fl (80-96); MEAN PLT VOLUME 10.7 fl (7.5-11.1); MONO % 11.5 % (3.8-10.2); PLATELET COUNT 316 K/MM3 (134-434); RBC 3.02 M/mm3 (3.60-5.2); RDW 16.4 % (11.6-15.6); WHITE BLOOD COUNT 16.2 K/mm3 (4.0-10.0)
[2020-11-30 08:25] LABS: ALBUMIN 3.2 g/dl (3.4-5.0); BLOOD UREA NITROGEN 15.5 mg/dL (7-18); CALCIUM 8.9 mg/dL (8.5-10.1)
[2020-11-30 08:28] LABS: CREATININE 1.1 mg/dL (0.55-1.3)
[2020-11-30 08:30] LABS: BILIRUBIN,TOTAL 0.3 mg/dL (0.2-1); TOT PROT 6.4 g/dl (6.4-8.2)
[2020-11-30] MEDS: ALBUTEROL SO4 HFA INHALER IH SCH ×4 (08:56→21:39)
[2020-11-30 09:35] LABS: ANISOCYTOSIS 1+; MACROCYTOSIS 0; PLATELET ESTIMATE NORMAL
[2020-11-30] MEDS ORDERED: PT OWN MED DRAWER 7, Y5N ONE (09:38)
[2020-11-30] MEDS: ZINC SULFATE 220 MG CAPSULE (FP) PO SCH ×2 (09:56→21:39)
[2020-11-30] MEDS: APIXABAN 5 MG TABLET PO SCH ×2 (09:56→21:39)
[2020-11-30] MEDS: amLODIPine BESYLATE 10 MG TABLET (FP) PO SCH (09:56)
[2020-11-30] MEDS: ESCITALOPRAM OXALATE 10 MG TABLET PO SCH (09:56)
[2020-11-30] MEDS: CHOLECALCIFEROL (VIT D3) 1,000 UNIT (25 MCG) TABLET PO SCH (09:56)
[2020-11-30] MEDS: DEXAMETHASONE SOD PHOSPHATE 4 MG/1 ML VIAL IVPUSH SCH (09:56)
[2020-11-30] MEDS: NICOTINE 14 MG/24 HOURS TOPICAL PATCH TD SCH (09:57)
[2020-11-30] MEDS: BUDESONIDE/FORMETEROL FUMARATE 160/4.5 mcg INHALER IH SCH ×2 (09:57→21:40)
[2020-11-30] MEDS: LOSARTAN POTASSIUM 50 MG TABLET PO SCH (09:57)
[2020-11-30] MEDS: ARIPiprazole 10 MG TABLET PO SCH (09:57)
[2020-11-30] MEDS: ASCORBIC ACID 500 MG TABLET (FP) PO SCH ×2 (09:57→21:39)
[2020-11-30] MEDS: REMDESIVIR 100 MG in SODIUM CHLORIDE 250 ML IVPB SCH (14:14)
[2020-11-30] MEDS ORDERED: POTASSIUM CHLORIDE TABS 20 MEQ TABLET.ER (FP) PO ONE (17:30)
[2020-11-30] MEDS: ATORVASTATIN CA 40 MG TABLET (FP) PO SCH (21:39)
[2020-11-30] MEDS: DONEPEZIL HCL 5 MG TABLET (FP) PO SCH (21:39)
[2020-11-30] MEDS: MELATONIN 5 MG TABLETS PO SCH (21:39)
[2020-12-01] MEDS: THIAMINE HCL 200 MG/2 ML VIAL IVPB SCH (06:00)
[2020-12-01] MEDS: LEVOTHYROXINE NA 50 MCG TABLET (FP) PO SCH (06:00)
[2020-12-01 07:56] LABS: BASO % 0.1 % (0-2.0); HEMOGLOBIN 9.1 GM/dL (10.7-15.3); LYMPH % 14.8 % (8-40); MCH 30.1 pg (25.7-33.7); MCHC 32.6 g/dl (32.0-36.0); MEAN CELL VOLUME 92.4 fl (80-96); MEAN PLT VOLUME 10.9 fl (7.5-11.1); NEUT % 72.1 % (42.8-82.8); PLATELET COUNT 324 K/MM3 (134-434); RBC 3.03 M/mm3 (3.60-5.2); RDW 16.3 % (11.6-15.6); WHITE BLOOD COUNT 16.1 K/mm3 (4.0-10.0)
[2020-12-01 08:16] LABS: CALCIUM 8.3 mg/dL (8.5-10.1)
[2020-12-01 08:17] LABS: ALBUMIN 3.1 g/dl (3.4-5.0); BLOOD UREA NITROGEN 25.9 mg/dL (7-18)
[2020-12-01 08:19] LABS: BILIRUBIN,TOTAL 0.3 mg/dL (0.2-1)
[2020-12-01 08:20] LABS: CREATININE 1.2 mg/dL (0.55-1.3); TOT PROT 6.1 g/dl (6.4-8.2)
[2020-12-01] MEDS ORDERED: PT OWN MED DRAWER 7, Y5N ONE (09:02)
[2020-12-01] MEDS: CHOLECALCIFEROL (VIT D3) 1,000 UNIT (25 MCG) TABLET PO SCH (09:09)
[2020-12-01] MEDS: LOSARTAN POTASSIUM 50 MG TABLET PO SCH (09:09)
[2020-12-01] MEDS: ASCORBIC ACID 500 MG TABLET (FP) PO SCH ×2 (09:09→21:14)
[2020-12-01] MEDS: ESCITALOPRAM OXALATE 10 MG TABLET PO SCH (09:09)
[2020-12-01] MEDS: ZINC SULFATE 220 MG CAPSULE (FP) PO SCH ×2 (09:09→21:14)
[2020-12-01] MEDS: DEXAMETHASONE SOD PHOSPHATE 4 MG/1 ML VIAL IVPUSH SCH (09:09)
[2020-12-01] MEDS: amLODIPine BESYLATE 10 MG TABLET (FP) PO SCH (09:09)
[2020-12-01] MEDS: APIXABAN 5 MG TABLET PO SCH ×2 (09:09→21:14)
[2020-12-01] MEDS: BUDESONIDE/FORMETEROL FUMARATE 160/4.5 mcg INHALER IH SCH ×2 (09:11→21:15)
[2020-12-01] MEDS: NICOTINE 14 MG/24 HOURS TOPICAL PATCH TD SCH (09:11)
[2020-12-01] MEDS: ARIPiprazole 10 MG TABLET PO SCH (09:11)
[2020-12-01 10:12] LABS: ANISOCYTOSIS 1+; MACROCYTOSIS 1+; PLATELET ESTIMATE NORMAL
[2020-12-01] MEDS: ALBUTEROL SO4 HFA INHALER IH SCH ×4 (11:55→20:57)
[2020-12-01] MEDS: REMDESIVIR 100 MG in SODIUM CHLORIDE 250 ML IVPB SCH (13:05)
[2020-12-01] MEDS: ATORVASTATIN CA 40 MG TABLET (FP) PO SCH (21:14)
[2020-12-01] MEDS: DONEPEZIL HCL 5 MG TABLET (FP) PO SCH (21:14)
[2020-12-01] MEDS: MELATONIN 5 MG TABLETS PO SCH (21:14)
[2020-12-02] MEDS: LEVOTHYROXINE NA 50 MCG TABLET (FP) PO SCH (06:27)
[2020-12-02] MEDS: ALBUTEROL SO4 HFA INHALER IH SCH ×2 (08:55→11:30)
[2020-12-02] MEDS ORDERED: PT OWN MED DRAWER 7, Y5N ONE (09:23)
[2020-12-02] MEDS: ZINC SULFATE 220 MG CAPSULE (FP) PO SCH (09:26)
[2020-12-02] MEDS: NICOTINE 14 MG/24 HOURS TOPICAL PATCH TD SCH (09:26)
[2020-12-02] MEDS: amLODIPine BESYLATE 10 MG TABLET (FP) PO SCH (09:26)
[2020-12-02] MEDS: APIXABAN 5 MG TABLET PO SCH (09:26)
[2020-12-02] MEDS: LOSARTAN POTASSIUM 50 MG TABLET PO SCH (09:26)
[2020-12-02] MEDS: ASCORBIC ACID 500 MG TABLET (FP) PO SCH (09:26)
[2020-12-02] MEDS: ARIPiprazole 10 MG TABLET PO SCH (09:26)
[2020-12-02] MEDS: ESCITALOPRAM OXALATE 10 MG TABLET PO SCH (09:26)
[2020-12-02] MEDS: CHOLECALCIFEROL (VIT D3) 1,000 UNIT (25 MCG) TABLET PO SCH (09:26)
[2020-12-02] MEDS: BUDESONIDE/FORMETEROL FUMARATE 160/4.5 mcg INHALER IH SCH (09:27)
[2020-12-02] MEDS: DEXAMETHASONE SOD PHOSPHATE 4 MG/1 ML VIAL IVPUSH SCH (12:12)
[2020-12-02] MEDS ORDERED: DEXAMETHASONE 4 MG TABLET (FP) PO SCH (12:30)
[2020-12-02 15:08] VITALS: BP 102/53; PULSE 74; TEMP 97.9
[2020-12-03] MEDS ORDERED: DEXAMETHASONE 4 MG TABLET (FP) PO SCH (10:00)
== END 2020-12-02 17:15 | disposition home or self-care (01) | DRG 137 ==
LOC: JER 11:41 → JERBED 15:35 → J4S 18:35
PROVIDERS: ADMIT Internal Medicine; ATTEND Internal Medicine
PROC: XW033E5 Introduction of Remdesivir Anti-infective into Peripheral Vein, Percutaneous Approach, New Technology Group 5 (ICD-10-PCS; principal; 2020-11-26)
DX: U07.1 COVID-19 (principal); R55 Syncope and collapse; E66.9 Obesity, unspecified; Z68.32 Body mass index [BMI] 32.0-32.9, adult; J44.9 Chronic obstructive pulmonary disease, unspecified; R44.0 Auditory hallucinations; F32.9 Major depressive disorder, single episode, unspecified; F10.10 Alcohol abuse, uncomplicated; F11.10 Opioid abuse, uncomplicated; F17.210 Nicotine dependence, cigarettes, uncomplicated; J20.9 Acute bronchitis, unspecified; E87.2 Acidosis; I11.0 Hypertensive heart disease with heart failure; I50.32 Chronic diastolic (congestive) heart failure; J90 Pleural effusion, not elsewhere classified; J12.82 Pneumonia due to coronavirus disease 2019; N17.9 Acute kidney failure, unspecified; F03.90 Unspecified dementia, unspecified severity, without behavioral disturbance, psychotic disturbance, mood disturbance, and anxiety; E03.9 Hypothyroidism, unspecified; E78.5 Hyperlipidemia, unspecified; G20 Parkinson's disease; E11.42 Type 2 diabetes mellitus with diabetic polyneuropathy
CPT/HCPCS: 36415; 71045-TC-FY; 80053; 80061; 81003; 82728; 82803; 83036; 83605; 83615; 83721; 83880; 84439; 84443; 84484; 85025; 85379; 85610; 85651; 85730; 86140; 86769; 86850; 86900; 86901; 87040; 87086; 87804; 93005; 93010; 99285-25; C9399; C9803; U0003; U0005

== ENCOUNTER 2021-02-19 16:11 | Inpatient (IN) | payer OTHER ==
[2021-02-19 16:28] VITALS: BMI 31.1
[2021-02-19 17:05] LABS: BASO % 0.8 % (0-2.0); EOS % 0.7 % (0-4.5); HEMATOCRIT 31.7 % (32.4-45.2); HEMOGLOBIN 10.2 GM/dL (10.7-15.3); LYMPH % 21.2 % (8-40); MCH 29.8 pg (25.7-33.7); MCHC 32.3 g/dl (32.0-36.0); MEAN CELL VOLUME 92.3 fl (80-96); MEAN PLT VOLUME 9.1 fl (7.5-11.1); NEUT % 69.3 % (42.8-82.8); PLATELET COUNT 389 10^3/uL (134-434); RBC 3.43 M/mm3 (3.60-5.2); RDW 16.8 % (11.6-15.6); WHITE BLOOD COUNT 15.1 K/mm3 (4.0-10.0)
[2021-02-19 17:11] LABS: INR 0.97 (0.83-1.09); PROTHROMBIN TIME (PATIENT) 11.7 SEC (9.7-13.0)
[2021-02-19 17:14] LABS: ACTIVATED PTT 29.9 SECONDS (25.2-36.5)
[2021-02-19 17:28] LABS: CHLORIDE 109 mmol/L (98-107); SODIUM 138 mmol/L (136-145)
[2021-02-19 17:30] LABS: CALCIUM 9.1 mg/dL (8.5-10.1)
[2021-02-19 17:31] LABS: ALBUMIN 4.1 g/dl (3.4-5.0); ANION GAP 11 MMOL/L (8-16); BLOOD UREA NITROGEN 22.3 mg/dL (7-18); CO2 19 mmol/L (21-32); GLUCOSE,RANDOM 122 mg/dL (74-106)
[2021-02-19 17:32] LABS: MAGNESIUM 1.8 mg/dL (1.8-2.4)
[2021-02-19 17:34] LABS: CREATININE 1.5 mg/dL (0.55-1.3); SGOT/AST 19 U/L (15-37); SGPT/ALT 24 U/L (13-61)
[2021-02-19 17:35] LABS: BILIRUBIN,TOTAL 0.2 mg/dL (0.2-1); PHOSPHOROUS 4.8 mg/dL (2.5-4.9)
[2021-02-19 17:36] LABS: TOT PROT 7.8 g/dl (6.4-8.2)
[2021-02-19 17:37] LABS: ALK PHOS 85 U/L (45-117)
[2021-02-19] MEDS ORDERED: SODIUM CHLORIDE 0.9% 500 ML INFUS.BAG IV ONE (18:10)
[2021-02-19] MEDS: DEXTROSE 5%-0.45% SALINE 1,000 ML IV SCH (22:27)
[2021-02-19] MEDS ORDERED: APIXABAN 5 MG TABLET ONE (22:46)
[2021-02-19] MEDS: APIXABAN 5 MG TABLET PO SCH (22:49)
[2021-02-19 22:57] LABS: EPI CELLS >36 /uL (0-25.1); HYALINE CASTS 2 /uL (0-3.1); URINE APPEARANCE CLOUDY; URINE BACTERIA 596 /uL (0-1359); URINE BILIRUBIN NEGATIVE (NEGATIVE); URINE COLOR YELLOW; URINE GLUCOSE (UA) NEGATIVE (NEGATIVE); URINE KETONE NEGATIVE (NEGATIVE); URINE LEUK ESTERASE 1+ (NEGATIVE); URINE NITRITE NEGATIVE (NEGATIVE); URINE PROTEIN NEGATIVE (NEGATIVE); URINE RBC 9 /uL (0-23.9); URINE UROBILINOGEN 0.2 mg/dL (0.2-1.0); URINE WBC 73 /uL (0-25.8)
[2021-02-19 23:06] LABS: COCAINE, UR NEGATIVE (NEGATIVE); METHADONE, UR NEGATIVE (NEGATIVE); OPIATES, URI NEGATIVE (NEGATIVE); PHENCYCLIDINE,URINE NEGATIVE (NEGATIVE)
[2021-02-19 23:07] LABS: URINE AMPHETAMINES NEGATIVE (NEGATIVE)
[2021-02-19 23:13] LABS: URINE BARBITURATES NEGATIVE (NEGATIVE); URINE BENZODIAZEPINES NEGATIVE (NEGATIVE)
[2021-02-20] MEDS: BUDESONIDE/FORMETEROL FUMARATE 160/4.5 mcg INHALER IH SCH ×3 (06:01→22:19)
[2021-02-20] MEDS: INSULIN SLIDING SCALE (NOVOLOG) 1 VIAL SQ SCH ×3 (06:44→17:22)
[2021-02-20] MEDS: LEVOTHYROXINE NA 50 MCG TABLET (FP) PO SCH (06:50)
[2021-02-20] MEDS: DEXTROSE 5%-0.45% SALINE 1,000 ML IV SCH (06:52)
[2021-02-20 07:37] LABS: BASO % 0.6 % (0-2.0); EOS % 0.6 % (0-4.5); HEMATOCRIT 26.8 % (32.4-45.2); HEMOGLOBIN 8.8 GM/dL (10.7-15.3); LYMPH % 21.7 % (8-40); MCH 30.2 pg (25.7-33.7); MCHC 32.7 g/dl (32.0-36.0); MEAN CELL VOLUME 92.1 fl (80-96); MEAN PLT VOLUME 9.4 fl (7.5-11.1); MONO % 9.4 % (3.8-10.2); NEUT % 67.7 % (42.8-82.8); PLATELET COUNT 329 10^3/uL (134-434); RBC 2.91 M/mm3 (3.60-5.2); RDW 16.1 % (11.6-15.6); WHITE BLOOD COUNT 12.1 K/mm3 (4.0-10.0)
[2021-02-20 08:00] LABS: ALBUMIN 3.6 g/dl (3.4-5.0); CALCIUM 8.5 mg/dL (8.5-10.1)
[2021-02-20 08:01] LABS: BLOOD UREA NITROGEN 18.7 mg/dL (7-18)
[2021-02-20 08:04] LABS: CREATININE 1.3 mg/dL (0.55-1.3)
[2021-02-20 08:05] LABS: BILIRUBIN,TOTAL 0.2 mg/dL (0.2-1); TOT PROT 6.5 g/dl (6.4-8.2)
[2021-02-20] MEDS ORDERED: PT OWN MED DRAWER 7, Y5N ONE (09:14)
[2021-02-20] MEDS: DONEPEZIL HCL 5 MG TABLET (FP) PO SCH (09:22)
[2021-02-20] MEDS: APIXABAN 5 MG TABLET PO SCH ×2 (09:22→22:15)
[2021-02-20] MEDS: ESCITALOPRAM OXALATE 10 MG TABLET PO SCH (09:22)
[2021-02-20] MEDS: ARIPiprazole 10 MG TABLET PO SCH (09:22)
[2021-02-20] MEDS: LOSARTAN POTASSIUM 50 MG TABLET PO SCH (09:22)
[2021-02-20] MEDS: amLODIPine BESYLATE 10 MG TABLET (FP) PO SCH (09:22)
[2021-02-20] MEDS: ATORVASTATIN CA 40 MG TABLET (FP) PO SCH (22:15)
[2021-02-21] MEDS: INSULIN SLIDING SCALE (NOVOLOG) 1 VIAL SQ SCH ×4 (01:25→16:43)
[2021-02-21] MEDS: LEVOTHYROXINE NA 50 MCG TABLET (FP) PO SCH (06:18)
[2021-02-21] MEDS: amLODIPine BESYLATE 10 MG TABLET (FP) PO SCH (09:42)
[2021-02-21] MEDS: DONEPEZIL HCL 5 MG TABLET (FP) PO SCH (09:42)
[2021-02-21] MEDS: APIXABAN 5 MG TABLET PO SCH ×2 (09:42→21:38)
[2021-02-21] MEDS: ARIPiprazole 10 MG TABLET PO SCH (09:42)
[2021-02-21] MEDS: LOSARTAN POTASSIUM 50 MG TABLET PO SCH (09:42)
[2021-02-21] MEDS: ESCITALOPRAM OXALATE 10 MG TABLET PO SCH (09:42)
[2021-02-21] MEDS: BUDESONIDE/FORMETEROL FUMARATE 160/4.5 mcg INHALER IH SCH ×2 (09:43→21:39)
[2021-02-21] MEDS: ATORVASTATIN CA 40 MG TABLET (FP) PO SCH (21:38)
[2021-02-22] MEDS: LEVOTHYROXINE NA 50 MCG TABLET (FP) PO SCH (06:21)
[2021-02-22] MEDS: INSULIN SLIDING SCALE (NOVOLOG) 1 VIAL SQ SCH ×4 (06:52→21:38)
[2021-02-22] MEDS: DEXTROSE 5%-0.45% SALINE 1,000 ML IV SCH (06:53)
[2021-02-22] MEDS: DONEPEZIL HCL 5 MG TABLET (FP) PO SCH (09:49)
[2021-02-22] MEDS: ARIPiprazole 10 MG TABLET PO SCH (09:49)
[2021-02-22] MEDS: amLODIPine BESYLATE 10 MG TABLET (FP) PO SCH (09:49)
[2021-02-22] MEDS: BUDESONIDE/FORMETEROL FUMARATE 160/4.5 mcg INHALER IH SCH ×2 (09:49→22:01)
[2021-02-22] MEDS: APIXABAN 5 MG TABLET PO SCH ×2 (09:49→21:39)
[2021-02-22] MEDS: LOSARTAN POTASSIUM 50 MG TABLET PO SCH (09:49)
[2021-02-22] MEDS: ESCITALOPRAM OXALATE 10 MG TABLET PO SCH (09:49)
[2021-02-22] MEDS: ATORVASTATIN CA 40 MG TABLET (FP) PO SCH (21:39)
[2021-02-23] MEDS: LEVOTHYROXINE NA 50 MCG TABLET (FP) PO SCH (06:17)
[2021-02-23] MEDS: INSULIN SLIDING SCALE (NOVOLOG) 1 VIAL SQ SCH ×2 (06:17→11:31)
[2021-02-23 07:36] LABS: BASO % 0.8 % (0-2.0); EOS % 3.2 % (0-4.5); HEMATOCRIT 25.2 % (32.4-45.2); HEMOGLOBIN 8.5 GM/dL (10.7-15.3); MCH 30.7 pg (25.7-33.7); MCHC 33.6 g/dl (32.0-36.0); MEAN CELL VOLUME 91.5 fl (80-96); MEAN PLT VOLUME 9.3 fl (7.5-11.1); MONO % 10.4 % (3.8-10.2); NEUT % 60.6 % (42.8-82.8); PLATELET COUNT 294 10^3/uL (134-434); RBC 2.75 M/mm3 (3.60-5.2); RDW 16.4 % (11.6-15.6); WHITE BLOOD COUNT 9.8 K/mm3 (4.0-10.0)
[2021-02-23 08:02] LABS: CALCIUM 8.5 mg/dL (8.5-10.1)
[2021-02-23 08:03] LABS: ALBUMIN 3.5 g/dl (3.4-5.0); BLOOD UREA NITROGEN 23.4 mg/dL (7-18)
[2021-02-23 08:06] LABS: CREATININE 1.3 mg/dL (0.55-1.3)
[2021-02-23 08:08] LABS: BILIRUBIN,TOTAL 0.2 mg/dL (0.2-1); TOT PROT 6.3 g/dl (6.4-8.2)
[2021-02-23 08:12] VITALS: PULSE 67
[2021-02-23] MEDS: DONEPEZIL HCL 5 MG TABLET (FP) PO SCH (09:28)
[2021-02-23] MEDS: APIXABAN 5 MG TABLET PO SCH (09:28)
[2021-02-23] MEDS: ARIPiprazole 10 MG TABLET PO SCH (09:28)
[2021-02-23] MEDS: amLODIPine BESYLATE 10 MG TABLET (FP) PO SCH (09:29)
[2021-02-23] MEDS: BUDESONIDE/FORMETEROL FUMARATE 160/4.5 mcg INHALER IH SCH (09:29)
[2021-02-23] MEDS: LOSARTAN POTASSIUM 50 MG TABLET PO SCH (09:29)
[2021-02-23] MEDS: ESCITALOPRAM OXALATE 10 MG TABLET PO SCH (09:29)
[2021-02-23 14:22] VITALS: BP 123/64; TEMP 97.9
== END 2021-02-23 14:49 | disposition home or self-care (01) | DRG 53 ==
LOC: JER 16:11 → JERBED 16:58 → J4W 02-20 00:53
PROVIDERS: ADMIT Family Medicine Geriatric Medicine; ATTEND Family Medicine Geriatric Medicine
DX: R56.9 Unspecified convulsions (principal); I10 Essential (primary) hypertension; E03.9 Hypothyroidism, unspecified; J44.9 Chronic obstructive pulmonary disease, unspecified; E11.51 Type 2 diabetes mellitus with diabetic peripheral angiopathy without gangrene; N17.9 Acute kidney failure, unspecified; D72.829 Elevated white blood cell count, unspecified; F10.10 Alcohol abuse, uncomplicated; F03.90 Unspecified dementia, unspecified severity, without behavioral disturbance, psychotic disturbance, mood disturbance, and anxiety; F32.9 Major depressive disorder, single episode, unspecified; D64.9 Anemia, unspecified; F19.10 Other psychoactive substance abuse, uncomplicated; R55 Syncope and collapse; Z86.73 Personal history of transient ischemic attack (TIA), and cerebral infarction without residual deficits
CPT/HCPCS: 36415; 70450-TC; 71045-TC-FY; 80053; 80307; 81003; 82550; 82962; 83036; 83605; 83735; 84100; 84443; 84484; 85025; 85610; 85730; 87086; 93005; 93010; 99285-25; C9803; U0003; U0005

== ENCOUNTER 2021-10-21 00:18 | Inpatient (IN) | payer OTHER ==
[2021-10-21 00:39] VITALS: BMI 29.2
[2021-10-21 02:05] LABS: INR 1.09 (0.83-1.09); PROTHROMBIN TIME (PATIENT) 12.6 SEC (9.7-13.0)
[2021-10-21 02:08] LABS: ACTIVATED PTT 32.3 SECONDS (25.2-36.5)
[2021-10-21 02:10] LABS: HEMOGLOBIN 10.9 GM/dL (10.7-15.3)
[2021-10-21 02:15] LABS: CHLORIDE 89 mmol/L (98-107); SODIUM 124 mmol/L (136-145)
[2021-10-21 02:17] LABS: ALBUMIN 3.4 g/dl (3.4-5.0); ANION GAP 15 MMOL/L (8-16); BASO % 0.6 % (0-2.0); BLOOD UREA NITROGEN 17.4 mg/dL (7-18); CALCIUM 8.7 mg/dL (8.5-10.1); CO2 21 mmol/L (21-32); EOS % 0.4 % (0-4.5); GLUCOSE,RANDOM 99 mg/dL (74-106); HEMATOCRIT 33.9 % (32.4-45.2); MCHC 32.3 g/dl (32.0-36.0); MEAN CELL VOLUME 86.7 fl (80-96); MEAN PLT VOLUME 9.6 fl (7.5-11.1); MONO % 11.1 % (3.8-10.2); NEUT % 74.9 % (42.8-82.8); PLATELET COUNT 313 10^3/uL (134-434); RBC 3.91 M/mm3 (3.60-5.2); RDW 15.9 % (11.6-15.6); WHITE BLOOD COUNT 19.8 K/mm3 (4.0-10.0)
[2021-10-21 02:20] LABS: CREATININE 1.6 mg/dL (0.55-1.3); SGOT/AST 34 U/L (15-37); SGPT/ALT 27 U/L (13-61)
[2021-10-21 02:22] LABS: BILIRUBIN,TOTAL 0.5 mg/dL (0.2-1); TOT PROT 7.1 g/dl (6.4-8.2)
[2021-10-21 02:23] LABS: ALK PHOS 109 U/L (45-117)
[2021-10-21] MEDS ORDERED: SODIUM CHLORIDE 0.9% 1000 ML INFUS.BAG IV ONE (02:42)
[2021-10-21] MEDS ORDERED: ONDANSETRON *ODT* 4 MG TABLET SL ONE (02:42)
[2021-10-21] MEDS ORDERED: ONDANSETRON 4 MG/2 ML VIAL IVPUSH ONE (02:52)
[2021-10-21] MEDS ORDERED: ONDANSETRON 4 MG/2 ML VIAL ONE (02:53)
[2021-10-21] MEDS ORDERED: ASPIRIN 81 MG CHEWABLE TABLETS PO ONE (03:20)
[2021-10-21] MEDS ORDERED: ASPIRIN 81 MG CHEWABLE TABLETS ONE (03:32)
[2021-10-21] MEDS ORDERED: ACETAMINOPHEN 1000 MG/100 ML BAG IVPB ONE (04:26)
[2021-10-21] MEDS ORDERED: ACETAMINOPHEN INJECTION 100 ML IVPB ONE (05:10)
[2021-10-21] MEDS ORDERED: ENOXAPARIN NA (PORCINE) 40 MG/0.4 ML DISP.SYRIN SQ ONE (06:31)
[2021-10-21] MEDS ORDERED: ENOXAPARIN NA (PORCINE) 80 MG/0.8 ML DISP.SYRIN SQ ONE (06:36)
[2021-10-21 13:42] LABS: PH,URINE 5.5 (5.0-8.0); URINE APPEARANCE CLEAR; URINE BILIRUBIN NEGATIVE (NEGATIVE); URINE COLOR YELLOW; URINE GLUCOSE (UA) 1+ (NEGATIVE); URINE KETONE TRACE (NEGATIVE); URINE NITRITE NEGATIVE (NEGATIVE); URINE PROTEIN 1+ (NEGATIVE)
[2021-10-21 13:43] LABS: EPI CELLS 11.4 /uL (0-25.1); URINE LEUK ESTERASE NEGATIVE (NEGATIVE); URINE RBC 16.7 /uL (0-23.9); URINE WBC 11.9 /uL (0-25.8)
[2021-10-21 13:57] LABS: CALCIUM 8.9 mg/dL (8.5-10.1)
[2021-10-21 13:58] LABS: BLOOD UREA NITROGEN 17.4 mg/dL (7-18)
[2021-10-21 14:01] LABS: CREATININE 1.6 mg/dL (0.55-1.3)
[2021-10-21] MEDS ORDERED: SODIUM CHLORIDE 1 GM TABLET PO ONE (14:15)
[2021-10-21 15:49] LABS: BASO % 0.4 % (0-2.0); HEMATOCRIT 31.8 % (32.4-45.2); HEMOGLOBIN 10.3 GM/dL (10.7-15.3); LYMPH % 15.3 % (8-40); MCHC 32.2 g/dl (32.0-36.0); MEAN CELL VOLUME 86.9 fl (80-96); MEAN PLT VOLUME 9.4 fl (7.5-11.1); MONO % 13.6 % (3.8-10.2); NEUT % 69.7 % (42.8-82.8); PLATELET COUNT 288 10^3/uL (134-434); RBC 3.66 M/mm3 (3.60-5.2); RDW 16.3 % (11.6-15.6); WHITE BLOOD COUNT 14.7 K/mm3 (4.0-10.0)
[2021-10-21] MEDS: APIXABAN 5 MG TABLET PO SCH (21:43)
[2021-10-21] MEDS: ATORVASTATIN CA 40 MG TABLET (FP) PO SCH (21:43)
[2021-10-21] MEDS: metFORMIN HCL 500 MG TABLET (FP) PO SCH (21:47)
[2021-10-21] MEDS: BUDESONIDE/FORMETEROL FUMARATE 160/4.5 mcg INHALER IH SCH (22:57)
[2021-10-22 08:31] LABS: BASO % 0.5 % (0-2.0); EOS % 2.1 % (0-4.5); HEMATOCRIT 32.2 % (32.4-45.2); HEMOGLOBIN 10.5 GM/dL (10.7-15.3); LYMPH % 19.9 % (8-40); MCH 28.5 pg (25.7-33.7); MCHC 32.7 g/dl (32.0-36.0); MEAN PLT VOLUME 9.4 fl (7.5-11.1); MONO % 12.8 % (3.8-10.2); NEUT % 64.7 % (42.8-82.8); PLATELET COUNT 290 10^3/uL (134-434); WHITE BLOOD COUNT 12.5 K/mm3 (4.0-10.0)
[2021-10-22 09:01] LABS: ALBUMIN 3.2 g/dl (3.4-5.0); BLOOD UREA NITROGEN 16.5 mg/dL (7-18); CALCIUM 8.7 mg/dL (8.5-10.1)
[2021-10-22 09:03] LABS: CREATININE 1.4 mg/dL (0.55-1.3)
[2021-10-22 09:05] LABS: BILIRUBIN,TOTAL 0.4 mg/dL (0.2-1); TOT PROT 6.6 g/dl (6.4-8.2)
[2021-10-22] MEDS: metFORMIN HCL 500 MG TABLET (FP) PO SCH ×2 (10:41→18:26)
[2021-10-22] MEDS: APIXABAN 5 MG TABLET PO SCH ×2 (10:42→21:53)
[2021-10-22] MEDS: LEVOTHYROXINE NA 50 MCG TABLET (FP) PO SCH (10:42)
[2021-10-22] MEDS: ESCITALOPRAM OXALATE 10 MG TABLET PO SCH (10:42)
[2021-10-22] MEDS: BUDESONIDE/FORMETEROL FUMARATE 160/4.5 mcg INHALER IH SCH ×2 (10:42→21:53)
[2021-10-22] MEDS: amLODIPine BESYLATE 10 MG TABLET (FP) PO SCH (10:43)
[2021-10-22] MEDS: DONEPEZIL HCL 5 MG TABLET (FP) PO SCH (10:43)
[2021-10-22] MEDS: LOSARTAN POTASSIUM 50 MG TABLET PO SCH (10:43)
[2021-10-22] MEDS: ARIPiprazole 20 MG TABLET PO SCH (12:13)
[2021-10-22] MEDS ORDERED: SODIUM CHLORIDE 1 GM TABLET PO ONE (13:30)
[2021-10-22] MEDS: ATORVASTATIN CA 40 MG TABLET (FP) PO SCH (21:53)
[2021-10-23] MEDS: metFORMIN HCL 500 MG TABLET (FP) PO SCH ×2 (06:08→17:02)
[2021-10-23] MEDS: LEVOTHYROXINE NA 50 MCG TABLET (FP) PO SCH (06:08)
[2021-10-23 08:06] LABS: CALCIUM 9.1 mg/dL (8.5-10.1)
[2021-10-23 08:07] LABS: ALBUMIN 3.6 g/dl (3.4-5.0); BLOOD UREA NITROGEN 13.8 mg/dL (7-18)
[2021-10-23 08:09] LABS: CREATININE 1.2 mg/dL (0.55-1.3)
[2021-10-23 08:11] LABS: BILIRUBIN,TOTAL 0.3 mg/dL (0.2-1); TOT PROT 6.7 g/dl (6.4-8.2)
[2021-10-23] MEDS: DONEPEZIL HCL 5 MG TABLET (FP) PO SCH (10:36)
[2021-10-23] MEDS: LOSARTAN POTASSIUM 50 MG TABLET PO SCH (10:36)
[2021-10-23] MEDS: ARIPiprazole 20 MG TABLET PO SCH (10:36)
[2021-10-23] MEDS: amLODIPine BESYLATE 10 MG TABLET (FP) PO SCH (10:36)
[2021-10-23] MEDS: ESCITALOPRAM OXALATE 10 MG TABLET PO SCH (10:36)
[2021-10-23] MEDS: APIXABAN 5 MG TABLET PO SCH ×2 (10:38→21:30)
[2021-10-23] MEDS: BUDESONIDE/FORMETEROL FUMARATE 160/4.5 mcg INHALER IH SCH ×2 (10:39→21:30)
[2021-10-23] MEDS: SODIUM CHLORIDE 1 GM TABLET PO SCH ×2 (17:02→21:30)
[2021-10-23] MEDS: THIAMINE HCL 200 MG/2 ML VIAL IM SCH (17:02)
[2021-10-23] MEDS: ATORVASTATIN CA 40 MG TABLET (FP) PO SCH (21:30)
[2021-10-24] MEDS: metFORMIN HCL 500 MG TABLET (FP) PO SCH ×2 (06:27→17:21)
[2021-10-24] MEDS: LEVOTHYROXINE NA 50 MCG TABLET (FP) PO SCH (06:27)
[2021-10-24 08:07] LABS: BLOOD UREA NITROGEN 11.8 mg/dL (7-18)
[2021-10-24 08:08] LABS: ALBUMIN 3.1 g/dl (3.4-5.0)
[2021-10-24 08:09] LABS: CALCIUM 9.2 mg/dL (8.5-10.1)
[2021-10-24 08:10] LABS: CREATININE 1.4 mg/dL (0.55-1.3)
[2021-10-24 08:12] LABS: BILIRUBIN,TOTAL 0.3 mg/dL (0.2-1); TOT PROT 6.5 g/dl (6.4-8.2)
[2021-10-24] MEDS: THIAMINE HCL 200 MG/2 ML VIAL IM SCH (11:31)
[2021-10-24] MEDS: APIXABAN 5 MG TABLET PO SCH ×2 (11:32→21:59)
[2021-10-24] MEDS: ARIPiprazole 15 MG TABLET PO SCH (11:32)
[2021-10-24] MEDS: ESCITALOPRAM OXALATE 10 MG TABLET PO SCH (11:33)
[2021-10-24] MEDS: DONEPEZIL HCL 5 MG TABLET (FP) PO SCH (11:33)
[2021-10-24] MEDS: SODIUM CHLORIDE 1 GM TABLET PO SCH ×2 (11:33→21:59)
[2021-10-24] MEDS: amLODIPine BESYLATE 10 MG TABLET (FP) PO SCH (11:33)
[2021-10-24] MEDS: LOSARTAN POTASSIUM 50 MG TABLET PO SCH (11:33)
[2021-10-24] MEDS: BUDESONIDE/FORMETEROL FUMARATE 160/4.5 mcg INHALER IH SCH ×2 (11:34→21:59)
[2021-10-24] MEDS: ATORVASTATIN CA 40 MG TABLET (FP) PO SCH (21:59)
[2021-10-25] MEDS: LEVOTHYROXINE NA 50 MCG TABLET (FP) PO SCH (07:00)
[2021-10-25] MEDS: metFORMIN HCL 500 MG TABLET (FP) PO SCH ×2 (07:00→17:05)
[2021-10-25 07:31] LABS: BASO % 1.1 % (0-2.0); EOS % 2.3 % (0-4.5); HEMATOCRIT 38.1 % (32.4-45.2); LYMPH % 19.1 % (8-40); MCHC 31.6 g/dl (32.0-36.0); MEAN CELL VOLUME 88.8 fl (80-96); MEAN PLT VOLUME 9.9 fl (7.5-11.1); NEUT % 67.5 % (42.8-82.8); PLATELET COUNT 268 10^3/uL (134-434); RBC 4.29 M/mm3 (3.60-5.2); WHITE BLOOD COUNT 14.2 K/mm3 (4.0-10.0)
[2021-10-25 09:34] LABS: ALBUMIN 3.5 g/dl (3.4-5.0); BILIRUBIN,TOTAL 0.4 mg/dL (0.2-1); BLOOD UREA NITROGEN 11.8 mg/dL (7-18); CREATININE 1.4 mg/dL (0.55-1.3); TOT PROT 6.8 g/dl (6.4-8.2)
[2021-10-25] MEDS: DONEPEZIL HCL 5 MG TABLET (FP) PO SCH (09:52)
[2021-10-25] MEDS: APIXABAN 5 MG TABLET PO SCH ×2 (09:52→21:36)
[2021-10-25] MEDS: THIAMINE HCL 200 MG/2 ML VIAL IM SCH (09:52)
[2021-10-25] MEDS: amLODIPine BESYLATE 10 MG TABLET (FP) PO SCH (09:52)
[2021-10-25] MEDS: ARIPiprazole 15 MG TABLET PO SCH (09:52)
[2021-10-25] MEDS: ESCITALOPRAM OXALATE 10 MG TABLET PO SCH (09:52)
[2021-10-25] MEDS: LOSARTAN POTASSIUM 50 MG TABLET PO SCH (09:52)
[2021-10-25] MEDS: BUDESONIDE/FORMETEROL FUMARATE 160/4.5 mcg INHALER IH SCH ×2 (09:58→21:36)
[2021-10-25] MEDS: SODIUM CHLORIDE 1,000 ML IV SCH (14:32)
[2021-10-25] MEDS: ATORVASTATIN CA 40 MG TABLET (FP) PO SCH (21:36)
[2021-10-26] MEDS: LEVOTHYROXINE NA 50 MCG TABLET (FP) PO SCH (06:18)
[2021-10-26] MEDS: metFORMIN HCL 500 MG TABLET (FP) PO SCH ×2 (07:12→17:12)
[2021-10-26 07:17] LABS: BASO % 0.6 % (0-2.0); EOS % 1.6 % (0-4.5); HEMATOCRIT 30.4 % (32.4-45.2); HEMOGLOBIN 9.9 GM/dL (10.7-15.3); MCH 28.4 pg (25.7-33.7); MCHC 32.6 g/dl (32.0-36.0); MEAN CELL VOLUME 87.1 fl (80-96); MEAN PLT VOLUME 9.3 fl (7.5-11.1); MONO % 10.5 % (3.8-10.2); NEUT % 70.3 % (42.8-82.8); PLATELET COUNT 337 10^3/uL (134-434); RBC 3.49 M/mm3 (3.60-5.2); RDW 15.9 % (11.6-15.6); WHITE BLOOD COUNT 12.4 K/mm3 (4.0-10.0)
[2021-10-26 07:43] LABS: ALBUMIN 3.3 g/dl (3.4-5.0); BLOOD UREA NITROGEN 13.1 mg/dL (7-18); CALCIUM 8.5 mg/dL (8.5-10.1)
[2021-10-26 07:46] LABS: CREATININE 1.3 mg/dL (0.55-1.3)
[2021-10-26 07:47] LABS: BILIRUBIN,TOTAL 0.7 mg/dL (0.2-1); TOT PROT 6.4 g/dl (6.4-8.2)
[2021-10-26] MEDS: DONEPEZIL HCL 5 MG TABLET (FP) PO SCH (09:53)
[2021-10-26] MEDS: LOSARTAN POTASSIUM 50 MG TABLET PO SCH (09:53)
[2021-10-26] MEDS: APIXABAN 5 MG TABLET PO SCH ×2 (09:53→21:18)
[2021-10-26] MEDS: amLODIPine BESYLATE 10 MG TABLET (FP) PO SCH (09:53)
[2021-10-26] MEDS: ESCITALOPRAM OXALATE 10 MG TABLET PO SCH (09:53)
[2021-10-26] MEDS: ARIPiprazole 15 MG TABLET PO SCH (09:53)
[2021-10-26] MEDS: BUDESONIDE/FORMETEROL FUMARATE 160/4.5 mcg INHALER IH SCH ×2 (09:55→21:18)
[2021-10-26] MEDS: SODIUM CHLORIDE 1,000 ML IV SCH (17:12)
[2021-10-26] MEDS: ATORVASTATIN CA 40 MG TABLET (FP) PO SCH (21:18)
[2021-10-27] MEDS: metFORMIN HCL 500 MG TABLET (FP) PO SCH (06:17)
[2021-10-27] MEDS: LEVOTHYROXINE NA 50 MCG TABLET (FP) PO SCH (06:17)
[2021-10-27 07:20] LABS: BASO % 0.9 % (0-2.0); EOS % 1.5 % (0-4.5); MCH 28.8 pg (25.7-33.7); MCHC 33.2 g/dl (32.0-36.0); MEAN CELL VOLUME 86.6 fl (80-96); MEAN PLT VOLUME 8.6 fl (7.5-11.1); MONO % 10.9 % (3.8-10.2); NEUT % 66.7 % (42.8-82.8); PLATELET COUNT 345 10^3/uL (134-434); RBC 3.46 M/mm3 (3.60-5.2); RDW 16.3 % (11.6-15.6); WHITE BLOOD COUNT 11.7 K/mm3 (4.0-10.0)
[2021-10-27 07:45] LABS: BLOOD UREA NITROGEN 14.1 mg/dL (7-18); CALCIUM 8.9 mg/dL (8.5-10.1)
[2021-10-27 07:46] LABS: ALBUMIN 3.3 g/dl (3.4-5.0)
[2021-10-27 07:48] LABS: CREATININE 1.3 mg/dL (0.55-1.3)
[2021-10-27 07:50] LABS: BILIRUBIN,TOTAL 1.3 mg/dL (0.2-1); TOT PROT 6.3 g/dl (6.4-8.2)
[2021-10-27] MEDS: LOSARTAN POTASSIUM 50 MG TABLET PO SCH (11:00)
[2021-10-27] MEDS: ARIPiprazole 15 MG TABLET PO SCH (11:00)
[2021-10-27] MEDS: APIXABAN 5 MG TABLET PO SCH (11:00)
[2021-10-27] MEDS: amLODIPine BESYLATE 10 MG TABLET (FP) PO SCH (11:00)
[2021-10-27] MEDS: ESCITALOPRAM OXALATE 10 MG TABLET PO SCH (11:00)
[2021-10-27] MEDS: DONEPEZIL HCL 5 MG TABLET (FP) PO SCH (11:00)
[2021-10-27] MEDS: BUDESONIDE/FORMETEROL FUMARATE 160/4.5 mcg INHALER IH SCH (11:01)
[2021-10-27 12:52] VITALS: PULSE 86
[2021-10-27] MEDS: SODIUM CHLORIDE 1,000 ML IV SCH (13:36)
[2021-10-27 15:25] VITALS: BP 120/63; TEMP 98.2
[2021-10-27] MEDS ORDERED: SODIUM CHLORIDE 1 GM TABLET PO SCH (22:00)
== END 2021-10-27 15:41 | disposition home or self-care (01) | DRG 425 ==
LOC: JER 00:18 → JERBED 07:01 → J4W 20:33
PROVIDERS: ADMIT Internal Medicine; ATTEND Internal Medicine
DX: E87.1 Hypo-osmolality and hyponatremia (principal); J44.9 Chronic obstructive pulmonary disease, unspecified; F03.90 Unspecified dementia, unspecified severity, without behavioral disturbance, psychotic disturbance, mood disturbance, and anxiety; E03.9 Hypothyroidism, unspecified; E87.6 Hypokalemia; R44.0 Auditory hallucinations; E78.5 Hyperlipidemia, unspecified; E11.9 Type 2 diabetes mellitus without complications; D64.9 Anemia, unspecified; F32.A Depression, unspecified; I11.0 Hypertensive heart disease with heart failure; I50.9 Heart failure, unspecified; F19.10 Other psychoactive substance abuse, uncomplicated; E87.8 Other disorders of electrolyte and fluid balance, not elsewhere classified; N17.9 Acute kidney failure, unspecified; F10.10 Alcohol abuse, uncomplicated; F17.210 Nicotine dependence, cigarettes, uncomplicated; Z91.14 Patient's other noncompliance with medication regimen; Z86.73 Personal history of transient ischemic attack (TIA), and cerebral infarction without residual deficits
CPT/HCPCS: 36415; 70450-TC; 71045-TC-FY; 71275-TC; 80048; 80053; 81003; 82436; 82533; 82570; 82962; 83735; 83930; 83935; 84133; 84300; 84443; 84484; 85025; 85379; 85610; 85730; 86850; 86900; 86901; 87086; 87804; 93005; 93010; 93306-TC; 93880-TC; 97116-GP; 97161-GP; 99285-25; C9803-CS; U0003; U0005

== ENCOUNTER 2021-10-30 22:48 | Inpatient (IN) | payer OTHER ==
[2021-10-30 23:06] VITALS: BMI 26.4
[2021-10-31 01:01] LABS: BASO % 0.7 % (0-2.0); EOS % 1.7 % (0-4.5); HEMATOCRIT 31.4 % (32.4-45.2); HEMOGLOBIN 10.1 GM/dL (10.7-15.3); LYMPH % 20.7 % (8-40); MCH 28.1 pg (25.7-33.7); MCHC 32.2 g/dl (32.0-36.0); MEAN CELL VOLUME 87.3 fl (80-96); MEAN PLT VOLUME 9.1 fl (7.5-11.1); MONO % 8.7 % (3.8-10.2); NEUT % 68.2 % (42.8-82.8); PLATELET COUNT 423 10^3/uL (134-434); RBC 3.59 M/mm3 (3.60-5.2); RDW 16.2 % (11.6-15.6); WHITE BLOOD COUNT 14.9 K/mm3 (4.0-10.0)
[2021-10-31 01:17] LABS: CHLORIDE 102 mmol/L (98-107); SODIUM 132 mmol/L (136-145)
[2021-10-31 01:19] LABS: CALCIUM 8.7 mg/dL (8.5-10.1)
[2021-10-31 01:20] LABS: ALBUMIN 3.4 g/dl (3.4-5.0); CO2 23 mmol/L (21-32); GLUCOSE,RANDOM 92 mg/dL (74-106)
[2021-10-31 01:23] LABS: CREATININE 1.6 mg/dL (0.55-1.3); SGOT/AST 49 U/L (15-37); SGPT/ALT 35 U/L (13-61)
[2021-10-31 01:24] LABS: BILIRUBIN,TOTAL 0.4 mg/dL (0.2-1); TOT PROT 7.1 g/dl (6.4-8.2)
[2021-10-31 01:26] LABS: ALK PHOS 97 U/L (45-117)
[2021-10-31] MEDS ORDERED: SODIUM CHLORIDE 0.9% 500 ML INFUS.BAG IV ONE (01:30)
[2021-10-31] MEDS ORDERED: ACETAMINOPHEN 1000 MG/100 ML BAG IVPB ONE (01:30)
[2021-10-31] MEDS ORDERED: ACETAMINOPHEN INJECTION 100 ML IVPB ONE (01:47)
[2021-10-31 02:08] LABS: ANION GAP 7 MMOL/L (8-16)
[2021-10-31 03:46] LABS: CALCIUM 8.2 mg/dL (8.5-10.1)
[2021-10-31 03:47] LABS: BLOOD UREA NITROGEN 19.6 mg/dL (7-18)
[2021-10-31 03:50] LABS: CREATININE 1.4 mg/dL (0.55-1.3)
[2021-10-31] MEDS ORDERED: ARIPiprazole 15 MG TABLET PO SCH (11:45)
[2021-10-31] MEDS ORDERED: APIXABAN 5 MG TABLET PO SCH (11:45)
[2021-10-31] MEDS: ALBUTEROL SO4 HFA INHALER IH SCH ×3 (14:05→22:15)
[2021-10-31] MEDS: BUDESONIDE/FORMETEROL FUMARATE 160/4.5 mcg INHALER IH SCH ×2 (14:05→22:14)
[2021-10-31] MEDS: SODIUM CHLORIDE 1 GM TABLET PO SCH ×2 (14:05→22:16)
[2021-10-31] MEDS: metFORMIN HCL 500 MG TABLET (FP) PO SCH ×2 (14:06→17:01)
[2021-10-31] MEDS: ESCITALOPRAM OXALATE 10 MG TABLET PO SCH (14:06)
[2021-10-31] MEDS: LEVOTHYROXINE NA 50 MCG TABLET (FP) PO SCH (14:06)
[2021-10-31] MEDS: amLODIPine BESYLATE 10 MG TABLET (FP) PO SCH (14:06)
[2021-10-31] MEDS: LOSARTAN POTASSIUM 50 MG TABLET PO SCH (14:06)
[2021-10-31] MEDS ORDERED: ARIPiprazole 5 MG TABLET PO SCH (18:07)
[2021-10-31] MEDS ORDERED: DONEPEZIL HCL 5 MG TABLET (FP) PO SCH (22:00)
[2021-10-31] MEDS ORDERED: ATORVASTATIN CA 40 MG TABLET (FP) PO SCH (22:00)
[2021-10-31] MEDS: HEPARIN NA (PORCINE) 5,000 UNITS/ML 1ML VIAL SQ SCH (22:16)
[2021-11-01] MEDS: LEVOTHYROXINE NA 50 MCG TABLET (FP) PO SCH (06:46)
[2021-11-01 07:52] LABS: BASO % 0.8 % (0-2.0); EOS % 1.7 % (0-4.5); HEMOGLOBIN 9.9 GM/dL (10.7-15.3); LYMPH % 24.2 % (8-40); MCH 28.7 pg (25.7-33.7); MCHC 32.9 g/dl (32.0-36.0); MEAN CELL VOLUME 87.2 fl (80-96); MEAN PLT VOLUME 8.8 fl (7.5-11.1); MONO % 9.4 % (3.8-10.2); NEUT % 63.9 % (42.8-82.8); PLATELET COUNT 385 10^3/uL (134-434); RBC 3.44 M/mm3 (3.60-5.2); RDW 16.2 % (11.6-15.6); WHITE BLOOD COUNT 10.5 K/mm3 (4.0-10.0)
[2021-11-01 08:16] LABS: ALBUMIN 3.4 g/dl (3.4-5.0); CALCIUM 8.6 mg/dL (8.5-10.1)
[2021-11-01 08:20] LABS: CREATININE 1.4 mg/dL (0.55-1.3)
[2021-11-01 08:22] LABS: BILIRUBIN,TOTAL 0.2 mg/dL (0.2-1); TOT PROT 6.4 g/dl (6.4-8.2)
[2021-11-01] MEDS ORDERED: DONEPEZIL HCL 10 MG TABLET (FP) PO SCH (10:00)
[2021-11-01] MEDS: amLODIPine BESYLATE 10 MG TABLET (FP) PO SCH (10:00)
[2021-11-01] MEDS: LOSARTAN POTASSIUM 50 MG TABLET PO SCH (10:00)
[2021-11-01] MEDS: ESCITALOPRAM OXALATE 10 MG TABLET PO SCH (10:01)
[2021-11-01] MEDS: SODIUM CHLORIDE 1 GM TABLET PO SCH (10:01)
[2021-11-01] MEDS: HEPARIN NA (PORCINE) 5,000 UNITS/ML 1ML VIAL SQ SCH (10:01)
[2021-11-01] MEDS: ALBUTEROL SO4 HFA INHALER IH SCH ×2 (10:02→13:00)
[2021-11-01] MEDS: BUDESONIDE/FORMETEROL FUMARATE 160/4.5 mcg INHALER IH SCH (10:06)
[2021-11-01 15:43] VITALS: BP 122/66; PULSE 92; TEMP 98
== END 2021-11-01 16:40 | disposition home or self-care (01) | DRG 204 ==
LOC: JER 22:48 → JERBED 10-31 03:12 → J4W 10-31 09:25
PROVIDERS: ADMIT Internal Medicine; ATTEND Internal Medicine
DX: R55 Syncope and collapse (principal); J44.9 Chronic obstructive pulmonary disease, unspecified; E11.40 Type 2 diabetes mellitus with diabetic neuropathy, unspecified; E87.1 Hypo-osmolality and hyponatremia; E11.22 Type 2 diabetes mellitus with diabetic chronic kidney disease; F32.A Depression, unspecified; E03.9 Hypothyroidism, unspecified; Z86.73 Personal history of transient ischemic attack (TIA), and cerebral infarction without residual deficits; Z79.84 Long term (current) use of oral hypoglycemic drugs; G30.9 Alzheimer's disease, unspecified; F02.80 Dementia in other diseases classified elsewhere, unspecified severity, without behavioral disturbance, psychotic disturbance, mood disturbance, and anxiety; I12.9 Hypertensive chronic kidney disease with stage 1 through stage 4 chronic kidney disease, or unspecified chronic kidney disease; N18.9 Chronic kidney disease, unspecified; D63.1 Anemia in chronic kidney disease
CPT/HCPCS: 36415; 70450-TC; 70551-TC; 71045-TC-FY; 80048; 80053; 82607; 83036; 84436; 84443; 84484; 85025; 86780; 93005; 93010; 99285-25; C9803-CS; J1644; U0003; U0005

== ENCOUNTER 2022-03-17 00:16 | Inpatient (IN) | payer OTHER ==
[2022-03-17 00:45] VITALS: BMI 31.1
[2022-03-17 02:04] LABS: BASO % 0.6 % (0-2.0); EOS % 0.9 % (0-4.5); HEMATOCRIT 37.2 % (32.4-45.2); HEMOGLOBIN 11.9 GM/dL (10.7-15.3); LYMPH % 18.6 % (8-40); MCHC 31.9 g/dl (32.0-36.0); MONO % 7.1 % (3.8-10.2); NEUT % 72.8 % (42.8-82.8); PLATELET COUNT 346 10^3/uL (134-434); RBC 4.09 M/mm3 (3.60-5.2); RDW 16.3 % (11.6-15.6); WHITE BLOOD COUNT 15.9 K/mm3 (4.0-10.0)
[2022-03-17 02:25] LABS: CALCIUM 9.1 mg/dL (8.5-10.1)
[2022-03-17 02:26] LABS: ALBUMIN 3.8 g/dl (3.4-5.0); BLOOD UREA NITROGEN 21.9 mg/dL (7-18); MAGNESIUM 2.2 mg/dL (1.8-2.4)
[2022-03-17 02:29] LABS: CREATININE 1.8 mg/dL (0.55-1.3); PHOSPHOROUS 3.8 mg/dL (2.5-4.9)
[2022-03-17 02:30] LABS: BILIRUBIN,TOTAL 0.2 mg/dL (0.2-1); TOT PROT 7.7 g/dl (6.4-8.2)
[2022-03-17 04:14] LABS: PH,URINE 5.5 (5.0-8.0); URINE APPEARANCE CLEAR; URINE BILIRUBIN NEGATIVE (NEGATIVE); URINE COLOR YELLOW; URINE GLUCOSE (UA) 3+ (NEGATIVE); URINE KETONE NEGATIVE (NEGATIVE); URINE LEUK ESTERASE NEGATIVE (NEGATIVE); URINE NITRITE NEGATIVE (NEGATIVE); URINE PROTEIN NEGATIVE (NEGATIVE); URINE UROBILINOGEN 0.2 mg/dL (0.2-1.0)
[2022-03-17] MEDS ORDERED: SODIUM CHLORIDE 0.9% 500 ML INFUS.BAG IV ONE (06:05)
[2022-03-17] MEDS ORDERED: SODIUM CHLORIDE 1,000 ML IV SCH (14:00)
[2022-03-17] MEDS: HEPARIN NA (PORCINE) 5,000 UNITS/ML 1ML VIAL SQ SCH (21:28)
[2022-03-17] MEDS: ATORVASTATIN CA 40 MG TABLET (FP) PO SCH (21:28)
[2022-03-17] MEDS: BUDESONIDE/FORMETEROL FUMARATE 160/4.5 mcg INHALER IH SCH (21:30)
[2022-03-18 07:11] VITALS: RESP 18
[2022-03-18 10:04] LABS: BASO % 0.7 % (0-2.0); EOS % 1.8 % (0-4.5); HEMATOCRIT 33.3 % (32.4-45.2); HEMOGLOBIN 10.7 GM/dL (10.7-15.3); LYMPH % 30.9 % (8-40); MCH 29.1 pg (25.7-33.7); MEAN CELL VOLUME 90.8 fl (80-96); MEAN PLT VOLUME 9.3 fl (7.5-11.1); MONO % 7.7 % (3.8-10.2); NEUT % 58.9 % (42.8-82.8); PLATELET COUNT 322 10^3/uL (134-434); RBC 3.67 M/mm3 (3.60-5.2); RDW 16.7 % (11.6-15.6); WHITE BLOOD COUNT 11.2 K/mm3 (4.0-10.0)
[2022-03-18 10:35] LABS: ALBUMIN 3.3 g/dl (3.4-5.0); CALCIUM 8.6 mg/dL (8.5-10.1)
[2022-03-18 10:36] LABS: BLOOD UREA NITROGEN 21.7 mg/dL (7-18)
[2022-03-18 10:38] LABS: CREATININE 1.6 mg/dL (0.55-1.3)
[2022-03-18 10:40] LABS: BILIRUBIN,TOTAL 0.3 mg/dL (0.2-1); TOT PROT 6.8 g/dl (6.4-8.2)
[2022-03-18] MEDS: ARIPiprazole 15 MG TABLET PO SCH (11:05)
[2022-03-18] MEDS: ESCITALOPRAM OXALATE 10 MG TABLET PO SCH (11:05)
[2022-03-18] MEDS: amLODIPine BESYLATE 10 MG TABLET (FP) PO SCH (11:05)
[2022-03-18] MEDS: HEPARIN NA (PORCINE) 5,000 UNITS/ML 1ML VIAL SQ SCH ×2 (11:06→21:33)
[2022-03-18] MEDS: DONEPEZIL HCL 5 MG TABLET (FP) PO SCH (11:06)
[2022-03-18] MEDS: LOSARTAN POTASSIUM 50 MG TABLET PO SCH (11:06)
[2022-03-18] MEDS: BUDESONIDE/FORMETEROL FUMARATE 160/4.5 mcg INHALER IH SCH ×2 (11:07→21:33)
[2022-03-18] MEDS: ATORVASTATIN CA 40 MG TABLET (FP) PO SCH (21:33)
[2022-03-19 06:03] VITALS: TEMP 98.7
[2022-03-19 08:43] VITALS: BP 134/65; PULSE 83
[2022-03-19] MEDS: ARIPiprazole 15 MG TABLET PO SCH (09:34)
[2022-03-19] MEDS: HEPARIN NA (PORCINE) 5,000 UNITS/ML 1ML VIAL SQ SCH (09:35)
[2022-03-19] MEDS: amLODIPine BESYLATE 10 MG TABLET (FP) PO SCH (09:35)
[2022-03-19] MEDS: ESCITALOPRAM OXALATE 10 MG TABLET PO SCH (09:35)
[2022-03-19] MEDS: BUDESONIDE/FORMETEROL FUMARATE 160/4.5 mcg INHALER IH SCH (09:35)
[2022-03-19] MEDS: DONEPEZIL HCL 5 MG TABLET (FP) PO SCH (09:35)
[2022-03-19] MEDS: LOSARTAN POTASSIUM 50 MG TABLET PO SCH (09:35)
[2022-03-20] MEDS ORDERED: DONEPEZIL HCL 10 MG TABLET (FP) PO SCH (10:00)
== END 2022-03-19 15:15 | disposition home or self-care (01) | DRG 58 ==
LOC: JER 00:16 → JERBED 03:44 → INTOOBSV 03:44 → J7W 13:48 → OBSVTOIN 18:31
PROVIDERS: ADMIT Family Medicine Geriatric Medicine; ATTEND Family Medicine Geriatric Medicine
DX: R25.1 Tremor, unspecified (principal); N17.9 Acute kidney failure, unspecified; F03.90 Unspecified dementia, unspecified severity, without behavioral disturbance, psychotic disturbance, mood disturbance, and anxiety; E03.9 Hypothyroidism, unspecified; E11.9 Type 2 diabetes mellitus without complications; F10.10 Alcohol abuse, uncomplicated; F17.210 Nicotine dependence, cigarettes, uncomplicated; F32.A Depression, unspecified; I10 Essential (primary) hypertension; J44.9 Chronic obstructive pulmonary disease, unspecified; N18.9 Chronic kidney disease, unspecified; R41.82 Altered mental status, unspecified; T43.595A Adverse effect of other antipsychotics and neuroleptics, initial encounter; Y92.89 Other specified places as the place of occurrence of the external cause
CPT/HCPCS: 36415; 70450-TC; 71045-TC-FY; 76775-TC; 80053; 80307; 81003; 82962; 83735; 84100; 84439; 84443; 84484; 85025; 87086; 93005; 93010; 97116-GP; 97161-GP; 99285-25; C9803-CS; G0378; J1644; U0003; U0005

== ENCOUNTER 2022-06-26 19:32 | Inpatient (IN) | payer OTHER ==
[2022-06-26 19:42] VITALS: BMI 31.4
[2022-06-26] MEDS ORDERED: morphine SULFATE 4 MG/ML VIAL IVPUSH ONE (21:44)
[2022-06-26 21:51] LABS: BASO % 0.8 % (0-2.0); EOS % 0.3 % (0-4.5); HEMOGLOBIN 11.4 GM/dL (10.7-15.3); LYMPH % 11.1 % (8-40); MCH 28.6 pg (25.7-33.7); MCHC 31.8 g/dl (32.0-36.0); MEAN PLT VOLUME 9.4 fl (7.5-11.1); MONO % 7.3 % (3.8-10.2); NEUT % 80.5 % (42.8-82.8); PLATELET COUNT 326 10^3/uL (134-434); RBC 3.99 M/mm3 (3.60-5.2); RDW 16.1 % (11.6-15.6); WHITE BLOOD COUNT 17.3 K/mm3 (4.0-10.0)
[2022-06-26 21:57] LABS: INR 1.03 (0.83-1.09); PROTHROMBIN TIME (PATIENT) 11.9 SEC (9.7-13.0)
[2022-06-26 22:00] LABS: ACTIVATED PTT 33.1 SECONDS (25.2-36.5)
[2022-06-26 22:21] LABS: CHLORIDE 103 mmol/L (98-107); SODIUM 138 mmol/L (136-145)
[2022-06-26 22:23] LABS: CALCIUM 9.1 mg/dL (8.5-10.1)
[2022-06-26 22:24] LABS: ALBUMIN 3.8 g/dl (3.4-5.0); ANION GAP 10 MMOL/L (8-16); BLOOD UREA NITROGEN 19.7 mg/dL (7-18); CO2 26 mmol/L (21-32); GLUCOSE,RANDOM 157 mg/dL (74-106)
[2022-06-26 22:27] LABS: CREATININE 1.8 mg/dL (0.55-1.3); SGOT/AST 18 U/L (15-37); SGPT/ALT 25 U/L (13-61)
[2022-06-26 22:28] LABS: TOT PROT 7.5 g/dl (6.4-8.2)
[2022-06-26 22:29] LABS: BILIRUBIN,TOTAL 0.3 mg/dL (0.2-1)
[2022-06-26 22:30] LABS: ALK PHOS 120 U/L (45-117)
[2022-06-26] MEDS ORDERED: SODIUM CHLORIDE 0.9% 500 ML INFUS.BAG IV ONE (22:34)
[2022-06-26] MEDS ORDERED: AZITHROMYCIN IVPB 500 MG in DEXTROSE 5%-WATER - 250 ML IVPB ONE (22:35)
[2022-06-26] MEDS ORDERED: CEFTRIAXONE 1 GM in DEXTROSE 5%-WATER - 100 ML IVPB ONE (22:35)
[2022-06-26 23:14] LABS: PH,URINE 5.5 (5.0-8.0); URINE APPEARANCE CLEAR; URINE BILIRUBIN NEGATIVE (NEGATIVE); URINE COLOR YELLOW; URINE GLUCOSE (UA) 3+ (NEGATIVE); URINE KETONE NEGATIVE (NEGATIVE); URINE LEUK ESTERASE NEGATIVE (NEGATIVE); URINE NITRITE NEGATIVE (NEGATIVE); URINE PROTEIN TRACE (NEGATIVE); URINE UROBILINOGEN 0.2 mg/dL (0.2-1.0)
[2022-06-26] MEDS ORDERED: CEFTRIAXONE 1 GM/50 ML BAG ONE (23:16)
[2022-06-27] MEDS ORDERED: AZITHROMYCIN IVPB 500 MG/250 ML BAG IVPB ONE ×2 (00:14→10:45)
[2022-06-27 02:04] LABS: COCAINE, UR NEGATIVE (NEGATIVE); OPIATES, URI NEGATIVE (NEGATIVE); URINE AMPHETAMINES NEGATIVE (NEGATIVE); URINE BARBITURATES NEGATIVE (NEGATIVE)
[2022-06-27 02:05] LABS: METHADONE, UR NEGATIVE (NEGATIVE); PHENCYCLIDINE,URINE NEGATIVE (NEGATIVE); URINE BENZODIAZEPINES NEGATIVE (NEGATIVE)
[2022-06-27] MEDS ORDERED: ALBUTEROL SO4 0.083% IH SOL 2.5 MG/3 ML VIAL.NEB. NEB PRN (03:33)
[2022-06-27] MEDS: DEXTROSE 5%-0.45% SALINE 1,000 ML IV SCH (03:53)
[2022-06-27 07:20] LABS: CALCIUM 8.8 mg/dL (8.5-10.1)
[2022-06-27 07:22] LABS: ALBUMIN 3.6 g/dl (3.4-5.0); BLOOD UREA NITROGEN 17.7 mg/dL (7-18)
[2022-06-27 07:24] LABS: CREATININE 1.5 mg/dL (0.55-1.3)
[2022-06-27 07:26] LABS: BILIRUBIN,TOTAL 0.7 mg/dL (0.2-1); TOT PROT 7.1 g/dl (6.4-8.2)
[2022-06-27 07:33] LABS: BASO % 0.6 % (0-2.0); EOS % 0.7 % (0-4.5); HEMOGLOBIN 11.2 GM/dL (10.7-15.3); LYMPH % 18.7 % (8-40); MCH 28.9 pg (25.7-33.7); MEAN CELL VOLUME 90.5 fl (80-96); MEAN PLT VOLUME 9.4 fl (7.5-11.1); MONO % 9.4 % (3.8-10.2); NEUT % 70.6 % (42.8-82.8); PLATELET COUNT 319 10^3/uL (134-434); RBC 3.87 M/mm3 (3.60-5.2); RDW 16.4 % (11.6-15.6); WHITE BLOOD COUNT 13.9 K/mm3 (4.0-10.0)
[2022-06-27] MEDS: LEVOTHYROXINE NA 50 MCG TABLET (FP) PO SCH (08:10)
[2022-06-27] MEDS: INSULIN SLIDING SCALE (NOVOLOG) 1 VIAL SQ SCH ×4 (09:26→22:27)
[2022-06-27] MEDS ORDERED: amLODIPine BESYLATE 10 MG TABLET (FP) ONE (10:44)
[2022-06-27] MEDS ORDERED: LOSARTAN POTASSIUM 50 MG TABLET ONE (10:44)
[2022-06-27] MEDS ORDERED: ESCITALOPRAM OXALATE 10 MG TABLET ONE (10:44)
[2022-06-27] MEDS ORDERED: LEVOTHYROXINE NA 50 MCG TABLET (FP) ONE (10:44)
[2022-06-27] MEDS ORDERED: HEPARIN NA (PORCINE) 5,000 UNITS/ML 1ML VIAL ONE ×2 (10:44→23:02)
[2022-06-27] MEDS ORDERED: CEFTRIAXONE 1 GM/50 ML BAG ONE (10:45)
[2022-06-27] MEDS: ESCITALOPRAM OXALATE 10 MG TABLET PO SCH (10:45)
[2022-06-27] MEDS: ARIPiprazole 15 MG TABLET PO SCH (10:45)
[2022-06-27] MEDS: LOSARTAN POTASSIUM 50 MG TABLET PO SCH (10:45)
[2022-06-27] MEDS: amLODIPine BESYLATE 10 MG TABLET (FP) PO SCH (10:45)
[2022-06-27] MEDS: HEPARIN NA (PORCINE) 5,000 UNITS/ML 1ML VIAL SQ SCH ×2 (10:45→23:29)
[2022-06-27] MEDS: BUDESONIDE/FORMETEROL FUMARATE 160/4.5 mcg INHALER IH SCH ×2 (10:51→23:29)
[2022-06-27] MEDS: CEFTRIAXONE 1 GM in DEXTROSE 5%-WATER - 50 ML IVPB SCH (12:08)
[2022-06-27] MEDS: AZITHROMYCIN IVPB 250 MG in DEXTROSE 5%-WATER - 250 ML IVPB SCH (13:49)
[2022-06-27] MEDS ORDERED: DONEPEZIL HCL 5 MG TABLET (FP) ONE (23:01)
[2022-06-27] MEDS ORDERED: levETIRAcetam 500 MG TABLET (FP) PO ONE (23:01)
[2022-06-27] MEDS ORDERED: ATORVASTATIN CA 40 MG TABLET (FP) ONE (23:01)
[2022-06-27] MEDS: ATORVASTATIN CA 40 MG TABLET (FP) PO SCH (23:29)
[2022-06-27] MEDS: DONEPEZIL HCL 10 MG TABLET (FP) PO SCH (23:29)
[2022-06-27] MEDS: levETIRAcetam 500 MG TABLET (FP) PO SCH (23:29)
[2022-06-28] MEDS: DEXTROSE 5%-0.45% SALINE 1,000 ML IV SCH (06:26)
[2022-06-28] MEDS: INSULIN SLIDING SCALE (NOVOLOG) 1 VIAL SQ SCH ×4 (07:24→23:53)
[2022-06-28 07:56] LABS: BASO % 0.8 % (0-2.0); EOS % 2.3 % (0-4.5); HEMATOCRIT 36.5 % (32.4-45.2); HEMOGLOBIN 11.4 GM/dL (10.7-15.3); LYMPH % 25.6 % (8-40); MCH 28.3 pg (25.7-33.7); MCHC 31.3 g/dl (32.0-36.0); MEAN CELL VOLUME 90.5 fl (80-96); MEAN PLT VOLUME 9.8 fl (7.5-11.1); MONO % 10.7 % (3.8-10.2); NEUT % 60.6 % (42.8-82.8); PLATELET COUNT 308 10^3/uL (134-434); RBC 4.03 M/mm3 (3.60-5.2); RDW 16.3 % (11.6-15.6)
[2022-06-28] MEDS ORDERED: LEVOTHYROXINE NA 50 MCG TABLET (FP) ONE (08:00)
[2022-06-28] MEDS: LEVOTHYROXINE NA 50 MCG TABLET (FP) PO SCH (08:04)
[2022-06-28 08:16] LABS: CREATININE 1.6 mg/dL (0.55-1.3)
[2022-06-28 08:17] LABS: ALBUMIN 3.5 g/dl (3.4-5.0); BLOOD UREA NITROGEN 19.9 mg/dL (7-18)
[2022-06-28 08:18] LABS: BILIRUBIN,TOTAL 0.3 mg/dL (0.2-1); TOT PROT 7.1 g/dl (6.4-8.2)
[2022-06-28] MEDS ORDERED: HEPARIN NA (PORCINE) 5,000 UNITS/ML 1ML VIAL ONE (09:12)
[2022-06-28] MEDS ORDERED: CEFTRIAXONE 1 GM/50 ML BAG ONE (09:14)
[2022-06-28] MEDS ORDERED: LOSARTAN POTASSIUM 50 MG TABLET ONE (09:15)
[2022-06-28] MEDS ORDERED: amLODIPine BESYLATE 10 MG TABLET (FP) ONE (09:16)
[2022-06-28] MEDS ORDERED: ESCITALOPRAM OXALATE 10 MG TABLET ONE (09:16)
[2022-06-28] MEDS: ARIPiprazole 15 MG TABLET PO SCH (10:27)
[2022-06-28] MEDS: LOSARTAN POTASSIUM 50 MG TABLET PO SCH (10:27)
[2022-06-28] MEDS: HEPARIN NA (PORCINE) 5,000 UNITS/ML 1ML VIAL SQ SCH ×2 (10:27→23:52)
[2022-06-28] MEDS: ESCITALOPRAM OXALATE 10 MG TABLET PO SCH (10:30)
[2022-06-28] MEDS: amLODIPine BESYLATE 10 MG TABLET (FP) PO SCH (10:30)
[2022-06-28] MEDS ORDERED: levETIRAcetam 500 MG TABLET (FP) PO ONE (11:36)
[2022-06-28] MEDS: levETIRAcetam 500 MG TABLET (FP) PO SCH ×2 (11:38→23:52)
[2022-06-28] MEDS: CEFTRIAXONE 1 GM in DEXTROSE 5%-WATER - 50 ML IVPB SCH (12:25)
[2022-06-28] MEDS: AZITHROMYCIN IVPB 250 MG in DEXTROSE 5%-WATER - 250 ML IVPB SCH (13:05)
[2022-06-28] MEDS: BUDESONIDE/FORMETEROL FUMARATE 160/4.5 mcg INHALER IH SCH ×2 (14:54→23:53)
[2022-06-28] MEDS: DONEPEZIL HCL 10 MG TABLET (FP) PO SCH (23:52)
[2022-06-28] MEDS: ATORVASTATIN CA 40 MG TABLET (FP) PO SCH (23:52)
[2022-06-29] MEDS: INSULIN SLIDING SCALE (NOVOLOG) 1 VIAL SQ SCH ×4 (06:49→22:13)
[2022-06-29] MEDS: DEXTROSE 5%-0.45% SALINE 1,000 ML IV SCH (07:48)
[2022-06-29] MEDS: LEVOTHYROXINE NA 50 MCG TABLET (FP) PO SCH (07:49)
[2022-06-29] MEDS: LOSARTAN POTASSIUM 50 MG TABLET PO SCH (11:03)
[2022-06-29] MEDS: ESCITALOPRAM OXALATE 10 MG TABLET PO SCH (11:03)
[2022-06-29] MEDS: levETIRAcetam 500 MG TABLET (FP) PO SCH ×2 (11:03→22:12)
[2022-06-29] MEDS: HEPARIN NA (PORCINE) 5,000 UNITS/ML 1ML VIAL SQ SCH ×2 (11:03→22:12)
[2022-06-29] MEDS: amLODIPine BESYLATE 10 MG TABLET (FP) PO SCH (11:03)
[2022-06-29] MEDS: ARIPiprazole 15 MG TABLET PO SCH (11:04)
[2022-06-29] MEDS: CEFTRIAXONE 1 GM in DEXTROSE 5%-WATER - 50 ML IVPB SCH (11:04)
[2022-06-29] MEDS: BUDESONIDE/FORMETEROL FUMARATE 160/4.5 mcg INHALER IH SCH ×2 (11:05→22:13)
[2022-06-29] MEDS: AZITHROMYCIN IVPB 250 MG in DEXTROSE 5%-WATER - 250 ML IVPB SCH (12:13)
[2022-06-29] MEDS: ATORVASTATIN CA 40 MG TABLET (FP) PO SCH (22:12)
[2022-06-29] MEDS: DONEPEZIL HCL 10 MG TABLET (FP) PO SCH (22:12)
[2022-06-30] MEDS: DEXTROSE 5%-0.45% SALINE 1,000 ML IV SCH (05:52)
[2022-06-30] MEDS: LEVOTHYROXINE NA 50 MCG TABLET (FP) PO SCH (06:20)
[2022-06-30] MEDS: INSULIN SLIDING SCALE (NOVOLOG) 1 VIAL SQ SCH ×4 (06:27→23:47)
[2022-06-30 08:26] LABS: BASO % 0.7 % (0-2.0); EOS % 3.1 % (0-4.5); HEMOGLOBIN 10.7 GM/dL (10.7-15.3); LYMPH % 19.8 % (8-40); MCH 27.8 pg (25.7-33.7); MCHC 30.5 g/dl (32.0-36.0); MEAN CELL VOLUME 91.1 fl (80-96); MEAN PLT VOLUME 9.7 fl (7.5-11.1); MONO % 9.6 % (3.8-10.2); NEUT % 66.8 % (42.8-82.8); PLATELET COUNT 296 10^3/uL (134-434); RBC 3.84 M/mm3 (3.60-5.2); RDW 16.7 % (11.6-15.6)
[2022-06-30 08:52] LABS: CALCIUM 8.9 mg/dL (8.5-10.1)
[2022-06-30 08:53] LABS: ALBUMIN 3.5 g/dl (3.4-5.0); BLOOD UREA NITROGEN 21.8 mg/dL (7-18)
[2022-06-30 08:56] LABS: CREATININE 1.4 mg/dL (0.55-1.3)
[2022-06-30 08:57] LABS: BILIRUBIN,TOTAL 0.6 mg/dL (0.2-1)
[2022-06-30] MEDS: CEFTRIAXONE 1 GM in DEXTROSE 5%-WATER - 50 ML IVPB SCH (09:44)
[2022-06-30] MEDS: HEPARIN NA (PORCINE) 5,000 UNITS/ML 1ML VIAL SQ SCH ×2 (09:45→22:17)
[2022-06-30] MEDS: amLODIPine BESYLATE 10 MG TABLET (FP) PO SCH (09:45)
[2022-06-30] MEDS: ARIPiprazole 15 MG TABLET PO SCH (09:45)
[2022-06-30] MEDS: ESCITALOPRAM OXALATE 10 MG TABLET PO SCH (09:45)
[2022-06-30] MEDS: AZITHROMYCIN IVPB 250 MG in DEXTROSE 5%-WATER - 250 ML IVPB SCH (09:45)
[2022-06-30] MEDS: BUDESONIDE/FORMETEROL FUMARATE 160/4.5 mcg INHALER IH SCH ×2 (09:45→22:27)
[2022-06-30] MEDS: LOSARTAN POTASSIUM 50 MG TABLET PO SCH (09:45)
[2022-06-30] MEDS: levETIRAcetam 500 MG TABLET (FP) PO SCH ×2 (09:45→22:17)
[2022-06-30] MEDS: ATORVASTATIN CA 40 MG TABLET (FP) PO SCH (22:17)
[2022-06-30] MEDS: DONEPEZIL HCL 10 MG TABLET (FP) PO SCH (22:17)
[2022-07-01] MEDS: DEXTROSE 5%-0.45% SALINE 1,000 ML IV SCH (00:07)
[2022-07-01] MEDS: LEVOTHYROXINE NA 50 MCG TABLET (FP) PO SCH (06:24)
[2022-07-01] MEDS: INSULIN SLIDING SCALE (NOVOLOG) 1 VIAL SQ SCH ×4 (06:31→21:41)
[2022-07-01 09:52] LABS: BASO % 0.7 % (0-2.0); EOS % 2.4 % (0-4.5); HEMATOCRIT 35.1 % (32.4-45.2); HEMOGLOBIN 10.8 GM/dL (10.7-15.3); LYMPH % 19.4 % (8-40); MCH 27.8 pg (25.7-33.7); MCHC 30.8 g/dl (32.0-36.0); MEAN CELL VOLUME 90.1 fl (80-96); MEAN PLT VOLUME 9.8 fl (7.5-11.1); MONO % 10.7 % (3.8-10.2); NEUT % 66.8 % (42.8-82.8); PLATELET COUNT 315 10^3/uL (134-434); RBC 3.89 M/mm3 (3.60-5.2); RDW 16.2 % (11.6-15.6); WHITE BLOOD COUNT 12.3 K/mm3 (4.0-10.0)
[2022-07-01 10:19] LABS: ALBUMIN 3.3 g/dl (3.4-5.0)
[2022-07-01 10:20] LABS: CALCIUM 9.1 mg/dL (8.5-10.1)
[2022-07-01] MEDS: ARIPiprazole 15 MG TABLET PO SCH (10:20)
[2022-07-01] MEDS: amLODIPine BESYLATE 10 MG TABLET (FP) PO SCH (10:20)
[2022-07-01] MEDS: CEFTRIAXONE 1 GM in DEXTROSE 5%-WATER - 50 ML IVPB SCH (10:20)
[2022-07-01 10:21] LABS: BLOOD UREA NITROGEN 23.7 mg/dL (7-18)
[2022-07-01] MEDS: LOSARTAN POTASSIUM 50 MG TABLET PO SCH (10:21)
[2022-07-01] MEDS: ESCITALOPRAM OXALATE 10 MG TABLET PO SCH (10:21)
[2022-07-01] MEDS: levETIRAcetam 500 MG TABLET (FP) PO SCH ×2 (10:21→21:40)
[2022-07-01] MEDS: HEPARIN NA (PORCINE) 5,000 UNITS/ML 1ML VIAL SQ SCH ×2 (10:21→21:40)
[2022-07-01 10:22] LABS: CREATININE 1.7 mg/dL (0.55-1.3)
[2022-07-01] MEDS: BUDESONIDE/FORMETEROL FUMARATE 160/4.5 mcg INHALER IH SCH ×2 (10:22→21:41)
[2022-07-01 10:24] LABS: BILIRUBIN,TOTAL 0.2 mg/dL (0.2-1); TOT PROT 6.8 g/dl (6.4-8.2)
[2022-07-01] MEDS: AZITHROMYCIN IVPB 250 MG in DEXTROSE 5%-WATER - 250 ML IVPB SCH (12:28)
[2022-07-01] MEDS: DONEPEZIL HCL 10 MG TABLET (FP) PO SCH (21:40)
[2022-07-01] MEDS: ATORVASTATIN CA 40 MG TABLET (FP) PO SCH (21:40)
[2022-07-02] MEDS: INSULIN SLIDING SCALE (NOVOLOG) 1 VIAL SQ SCH ×4 (06:52→22:56)
[2022-07-02] MEDS: LEVOTHYROXINE NA 50 MCG TABLET (FP) PO SCH (06:52)
[2022-07-02 11:13] VITALS: RESP 18
[2022-07-02] MEDS: CEFTRIAXONE 1 GM in DEXTROSE 5%-WATER - 50 ML IVPB SCH (11:14)
[2022-07-02] MEDS: ESCITALOPRAM OXALATE 10 MG TABLET PO SCH (11:15)
[2022-07-02] MEDS: LOSARTAN POTASSIUM 50 MG TABLET PO SCH (11:15)
[2022-07-02] MEDS: levETIRAcetam 500 MG TABLET (FP) PO SCH ×2 (11:15→22:48)
[2022-07-02] MEDS: ARIPiprazole 15 MG TABLET PO SCH (11:15)
[2022-07-02] MEDS: BUDESONIDE/FORMETEROL FUMARATE 160/4.5 mcg INHALER IH SCH ×2 (11:16→22:50)
[2022-07-02] MEDS: HEPARIN NA (PORCINE) 5,000 UNITS/ML 1ML VIAL SQ SCH ×2 (11:16→22:48)
[2022-07-02] MEDS: amLODIPine BESYLATE 10 MG TABLET (FP) PO SCH (11:16)
[2022-07-02] MEDS: AZITHROMYCIN IVPB 250 MG in DEXTROSE 5%-WATER - 250 ML IVPB SCH (16:56)
[2022-07-02] MEDS: DONEPEZIL HCL 10 MG TABLET (FP) PO SCH (22:48)
[2022-07-02] MEDS: ATORVASTATIN CA 40 MG TABLET (FP) PO SCH (22:49)
[2022-07-03] MEDS: INSULIN SLIDING SCALE (NOVOLOG) 1 VIAL SQ SCH ×2 (06:05→10:56)
[2022-07-03] MEDS: LEVOTHYROXINE NA 50 MCG TABLET (FP) PO SCH (06:05)
[2022-07-03] MEDS: HEPARIN NA (PORCINE) 5,000 UNITS/ML 1ML VIAL SQ SCH (09:44)
[2022-07-03] MEDS: ESCITALOPRAM OXALATE 10 MG TABLET PO SCH (09:45)
[2022-07-03] MEDS: CEFTRIAXONE 1 GM in DEXTROSE 5%-WATER - 50 ML IVPB SCH (09:45)
[2022-07-03] MEDS: levETIRAcetam 500 MG TABLET (FP) PO SCH (09:45)
[2022-07-03] MEDS: amLODIPine BESYLATE 10 MG TABLET (FP) PO SCH (09:46)
[2022-07-03] MEDS: ARIPiprazole 15 MG TABLET PO SCH (09:47)
[2022-07-03] MEDS: LOSARTAN POTASSIUM 50 MG TABLET PO SCH (09:47)
[2022-07-03] MEDS: AZITHROMYCIN IVPB 250 MG in DEXTROSE 5%-WATER - 250 ML IVPB SCH (09:48)
[2022-07-03] MEDS: BUDESONIDE/FORMETEROL FUMARATE 160/4.5 mcg INHALER IH SCH (10:00)
[2022-07-03 11:10] VITALS: BP 120/57; PULSE 64; TEMP 97.8
[2022-07-03] MEDS ORDERED: AMOX TR/POT CLAV 875MG/125MG TABLETS (FP) PO SCH (17:30)
== END 2022-07-03 14:44 | disposition home or self-care (01) | DRG 53 ==
LOC: JER 19:32 → JERBED 23:07 → J4W 06-28 19:34 → J7W 06-30 11:46
PROVIDERS: ADMIT Internal Medicine; ATTEND Internal Medicine
DX: R56.9 Unspecified convulsions (principal); J18.9 Pneumonia, unspecified organism; J44.9 Chronic obstructive pulmonary disease, unspecified; N17.9 Acute kidney failure, unspecified; I10 Essential (primary) hypertension; E11.9 Type 2 diabetes mellitus without complications; R44.3 Hallucinations, unspecified; F32.A Depression, unspecified; E03.9 Hypothyroidism, unspecified; N39.0 Urinary tract infection, site not specified; D64.9 Anemia, unspecified; F10.10 Alcohol abuse, uncomplicated; R55 Syncope and collapse; F03.90 Unspecified dementia, unspecified severity, without behavioral disturbance, psychotic disturbance, mood disturbance, and anxiety; E66.9 Obesity, unspecified; Z68.34 Body mass index [BMI] 34.0-34.9, adult; Z86.73 Personal history of transient ischemic attack (TIA), and cerebral infarction without residual deficits
CPT/HCPCS: 0241U-QW; 36415; 70450-TC; 71045-TC-FY; 80053; 80307; 81003; 82962; 83036; 83605; 84443; 84484; 85025; 85610; 85730; 86850; 86900; 86901; 87040; 87086; 87186; 93005; 93010; 97116-GP; 97161-GP; 99285-25; J1644

== ENCOUNTER 2022-07-06 22:42 | Inpatient (IN) | payer OTHER ==
[2022-07-06] MEDS ORDERED: levETIRAcetam 500 MG TABLET (FP) PO ONE (23:42)
[2022-07-07] MEDS ORDERED: levETIRAcetam 500 MG TABLET (FP) PO ONE (00:24)
[2022-07-07 01:54] LABS: BASO % 0.8 % (0-2.0); EOS % 1.6 % (0-4.5); HEMATOCRIT 38.8 % (32.4-45.2); HEMOGLOBIN 11.9 GM/dL (10.7-15.3); INR 0.94 (0.83-1.09); LYMPH % 20.2 % (8-40); MCH 27.7 pg (25.7-33.7); MCHC 30.7 g/dl (32.0-36.0); MEAN CELL VOLUME 90.3 fl (80-96); MEAN PLT VOLUME 10.1 fl (7.5-11.1); MONO % 9.1 % (3.8-10.2); NEUT % 68.3 % (42.8-82.8); PLATELET COUNT 325 10^3/uL (134-434); PROTHROMBIN TIME (PATIENT) 10.8 SEC (9.7-13.0); RDW 16.4 % (11.6-15.6)
[2022-07-07 01:57] LABS: ACTIVATED PTT 34.1 SECONDS (25.2-36.5)
[2022-07-07 02:15] LABS: CHLORIDE 106 mmol/L (98-107); SODIUM 140 mmol/L (136-145)
[2022-07-07 02:16] LABS: ALBUMIN 3.8 g/dl (3.4-5.0); ANION GAP 12 MMOL/L (8-16); BLOOD UREA NITROGEN 21.2 mg/dL (7-18); CALCIUM 9.2 mg/dL (8.5-10.1); CO2 22 mmol/L (21-32); GLUCOSE,RANDOM 115 mg/dL (74-106)
[2022-07-07 02:19] LABS: CREATININE 1.7 mg/dL (0.55-1.3); SGOT/AST 46 U/L (15-37); SGPT/ALT 100 U/L (13-61)
[2022-07-07 02:22] LABS: TOT PROT 7.7 g/dl (6.4-8.2)
[2022-07-07 02:35] LABS: ALK PHOS 147 U/L (45-117); BILIRUBIN,TOTAL 0.3 mg/dL (0.2-1)
[2022-07-07 04:03] LABS: EPI CELLS >36 /uL (0-25.1); HYALINE CASTS 1 /uL (0-3.1); PH,URINE 5.5 (5.0-8.0); URINE APPEARANCE CLEAR; URINE BACTERIA 31 /uL (0-1359); URINE BILIRUBIN NEGATIVE (NEGATIVE); URINE COLOR YELLOW; URINE GLUCOSE (UA) 3+ (NEGATIVE); URINE KETONE NEGATIVE (NEGATIVE); URINE LEUK ESTERASE 1+ (NEGATIVE); URINE NITRITE NEGATIVE (NEGATIVE); URINE PROTEIN NEGATIVE (NEGATIVE); URINE RBC 24 /uL (0-23.9); URINE UROBILINOGEN 0.2 mg/dL (0.2-1.0); URINE WBC 25 /uL (0-25.8)
[2022-07-07] MEDS ORDERED: VANCOMYCIN 1 GM in D5W (PRE-DOCKED) 1,000 MG/250 ML IVPB ONE (05:10)
[2022-07-07] MEDS ORDERED: PIPERACILLIN/TAZOB 3.375 GM 3.375 GM in DEXTROSE 5%-WATER - 50 ML IVPB ONE (05:10)
[2022-07-07] MEDS ORDERED: PIPERACILLIN/TAZOB 3.375 GM 3.375 GM/50 ML BAG IVPB ONE (05:25)
[2022-07-07] MEDS ORDERED: VANCOMYCIN/WATER FOR INJ (PEG) 1,000 MG/200 ML BAG IVPB ONE (05:26)
[2022-07-07] MEDS ORDERED: amLODIPine BESYLATE 10 MG TABLET (FP) ONE (17:41)
[2022-07-07] MEDS ORDERED: DONEPEZIL HCL 5 MG TABLET (FP) ONE (17:41)
[2022-07-07] MEDS: amLODIPine BESYLATE 10 MG TABLET (FP) PO SCH (17:46)
[2022-07-07] MEDS: DONEPEZIL HCL 10 MG TABLET (FP) PO SCH (17:46)
[2022-07-07 18:45] VITALS: BMI 35.5
[2022-07-07] MEDS: ATORVASTATIN CA 40 MG TABLET (FP) PO SCH (21:52)
[2022-07-07] MEDS: levETIRAcetam 500 MG TABLET (FP) PO SCH (21:53)
[2022-07-07] MEDS: HEPARIN NA (PORCINE) 5,000 UNITS/ML 1ML VIAL SQ SCH (22:23)
[2022-07-07] MEDS: DEXTROSE 5%-0.45% SALINE 1,000 ML IV SCH (22:23)
[2022-07-07] MEDS: INSULIN SLIDING SCALE (NOVOLOG) 1 VIAL SQ SCH (22:27)
[2022-07-08] MEDS: INSULIN SLIDING SCALE (NOVOLOG) 1 VIAL SQ SCH ×4 (06:32→21:43)
[2022-07-08] MEDS: LEVOTHYROXINE NA 50 MCG TABLET (FP) PO SCH (07:38)
[2022-07-08] MEDS ORDERED: ARIPiprazole 15 MG TABLET PO SCH (10:00)
[2022-07-08] MEDS: LOSARTAN POTASSIUM 50 MG TABLET PO SCH (10:29)
[2022-07-08] MEDS: amLODIPine BESYLATE 10 MG TABLET (FP) PO SCH (10:29)
[2022-07-08] MEDS: HEPARIN NA (PORCINE) 5,000 UNITS/ML 1ML VIAL SQ SCH ×2 (10:29→21:43)
[2022-07-08] MEDS: levETIRAcetam 500 MG TABLET (FP) PO SCH ×2 (10:29→21:43)
[2022-07-08] MEDS: DONEPEZIL HCL 10 MG TABLET (FP) PO SCH (10:29)
[2022-07-08] MEDS: ESCITALOPRAM OXALATE 10 MG TABLET PO SCH (10:29)
[2022-07-08 12:51] LABS: BASO % 0.9 % (0-2.0); EOS % 2.7 % (0-4.5); HEMATOCRIT 35.3 % (32.4-45.2); HEMOGLOBIN 11.1 GM/dL (10.7-15.3); MCH 28.2 pg (25.7-33.7); MCHC 31.4 g/dl (32.0-36.0); MEAN CELL VOLUME 89.7 fl (80-96); MEAN PLT VOLUME 9.5 fl (7.5-11.1); MONO % 8.3 % (3.8-10.2); NEUT % 65.1 % (42.8-82.8); PLATELET COUNT 292 10^3/uL (134-434); RBC 3.94 M/mm3 (3.60-5.2); RDW 16.4 % (11.6-15.6)
[2022-07-08 13:17] LABS: ALBUMIN 3.4 g/dl (3.4-5.0); BLOOD UREA NITROGEN 23.8 mg/dL (7-18); CALCIUM 8.9 mg/dL (8.5-10.1)
[2022-07-08 13:21] LABS: CREATININE 1.5 mg/dL (0.55-1.3)
[2022-07-08 13:23] LABS: BILIRUBIN,TOTAL 0.3 mg/dL (0.2-1)
[2022-07-08] MEDS: DEXTROSE 5%-0.45% SALINE 1,000 ML IV SCH (21:41)
[2022-07-08] MEDS: ATORVASTATIN CA 40 MG TABLET (FP) PO SCH (21:43)
[2022-07-08] MEDS ORDERED: ARIPiprazole 5 MG TABLET ONE (21:49)
[2022-07-08] MEDS ORDERED: ARIPiprazole 10 MG TABLET PO SCH (22:00)
[2022-07-09] MEDS: LEVOTHYROXINE NA 50 MCG TABLET (FP) PO SCH (06:10)
[2022-07-09] MEDS: INSULIN SLIDING SCALE (NOVOLOG) 1 VIAL SQ SCH ×2 (06:10→12:29)
[2022-07-09] MEDS: DEXTROSE 5%-0.45% SALINE 1,000 ML IV SCH (06:23)
[2022-07-09 07:00] VITALS: RESP 20
[2022-07-09] MEDS: levETIRAcetam 500 MG TABLET (FP) PO SCH (09:42)
[2022-07-09] MEDS: ESCITALOPRAM OXALATE 10 MG TABLET PO SCH (09:42)
[2022-07-09] MEDS: DONEPEZIL HCL 10 MG TABLET (FP) PO SCH (09:43)
[2022-07-09] MEDS: amLODIPine BESYLATE 10 MG TABLET (FP) PO SCH (09:43)
[2022-07-09] MEDS: HEPARIN NA (PORCINE) 5,000 UNITS/ML 1ML VIAL SQ SCH (09:43)
[2022-07-09] MEDS: LOSARTAN POTASSIUM 50 MG TABLET PO SCH (09:43)
[2022-07-09 11:37] LABS: BASO % 0.6 % (0-2.0); EOS % 3.6 % (0-4.5); HEMATOCRIT 34.2 % (32.4-45.2); HEMOGLOBIN 10.6 GM/dL (10.7-15.3); LYMPH % 24.9 % (8-40); MCH 28.1 pg (25.7-33.7); MEAN CELL VOLUME 90.8 fl (80-96); MEAN PLT VOLUME 10.1 fl (7.5-11.1); MONO % 10.3 % (3.8-10.2); NEUT % 60.6 % (42.8-82.8); PLATELET COUNT 298 10^3/uL (134-434); RBC 3.77 M/mm3 (3.60-5.2); RDW 16.3 % (11.6-15.6); WHITE BLOOD COUNT 12.5 K/mm3 (4.0-10.0)
[2022-07-09 12:07] LABS: ALBUMIN 3.1 g/dl (3.4-5.0); BLOOD UREA NITROGEN 22.4 mg/dL (7-18); CALCIUM 8.3 mg/dL (8.5-10.1)
[2022-07-09 12:11] LABS: BILIRUBIN,TOTAL 0.3 mg/dL (0.2-1); CREATININE 1.6 mg/dL (0.55-1.3); TOT PROT 6.6 g/dl (6.4-8.2)
[2022-07-09 15:52] VITALS: BP 107/64; PULSE 87; TEMP 98.4
== END 2022-07-09 16:44 | disposition home or self-care (01) | DRG 53 ==
LOC: JER 22:42 → JERBED 07-07 03:50 → J6S 07-07 18:30
PROVIDERS: ADMIT Internal Medicine; ATTEND Internal Medicine
DX: G40.909 Epilepsy, unspecified, not intractable, without status epilepticus (principal); E11.22 Type 2 diabetes mellitus with diabetic chronic kidney disease; F03.90 Unspecified dementia, unspecified severity, without behavioral disturbance, psychotic disturbance, mood disturbance, and anxiety; D72.829 Elevated white blood cell count, unspecified; E03.9 Hypothyroidism, unspecified; F17.210 Nicotine dependence, cigarettes, uncomplicated; G83.84 Todd's paralysis (postepileptic); I12.9 Hypertensive chronic kidney disease with stage 1 through stage 4 chronic kidney disease, or unspecified chronic kidney disease; N18.9 Chronic kidney disease, unspecified; R32 Unspecified urinary incontinence
CPT/HCPCS: 0241U-QW; 36415; 71045-TC-FY; 76705-TC; 76856-TC; 80053; 81003; 82550; 82553; 82962; 83605; 84484; 85025; 85610; 85730; 86850; 86900; 86901; 87040; 87086; 93005; 93010; 97116-GP; 97161-GP; 99285-25; J1644

== ENCOUNTER 2022-10-25 09:04 | Inpatient (IN) | payer OTHER ==
[2022-10-25 09:30] VITALS: BMI 31.4
[2022-10-25 10:46] LABS: PH,URINE 5.5 (5.0-8.0); URINE APPEARANCE CLEAR; URINE BILIRUBIN NEGATIVE (NEGATIVE); URINE COLOR YELLOW; URINE GLUCOSE (UA) 2+ (NEGATIVE); URINE KETONE NEGATIVE (NEGATIVE); URINE LEUK ESTERASE NEGATIVE (NEGATIVE); URINE NITRITE NEGATIVE (NEGATIVE); URINE PROTEIN NEGATIVE (NEGATIVE); URINE UROBILINOGEN 0.2 mg/dL (0.2-1.0)
[2022-10-25 11:05] LABS: HEMATOCRIT 37.5 % (32.4-45.2); HEMOGLOBIN 12.5 GM/dL (10.7-15.3); MCH 28.8 pg (25.7-33.7); MCHC 33.3 g/dl (32.0-36.0); MEAN CELL VOLUME 86.6 fl (80-96); MEAN PLT VOLUME 10.2 fl (7.5-11.1); PLATELET COUNT 342 10^3/uL (134-434); RBC 4.33 M/mm3 (3.60-5.2); RDW 16.6 % (11.6-15.6); WHITE BLOOD COUNT 16.9 K/mm3 (4.0-10.0)
[2022-10-25 11:10] LABS: POTASSIUM 5.5 mmol/L (3.5-5.1)
[2022-10-25 11:12] LABS: CALCIUM 9.7 mg/dL (8.5-10.1)
[2022-10-25 11:13] LABS: ALBUMIN 3.9 g/dl (3.4-5.0)
[2022-10-25 11:16] LABS: CREATININE 1.7 mg/dL (0.55-1.3)
[2022-10-25 11:18] LABS: BILIRUBIN,TOTAL 0.6 mg/dL (0.2-1); TOT PROT 8.2 g/dl (6.4-8.2)
[2022-10-25] MEDS ORDERED: SODIUM CHLORIDE 0.9% 1000 ML INFUS.BAG IV ONE (11:19)
[2022-10-25] MEDS ORDERED: PIPERACILLIN/TAZOB 4.5 GM 4.5 GM in DEXTROSE 5%-WATER 100 ML IVPB ONE (12:19)
[2022-10-25] MEDS ORDERED: PIPERACILLIN/TAZOB 4.5 GM 4.5 GM/100 ML BAG IVPB ONE (12:23)
[2022-10-25] MEDS ORDERED: INSULIN (NOVOLOG) ASPART 100 UNITS/ML 10ML VIAL ONE (21:38)
[2022-10-25] MEDS: HEPARIN NA (PORCINE) 5,000 UNITS/ML 1ML VIAL SQ SCH (22:16)
[2022-10-25] MEDS: ATORVASTATIN CA 40 MG TABLET (FP) PO SCH (22:17)
[2022-10-25] MEDS: levETIRAcetam 500 MG TABLET (FP) PO SCH (22:17)
[2022-10-25] MEDS: DEXTROSE 5%-0.45% SALINE 1,000 ML IV SCH (22:17)
[2022-10-25] MEDS: INSULIN SLIDING SCALE (NOVOLOG) 1 VIAL SQ SCH (22:29)
[2022-10-26] MEDS: PIPERACILLIN/TAZOB 3.375 GM 3.375 GM in DEXTROSE 5%-WATER - 50 ML IVPB SCH ×4 (02:01→16:28)
[2022-10-26] MEDS ORDERED: INSULIN (NOVOLOG) ASPART 100 UNITS/ML 10ML VIAL ONE ×3 (06:04→21:37)
[2022-10-26] MEDS: LEVOTHYROXINE NA 50 MCG TABLET (FP) PO SCH (06:33)
[2022-10-26] MEDS: INSULIN SLIDING SCALE (NOVOLOG) 1 VIAL SQ SCH ×4 (06:36→21:41)
[2022-10-26 09:24] LABS: BASO % 0.8 % (0-2.0); EOS % 2.5 % (0-4.5); HEMATOCRIT 34.4 % (32.4-45.2); HEMOGLOBIN 11.5 GM/dL (10.7-15.3); LYMPH % 29.7 % (8-40); MCH 28.7 pg (25.7-33.7); MCHC 33.3 g/dl (32.0-36.0); MEAN CELL VOLUME 86.1 fl (80-96); MEAN PLT VOLUME 9.5 fl (7.5-11.1); PLATELET COUNT 294 10^3/uL (134-434); RBC 3.99 M/mm3 (3.60-5.2); RDW 16.4 % (11.6-15.6); WHITE BLOOD COUNT 12.7 K/mm3 (4.0-10.0)
[2022-10-26 09:52] LABS: POTASSIUM 4.5 mmol/L (3.5-5.1)
[2022-10-26 09:58] LABS: ALBUMIN 3.5 g/dl (3.4-5.0); BLOOD UREA NITROGEN 23.9 mg/dL (7-18); CALCIUM 8.5 mg/dL (8.5-10.1)
[2022-10-26 10:01] LABS: CREATININE 1.7 mg/dL (0.55-1.3)
[2022-10-26 10:02] LABS: BILIRUBIN,TOTAL 0.4 mg/dL (0.2-1)
[2022-10-26] MEDS: HEPARIN NA (PORCINE) 5,000 UNITS/ML 1ML VIAL SQ SCH ×2 (10:49→21:40)
[2022-10-26] MEDS: DONEPEZIL HCL 10 MG TABLET (FP) PO SCH (10:49)
[2022-10-26] MEDS: LOSARTAN POTASSIUM 50 MG TABLET PO SCH (10:49)
[2022-10-26] MEDS: levETIRAcetam 500 MG TABLET (FP) PO SCH ×2 (10:50→21:40)
[2022-10-26] MEDS: amLODIPine BESYLATE 10 MG TABLET (FP) PO SCH (10:51)
[2022-10-26] MEDS: ESCITALOPRAM OXALATE 10 MG TABLET PO SCH (12:38)
[2022-10-26] MEDS: DEXTROSE 5%-0.45% SALINE 1,000 ML IV SCH ×2 (13:37→21:50)
[2022-10-26] MEDS: CEFTRIAXONE 1 GM in DEXTROSE 5%-WATER - 50 ML IVPB SCH (15:04)
[2022-10-26] MEDS: ATORVASTATIN CA 40 MG TABLET (FP) PO SCH (21:40)
[2022-10-27] MEDS: DEXTROSE 5%-0.45% SALINE 1,000 ML IV SCH (03:38)
[2022-10-27] MEDS: INSULIN SLIDING SCALE (NOVOLOG) 1 VIAL SQ SCH ×4 (06:26→21:58)
[2022-10-27] MEDS: LEVOTHYROXINE NA 50 MCG TABLET (FP) PO SCH (06:54)
[2022-10-27 10:23] LABS: BASO % 0.9 % (0-2.0); EOS % 3.5 % (0-4.5); HEMATOCRIT 31.8 % (32.4-45.2); HEMOGLOBIN 10.6 GM/dL (10.7-15.3); LYMPH % 28.8 % (8-40); MCH 29.1 pg (25.7-33.7); MCHC 33.4 g/dl (32.0-36.0); MEAN CELL VOLUME 87.2 fl (80-96); MEAN PLT VOLUME 9.4 fl (7.5-11.1); MONO % 9.8 % (3.8-10.2); PLATELET COUNT 262 10^3/uL (134-434); RBC 3.65 M/mm3 (3.60-5.2); RDW 16.5 % (11.6-15.6); WHITE BLOOD COUNT 13.2 K/mm3 (4.0-10.0)
[2022-10-27 10:46] LABS: POTASSIUM 4.5 mmol/L (3.5-5.1)
[2022-10-27 10:49] LABS: CALCIUM 8.5 mg/dL (8.5-10.1)
[2022-10-27 10:50] LABS: ALBUMIN 3.1 g/dl (3.4-5.0); BLOOD UREA NITROGEN 18.4 mg/dL (7-18)
[2022-10-27 10:53] LABS: CREATININE 1.5 mg/dL (0.55-1.3)
[2022-10-27 10:54] LABS: BILIRUBIN,TOTAL 0.8 mg/dL (0.2-1); TOT PROT 6.6 g/dl (6.4-8.2)
[2022-10-27] MEDS: levETIRAcetam 500 MG TABLET (FP) PO SCH ×2 (12:48→21:56)
[2022-10-27] MEDS: HEPARIN NA (PORCINE) 5,000 UNITS/ML 1ML VIAL SQ SCH ×2 (12:48→21:56)
[2022-10-27] MEDS: DONEPEZIL HCL 10 MG TABLET (FP) PO SCH (12:48)
[2022-10-27] MEDS: amLODIPine BESYLATE 10 MG TABLET (FP) PO SCH (12:48)
[2022-10-27] MEDS: CEFTRIAXONE 1 GM in DEXTROSE 5%-WATER - 50 ML IVPB SCH (12:48)
[2022-10-27] MEDS: LOSARTAN POTASSIUM 50 MG TABLET PO SCH (12:49)
[2022-10-27] MEDS: ESCITALOPRAM OXALATE 10 MG TABLET PO SCH (12:49)
[2022-10-27] MEDS ORDERED: INSULIN (NOVOLOG) ASPART 100 UNITS/ML 10ML VIAL ONE (21:53)
[2022-10-27] MEDS: ATORVASTATIN CA 40 MG TABLET (FP) PO SCH (21:56)
[2022-10-28] MEDS ORDERED: INSULIN (NOVOLOG) ASPART 100 UNITS/ML 10ML VIAL ONE ×4 (06:15→21:21)
[2022-10-28] MEDS: LEVOTHYROXINE NA 50 MCG TABLET (FP) PO SCH (06:40)
[2022-10-28] MEDS: INSULIN SLIDING SCALE (NOVOLOG) 1 VIAL SQ SCH ×4 (06:40→22:58)
[2022-10-28] MEDS: ESCITALOPRAM OXALATE 10 MG TABLET PO SCH (10:14)
[2022-10-28] MEDS: LOSARTAN POTASSIUM 50 MG TABLET PO SCH (10:14)
[2022-10-28] MEDS: HEPARIN NA (PORCINE) 5,000 UNITS/ML 1ML VIAL SQ SCH ×2 (10:14→22:52)
[2022-10-28] MEDS: amLODIPine BESYLATE 10 MG TABLET (FP) PO SCH (10:14)
[2022-10-28] MEDS: levETIRAcetam 500 MG TABLET (FP) PO SCH ×2 (10:14→22:52)
[2022-10-28] MEDS: DONEPEZIL HCL 10 MG TABLET (FP) PO SCH (10:14)
[2022-10-28] MEDS: CEFTRIAXONE 1 GM in DEXTROSE 5%-WATER - 50 ML IVPB SCH (10:15)
[2022-10-28] MEDS: FLUTICASONE/UMECLIDIN/VILANTER(100-62.5-25 TRELEGY ELLIPTA) INAHLER IH SCH (12:36)
[2022-10-28] MEDS: ATORVASTATIN CA 40 MG TABLET (FP) PO SCH (22:52)
[2022-10-29] MEDS ORDERED: INSULIN (NOVOLOG) ASPART 100 UNITS/ML 10ML VIAL ONE ×5 (06:20→22:46)
[2022-10-29] MEDS: LEVOTHYROXINE NA 50 MCG TABLET (FP) PO SCH (06:33)
[2022-10-29] MEDS: INSULIN SLIDING SCALE (NOVOLOG) 1 VIAL SQ SCH ×4 (06:36→22:46)
[2022-10-29 07:40] LABS: BASO % 0.8 % (0-2.0); EOS % 2.5 % (0-4.5); HEMATOCRIT 32.2 % (32.4-45.2); HEMOGLOBIN 10.7 GM/dL (10.7-15.3); LYMPH % 20.7 % (8-40); MCH 28.8 pg (25.7-33.7); MCHC 33.3 g/dl (32.0-36.0); MEAN CELL VOLUME 86.3 fl (80-96); MEAN PLT VOLUME 9.2 fl (7.5-11.1); MONO % 9.2 % (3.8-10.2); NEUT % 66.8 % (42.8-82.8); PLATELET COUNT 280 10^3/uL (134-434); RBC 3.73 M/mm3 (3.60-5.2); RDW 16.4 % (11.6-15.6); WHITE BLOOD COUNT 14.8 K/mm3 (4.0-10.0)
[2022-10-29 07:43] LABS: POTASSIUM 4.7 mmol/L (3.5-5.1)
[2022-10-29 07:46] LABS: ALBUMIN 3.4 g/dl (3.4-5.0)
[2022-10-29 07:49] LABS: CREATININE 1.5 mg/dL (0.55-1.3)
[2022-10-29 07:51] LABS: BILIRUBIN,TOTAL 0.7 mg/dL (0.2-1); TOT PROT 6.9 g/dl (6.4-8.2)
[2022-10-29] MEDS: ESCITALOPRAM OXALATE 10 MG TABLET PO SCH (11:17)
[2022-10-29] MEDS: DONEPEZIL HCL 10 MG TABLET (FP) PO SCH (11:17)
[2022-10-29] MEDS: LOSARTAN POTASSIUM 50 MG TABLET PO SCH (11:17)
[2022-10-29] MEDS: CEFTRIAXONE 1 GM in DEXTROSE 5%-WATER - 50 ML IVPB SCH (11:17)
[2022-10-29] MEDS: levETIRAcetam 500 MG TABLET (FP) PO SCH ×2 (11:17→22:00)
[2022-10-29] MEDS: HEPARIN NA (PORCINE) 5,000 UNITS/ML 1ML VIAL SQ SCH ×2 (11:18→21:59)
[2022-10-29] MEDS: FLUTICASONE/UMECLIDIN/VILANTER(100-62.5-25 TRELEGY ELLIPTA) INAHLER IH SCH (11:19)
[2022-10-29] MEDS: amLODIPine BESYLATE 10 MG TABLET (FP) PO SCH (11:42)
[2022-10-29] MEDS: ATORVASTATIN CA 40 MG TABLET (FP) PO SCH (22:00)
[2022-10-30] MEDS: LEVOTHYROXINE NA 50 MCG TABLET (FP) PO SCH (06:11)
[2022-10-30] MEDS: INSULIN SLIDING SCALE (NOVOLOG) 1 VIAL SQ SCH ×4 (06:33→21:56)
[2022-10-30] MEDS: ESCITALOPRAM OXALATE 10 MG TABLET PO SCH (10:02)
[2022-10-30] MEDS: DONEPEZIL HCL 10 MG TABLET (FP) PO SCH (10:02)
[2022-10-30] MEDS: levETIRAcetam 500 MG TABLET (FP) PO SCH ×2 (10:02→21:48)
[2022-10-30] MEDS: amLODIPine BESYLATE 10 MG TABLET (FP) PO SCH (10:02)
[2022-10-30] MEDS: LOSARTAN POTASSIUM 50 MG TABLET PO SCH (10:02)
[2022-10-30] MEDS: FLUTICASONE/UMECLIDIN/VILANTER(100-62.5-25 TRELEGY ELLIPTA) INAHLER IH SCH (10:03)
[2022-10-30] MEDS: HEPARIN NA (PORCINE) 5,000 UNITS/ML 1ML VIAL SQ SCH ×2 (10:03→21:48)
[2022-10-30] MEDS ORDERED: INSULIN (NOVOLOG) ASPART 100 UNITS/ML 10ML VIAL ONE (21:09)
[2022-10-30] MEDS: ATORVASTATIN CA 40 MG TABLET (FP) PO SCH (21:48)
[2022-10-31] MEDS ORDERED: INSULIN (NOVOLOG) ASPART 100 UNITS/ML 10ML VIAL ONE ×2 (06:04→21:44)
[2022-10-31] MEDS: LEVOTHYROXINE NA 50 MCG TABLET (FP) PO SCH (06:10)
[2022-10-31] MEDS: INSULIN SLIDING SCALE (NOVOLOG) 1 VIAL SQ SCH ×4 (06:14→21:53)
[2022-10-31] MEDS: HEPARIN NA (PORCINE) 5,000 UNITS/ML 1ML VIAL SQ SCH ×2 (10:11→21:54)
[2022-10-31] MEDS: LOSARTAN POTASSIUM 50 MG TABLET PO SCH (10:11)
[2022-10-31] MEDS: ESCITALOPRAM OXALATE 10 MG TABLET PO SCH (10:11)
[2022-10-31] MEDS: DONEPEZIL HCL 10 MG TABLET (FP) PO SCH (10:11)
[2022-10-31] MEDS: amLODIPine BESYLATE 10 MG TABLET (FP) PO SCH (10:11)
[2022-10-31] MEDS: levETIRAcetam 500 MG TABLET (FP) PO SCH ×2 (10:14→21:54)
[2022-10-31] MEDS: FLUTICASONE/UMECLIDIN/VILANTER(100-62.5-25 TRELEGY ELLIPTA) INAHLER IH SCH (10:14)
[2022-10-31] MEDS: ATORVASTATIN CA 40 MG TABLET (FP) PO SCH (21:54)
[2022-11-01] MEDS ORDERED: INSULIN (NOVOLOG) ASPART 100 UNITS/ML 10ML VIAL ONE ×3 (05:50→21:10)
[2022-11-01] MEDS: INSULIN SLIDING SCALE (NOVOLOG) 1 VIAL SQ SCH ×4 (06:13→21:15)
[2022-11-01] MEDS: LEVOTHYROXINE NA 50 MCG TABLET (FP) PO SCH (06:15)
[2022-11-01] MEDS: DONEPEZIL HCL 10 MG TABLET (FP) PO SCH (10:26)
[2022-11-01] MEDS: LOSARTAN POTASSIUM 50 MG TABLET PO SCH (10:26)
[2022-11-01] MEDS: levETIRAcetam 500 MG TABLET (FP) PO SCH ×2 (10:26→21:15)
[2022-11-01] MEDS: amLODIPine BESYLATE 10 MG TABLET (FP) PO SCH (10:26)
[2022-11-01] MEDS: HEPARIN NA (PORCINE) 5,000 UNITS/ML 1ML VIAL SQ SCH (10:26)
[2022-11-01] MEDS: ESCITALOPRAM OXALATE 10 MG TABLET PO SCH (10:26)
[2022-11-01] MEDS: FLUTICASONE/UMECLIDIN/VILANTER(100-62.5-25 TRELEGY ELLIPTA) INAHLER IH SCH (10:28)
[2022-11-01] MEDS: ATORVASTATIN CA 40 MG TABLET (FP) PO SCH (21:15)
[2022-11-02] MEDS: LEVOTHYROXINE NA 50 MCG TABLET (FP) PO SCH (06:29)
[2022-11-02] MEDS: INSULIN SLIDING SCALE (NOVOLOG) 1 VIAL SQ SCH ×4 (06:34→21:00)
[2022-11-02 09:17] LABS: BASO % 0.7 % (0-2.0); EOS % 2.4 % (0-4.5); HEMATOCRIT 31.3 % (32.4-45.2); HEMOGLOBIN 10.3 GM/dL (10.7-15.3); LYMPH % 29.9 % (8-40); MCH 28.5 pg (25.7-33.7); MCHC 32.8 g/dl (32.0-36.0); MEAN CELL VOLUME 86.9 fl (80-96); MEAN PLT VOLUME 9.8 fl (7.5-11.1); MONO % 9.3 % (3.8-10.2); NEUT % 57.7 % (42.8-82.8); PLATELET COUNT 282 10^3/uL (134-434); RDW 16.3 % (11.6-15.6); WHITE BLOOD COUNT 11.8 K/mm3 (4.0-10.0)
[2022-11-02 09:40] LABS: POTASSIUM 4.5 mmol/L (3.5-5.1)
[2022-11-02 09:47] LABS: ALBUMIN 3.2 g/dl (3.4-5.0)
[2022-11-02 09:48] LABS: BLOOD UREA NITROGEN 24.9 mg/dL (7-18)
[2022-11-02 09:49] LABS: CALCIUM 8.7 mg/dL (8.5-10.1)
[2022-11-02 09:51] LABS: CREATININE 1.4 mg/dL (0.55-1.3)
[2022-11-02 09:53] LABS: TOT PROT 6.7 g/dl (6.4-8.2)
[2022-11-02 09:54] LABS: BILIRUBIN,TOTAL 0.3 mg/dL (0.2-1)
[2022-11-02] MEDS: ARIPiprazole 15 MG TABLET PO SCH (09:56)
[2022-11-02] MEDS: levETIRAcetam 500 MG TABLET (FP) PO SCH ×2 (09:56→21:01)
[2022-11-02] MEDS: amLODIPine BESYLATE 10 MG TABLET (FP) PO SCH (09:56)
[2022-11-02] MEDS: DONEPEZIL HCL 10 MG TABLET (FP) PO SCH (09:56)
[2022-11-02] MEDS: LOSARTAN POTASSIUM 50 MG TABLET PO SCH (09:56)
[2022-11-02] MEDS: ESCITALOPRAM OXALATE 10 MG TABLET PO SCH (09:56)
[2022-11-02] MEDS: FLUTICASONE/UMECLIDIN/VILANTER(100-62.5-25 TRELEGY ELLIPTA) INAHLER IH SCH (09:57)
[2022-11-02] MEDS: ATORVASTATIN CA 40 MG TABLET (FP) PO SCH (21:01)
[2022-11-03] MEDS: LEVOTHYROXINE NA 50 MCG TABLET (FP) PO SCH (06:06)
[2022-11-03] MEDS: INSULIN SLIDING SCALE (NOVOLOG) 1 VIAL SQ SCH ×4 (06:06→23:07)
[2022-11-03] MEDS: levETIRAcetam 500 MG TABLET (FP) PO SCH ×2 (11:13→22:06)
[2022-11-03] MEDS: LOSARTAN POTASSIUM 50 MG TABLET PO SCH (11:13)
[2022-11-03] MEDS: ESCITALOPRAM OXALATE 10 MG TABLET PO SCH (11:13)
[2022-11-03] MEDS: amLODIPine BESYLATE 10 MG TABLET (FP) PO SCH (11:13)
[2022-11-03] MEDS: DONEPEZIL HCL 10 MG TABLET (FP) PO SCH (11:13)
[2022-11-03] MEDS: ARIPiprazole 15 MG TABLET PO SCH (11:13)
[2022-11-03] MEDS ORDERED: INSULIN (NOVOLOG) ASPART 100 UNITS/ML 10ML VIAL ONE ×2 (12:01→22:54)
[2022-11-03] MEDS: FLUTICASONE/UMECLIDIN/VILANTER(100-62.5-25 TRELEGY ELLIPTA) INAHLER IH SCH (12:40)
[2022-11-03 22:02] VITALS: BP 123/57; PULSE 71; RESP 20; TEMP 97.8
[2022-11-03] MEDS: ATORVASTATIN CA 40 MG TABLET (FP) PO SCH (22:07)
== END 2022-11-04 03:00 | DRG 663 ==
LOC: JER 09:04 → OBSVTOIN 12:42 → JERBED 12:42 → J8W 15:07
PROVIDERS: ADMIT Internal Medicine; ATTEND Internal Medicine
DX: D72.829 Elevated white blood cell count, unspecified (principal); F03.90 Unspecified dementia, unspecified severity, without behavioral disturbance, psychotic disturbance, mood disturbance, and anxiety; I13.10 Hypertensive heart and chronic kidney disease without heart failure, with stage 1 through stage 4 chronic kidney disease, or unspecified chronic kidney disease; D64.9 Anemia, unspecified; E11.9 Type 2 diabetes mellitus without complications; R56.9 Unspecified convulsions; E03.9 Hypothyroidism, unspecified; F10.10 Alcohol abuse, uncomplicated; F14.90 Cocaine use, unspecified, uncomplicated; F17.210 Nicotine dependence, cigarettes, uncomplicated; F41.8 Other specified anxiety disorders; J44.9 Chronic obstructive pulmonary disease, unspecified; N18.9 Chronic kidney disease, unspecified; R09.02 Hypoxemia
CPT/HCPCS: 0241U-QW; 36415; 70450-TC; 71045-TC-FY; 80053; 81003; 82962; 84443; 85025; 85027; 87040; 87086; 93005; 93010; 94761; 97116-GP; 97161-GP; 99285-25; C9803-CS; J1644; U0003; U0005

== ENCOUNTER 2023-07-02 19:24 | Emergency (ER) | payer OTHER ==
[2023-07-02 19:31] VITALS: BP 114/74; PULSE 73; RESP 18; TEMP 98.2; BMI 32.9
[2023-07-02] MEDS ORDERED: INSULIN (LEVEMIR) 100 UNITS/ML UNITS SQ ONE (20:39)
[2023-07-02] MEDS ORDERED: INSULIN (NOVOLOG) ASPART 100 UNITS/ML 10ML VIAL SQ ONE (20:55)
[2023-07-02 21:18] LABS: BASO % 1.1 % (0-2.0); EOS % 2.4 % (0-4.5); HEMATOCRIT 35.6 % (32.4-45.2); HEMOGLOBIN 11.5 GM/dL (10.7-15.3); LYMPH % 31.4 % (8-40); MCHC 32.2 g/dl (32.0-36.0); MEAN CELL VOLUME 86.9 fl (80-96); MONO % 9.2 % (3.8-10.2); NEUT % 55.9 % (42.8-82.8); PLATELET COUNT 247 10^3/uL (134-434); RBC 4.09 M/mm3 (3.60-5.2); RDW 14.8 % (11.6-15.6); WHITE BLOOD COUNT 10.1 K/mm3 (4.0-10.0)
[2023-07-02 21:21] LABS: VENOUS BASE EXCESS -3.2 mmol/L (-2-2); VENOUS O2 SATURATION 49.1 % (70-80); VENOUS PH 7.323 (7.310-7.410)
[2023-07-02 21:41] LABS: CHLORIDE 102 mmol/L (98-107); POTASSIUM 4.1 mmol/L (3.5-5.1); SODIUM 132 mmol/L (136-145)
[2023-07-02 21:44] LABS: ALBUMIN 3.4 g/dl (3.4-5.0); ANION GAP 7 mmol/L (4-13); BLOOD UREA NITROGEN 18.2 mg/dL (7-18); CALCIUM 8.3 mg/dL (8.5-10.1); CO2 24 mmol/L (21-32)
[2023-07-02 21:47] LABS: CREATININE 1.7 mg/dL (0.55-1.3); SGOT/AST 83 U/L (15-37); SGPT/ALT 67 U/L (13-61)
[2023-07-02 21:48] LABS: BILIRUBIN,TOTAL 0.2 mg/dL (0.2-1)
[2023-07-02 21:49] LABS: TOT PROT 7.6 g/dl (6.4-8.2)
[2023-07-02 21:50] LABS: ALK PHOS 142 U/L (45-117)
[2023-07-02 22:13] LABS: GLUCOSE,RANDOM 481 mg/dL (74-106)
== END 2023-07-02 23:21 | disposition home or self-care (01) ==
LOC: JER 19:24
PROC: 3E013VG Introduction of Insulin into Subcutaneous Tissue, Percutaneous Approach (ICD-10-PCS; principal; 2023-07-02)
PROC: 3E013VG Introduction of Insulin into Subcutaneous Tissue, Percutaneous Approach (ICD-10-PCS; 2023-07-02)
DX: R73.9 Hyperglycemia, unspecified (principal); Z76.0 Encounter for issue of repeat prescription
CPT/HCPCS: 36415; 80053; 82010; 82803; 82962; 85025; 99284-25

== ENCOUNTER 2023-08-17 00:06 | Inpatient (IN) | payer OTHER ==
[2023-08-17 00:23] VITALS: BMI 32.0
[2023-08-17] MEDS ORDERED: levETIRAcetam 500 MG/5 ML INJECTION VIAL IVPB ONE (01:51)
[2023-08-17 01:55] LABS: BASO % 0.5 % (0-2.0); EOS % 1.4 % (0-4.5); HEMATOCRIT 33.3 % (32.4-45.2); HEMOGLOBIN 10.8 GM/dL (10.7-15.3); LYMPH % 17.1 % (8-40); MCH 28.1 pg (25.7-33.7); MCHC 32.4 g/dl (32.0-36.0); MEAN CELL VOLUME 86.7 fl (80-96); MEAN PLT VOLUME 9.2 fl (7.5-11.1); MONO % 7.7 % (3.8-10.2); NEUT % 73.3 % (42.8-82.8); PLATELET COUNT 288 10^3/uL (134-434); RBC 3.84 M/mm3 (3.60-5.2); RDW 17.1 % (11.6-15.6); WHITE BLOOD COUNT 15.1 K/mm3 (4.0-10.0)
[2023-08-17] MEDS: levETIRAcetam 500 MG/5 ML INJECTION VIAL IVPB ONE (02:03)
[2023-08-17 02:04] LABS: INR 1.03 (0.83-1.09); PROTHROMBIN TIME (PATIENT) 11.9 SEC (9.7-13.0)
[2023-08-17 02:07] LABS: ACTIVATED PTT 32.6 SECONDS (25.2-36.5)
[2023-08-17 02:18] LABS: POTASSIUM 4.3 mmol/L (3.5-5.1)
[2023-08-17 02:22] LABS: BLOOD UREA NITROGEN 25.8 mg/dL (7-18); CALCIUM 9.3 mg/dL (8.5-10.1)
[2023-08-17 02:25] LABS: CREATININE 1.7 mg/dL (0.55-1.3)
[2023-08-17 02:26] LABS: BILIRUBIN,TOTAL 0.3 mg/dL (0.2-1); TOT PROT 7.9 g/dl (6.4-8.2)
[2023-08-17 04:47] LABS: PH,URINE 5.5 (5.0-8.0); URINE APPEARANCE CLEAR; URINE BILIRUBIN NEGATIVE (NEGATIVE); URINE COLOR YELLOW; URINE GLUCOSE (UA) 1+ (NEGATIVE); URINE KETONE NEGATIVE (NEGATIVE); URINE LEUK ESTERASE NEGATIVE (NEGATIVE); URINE NITRITE NEGATIVE (NEGATIVE); URINE PROTEIN NEGATIVE (NEGATIVE); URINE UROBILINOGEN 0.2 mg/dL (0.2-1.0)
[2023-08-17] MEDS: DONEPEZIL HCL 10 MG TABLET (FP) PO SCH (13:04)
[2023-08-17] MEDS: levETIRAcetam 500 MG TABLET (FP) PO SCH (13:04)
[2023-08-17] MEDS: amLODIPine BESYLATE 10 MG TABLET (FP) PO SCH (13:04)
[2023-08-17] MEDS: FLUTICASONE/UMECLIDIN/VILANTER(100-62.5-25 TRELEGY ELLIPTA) INAHLER IH SCH (13:04)
[2023-08-17] MEDS: LEVOTHYROXINE NA 50 MCG TABLET (FP) PO SCH (13:04)
[2023-08-17] MEDS: ARIPiprazole 15 MG TABLET PO SCH (13:05)
[2023-08-17 16:16] LABS: BASO % 0.5 % (0-2.0); EOS % 1.8 % (0-4.5); HEMATOCRIT 32.8 % (32.4-45.2); HEMOGLOBIN 10.6 GM/dL (10.7-15.3); LYMPH % 17.2 % (8-40); MCH 28.1 pg (25.7-33.7); MCHC 32.1 g/dl (32.0-36.0); MEAN CELL VOLUME 87.5 fl (80-96); MEAN PLT VOLUME 9.9 fl (7.5-11.1); MONO % 6.8 % (3.8-10.2); NEUT % 73.7 % (42.8-82.8); PLATELET COUNT 286 10^3/uL (134-434); RBC 3.75 M/mm3 (3.60-5.2); RDW 16.7 % (11.6-15.6); WHITE BLOOD COUNT 11.9 K/mm3 (4.0-10.0)
[2023-08-17] MEDS: INSULIN ASPART SLIDING SCALE (NOVOLOG) 1 VIAL SQ SCH (16:17)
[2023-08-17 16:40] LABS: POTASSIUM 4.6 mmol/L (3.5-5.1)
[2023-08-17 16:42] LABS: ALBUMIN 3.6 g/dl (3.4-5.0)
[2023-08-17 16:43] LABS: BLOOD UREA NITROGEN 23.6 mg/dL (7-18)
[2023-08-17 16:45] LABS: CREATININE 1.6 mg/dL (0.55-1.3)
[2023-08-17 16:47] LABS: BILIRUBIN,TOTAL 0.3 mg/dL (0.2-1); TOT PROT 7.2 g/dl (6.4-8.2)
[2023-08-17] MEDS: levETIRAcetam 250 MG TABLET PO SCH (21:45)
[2023-08-17] MEDS: ATORVASTATIN CA 40 MG TABLET (FP) PO SCH (21:45)
[2023-08-17] MEDS: DEXTROSE 5%-0.45% SALINE 1,000 ML IV SCH (21:55)
[2023-08-17] MEDS: HEPARIN NA (PORCINE) 5,000 UNITS/ML 1ML VIAL SQ SCH (21:56)
[2023-08-17] MEDS: INSULIN (LEVEMIR) 100 UNITS/ML UNITS SQ SCH (21:56)
[2023-08-18 08:37] LABS: BASO % 0.8 % (0-2.0); HEMATOCRIT 31.6 % (32.4-45.2); HEMOGLOBIN 10.3 GM/dL (10.7-15.3); LYMPH % 25.5 % (8-40); MCH 28.2 pg (25.7-33.7); MCHC 32.4 g/dl (32.0-36.0); MEAN CELL VOLUME 87.1 fl (80-96); MEAN PLT VOLUME 9.6 fl (7.5-11.1); MONO % 9.5 % (3.8-10.2); NEUT % 61.2 % (42.8-82.8); PLATELET COUNT 275 10^3/uL (134-434); RBC 3.63 M/mm3 (3.60-5.2); RDW 16.7 % (11.6-15.6); WHITE BLOOD COUNT 12.5 K/mm3 (4.0-10.0)
[2023-08-18 08:53] LABS: POTASSIUM 4.1 mmol/L (3.5-5.1)
[2023-08-18 08:55] LABS: CALCIUM 8.9 mg/dL (8.5-10.1)
[2023-08-18 08:56] LABS: BLOOD UREA NITROGEN 25.7 mg/dL (7-18)
[2023-08-18 08:57] LABS: ALBUMIN 3.5 g/dl (3.4-5.0)
[2023-08-18 09:00] LABS: CREATININE 1.4 mg/dL (0.55-1.3)
[2023-08-18 09:02] LABS: BILIRUBIN,TOTAL 0.3 mg/dL (0.2-1); TOT PROT 7.1 g/dl (6.4-8.2)
[2023-08-18] MEDS: LOSARTAN POTASSIUM 50 MG TABLET PO SCH (09:56)
[2023-08-18] MEDS: ESCITALOPRAM OXALATE 10 MG TABLET PO SCH (09:57)
[2023-08-18 14:11] VITALS: BP 135/75; PULSE 89; RESP 20; TEMP 97.7
== END 2023-08-18 15:49 | disposition home health service (06) | DRG 101 ==
LOC: JER 00:06 → JERBED 09:41 → J7W 11:56
PROVIDERS: ADMIT Internal Medicine; ATTEND Internal Medicine
DX: R56.9 Unspecified convulsions (principal); N17.9 Acute kidney failure, unspecified; J44.9 Chronic obstructive pulmonary disease, unspecified; E03.9 Hypothyroidism, unspecified; F32.A Depression, unspecified; E78.5 Hyperlipidemia, unspecified; F03.90 Unspecified dementia, unspecified severity, without behavioral disturbance, psychotic disturbance, mood disturbance, and anxiety; I12.9 Hypertensive chronic kidney disease with stage 1 through stage 4 chronic kidney disease, or unspecified chronic kidney disease; E11.22 Type 2 diabetes mellitus with diabetic chronic kidney disease; N18.9 Chronic kidney disease, unspecified; Z79.4 Long term (current) use of insulin; D72.829 Elevated white blood cell count, unspecified; D64.9 Anemia, unspecified; E11.42 Type 2 diabetes mellitus with diabetic polyneuropathy
CPT/HCPCS: 0241U-QW; 36415; 70450-TC; 71045-TC-FY; 80053; 80177; 81003; 82962; 83036; 84443; 84484; 85025; 85610; 85730; 87086; 93005; 93010; 99285-25; J1644

== ENCOUNTER 2023-09-02 03:14 | Inpatient (IN) | payer OTHER ==
[2023-09-02 05:20] LABS: EOS % 2.6 % (0-4.5); HEMATOCRIT 35.7 % (32.4-45.2); HEMOGLOBIN 11.3 GM/dL (10.7-15.3); LYMPH % 20.6 % (8-40); MCHC 31.7 g/dl (32.0-36.0); MEAN CELL VOLUME 88.3 fl (80-96); MEAN PLT VOLUME 10.1 fl (7.5-11.1); MONO % 7.6 % (3.8-10.2); NEUT % 68.2 % (42.8-82.8); PLATELET COUNT 345 10^3/uL (134-434); RBC 4.04 M/mm3 (3.60-5.2); RDW 17.1 % (11.6-15.6); WHITE BLOOD COUNT 14.4 K/mm3 (4.0-10.0)
[2023-09-02 05:47] LABS: POTASSIUM 4.4 mmol/L (3.5-5.1)
[2023-09-02 05:50] LABS: ALBUMIN 3.8 g/dl (3.4-5.0); BLOOD UREA NITROGEN 33.2 mg/dL (7-18)
[2023-09-02 05:54] LABS: BILIRUBIN,TOTAL 0.2 mg/dL (0.2-1)
[2023-09-02] MEDS: SODIUM CHLORIDE 0.9% 500 ML INFUS.BAG IV ONE (06:43)
[2023-09-02 07:50] LABS: EPI CELLS 29 /uL (0-25.1); HYALINE CASTS 1 /uL (0-3.1); PH,URINE 5.5 (5.0-8.0); URINE APPEARANCE CLEAR; URINE BACTERIA 1380 /uL (0-1359); URINE BILIRUBIN NEGATIVE (NEGATIVE); URINE COLOR YELLOW; URINE GLUCOSE (UA) 3+ (NEGATIVE); URINE KETONE NEGATIVE (NEGATIVE); URINE LEUK ESTERASE NEGATIVE (NEGATIVE); URINE NITRITE NEGATIVE (NEGATIVE); URINE PROTEIN 1+ (NEGATIVE); URINE RBC 5 /uL (0-23.9); URINE UROBILINOGEN 0.2 mg/dL (0.2-1.0); URINE WBC 23 /uL (0-25.8)
[2023-09-02] MEDS: LACTATED RINGERS SOLUTION 1,000 ML/1,000 ML INFUS.BAG IV SCH (09:54)
[2023-09-02 11:00] VITALS: BMI 34.9
[2023-09-02] MEDS: amLODIPine BESYLATE 10 MG TABLET (FP) PO SCH (12:33)
[2023-09-02] MEDS: ESCITALOPRAM OXALATE 10 MG TABLET PO SCH (12:33)
[2023-09-02] MEDS: LEVOTHYROXINE NA 50 MCG TABLET (FP) PO SCH (12:33)
[2023-09-02] MEDS: levETIRAcetam 250 MG TABLET PO SCH (12:33)
[2023-09-02] MEDS: ARIPiprazole 15 MG TABLET PO SCH (13:41)
[2023-09-02] MEDS: FLUTICASONE/UMECLIDIN/VILANTER(100-62.5-25 TRELEGY ELLIPTA) INAHLER IH SCH (13:41)
[2023-09-02] MEDS: INSULIN ASPART SLIDING SCALE (NOVOLOG) 1 VIAL SQ SCH (17:39)
[2023-09-02] MEDS ORDERED: INSULIN (NOVOLOG) ASPART 100 UNITS/ML 10ML VIAL ONE (20:37)
[2023-09-02] MEDS: CEFTRIAXONE 1 GM in DEXTROSE 5%-WATER - 50 ML IVPB SCH (20:49)
[2023-09-02] MEDS: ATORVASTATIN CA 40 MG TABLET (FP) PO SCH (21:04)
[2023-09-02] MEDS ORDERED: DONEPEZIL HCL 10 MG TABLET (FP) PO SCH (22:00)
[2023-09-02] MEDS ORDERED: PATIENT'S OWN MEDICATION (NON-FORMULARY) (Ertugliflozin Pidolate 5 MG Tablet) PO SCH (22:00)
[2023-09-03] MEDS: LOSARTAN POTASSIUM 50 MG TABLET PO SCH (10:35)
[2023-09-03] MEDS: ENOXAPARIN NA (PORCINE) 40 MG/0.4 ML DISP.SYRIN SQ SCH (10:36)
[2023-09-03] MEDS ORDERED: INSULIN (NOVOLOG) ASPART 100 UNITS/ML 10ML VIAL ONE ×2 (16:41→21:23)
[2023-09-04 05:59] VITALS: RESP 18
[2023-09-04 08:23] LABS: BASO % 1.3 % (0-2.0); EOS % 1.9 % (0-4.5); HEMOGLOBIN 10.1 GM/dL (10.7-15.3); LYMPH % 17.8 % (8-40); MCH 27.7 pg (25.7-33.7); MCHC 31.5 g/dl (32.0-36.0); MEAN CELL VOLUME 87.9 fl (80-96); MEAN PLT VOLUME 9.7 fl (7.5-11.1); MONO % 8.6 % (3.8-10.2); NEUT % 70.4 % (42.8-82.8); PLATELET COUNT 280 10^3/uL (134-434); RBC 3.65 M/mm3 (3.60-5.2); RDW 17.1 % (11.6-15.6); WHITE BLOOD COUNT 15.5 K/mm3 (4.0-10.0)
[2023-09-04 08:31] LABS: POTASSIUM 4.1 mmol/L (3.5-5.1)
[2023-09-04 08:34] LABS: ALBUMIN 3.7 g/dl (3.4-5.0); BLOOD UREA NITROGEN 19.7 mg/dL (7-18); CALCIUM 9.5 mg/dL (8.5-10.1)
[2023-09-04 08:37] LABS: CREATININE 1.4 mg/dL (0.55-1.3)
[2023-09-04 08:38] LABS: BILIRUBIN,TOTAL 0.4 mg/dL (0.2-1); TOT PROT 7.6 g/dl (6.4-8.2)
[2023-09-04] MEDS: CEPHALEXIN MONOHYDRATE 500 MG CAPSULE (UD) PO SCH (10:26)
[2023-09-04] MEDS ORDERED: INSULIN (NOVOLOG) ASPART 100 UNITS/ML 10ML VIAL ONE (11:20)
[2023-09-04 14:36] VITALS: BP 160/86; PULSE 89; TEMP 98.1
== END 2023-09-04 15:20 | disposition home or self-care (01) | DRG 637 ==
LOC: JER 03:14 → JERBED 07:08 → J7W 10:15
PROVIDERS: ADMIT Internal Medicine; ATTEND Internal Medicine
DX: E11.649 Type 2 diabetes mellitus with hypoglycemia without coma (principal); G93.41 Metabolic encephalopathy; N39.0 Urinary tract infection, site not specified; F03.911 Unspecified dementia, unspecified severity, with agitation; E03.9 Hypothyroidism, unspecified; J44.9 Chronic obstructive pulmonary disease, unspecified; F32.9 Major depressive disorder, single episode, unspecified; E11.22 Type 2 diabetes mellitus with diabetic chronic kidney disease; D64.9 Anemia, unspecified; N18.9 Chronic kidney disease, unspecified; E78.5 Hyperlipidemia, unspecified; I25.10 Atherosclerotic heart disease of native coronary artery without angina pectoris
CPT/HCPCS: 36415; 71045-TC-FY; 80053; 81003; 82962; 83036; 84443; 85025; 87086; 93005; 93010; 99285-25

== ENCOUNTER 2023-10-12 05:22 | Inpatient (IN) | payer OTHER ==
[2023-10-12] MEDS ORDERED: ALBUTEROL SO4 2.5/IPRATROPIUM 0.5 INH SOL 3 ML VIAL.NEB. NEB ONE ×2 (06:44→08:24)
[2023-10-12] MEDS: ALBUTEROL SO4 2.5/IPRATROPIUM 0.5 INH SOL 3 ML VIAL.NEB. NEB ONE ×2 (06:48→08:26)
[2023-10-12 06:50] LABS: VENOUS BASE EXCESS -2.1 mmol/L (-2-2); VENOUS O2 SATURATION 44.7 % (70-80); VENOUS PCO2 57.1 mmHg (38-52); VENOUS PH 7.268 (7.310-7.410)
[2023-10-12 06:52] LABS: BASO % 0.9 % (0-2.0); EOS % 3.3 % (0-4.5); HEMATOCRIT 33.4 % (32.4-45.2); HEMOGLOBIN 10.4 GM/dL (10.7-15.3); LYMPH % 16.1 % (8-40); MCH 27.2 pg (25.7-33.7); MCHC 31.1 g/dl (32.0-36.0); MEAN CELL VOLUME 87.7 fl (80-96); MEAN PLT VOLUME 9.6 fl (7.5-11.1); MONO % 10.4 % (3.8-10.2); NEUT % 69.3 % (42.8-82.8); PLATELET COUNT 329 10^3/uL (134-434); RBC 3.81 M/mm3 (3.60-5.2); RDW 17.1 % (11.6-15.6); WHITE BLOOD COUNT 13.1 K/mm3 (4.0-10.0)
[2023-10-12 07:12] LABS: POTASSIUM 4.4 mmol/L (3.5-5.1)
[2023-10-12 07:14] LABS: ALBUMIN 3.5 g/dl (3.4-5.0); BLOOD UREA NITROGEN 29.1 mg/dL (7-18); MAGNESIUM 1.9 mg/dL (1.8-2.4)
[2023-10-12 07:18] LABS: CREATININE 1.9 mg/dL (0.55-1.3)
[2023-10-12 07:19] LABS: BILIRUBIN,TOTAL 0.2 mg/dL (0.2-1); TOT PROT 7.5 g/dl (6.4-8.2)
[2023-10-12] MEDS ORDERED: ACETAMINOPHEN INJECTION 100 ML IVPB ONE (08:09)
[2023-10-12] MEDS: ACETAMINOPHEN 1000 MG/100 ML BAG IVPB ONE (08:09)
[2023-10-12] MEDS: SODIUM CHLORIDE 500 ML IV STA (08:10)
[2023-10-12] MEDS ORDERED: methylPREDNISolone NA SUCC 125 MG/2 ML VIAL ONE (08:24)
[2023-10-12] MEDS ORDERED: AZITHROMYCIN IVPB 500 MG/250 ML BAG IVPB ONE (08:25)
[2023-10-12] MEDS: AZITHROMYCIN IVPB 500 MG in DEXTROSE 5%-WATER - 250 ML IVPB ONE (08:26)
[2023-10-12] MEDS: methylPREDNISolone NA SUCC 125 MG/2 ML VIAL IVPB ONE (08:26)
[2023-10-12 09:49] LABS: PH,URINE 5.5 (5.0-8.0); URINE APPEARANCE Error; URINE BILIRUBIN NEGATIVE (NEGATIVE); URINE COLOR YELLOW; URINE GLUCOSE (UA) 3+ (NEGATIVE); URINE KETONE NEGATIVE (NEGATIVE); URINE LEUK ESTERASE NEGATIVE (NEGATIVE); URINE NITRITE NEGATIVE (NEGATIVE); URINE PROTEIN TRACE (NEGATIVE); URINE UROBILINOGEN 0.2 mg/dL (0.2-1.0)
[2023-10-12 12:32] VITALS: BMI 34.5
[2023-10-12] MEDS: SODIUM CHLORIDE 0.45% 1,000 ML IV SCH (16:23)
[2023-10-12] MEDS: amLODIPine BESYLATE 10 MG TABLET (FP) PO SCH (17:03)
[2023-10-12] MEDS: LEVOTHYROXINE NA 50 MCG TABLET (FP) PO SCH (17:03)
[2023-10-12] MEDS: levETIRAcetam 250 MG TABLET PO SCH (22:47)
[2023-10-12] MEDS: INSULIN ASPART SLIDING SCALE (NOVOLOG) 1 VIAL SQ SCH (22:48)
[2023-10-12] MEDS: ATORVASTATIN CA 40 MG TABLET (FP) PO SCH (22:48)
[2023-10-13 08:09] LABS: POTASSIUM 4.6 mmol/L (3.5-5.1)
[2023-10-13 08:11] LABS: ALBUMIN 3.3 g/dl (3.4-5.0); BLOOD UREA NITROGEN 36.8 mg/dL (7-18)
[2023-10-13 08:15] LABS: CREATININE 1.6 mg/dL (0.55-1.3)
[2023-10-13 08:16] LABS: BILIRUBIN,TOTAL 0.2 mg/dL (0.2-1)
[2023-10-13] MEDS: ESCITALOPRAM OXALATE 10 MG TABLET PO SCH (10:09)
[2023-10-13] MEDS: ARIPiprazole 15 MG TABLET PO SCH (10:09)
[2023-10-13] MEDS: INSULIN ASPART SLIDING SCALE (NOVOLOG) 1 VIAL SQ SCH (12:14)
[2023-10-13] MEDS ORDERED: INSULIN (NOVOLOG) ASPART 100 UNITS/ML 10ML VIAL ONE ×2 (17:12→21:40)
[2023-10-13 21:12] VITALS: RESP 18
[2023-10-14 11:36] VITALS: TEMP 98.4
[2023-10-14 14:57] VITALS: BP 160/87
[2023-10-14 17:17] VITALS: PULSE 144
== END 2023-10-14 18:21 | disposition home or self-care (01) | DRG 202 ==
LOC: JER 05:22 → JERBED 09:10 → J8W 11:47
PROVIDERS: ADMIT Internal Medicine; ATTEND Internal Medicine
DX: J20.9 Acute bronchitis, unspecified (principal); J44.1 Chronic obstructive pulmonary disease with (acute) exacerbation; E78.5 Hyperlipidemia, unspecified; I12.9 Hypertensive chronic kidney disease with stage 1 through stage 4 chronic kidney disease, or unspecified chronic kidney disease; F03.90 Unspecified dementia, unspecified severity, without behavioral disturbance, psychotic disturbance, mood disturbance, and anxiety; E11.22 Type 2 diabetes mellitus with diabetic chronic kidney disease; E03.9 Hypothyroidism, unspecified; R09.02 Hypoxemia; F10.10 Alcohol abuse, uncomplicated; N18.9 Chronic kidney disease, unspecified
CPT/HCPCS: 0241U-QW; 36415; 71045-TC-FY; 80053; 81003; 82803; 82962; 83735; 85025; 87086; 93005; 93010; 94761; 99285-25; J0131

== ENCOUNTER 2023-11-03 09:21 | Inpatient (IN) | payer OTHER ==
[2023-11-03 10:47] LABS: HEMATOCRIT 34.4 % (32.4-45.2); HEMOGLOBIN 10.9 GM/dL (10.7-15.3); MCH 27.4 pg (25.7-33.7); MCHC 31.7 g/dl (32.0-36.0); MEAN CELL VOLUME 86.4 fl (80-96); MEAN PLT VOLUME 10.1 fl (7.5-11.1); PLATELET COUNT 384 10^3/uL (134-434); RBC 3.98 M/mm3 (3.60-5.2); RDW 16.8 % (11.6-15.6); VENOUS BASE EXCESS -4.4 mmol/L (-2-2); VENOUS O2 SATURATION 31.8 % (70-80); VENOUS PH 7.28 (7.310-7.410); WHITE BLOOD COUNT 17.8 K/mm3 (4.0-10.0)
[2023-11-03 10:49] VITALS: BMI 26.4
[2023-11-03] MEDS ORDERED: methylPREDNISolone NA SUCC 125 MG/2 ML VIAL ONE (10:56)
[2023-11-03] MEDS ORDERED: ALBUTEROL SO4 2.5/IPRATROPIUM 0.5 INH SOL 3 ML VIAL.NEB. NEB ONE (10:56)
[2023-11-03] MEDS: LACTATED RINGERS SOLUTION 1000 ML INFUS.BAG IV ONE (11:01)
[2023-11-03] MEDS: methylPREDNISolone NA SUCC 125 MG/2 ML VIAL IVPB ONE (11:01)
[2023-11-03] MEDS: ALBUTEROL SO4 2.5/IPRATROPIUM 0.5 INH SOL 3 ML VIAL.NEB. NEB ONE (11:01)
[2023-11-03 11:05] LABS: POTASSIUM 5.3 mmol/L (3.5-5.1)
[2023-11-03 11:07] LABS: CALCIUM 10.1 mg/dL (8.5-10.1)
[2023-11-03 11:08] LABS: ALBUMIN 3.8 g/dl (3.4-5.0); BLOOD UREA NITROGEN 41.9 mg/dL (7-18)
[2023-11-03 11:11] LABS: CREATININE 2.3 mg/dL (0.55-1.3)
[2023-11-03 11:12] LABS: BILIRUBIN,TOTAL 0.3 mg/dL (0.2-1); TOT PROT 8.1 g/dl (6.4-8.2)
[2023-11-03] MEDS ORDERED: PIPERACILLIN/TAZOB 4.5 GM 4.5 GM/100 ML BAG IVPB ONE (11:36)
[2023-11-03] MEDS ORDERED: VANCOMYCIN 1 GRAM (PRE-DOCKED) 1,000 MG/250 ML BAG IVPB ONE (11:36)
[2023-11-03] MEDS ORDERED: AZITHROMYCIN IVPB 500 MG/250 ML BAG IVPB ONE (11:50)
[2023-11-03] MEDS: AZITHROMYCIN IVPB 500 MG in DEXTROSE 5%-WATER - 250 ML IVPB ONE (12:08)
[2023-11-03] MEDS: PIPERACILLIN/TAZOB 4.5 GM 4.5 GM in DEXTROSE 5%-WATER 100 ML IVPB ONE (12:08)
[2023-11-03] MEDS: VANCOMYCIN 1 GM PREMIX - 1 GM/200 ML BAG IVPB ONE (12:48)
[2023-11-03] MEDS ORDERED: ALBUTEROL SO4 2.5/IPRATROPIUM 0.5 INH SOL 3 ML VIAL.NEB. NEB PRN (15:18)
[2023-11-03] MEDS: FLUTICASONE/UMECLIDIN/VILANTER(100-62.5-25 TRELEGY ELLIPTA) INAHLER IH SCH (16:04)
[2023-11-03] MEDS: INSULIN ASPART SLIDING SCALE (NOVOLOG) 1 VIAL SQ SCH (17:36)
[2023-11-03] MEDS: SODIUM CHLORIDE 1,000 ML IV SCH (21:00)
[2023-11-03] MEDS: INSULIN (LEVEMIR) 100 UNITS/ML UNITS SQ SCH (21:46)
[2023-11-03] MEDS: levETIRAcetam 250 MG TABLET PO SCH (21:46)
[2023-11-03] MEDS: ATORVASTATIN CA 40 MG TABLET (FP) PO SCH (21:46)
[2023-11-03] MEDS: ASPIRIN 81 MG CHEWABLE TABLETS PO SCH (22:56)
[2023-11-04] MEDS: LEVOTHYROXINE NA 50 MCG TABLET (FP) PO SCH (06:23)
[2023-11-04 06:50] LABS: BASO % 0.1 % (0-2.0); HEMOGLOBIN 9.7 GM/dL (10.7-15.3); LYMPH % 8.1 % (8-40); MCH 27.1 pg (25.7-33.7); MCHC 31.4 g/dl (32.0-36.0); MEAN CELL VOLUME 86.4 fl (80-96); MEAN PLT VOLUME 9.7 fl (7.5-11.1); MONO % 6.4 % (3.8-10.2); NEUT % 85.4 % (42.8-82.8); PLATELET COUNT 298 10^3/uL (134-434); RBC 3.59 M/mm3 (3.60-5.2); RDW 16.7 % (11.6-15.6); WHITE BLOOD COUNT 17.8 K/mm3 (4.0-10.0)
[2023-11-04 07:01] LABS: POTASSIUM 5.2 mmol/L (3.5-5.1)
[2023-11-04 07:03] LABS: ALBUMIN 3.5 g/dl (3.4-5.0); BLOOD UREA NITROGEN 38.9 mg/dL (7-18); CALCIUM 8.6 mg/dL (8.5-10.1)
[2023-11-04 07:06] LABS: CREATININE 2.1 mg/dL (0.55-1.3)
[2023-11-04 07:08] LABS: BILIRUBIN,TOTAL 0.3 mg/dL (0.2-1); TOT PROT 7.1 g/dl (6.4-8.2)
[2023-11-04] MEDS ORDERED: LOSARTAN POTASSIUM 50 MG TABLET PO SCH (10:00)
[2023-11-04] MEDS: ESCITALOPRAM OXALATE 10 MG TABLET PO SCH (10:13)
[2023-11-04] MEDS: CEFTRIAXONE 1 GM in DEXTROSE 5%-WATER - 50 ML IVPB SCH (10:13)
[2023-11-04] MEDS: ENOXAPARIN NA (PORCINE) 30 MG/0.3 ML DISP.SYRIN SQ SCH (10:13)
[2023-11-04] MEDS: DONEPEZIL HCL 10 MG TABLET (FP) PO SCH (10:13)
[2023-11-04] MEDS: amLODIPine BESYLATE 10 MG TABLET (FP) PO SCH (10:14)
[2023-11-04] MEDS: ARIPiprazole 15 MG TABLET PO SCH (10:14)
[2023-11-04] MEDS: AZITHROMYCIN IVPB 250 MG in DEXTROSE 5%-WATER - 250 ML IVPB SCH ×2 (12:35→12:43)
[2023-11-04] MEDS: SODIUM ZIRCONIUM CYCLOSILICATE (LOKELMA) 5 GM PACKET PO SCH (16:37)
[2023-11-05 08:20] LABS: HEMATOCRIT 33.5 % (32.4-45.2); HEMOGLOBIN 10.5 GM/dL (10.7-15.3); MCH 27.1 pg (25.7-33.7); MCHC 31.3 g/dl (32.0-36.0); MEAN CELL VOLUME 86.6 fl (80-96); PLATELET COUNT 322 10^3/uL (134-434); RBC 3.87 M/mm3 (3.60-5.2); RDW 16.6 % (11.6-15.6); WHITE BLOOD COUNT 22.4 K/mm3 (4.0-10.0)
[2023-11-05 08:30] LABS: POTASSIUM 4.3 mmol/L (3.5-5.1)
[2023-11-05 08:35] LABS: ALBUMIN 3.9 g/dl (3.4-5.0); CALCIUM 9.3 mg/dL (8.5-10.1)
[2023-11-05 08:36] LABS: BLOOD UREA NITROGEN 23.6 mg/dL (7-18)
[2023-11-05 08:38] LABS: CREATININE 1.6 mg/dL (0.55-1.3)
[2023-11-05 08:39] LABS: BILIRUBIN,TOTAL 0.5 mg/dL (0.2-1)
[2023-11-05 09:41] LABS: ANISOCYTOSIS 0; HELMET CELLS 0; HOWELL-JOLLY BODIES 0; MACROCYTOSIS 0; OVALOCYTE 0; ROULEAU 0; SICKELED CELLS 0; TARGET CELLS 0; TEAR DROP CELLS 0; TOXIC GRANULATION 0
[2023-11-05] MEDS ORDERED: METOPROLOL TARTRATE 5 MG/5 ML VIAL IVPUSH PRN (14:58)
[2023-11-06 19:33] LABS: EPI CELLS >36 /uL (0-25.1); HYALINE CASTS 2 /uL (0-3.1); PH,URINE 5.5 (5.0-8.0); URINE APPEARANCE CLOUDY; URINE BACTERIA 4 /uL (0-1359); URINE BILIRUBIN NEGATIVE (NEGATIVE); URINE COLOR YELLOW; URINE GLUCOSE (UA) NEGATIVE (NEGATIVE); URINE KETONE NEGATIVE (NEGATIVE); URINE LEUK ESTERASE 2+ (NEGATIVE); URINE NITRITE NEGATIVE (NEGATIVE); URINE PROTEIN 1+ (NEGATIVE); URINE UROBILINOGEN 0.2 mg/dL (0.2-1.0); URINE WBC 25 /uL (0-25.8)
[2023-11-06 20:20] LABS: URINE CRYSTALS MODERATE /hpf; URINE RBC 28.7 /uL (0-23.9); YEAST MODERATE (NEGATIVE)
[2023-11-07 07:41] LABS: BASO % 0.7 % (0-2.0); EOS % 5.6 % (0-4.5); HEMATOCRIT 30.2 % (32.4-45.2); HEMOGLOBIN 9.6 GM/dL (10.7-15.3); LYMPH % 20.9 % (8-40); MCH 27.5 pg (25.7-33.7); MCHC 31.9 g/dl (32.0-36.0); MEAN CELL VOLUME 86.3 fl (80-96); MEAN PLT VOLUME 9.9 fl (7.5-11.1); MONO % 11.2 % (3.8-10.2); NEUT % 61.6 % (42.8-82.8); PLATELET COUNT 294 10^3/uL (134-434); RDW 16.4 % (11.6-15.6); WHITE BLOOD COUNT 13.9 K/mm3 (4.0-10.0)
[2023-11-07 07:49] LABS: POTASSIUM 4.4 mmol/L (3.5-5.1)
[2023-11-07 07:51] LABS: CALCIUM 8.6 mg/dL (8.5-10.1)
[2023-11-07 07:52] LABS: BLOOD UREA NITROGEN 23.1 mg/dL (7-18)
[2023-11-07 07:55] LABS: CREATININE 1.5 mg/dL (0.55-1.3)
[2023-11-07 07:56] LABS: BILIRUBIN,TOTAL 0.3 mg/dL (0.2-1); TOT PROT 6.7 g/dl (6.4-8.2)
[2023-11-08 07:17] LABS: BASO % 0.9 % (0-2.0); EOS % 7.4 % (0-4.5); HEMATOCRIT 31.1 % (32.4-45.2); HEMOGLOBIN 9.9 GM/dL (10.7-15.3); LYMPH % 22.8 % (8-40); MCH 27.4 pg (25.7-33.7); MCHC 31.8 g/dl (32.0-36.0); MEAN CELL VOLUME 86.3 fl (80-96); MEAN PLT VOLUME 9.6 fl (7.5-11.1); MONO % 11.1 % (3.8-10.2); NEUT % 57.8 % (42.8-82.8); PLATELET COUNT 299 10^3/uL (134-434); RDW 16.4 % (11.6-15.6); WHITE BLOOD COUNT 13.3 K/mm3 (4.0-10.0)
[2023-11-08 07:37] LABS: POTASSIUM 4.5 mmol/L (3.5-5.1)
[2023-11-08 07:49] LABS: BLOOD UREA NITROGEN 25.6 mg/dL (7-18)
[2023-11-08 07:51] LABS: BILIRUBIN,TOTAL 0.3 mg/dL (0.2-1); CALCIUM 8.9 mg/dL (8.5-10.1); TOT PROT 6.6 g/dl (6.4-8.2)
[2023-11-08 07:52] LABS: CREATININE 1.5 mg/dL (0.55-1.3)
[2023-11-08 11:04] LABS: N-TERMINAL BNP 298.4 pg/ml (5-125)
[2023-11-10 07:57] LABS: POTASSIUM 4.6 mmol/L (3.5-5.1)
[2023-11-10 08:02] LABS: ALBUMIN 3.1 g/dl (3.4-5.0); BLOOD UREA NITROGEN 20.9 mg/dL (7-18)
[2023-11-10 08:05] LABS: CREATININE 1.5 mg/dL (0.55-1.3)
[2023-11-10 08:06] LABS: TOT PROT 6.8 g/dl (6.4-8.2)
[2023-11-10 08:07] LABS: BILIRUBIN,TOTAL 0.3 mg/dL (0.2-1)
[2023-11-10] MEDS ORDERED: REGADENOSON 0.4 MG/5 ML PRE-FILLED SYRINGE IVPUSH ONE (10:01)
[2023-11-10] MEDS: REGADENOSON 0.4 MG/5 ML PRE-FILLED SYRINGE IVPUSH ONE (11:24)
[2023-11-11 08:19] VITALS: BP 143/75; PULSE 63; RESP 18; TEMP 98.8
== END 2023-11-11 13:29 | disposition home or self-care (01) | DRG 312 ==
LOC: JER 09:21 → JERBED 11:35 → J4W 16:56
PROVIDERS: ADMIT Internal Medicine; ATTEND Internal Medicine
DX: R55 Syncope and collapse (principal); N17.9 Acute kidney failure, unspecified; I24.89 Other forms of acute ischemic heart disease; E03.9 Hypothyroidism, unspecified; E78.5 Hyperlipidemia, unspecified; F03.90 Unspecified dementia, unspecified severity, without behavioral disturbance, psychotic disturbance, mood disturbance, and anxiety; J44.9 Chronic obstructive pulmonary disease, unspecified; D64.9 Anemia, unspecified; F32.A Depression, unspecified; R09.02 Hypoxemia; R56.9 Unspecified convulsions; E87.5 Hyperkalemia; I12.9 Hypertensive chronic kidney disease with stage 1 through stage 4 chronic kidney disease, or unspecified chronic kidney disease; E11.22 Type 2 diabetes mellitus with diabetic chronic kidney disease; N18.9 Chronic kidney disease, unspecified; Z91.148 Patient's other noncompliance with medication regimen for other reason
CPT/HCPCS: 36415; 71045-TC-FY; 78452-TC; 80053; 80061; 81003; 82803; 82962; 83036; 83880; 84443; 84484; 85025; 85027; 85379; 87040; 87086; 93005; 93010; 93017; 93306-TC; 93880-TC; 93970-TC; 94761; 97116-GP; 97161-GP; 99285-25; A9502; J2785

== ENCOUNTER 2024-06-04 19:31 | Observation (INO) | payer OTHER ==
[2024-06-04 20:01] VITALS: BMI 33.6
[2024-06-04 21:30] LABS: BASO % 0.8 % (0-2.0); EOS % 1.8 % (0-4.5); HEMATOCRIT 34.2 % (32.4-45.2); HEMOGLOBIN 10.7 GM/dL (10.7-15.3); LYMPH % 16.1 % (8-40); MCH 27.2 pg (25.7-33.7); MCHC 31.1 g/dl (32.0-36.0); MEAN CELL VOLUME 87.2 fl (80-96); MEAN PLT VOLUME 9.8 fl (7.5-11.1); MONO % 9.4 % (3.8-10.2); NEUT % 71.9 % (42.8-82.8); PLATELET COUNT 261 10^3/uL (134-434); RBC 3.92 M/mm3 (3.60-5.2); RDW 17.8 % (11.6-15.6); WHITE BLOOD COUNT 14.5 K/mm3 (4.0-10.0)
[2024-06-04] MEDS ORDERED: levETIRAcetam 500 MG TABLET (FP) PO ONE (21:32)
[2024-06-04 21:36] LABS: VENOUS BASE EXCESS 0.6 mmol/L (-2-2); VENOUS O2 SATURATION 75.8 % (70-80); VENOUS PCO2 51.5 mmHg (38-52); VENOUS PH 7.338 (7.310-7.410)
[2024-06-04] MEDS: SODIUM CHLORIDE 0.9% 500 ML INFUS.BAG IV ONE (21:39)
[2024-06-04] MEDS: levETIRAcetam 250 MG TABLET PO ONE (21:39)
[2024-06-04 21:42] LABS: PROTHROMBIN TIME (PATIENT) 11.3 SEC (9.7-13.0)
[2024-06-04 21:45] LABS: ACTIVATED PTT 31.4 SECONDS (25.2-36.5)
[2024-06-04 21:50] LABS: POTASSIUM 4.8 mmol/L (3.5-5.1)
[2024-06-04 21:52] LABS: ALBUMIN 3.8 g/dl (3.4-5.0); BLOOD UREA NITROGEN 28.2 mg/dL (7-18)
[2024-06-04 21:56] LABS: CREATININE 1.7 mg/dL (0.55-1.3)
[2024-06-04 21:57] LABS: BILIRUBIN,TOTAL 0.4 mg/dL (0.2-1); TOT PROT 7.6 g/dl (6.4-8.2)
[2024-06-04 21:58] LABS: URINE APPEARANCE Error; URINE BILIRUBIN NEGATIVE (NEGATIVE); URINE COLOR YELLOW; URINE GLUCOSE (UA) 2+ (NEGATIVE); URINE KETONE NEGATIVE (NEGATIVE); URINE LEUK ESTERASE NEGATIVE (NEGATIVE); URINE NITRITE NEGATIVE (NEGATIVE); URINE PROTEIN NEGATIVE (NEGATIVE); URINE UROBILINOGEN 0.2 mg/dL (0.2-1.0)
[2024-06-04 22:01] LABS: N-TERMINAL BNP 34.7 pg/ml (5-125)
[2024-06-05] MEDS ORDERED: ACETAMINOPHEN 325 MG TABLET (FP) PO PRN (01:50)
[2024-06-05 03:01] LABS: POTASSIUM 4.2 mmol/L (3.5-5.1)
[2024-06-05 03:03] LABS: BLOOD UREA NITROGEN 28.2 mg/dL (7-18); MAGNESIUM 2.2 mg/dL (1.8-2.4)
[2024-06-05 03:06] LABS: CREATININE 1.9 mg/dL (0.55-1.3)
[2024-06-05] MEDS: INSULIN ASPART SLIDING SCALE (NOVOLOG) 1 VIAL SQ SCH (06:54)
[2024-06-05] MEDS ORDERED: ALBUTEROL SO4 HFA INHALER IH PRN (07:13)
[2024-06-05] MEDS: LEVOTHYROXINE NA 50 MCG TABLET (FP) PO SCH (08:03)
[2024-06-05] MEDS: ESCITALOPRAM OXALATE 10 MG TABLET PO SCH (09:06)
[2024-06-05] MEDS: levETIRAcetam 500 MG TABLET (FP) PO SCH (09:06)
[2024-06-05] MEDS: LOSARTAN POTASSIUM 50 MG TABLET PO SCH (09:06)
[2024-06-05] MEDS: DONEPEZIL HCL 10 MG TABLET (FP) PO SCH (09:06)
[2024-06-05] MEDS: CLOPIDOGREL BISULFATE 75 MG TABLET (FP) PO SCH (09:06)
[2024-06-05] MEDS: amLODIPine BESYLATE 10 MG TABLET (FP) PO SCH (09:06)
[2024-06-05 09:09] LABS: BASO % 0.3 % (0-2.0); EOS % 2.5 % (0-4.5); HEMATOCRIT 34.6 % (32.4-45.2); MCH 27.7 pg (25.7-33.7); MCHC 31.6 g/dl (32.0-36.0); MEAN CELL VOLUME 87.6 fl (80-96); MEAN PLT VOLUME 9.7 fl (7.5-11.1); MONO % 9.8 % (3.8-10.2); NEUT % 69.4 % (42.8-82.8); PLATELET COUNT 241 10^3/uL (134-434); RBC 3.95 M/mm3 (3.60-5.2); RDW 17.9 % (11.6-15.6); WHITE BLOOD COUNT 11.9 K/mm3 (4.0-10.0)
[2024-06-05] MEDS: ARIPiprazole 15 MG TABLET PO SCH (09:11)
[2024-06-05 09:38] LABS: CALCIUM 9.3 mg/dL (8.5-10.1)
[2024-06-05 09:39] LABS: BLOOD UREA NITROGEN 24.4 mg/dL (7-18)
[2024-06-05 09:42] LABS: CREATININE 1.6 mg/dL (0.55-1.3)
[2024-06-05] MEDS ORDERED: ASPIRIN 81 MG CHEWABLE TABLETS PO SCH (10:00)
[2024-06-05 11:01] LABS: N-TERMINAL BNP 28.7 pg/ml (5-125)
[2024-06-05] MEDS: AMOX TR/POT CLAV 875MG/125MG TABLETS (FP) PO SCH (14:30)
[2024-06-05 16:42] VITALS: RESP 18
[2024-06-05] MEDS: INSULIN (LEVEMIR) 100 UNITS/ML UNITS SQ SCH (21:38)
[2024-06-05] MEDS: ATORVASTATIN CA 40 MG TABLET (FP) PO SCH (21:38)
[2024-06-06 08:40] LABS: BASO % 0.6 % (0-2.0); HEMATOCRIT 34.5 % (32.4-45.2); HEMOGLOBIN 10.6 GM/dL (10.7-15.3); LYMPH % 17.9 % (8-40); MCH 27.4 pg (25.7-33.7); MCHC 30.8 g/dl (32.0-36.0); MEAN PLT VOLUME 9.9 fl (7.5-11.1); MONO % 11.8 % (3.8-10.2); NEUT % 66.7 % (42.8-82.8); PLATELET COUNT 253 10^3/uL (134-434); RBC 3.87 M/mm3 (3.60-5.2); RDW 17.7 % (11.6-15.6); WHITE BLOOD COUNT 11.9 K/mm3 (4.0-10.0)
[2024-06-06 09:03] LABS: POTASSIUM 4.8 mmol/L (3.5-5.1)
[2024-06-06 09:15] LABS: ALBUMIN 3.4 g/dl (3.4-5.0); BLOOD UREA NITROGEN 26.1 mg/dL (7-18); CALCIUM 8.9 mg/dL (8.5-10.1)
[2024-06-06 09:18] LABS: CREATININE 1.7 mg/dL (0.55-1.3)
[2024-06-06 09:20] LABS: BILIRUBIN,TOTAL 0.4 mg/dL (0.2-1); TOT PROT 7.2 g/dl (6.4-8.2)
[2024-06-06 14:49] VITALS: BP 115/71; PULSE 90; TEMP 98.2
== END 2024-06-06 15:58 | disposition home or self-care (01) ==
LOC: JER 19:31 → INTOOBSV 23:46 → JERBED 23:46 → J5S 06-05 03:40
PROVIDERS: ADMIT Student in an Organized Health Care Education/Training Program; ATTEND Internal Medicine
PROC: 3E013VG Introduction of Insulin into Subcutaneous Tissue, Percutaneous Approach (ICD-10-PCS; principal; 2024-06-04)
PROC: 3E0337Z Introduction of Electrolytic and Water Balance Substance into Peripheral Vein, Percutaneous Approach (ICD-10-PCS; 2024-06-04)
DX: N17.9 Acute kidney failure, unspecified (principal); R41.82 Altered mental status, unspecified; N18.30 Chronic kidney disease, stage 3 unspecified; F03.90 Unspecified dementia, unspecified severity, without behavioral disturbance, psychotic disturbance, mood disturbance, and anxiety; E11.22 Type 2 diabetes mellitus with diabetic chronic kidney disease; I12.9 Hypertensive chronic kidney disease with stage 1 through stage 4 chronic kidney disease, or unspecified chronic kidney disease; R56.9 Unspecified convulsions; Z87.891 Personal history of nicotine dependence; E87.1 Hypo-osmolality and hyponatremia; E78.5 Hyperlipidemia, unspecified; I31.9 Disease of pericardium, unspecified; J44.9 Chronic obstructive pulmonary disease, unspecified; E03.9 Hypothyroidism, unspecified; F32.A Depression, unspecified; E66.9 Obesity, unspecified
CPT/HCPCS: 0241U-QW; 36415; 70450-TC; 71045-TC-FY; 71250-TC; 76604; 80048; 80053; 80177; 81003; 82803; 82962; 83036; 83735; 83880; 83930; 83935; 84300; 84439; 84443; 84484; 85025; 85610; 85730; 86140; 87086; 87186; 87899; 93005; 93010; 93308; 93970-TC; 95816; 96372; 97116-GP; 97161-GP; 99285-25; G0378

== ENCOUNTER 2024-06-16 23:02 | Inpatient (IN) | payer OTHER ==
[2024-06-16 23:31] VITALS: BMI 34.5
[2024-06-17] MEDS ORDERED: ALBUTEROL SO4 2.5/IPRATROPIUM 0.5 INH SOL 3 ML VIAL.NEB. NEB ONE (02:21)
[2024-06-17] MEDS: ALBUTEROL SO4 2.5/IPRATROPIUM 0.5 INH SOL 3 ML VIAL.NEB. NEB SCH (02:27)
[2024-06-17 03:59] LABS: BASO % 0.8 % (0-2.0); EOS % 1.4 % (0-4.5); HEMOGLOBIN 9.9 GM/dL (10.7-15.3); LYMPH % 14.3 % (8-40); MCH 27.5 pg (25.7-33.7); MEAN CELL VOLUME 85.9 fl (80-96); MEAN PLT VOLUME 9.6 fl (7.5-11.1); MONO % 11.6 % (3.8-10.2); NEUT % 71.9 % (42.8-82.8); PLATELET COUNT 247 10^3/uL (134-434); RBC 3.61 M/mm3 (3.60-5.2); RDW 17.5 % (11.6-15.6); WHITE BLOOD COUNT 13.9 K/mm3 (4.0-10.0)
[2024-06-17 04:14] LABS: POTASSIUM 4.9 mmol/L (3.5-5.1)
[2024-06-17 04:16] LABS: ALBUMIN 3.6 g/dl (3.4-5.0); CALCIUM 8.5 mg/dL (8.5-10.1)
[2024-06-17 04:17] LABS: BLOOD UREA NITROGEN 24.2 mg/dL (7-18)
[2024-06-17 04:20] LABS: CREATININE 1.6 mg/dL (0.55-1.3)
[2024-06-17 04:21] LABS: BILIRUBIN,TOTAL 0.4 mg/dL (0.2-1)
[2024-06-17 04:48] LABS: INR 1.01 (0.83-1.09); PROTHROMBIN TIME (PATIENT) 11.4 SEC (9.7-13.0)
[2024-06-17 04:51] LABS: ACTIVATED PTT 32.8 SECONDS (25.2-36.5)
[2024-06-17] MEDS ORDERED: ALBUTEROL SO4 HFA INHALER IH PRN (09:28)
[2024-06-17] MEDS ORDERED: FINERENONE 20 MG PO SCH (10:00)
[2024-06-17] MEDS ORDERED: LOSARTAN POTASSIUM 50 MG TABLET ONE (10:26)
[2024-06-17] MEDS ORDERED: CLOPIDOGREL BISULFATE 75 MG TABLET (FP) ONE (10:26)
[2024-06-17] MEDS ORDERED: DONEPEZIL HCL 5 MG TABLET (FP) ONE (10:26)
[2024-06-17] MEDS ORDERED: FUROSEMIDE 40 MG/4 ML INJECTABLE VIAL ONE (10:27)
[2024-06-17] MEDS ORDERED: LEVOTHYROXINE NA 50 MCG TABLET (FP) ONE (10:27)
[2024-06-17] MEDS ORDERED: ESCITALOPRAM OXALATE 10 MG TABLET ONE (10:27)
[2024-06-17] MEDS: CLOPIDOGREL BISULFATE 75 MG TABLET (FP) PO SCH (10:31)
[2024-06-17] MEDS: LEVOTHYROXINE NA 50 MCG TABLET (FP) PO SCH (10:31)
[2024-06-17] MEDS: ESCITALOPRAM OXALATE 10 MG TABLET PO SCH (10:31)
[2024-06-17] MEDS: LOSARTAN POTASSIUM 50 MG TABLET PO SCH (10:31)
[2024-06-17] MEDS: DONEPEZIL HCL 10 MG TABLET (FP) PO SCH (10:31)
[2024-06-17] MEDS: FUROSEMIDE 40 MG/4 ML INJECTABLE VIAL IVPUSH ONE (10:31)
[2024-06-17] MEDS: ARIPiprazole 15 MG TABLET PO SCH (10:31)
[2024-06-17] MEDS: levETIRAcetam 250 MG TABLET PO SCH (10:31)
[2024-06-17] MEDS: INSULIN ASPART SLIDING SCALE (NOVOLOG) 1 VIAL SQ SCH (12:03)
[2024-06-17] MEDS: FLUTICASONE/UMECLIDIN/VILANTER(100-62.5-25 TRELEGY ELLIPTA) INAHLER IH SCH (12:03)
[2024-06-17] MEDS ORDERED: INSULIN ASPART SLIDING SCALE (NOVOLOG) 1 VIAL SQ ONE (12:07)
[2024-06-17] MEDS: HEPARIN NA (PORCINE) 5,000 UNITS/ML 1ML VIAL SQ SCH (21:36)
[2024-06-17] MEDS: ATORVASTATIN CA 40 MG TABLET (FP) PO SCH (21:36)
[2024-06-17] MEDS: INSULIN (LEVEMIR) 100 UNITS/ML UNITS SQ SCH (21:36)
[2024-06-18] MEDS: FUROSEMIDE 40 MG/4 ML INJECTABLE VIAL IVPUSH SCH (09:26)
[2024-06-18 09:41] LABS: BASO % 0.5 % (0-2.0); EOS % 1.7 % (0-4.5); HEMATOCRIT 32.6 % (32.4-45.2); HEMOGLOBIN 10.2 GM/dL (10.7-15.3); LYMPH % 19.9 % (8-40); MCHC 31.2 g/dl (32.0-36.0); MEAN CELL VOLUME 86.7 fl (80-96); MEAN PLT VOLUME 9.6 fl (7.5-11.1); MONO % 12.5 % (3.8-10.2); NEUT % 65.4 % (42.8-82.8); PLATELET COUNT 266 10^3/uL (134-434); RBC 3.77 M/mm3 (3.60-5.2); RDW 17.6 % (11.6-15.6); WHITE BLOOD COUNT 12.5 K/mm3 (4.0-10.0)
[2024-06-18 09:48] LABS: POTASSIUM 4.6 mmol/L (3.5-5.1)
[2024-06-18 10:06] LABS: CALCIUM 8.9 mg/dL (8.5-10.1)
[2024-06-18 10:07] LABS: ALBUMIN 3.4 g/dl (3.4-5.0)
[2024-06-18 10:08] LABS: BLOOD UREA NITROGEN 22.7 mg/dL (7-18)
[2024-06-18 10:10] LABS: BILIRUBIN,TOTAL 0.5 mg/dL (0.2-1); CREATININE 1.5 mg/dL (0.55-1.3); TOT PROT 6.9 g/dl (6.4-8.2)
[2024-06-19 13:12] LABS: BASO % 1.1 % (0-2.0); EOS % 2.6 % (0-4.5); HEMATOCRIT 32.5 % (32.4-45.2); HEMOGLOBIN 10.3 GM/dL (10.7-15.3); MCH 27.6 pg (25.7-33.7); MCHC 31.7 g/dl (32.0-36.0); MEAN CELL VOLUME 86.9 fl (80-96); MEAN PLT VOLUME 9.7 fl (7.5-11.1); MONO % 9.1 % (3.8-10.2); NEUT % 70.2 % (42.8-82.8); PLATELET COUNT 277 10^3/uL (134-434); RBC 3.74 M/mm3 (3.60-5.2); RDW 17.3 % (11.6-15.6); WHITE BLOOD COUNT 11.9 K/mm3 (4.0-10.0)
[2024-06-19 13:30] LABS: POTASSIUM 4.4 mmol/L (3.5-5.1)
[2024-06-19 13:31] LABS: BLOOD UREA NITROGEN 24.8 mg/dL (7-18); CALCIUM 9.2 mg/dL (8.5-10.1)
[2024-06-19 13:36] LABS: CREATININE 1.6 mg/dL (0.55-1.3)
[2024-06-20 09:55] LABS: HEMATOCRIT 30.1 % (32.4-45.2); HEMOGLOBIN 9.4 GM/dL (10.7-15.3); MCH 27.1 pg (25.7-33.7); MCHC 31.4 g/dl (32.0-36.0); MEAN CELL VOLUME 86.4 fl (80-96); MEAN PLT VOLUME 9.6 fl (7.5-11.1); PLATELET COUNT 262 10^3/uL (134-434); RBC 3.48 M/mm3 (3.60-5.2); RDW 17.5 % (11.6-15.6); WHITE BLOOD COUNT 12.7 K/mm3 (4.0-10.0)
[2024-06-20 10:04] LABS: POTASSIUM 4.3 mmol/L (3.5-5.1)
[2024-06-20] MEDS: FUROSEMIDE 40 MG TABLET (FP) PO SCH (10:24)
[2024-06-20 10:30] LABS: CALCIUM 8.7 mg/dL (8.5-10.1)
[2024-06-20 10:34] LABS: CREATININE 1.5 mg/dL (0.55-1.3)
[2024-06-20 14:19] LABS: ANISOCYTOSIS 0; HELMET CELLS 0; HOWELL-JOLLY BODIES 0; MACROCYTOSIS 0; OVALOCYTE 0; ROULEAU 0; SICKELED CELLS 0; TARGET CELLS 0; TEAR DROP CELLS 0; TOXIC GRANULATION 0
[2024-06-21] MEDS ORDERED: ALBUTEROL SO4 2.5/IPRATROPIUM 0.5 INH SOL 3 ML VIAL.NEB. NEB PRN (11:35)
[2024-06-21] MEDS: DONEPEZIL HCL 10 MG TABLET (FP) PO SCH (21:23)
[2024-06-22 09:18] LABS: BASO % 0.5 % (0-2.0); EOS % 3.3 % (0-4.5); HEMATOCRIT 28.8 % (32.4-45.2); HEMOGLOBIN 9.2 GM/dL (10.7-15.3); LYMPH % 21.5 % (8-40); MCH 28.2 pg (25.7-33.7); MCHC 31.9 g/dl (32.0-36.0); MEAN CELL VOLUME 88.4 fl (80-96); MEAN PLT VOLUME 9.6 fl (7.5-11.1); MONO % 11.4 % (3.8-10.2); NEUT % 63.3 % (42.8-82.8); PLATELET COUNT 272 10^3/uL (134-434); RBC 3.25 M/mm3 (3.60-5.2)
[2024-06-22 09:37] LABS: POTASSIUM 4.6 mmol/L (3.5-5.1)
[2024-06-22 09:41] LABS: CALCIUM 8.6 mg/dL (8.5-10.1)
[2024-06-22 09:42] LABS: BLOOD UREA NITROGEN 29.4 mg/dL (7-18)
[2024-06-22 09:45] LABS: CREATININE 1.5 mg/dL (0.55-1.3)
[2024-06-22 21:42] VITALS: RESP 18
[2024-06-23 14:42] VITALS: BP 106/60; PULSE 78; TEMP 99.1
== END 2024-06-23 17:46 | DRG 291 ==
LOC: JER 23:02 → JERBED 06-17 06:56 → J6S 06-17 21:00 → OBSVTOIN 06-21 11:52
PROVIDERS: ADMIT Internal Medicine; ATTEND Internal Medicine
DX: I13.0 Hypertensive heart and chronic kidney disease with heart failure and stage 1 through stage 4 chronic kidney disease, or unspecified chronic kidney disease (principal); I50.33 Acute on chronic diastolic (congestive) heart failure; J98.11 Atelectasis; J44.9 Chronic obstructive pulmonary disease, unspecified; E03.9 Hypothyroidism, unspecified; F03.90 Unspecified dementia, unspecified severity, without behavioral disturbance, psychotic disturbance, mood disturbance, and anxiety; N18.32 Chronic kidney disease, stage 3b; E11.22 Type 2 diabetes mellitus with diabetic chronic kidney disease; E87.5 Hyperkalemia; G40.909 Epilepsy, unspecified, not intractable, without status epilepticus
CPT/HCPCS: 0241U-QW; 36415; 71045-TC-FY; 80048; 80053; 82962; 83880; 84443; 84484; 85025; 85610; 85730; 93005; 93010; 93306-TC; 93970-TC; 94010; 94761; 97116-GP; 97162-GP; 99285-25; G0378; J1644

== ENCOUNTER 2024-10-04 14:28 | Inpatient (IN) | payer OTHER ==
[2024-10-04] MEDS ORDERED: ALBUTEROL SO4 2.5/IPRATROPIUM 0.5 INH SOL 3 ML VIAL.NEB. NEB ONE (16:10)
[2024-10-04] MEDS: ALBUTEROL SO4 2.5/IPRATROPIUM 0.5 INH SOL 3 ML VIAL.NEB. NEB SCH (16:13)
[2024-10-04 17:36] LABS: VENOUS BASE EXCESS -5.8 mmol/L (-2-2); VENOUS O2 SATURATION 39.2 % (70-80); VENOUS PH 7.235 (7.310-7.410)
[2024-10-04 17:38] LABS: HEMATOCRIT 38.1 % (34.1-44.9); HEMOGLOBIN 11.4 g/dL (11.2-15.7); MCHC 29.9 g/dl (32.2-35.5); MEAN CELL VOLUME 91.1 fl (79.4-94.8); MEAN PLT VOLUME 12.1 fl (9.4-12.3); PLATELET COUNT 322 x10^3/uL (182-369); RDW 15.7 % (12.4-16.4)
[2024-10-04 18:03] LABS: POTASSIUM 3.6 mmol/L (3.5-5.1)
[2024-10-04] MEDS ORDERED: ALBUTEROL SO4 0.083% IH SOL 2.5 MG/3 ML VIAL.NEB. NEB ONE (18:03)
[2024-10-04] MEDS ORDERED: methylPREDNISolone NA SUCC 125 MG/2 ML VIAL ONE (18:04)
[2024-10-04] MEDS ORDERED: AZITHROMYCIN IVPB 500 MG/250 ML BAG IVPB ONE (18:04)
[2024-10-04 18:05] LABS: BLOOD UREA NITROGEN 46.3 mg/dL (7-18); CALCIUM 9.3 mg/dL (8.5-10.1)
[2024-10-04 18:06] LABS: MAGNESIUM 2.2 mg/dL (1.8-2.4)
[2024-10-04 18:09] LABS: CREATININE 1.9 mg/dL (0.55-1.3)
[2024-10-04 18:10] LABS: BILIRUBIN,TOTAL 0.3 mg/dL (0.2-1); TOT PROT 7.9 g/dl (6.4-8.2)
[2024-10-04 18:12] LABS: INR 1.09 (0.83-1.09); PROTHROMBIN TIME (PATIENT) 11.9 SEC (9.7-13.0)
[2024-10-04 18:14] LABS: N-TERMINAL BNP 22.6 pg/ml (5-125)
[2024-10-04 18:15] LABS: ACTIVATED PTT 32.4 SECONDS (25.2-36.5)
[2024-10-04] MEDS: ALBUTEROL SO4 0.083% IH SOL 2.5 MG/3 ML VIAL.NEB. NEB ONE (18:27)
[2024-10-04] MEDS: methylPREDNISolone NA SUCC 125 MG/2 ML VIAL IVPUSH ONE (18:27)
[2024-10-04] MEDS: ALBUTEROL SULFATE 0.021% (0.63 MG/3 ML) VIAL.NEB NEB ONE (18:28)
[2024-10-04] MEDS: AZITHROMYCIN IVPB 500 MG in DEXTROSE 5%-WATER - 250 ML IVPB ONE (19:52)
[2024-10-04] MEDS ORDERED: PIPERACILLIN/TAZOB 4.5 GM 4.5 GM/100 ML BAG IVPB ONE (20:57)
[2024-10-04] MEDS: PIPERACILLIN/TAZOB 4.5 GM 4.5 GM in DEXTROSE 5%-WATER 100 ML IVPB ONE (21:09)
[2024-10-04] MEDS ORDERED: VANCOMYCIN/WATER 1250 MG 1,250 MG/250 ML BAG IVPB ONE (22:18)
[2024-10-04] MEDS: VANCOMYCIN/WATER 1250 MG 1,250 MG/250 ML BAG IVPB ONE (22:26)
[2024-10-05 00:14] VITALS: BMI 36.3
[2024-10-05] MEDS: methylPREDNISolone NA SUCC 40 MG/1 ML VIAL IVPUSH SCH (01:02)
[2024-10-05] MEDS ORDERED: ALBUTEROL SO4 2.5/IPRATROPIUM 0.5 INH SOL 3 ML VIAL.NEB. NEB PRN (02:38)
[2024-10-05] MEDS ORDERED: PIPERACILLIN/TAZOB 2.25 GM 2.25 GM in DEXTROSE 5%-WATER - 50 ML IVPB SCH (03:00)
[2024-10-05] MEDS: PIPERACILLIN/TAZOB 2.25 GM 2.25 GM in DEXTROSE 5%-WATER - 50 ML IVPB SCH (03:50)
[2024-10-05] MEDS: INSULIN ASPART SLIDING SCALE (NOVOLOG) 1 VIAL SQ SCH (06:12)
[2024-10-05 06:55] LABS: BASOPHILS # 0.03 x10^3/uL (0.01-0.08); EOSINOPHIL % 0.1 % (0.7-5.8); EOSINOPHILS # 0.01 x10^3/uL (0.04-0.36); HEMATOCRIT 35.5 % (34.1-44.9); HEMOGLOBIN 10.8 g/dL (11.2-15.7); MCHC 30.4 g/dl (32.2-35.5); MEAN CELL VOLUME 89.2 fl (79.4-94.8); MEAN PLT VOLUME 11.8 fl (9.4-12.3); MONOCYTE # 0.27 x10^3/uL (0.24-0.86); MONOCYTE % 1.7 % (4.7-12.5); PLATELET COUNT 318 x10^3/uL (182-369); RDW 15.4 % (12.4-16.4)
[2024-10-05 07:22] LABS: POTASSIUM 4.6 mmol/L (3.5-5.1)
[2024-10-05 07:31] LABS: BLOOD UREA NITROGEN 44.5 mg/dL (7-18); CALCIUM 8.7 mg/dL (8.5-10.1)
[2024-10-05 07:32] LABS: ALBUMIN 3.6 g/dl (3.4-5.0)
[2024-10-05 07:35] LABS: BILIRUBIN,TOTAL 0.5 mg/dL (0.2-1); TOT PROT 7.7 g/dl (6.4-8.2)
[2024-10-05 09:20] LABS: URINE APPEARANCE CLEAR; URINE BILIRUBIN NEGATIVE (NEGATIVE); URINE COLOR YELLOW; URINE GLUCOSE (UA) 3+ (NEGATIVE); URINE KETONE NEGATIVE (NEGATIVE); URINE LEUK ESTERASE NEGATIVE (NEGATIVE); URINE NITRITE NEGATIVE (NEGATIVE); URINE PROTEIN NEGATIVE (NEGATIVE); URINE UROBILINOGEN 0.2 mg/dL (0.2-1.0)
[2024-10-05] MEDS: FUROSEMIDE 40 MG TABLET (FP) PO SCH (09:28)
[2024-10-05] MEDS: ARIPiprazole 15 MG TABLET PO SCH (09:28)
[2024-10-05] MEDS: levETIRAcetam 500 MG TABLET (FP) PO SCH (09:28)
[2024-10-05] MEDS: ESCITALOPRAM OXALATE 10 MG TABLET PO SCH (09:28)
[2024-10-05] MEDS: CLOPIDOGREL BISULFATE 75 MG TABLET (FP) PO SCH (09:28)
[2024-10-05] MEDS: AZITHROMYCIN IVPB 500 MG/250 ML BAG IVPB SCH (10:40)
[2024-10-05] MEDS: FLUTICASONE/UMECLIDIN/VILANTER(100-62.5-25 TRELEGY ELLIPTA) INAHLER IH SCH (12:45)
[2024-10-05] MEDS: DONEPEZIL HCL 10 MG TABLET (FP) PO SCH (21:16)
[2024-10-05] MEDS: ATORVASTATIN CA 40 MG TABLET (FP) PO SCH (21:16)
[2024-10-05] MEDS: INSULIN GLARGINE (LANTUS) 100 UNITS/ML UNITS SQ SCH (21:17)
[2024-10-05] MEDS ORDERED: VANCOMYCIN/WATER FOR INJ (PEG) 1,000 MG/200 ML BAG IVPB SCH (22:30)
[2024-10-05] MEDS ORDERED: VANCOMYCIN 1,000 MG in DEXTROSE 5%-WATER - 250 ML IVPB SCH (22:30)
[2024-10-06 09:39] LABS: HEMATOCRIT 36.6 % (34.1-44.9); HEMOGLOBIN 11.1 g/dL (11.2-15.7); MCHC 30.3 g/dl (32.2-35.5); MEAN CELL VOLUME 90.1 fl (79.4-94.8); MEAN PLT VOLUME 12.7 fl (9.4-12.3); PLATELET COUNT 337 x10^3/uL (182-369); RDW 15.4 % (12.4-16.4)
[2024-10-06] MEDS ORDERED: LEVOTHYROXINE NA 50 MCG TABLET (FP) PO SCH (10:00)
[2024-10-06] MEDS ORDERED: FINERENONE 20 MG PO SCH (10:00)
[2024-10-06 10:19] LABS: MONOCYTE # 0.23 x10^3/uL (0.24-0.86); POTASSIUM 4.7 mmol/L (3.5-5.1)
[2024-10-06 10:24] LABS: ALBUMIN 3.4 g/dl (3.4-5.0); BLOOD UREA NITROGEN 36.9 mg/dL (7-18)
[2024-10-06 10:25] LABS: CALCIUM 9.1 mg/dL (8.5-10.1)
[2024-10-06 10:26] LABS: BILIRUBIN,TOTAL 0.2 mg/dL (0.2-1)
[2024-10-06 10:27] LABS: CREATININE 1.9 mg/dL (0.55-1.3); TOT PROT 7.5 g/dl (6.4-8.2)
[2024-10-06] MEDS: INSULIN GLARGINE (LANTUS) 100 UNITS/ML UNITS SQ SCH (22:26)
[2024-10-07 06:59] LABS: ABSOLUTE IMMATURE GRANULOCYTES 0.34 x10^3/uL (0.0-0.031); BASOPHILS # 0.03 x10^3/uL (0.01-0.08); HEMATOCRIT 35.8 % (34.1-44.9); HEMOGLOBIN 11.1 g/dL (11.2-15.7); MEAN CELL VOLUME 88.2 fl (79.4-94.8); MEAN PLT VOLUME 12.3 fl (9.4-12.3); MONOCYTE # 0.84 x10^3/uL (0.24-0.86); MONOCYTE % 4.8 % (4.7-12.5); PLATELET COUNT 323 x10^3/uL (182-369); RDW 15.2 % (12.4-16.4)
[2024-10-07 07:18] LABS: POTASSIUM 4.3 mmol/L (3.5-5.1)
[2024-10-07 07:20] LABS: BLOOD UREA NITROGEN 34.4 mg/dL (7-18); CALCIUM 8.7 mg/dL (8.5-10.1)
[2024-10-07 07:21] LABS: ALBUMIN 3.2 g/dl (3.4-5.0)
[2024-10-07 07:24] LABS: CREATININE 1.7 mg/dL (0.55-1.3)
[2024-10-07 07:25] LABS: BILIRUBIN,TOTAL 0.2 mg/dL (0.2-1)
[2024-10-07] MEDS: INSULIN (NOVOLOG) ASPART 100 UNITS/ML 10ML VIAL SQ ONE (11:52)
[2024-10-07] MEDS: methylPREDNISolone NA SUCC 40 MG/1 ML VIAL IVPUSH SCH (21:30)
[2024-10-07] MEDS: INSULIN GLARGINE (LANTUS) 100 UNITS/ML UNITS SQ SCH (21:32)
[2024-10-08 07:00] LABS: ABSOLUTE IMMATURE GRANULOCYTES 0.37 x10^3/uL (0.0-0.031); BASOPHILS # 0.02 x10^3/uL (0.01-0.08); HEMATOCRIT 37.7 % (34.1-44.9); HEMOGLOBIN 11.5 g/dL (11.2-15.7); MCHC 30.5 g/dl (32.2-35.5); MEAN CELL VOLUME 88.3 fl (79.4-94.8); MEAN PLT VOLUME 12.5 fl (9.4-12.3); MONOCYTE # 1.07 x10^3/uL (0.24-0.86); MONOCYTE % 6.3 % (4.7-12.5); PLATELET COUNT 328 x10^3/uL (182-369); RDW 15.2 % (12.4-16.4)
[2024-10-08 07:21] LABS: POTASSIUM 4.4 mmol/L (3.5-5.1)
[2024-10-08 07:34] LABS: CALCIUM 8.9 mg/dL (8.5-10.1)
[2024-10-08 07:35] LABS: ALBUMIN 3.2 g/dl (3.4-5.0); BLOOD UREA NITROGEN 30.9 mg/dL (7-18)
[2024-10-08 07:38] LABS: CREATININE 1.4 mg/dL (0.55-1.3)
[2024-10-08 07:39] LABS: BILIRUBIN,TOTAL 0.3 mg/dL (0.2-1)
[2024-10-09 06:54] LABS: BASOPHILS # 0.04 x10^3/uL (0.01-0.08); EOSINOPHIL % 0.1 % (0.7-5.8); EOSINOPHILS # 0.01 x10^3/uL (0.04-0.36); HEMATOCRIT 36.6 % (34.1-44.9); HEMOGLOBIN 11.4 g/dL (11.2-15.7); MCHC 31.1 g/dl (32.2-35.5); MEAN CELL VOLUME 87.6 fl (79.4-94.8); MONOCYTE # 1.85 x10^3/uL (0.24-0.86); MONOCYTE % 10.5 % (4.7-12.5); PLATELET COUNT 320 x10^3/uL (182-369); RDW 15.3 % (12.4-16.4)
[2024-10-09 07:15] LABS: POTASSIUM 3.9 mmol/L (3.5-5.1)
[2024-10-09 07:23] LABS: CALCIUM 8.7 mg/dL (8.5-10.1)
[2024-10-09 07:26] LABS: CREATININE 1.5 mg/dL (0.55-1.3)
[2024-10-09 07:28] LABS: BILIRUBIN,TOTAL 0.3 mg/dL (0.2-1); TOT PROT 6.5 g/dl (6.4-8.2)
[2024-10-09] MEDS: methylPREDNISolone NA SUCC 40 MG/1 ML VIAL IVPUSH SCH (09:41)
[2024-10-10 07:57] LABS: HEMOGLOBIN 11.5 g/dL (11.2-15.7); MCHC 30.3 g/dl (32.2-35.5); MEAN PLT VOLUME 12.1 fl (9.4-12.3); PLATELET COUNT 293 x10^3/uL (182-369)
[2024-10-10 08:14] LABS: POTASSIUM 3.9 mmol/L (3.5-5.1)
[2024-10-10 08:34] LABS: BLOOD UREA NITROGEN 30.3 mg/dL (7-18); CALCIUM 8.6 mg/dL (8.5-10.1)
[2024-10-10 08:37] LABS: CREATININE 1.3 mg/dL (0.55-1.3)
[2024-10-10 08:39] LABS: BILIRUBIN,TOTAL 0.3 mg/dL (0.2-1); TOT PROT 6.5 g/dl (6.4-8.2)
[2024-10-11 07:07] LABS: POTASSIUM 3.9 mmol/L (3.5-5.1)
[2024-10-11 07:11] LABS: CALCIUM 9.1 mg/dL (8.5-10.1)
[2024-10-11 07:12] LABS: ALBUMIN 2.9 g/dl (3.4-5.0); BLOOD UREA NITROGEN 37.5 mg/dL (7-18)
[2024-10-11 07:15] LABS: CREATININE 1.4 mg/dL (0.55-1.3)
[2024-10-11 07:16] LABS: BILIRUBIN,TOTAL 0.4 mg/dL (0.2-1)
[2024-10-11 07:17] LABS: TOT PROT 6.3 g/dl (6.4-8.2)
[2024-10-11 08:00] LABS: HEMATOCRIT 36.1 % (34.1-44.9); HEMOGLOBIN 10.9 g/dL (11.2-15.7); MCHC 30.2 g/dl (32.2-35.5); MEAN CELL VOLUME 89.4 fl (79.4-94.8); MEAN PLT VOLUME 12.3 fl (9.4-12.3); PLATELET COUNT 286 x10^3/uL (182-369); RDW 15.3 % (12.4-16.4)
[2024-10-12 18:34] VITALS: PULSE 75; RESP 17
[2024-10-12 19:55] VITALS: BP 125/72; TEMP 98.3
== END 2024-10-12 20:01 | disposition home or self-care (01) | DRG 871 ==
LOC: JER 14:28 → JERBED 19:39 → J4S 22:37
PROVIDERS: ADMIT Internal Medicine; ATTEND Internal Medicine
DX: A41.9 Sepsis, unspecified organism (principal); J18.9 Pneumonia, unspecified organism; J96.01 Acute respiratory failure with hypoxia; J44.1 Chronic obstructive pulmonary disease with (acute) exacerbation; I13.0 Hypertensive heart and chronic kidney disease with heart failure and stage 1 through stage 4 chronic kidney disease, or unspecified chronic kidney disease; J21.9 Acute bronchiolitis, unspecified; J44.0 Chronic obstructive pulmonary disease with (acute) lower respiratory infection; J98.11 Atelectasis; E03.9 Hypothyroidism, unspecified; F03.90 Unspecified dementia, unspecified severity, without behavioral disturbance, psychotic disturbance, mood disturbance, and anxiety; E11.22 Type 2 diabetes mellitus with diabetic chronic kidney disease; F32.9 Major depressive disorder, single episode, unspecified; R07.9 Chest pain, unspecified; E66.9 Obesity, unspecified; R91.8 Other nonspecific abnormal finding of lung field; N18.32 Chronic kidney disease, stage 3b; I50.9 Heart failure, unspecified
CPT/HCPCS: 0241U-QW; 36415; 71045-TC-FY; 71250-TC; 80053; 80061; 80177; 81003; 82803; 82962; 83036; 83605; 83690; 83735; 83880; 84439; 84443; 84484; 85025; 85610; 85730; 87040; 87086; 87899; 93005; 93010; 93306-TC; 97116-GP; 97161-GP; 99285-25

== ENCOUNTER 2025-01-02 16:13 | Inpatient (IN) | payer OTHER ==
[2025-01-02 18:36] LABS: ABSOLUTE IMMATURE GRANULOCYTES 0.09 x10^3/uL (0.0-0.031); BASOPHILS # 0.06 x10^3/uL (0.01-0.08); EOSINOPHILS # 0.13 x10^3/uL (0.04-0.36); HEMOGLOBIN 10.6 g/dL (11.2-15.7); MCHC 32.1 g/dl (32.2-35.5); MEAN CELL VOLUME 86.6 fl (79.4-94.8); MEAN PLT VOLUME 11.6 fl (9.4-12.3); MONOCYTE # 1.66 x10^3/uL (0.24-0.86); MONOCYTE % 12.4 % (4.7-12.5); PLATELET COUNT 264 x10^3/uL (182-369); RDW 14.5 % (12.4-16.4)
[2025-01-02 18:52] LABS: POTASSIUM 4.7 mmol/L (3.5-5.1)
[2025-01-02 18:55] LABS: CALCIUM 9.9 mg/dL (8.5-10.1)
[2025-01-02 18:56] LABS: ALBUMIN 3.8 g/dl (3.4-5.0); BLOOD UREA NITROGEN 38.1 mg/dL (7-18)
[2025-01-02 18:59] LABS: CREATININE 2.4 mg/dL (0.55-1.3)
[2025-01-02 19:00] LABS: BILIRUBIN,TOTAL 0.5 mg/dL (0.2-1); TOT PROT 7.2 g/dl (6.4-8.2)
[2025-01-02] MEDS: SODIUM CHLORIDE 0.9% 500 ML INFUS.BAG IV ONE (19:25)
[2025-01-03 03:15] LABS: POTASSIUM 4.2 mmol/L (3.5-5.1)
[2025-01-03 03:16] LABS: CALCIUM 8.9 mg/dL (8.5-10.1)
[2025-01-03 03:20] LABS: CREATININE 2.1 mg/dL (0.55-1.3)
[2025-01-03 07:41] LABS: POTASSIUM 4.5 mmol/L (3.5-5.1)
[2025-01-03 07:43] LABS: ABSOLUTE IMMATURE GRANULOCYTES 0.08 x10^3/uL (0.0-0.031); BASOPHILS # 0.07 x10^3/uL (0.01-0.08); EOSINOPHILS # 0.24 x10^3/uL (0.04-0.36); HEMATOCRIT 33.7 % (34.1-44.9); HEMOGLOBIN 10.6 g/dL (11.2-15.7); MCHC 31.5 g/dl (32.2-35.5); MEAN CELL VOLUME 87.3 fl (79.4-94.8); MEAN PLT VOLUME 12.3 fl (9.4-12.3); MONOCYTE # 1.57 x10^3/uL (0.24-0.86); PLATELET COUNT 273 x10^3/uL (182-369); RDW 14.5 % (12.4-16.4)
[2025-01-03 07:45] LABS: CALCIUM 9.4 mg/dL (8.5-10.1)
[2025-01-03 07:46] LABS: BLOOD UREA NITROGEN 39.7 mg/dL (7-18); MAGNESIUM 2.1 mg/dL (1.8-2.4)
[2025-01-03 08:05] LABS: INR 1.05 (0.83-1.09); PROTHROMBIN TIME (PATIENT) 11.4 SEC (9.7-13.0)
[2025-01-03 08:08] LABS: ACTIVATED PTT 28.5 SECONDS (25.2-36.5)
[2025-01-03 08:36] LABS: CREATININE 2.2 mg/dL (0.55-1.3)
[2025-01-03] MEDS: ESCITALOPRAM OXALATE 10 MG TABLET PO SCH (09:36)
[2025-01-03] MEDS: CLOPIDOGREL BISULFATE 75 MG TABLET (FP) PO SCH (09:36)
[2025-01-03] MEDS: DONEPEZIL HCL 10 MG TABLET (FP) PO SCH (09:36)
[2025-01-03] MEDS: levETIRAcetam 500 MG TABLET (FP) PO SCH (09:37)
[2025-01-03] MEDS: LISINOPRIL 5 MG TABLET PO SCH (09:37)
[2025-01-03 10:36] VITALS: BMI 33.0
[2025-01-03] MEDS: FLUTICASONE/UMECLIDIN/VILANTER(100-62.5-25 TRELEGY ELLIPTA) INAHLER IH SCH (10:42)
[2025-01-03] MEDS: EMPAGLIFLOZIN (JARDIANCE) 10 MG TABLET PO SCH (10:42)
[2025-01-03] MEDS: ALBUTEROL SO4 2.5/IPRATROPIUM 0.5 INH SOL 3 ML VIAL.NEB. NEB SCH (11:18)
[2025-01-03] MEDS: guaiFENesin 200 MG/10 ML 10 ML UNIT-DOSE CUPS PO ONE (12:01)
[2025-01-03] MEDS: SODIUM CHLORIDE 1,000 ML IV SCH (15:02)
[2025-01-03] MEDS: ROSUVASTATIN CA 20 MG TABLET PO SCH (21:25)
[2025-01-03] MEDS ORDERED: ATORVASTATIN CA 40 MG TABLET (FP) PO SCH (22:00)
[2025-01-04 07:51] LABS: ABSOLUTE IMMATURE GRANULOCYTES 0.06 x10^3/uL (0.0-0.031); BASOPHILS # 0.05 x10^3/uL (0.01-0.08); EOSINOPHIL % 1.6 % (0.7-5.8); EOSINOPHILS # 0.17 x10^3/uL (0.04-0.36); HEMATOCRIT 32.1 % (34.1-44.9); HEMOGLOBIN 10.3 g/dL (11.2-15.7); MCHC 32.1 g/dl (32.2-35.5); MEAN CELL VOLUME 87.7 fl (79.4-94.8); MEAN PLT VOLUME 11.9 fl (9.4-12.3); MONOCYTE # 1.44 x10^3/uL (0.24-0.86); MONOCYTE % 13.6 % (4.7-12.5); PLATELET COUNT 271 x10^3/uL (182-369); RDW 14.5 % (12.4-16.4)
[2025-01-04 08:11] LABS: POTASSIUM 4.7 mmol/L (3.5-5.1)
[2025-01-04 08:18] LABS: CALCIUM 9.8 mg/dL (8.5-10.1)
[2025-01-04 08:19] LABS: ALBUMIN 3.6 g/dl (3.4-5.0); CREATININE 1.9 mg/dL (0.55-1.3)
[2025-01-04 08:21] LABS: BILIRUBIN,TOTAL 0.4 mg/dL (0.2-1); TOT PROT 6.7 g/dl (6.4-8.2)
[2025-01-04 08:23] LABS: BLOOD UREA NITROGEN 37.5 mg/dL (7-18)
[2025-01-04] MEDS: SODIUM CHLORIDE 250 ML IV STA (14:00)
[2025-01-05] MEDS: EMPAGLIFLOZIN (JARDIANCE) 10 MG TABLET PO SCH (07:00)
[2025-01-05 09:03] LABS: POTASSIUM 5.3 mmol/L (3.5-5.1)
[2025-01-05 09:23] LABS: ALBUMIN 3.7 g/dl (3.4-5.0)
[2025-01-05 09:26] LABS: CREATININE 1.7 mg/dL (0.55-1.3)
[2025-01-05 09:27] LABS: BILIRUBIN,TOTAL 0.5 mg/dL (0.2-1)
[2025-01-05 10:05] VITALS: BP 106/61; PULSE 75; RESP 18; TEMP 97.9
== END 2025-01-05 13:48 | DRG 641 ==
LOC: JER 16:13 → JERBED 17:21 → J4S 23:28
PROVIDERS: ADMIT Internal Medicine; ATTEND Internal Medicine
DX: E87.1 Hypo-osmolality and hyponatremia (principal); I13.0 Hypertensive heart and chronic kidney disease with heart failure and stage 1 through stage 4 chronic kidney disease, or unspecified chronic kidney disease; E03.9 Hypothyroidism, unspecified; E78.5 Hyperlipidemia, unspecified; F03.90 Unspecified dementia, unspecified severity, without behavioral disturbance, psychotic disturbance, mood disturbance, and anxiety; F10.10 Alcohol abuse, uncomplicated; R13.10 Dysphagia, unspecified; E11.9 Type 2 diabetes mellitus without complications; E87.8 Other disorders of electrolyte and fluid balance, not elsewhere classified; E11.22 Type 2 diabetes mellitus with diabetic chronic kidney disease; N18.9 Chronic kidney disease, unspecified; I50.9 Heart failure, unspecified; Z91.199 Patient's noncompliance with other medical treatment and regimen due to unspecified reason
CPT/HCPCS: 0241U-QW; 36415; 70450-TC; 71045-TC-FY; 80048; 80053; 82962; 83735; 84100; 84439; 84443; 85025; 85610; 85730; 87651; 93005; 93010; 94640; 97116-GP; 97161-GP; 99285-25